=== PATIENT | male | born 1955 | race African-American/Black ===

== ENCOUNTER 2019-06-14 16:32 | Outpatient (CLI) | payer MEDICARE, SELFPAY ==
--- NOTE | ~2019-06-14 | XR_ITS ---
XR knee LT min 4V 06/14/2019 17:01 Indication: Left knee pain Procedure: 4 views left knee Comparison: No prior studies for comparison. Findings: No fracture, subluxation or dislocation. No significant joint effusion. Normal alignment. Impression: 1: No acute bone or joint abnormality. Reviewed, dictated and finalized at location A. UCTIVITY ENGINEER Impression: 1: No acute bone or joint abnormality.
--- NOTE | ~2019-06-14 | XR_ITS ---
XR hip BI wo pelvis 06/14/2019 17:01 Indication: Bilateral hip pain Procedure: 2 views of each hip Comparison: No prior studies for comparison. Findings: Mild symmetric osteoarthritis of the hips. No fracture, subluxation or dislocation. Pelvic rings are grossly intact. No focal soft tissue abnormality. No foreign bodies. Impression: 1: Mild bilateral symmetric osteoarthritis of the hips. Reviewed, dictated and finalized at location A. SCALER Impression: 1: Mild bilateral symmetric osteoarthritis of the hips.
--- NOTE | ~2019-06-14 | XR_ITS ---
XR knee RT min 4V 06/14/2019 17:01 Indication: Bilateral knee pain Procedure: 4 views right knee Comparison: No prior studies for comparison. Findings: No fracture, subluxation or dislocation. No significant joint effusion. No joint space narr owing. Anatomic alignment. Impression: 1: No significant bone or joint abnormality. Reviewed, dictated and finalized at location A. EL JOURNALIST Impression: 1: No significant bone or joint abnormality.
== END 2019-06-14 16:33 | disposition home or self-care (01) ==
PROVIDERS: Visit Provider Nurse Practitioner Adult Health
DX: M25.551 Pain in right hip (principal); M25.552 Pain in left hip; M16.0 Bilateral primary osteoarthritis of hip
CPT/HCPCS: 73521; 73564

== ENCOUNTER 2019-06-29 02:21 | Inpatient (IN) | payer MEDICARE, SELFPAY ==
[2019-06-29] VITALS (7 sets, daily range): BP systolic 105–131; BP diastolic 62–84; PULSE 62–77; RESP 16–20; TEMP 36.1–37.2; O2SAT 98–100; BMI 20.6
--- NOTE | ~2019-06-29 | MR_ITS ---
EXAMINATION: MR brain IAC wo con DATE: 06/30/2019 17:19 INDICATION: Vertigo. TECHNIQUE: Magnetic resonance imaging (MRI) of the brain, brainstem, and internal auditory canals was performed without intravenous contrast. Sequences included sagittal and axial T1-weighted FSE, axial diffusion-weighted FS EPI, axial T2*-weighted GRE, axial T2-weighted FLAIR Propeller, axial T2-weigh orly Propeller, small [id number] coronal FIESTA, small cmwse-[id number] coronal T1-weighted FSE, and s mall [id number] axial T1-weighted SPGR. Apparent diffusion coefficient (ADC) maps were created. COMPARISON: Head CT 06/27/2008 FINDINGS: There are scattered areas of nonspecific increased T2-weighted signal intensity in the cere bral white matter, which is within normal limits for the patient's age. There is no intracranial hemo rrhage, acute infarction, or abnormal intracranial mass lesion. The ventricles are normal in size. Th e paranasal sinuses are clear. The internal auditory canals and inner and middle ears are normal. The mastoid air cells are normal. The orbits are normal. IMPRESSION: 1. Normal aging brain. Reviewed, dictated and finalized at location A. IT ADVISOR IMPRESSION: 1. Normal aging brain.
--- NOTE | 2019-06-29 04:09 | ECG_ITS ---
Measurements Intervals [place] Rate: 67 P: 60 ME: 190 QRS: 6 QRSD: 105 T: 44 QT: 398 QTc: 421 Interpretive Statements SINUS RHYTHM VOLTAGE CRITERIA FOR LVH MINIMAL Q WAVES- LATERAL LEADS BORDERLINE ECG Electronically Signed On 06-29-2019 8:22:54 FARM REPORTER by Franklin Bajwa D.O.
--- NOTE | 2019-06-29 04:22 | ED.GENADULT ---
HPI - General Adult General Chief complaint: Unspecified Stated complaint: weak Time Seen by Provider: 06/29/19 04:07 Source: patient Mode of arrival: ambulatory Limitations: no limitations History of Present Illness HPI narrative: 63 yo male with h/o sickle cell anemia, DM, DVT on Eliquis, HTN who presents for evaluation of dizziness and fatigue. Patient states since last he has been having dizziness or room spinning and he has close his eyes. He denies nausea, vomiting, fever or URI symptoms. HE states he feels fatigue and he was having difficulty walking due to fatigue. He thinks he may need a transfusion . He denies blood loss. Onset (ago): day(s) Related Data Home Medications Medication Instructions Recorded Confirmed Eliquis 5 mg PO BID 06/02/19 06/29/19 Tresiba FlexTouch U-200 10 unit SUBCUT DAILY 06/02/19 06/29/19 diphenhydramine HCl [Benadryl] 25 mg PO Q4H PRN 06/02/19 06/29/19 folic acid 1 mg PO DAILY 06/02/19 06/29/19 metformin 500 mg PO BID 06/02/19 06/29/19 atenolol 25 mg PO BID 06/29/19 06/29/19 furosemide 20 mg PO DAILY 06/29/19 06/29/19 hydralazine 25 mg PO BID 06/29/19 06/29/19 hydrochlorothiazide 25 mg PO DAILY 06/29/19 06/29/19 lisinopril 10 mg PO DAILY 06/29/19 06/29/19 meloxicam 7.5 mg PO DAILY 06/29/19 06/29/19 Allergies Allergy/AdvReac Type Severity Reaction Status Date / Time iohexol Allergy Severe Unconscious Verified 06/08/19 08:49 [From CONTRAST - CT, XRAY] Contrast Media Allergy Severe PASSED Uncoded 06/08/19 08:49 OUT Review of Systems Review of Systems: All systems reviewed & are unremarkable except as noted in HPI and below Constitutional: Constitutional: Denies chills, Denies fever(s) and Reports weakness Eyes: Eyes: Denies change in vision and Denies photophobia ENT: Reports vertigo Cardiovascular: Cardiovascular: Denies chest pain and Denies radiating jaw, neck or arm pain Respiratory: Respiratory: Denies cough and Denies dyspnea Gastrointestinal: Gastrointestinal: Denies abdominal pain, Denies nausea and Denies vomiting Musculoskeletal: Musculoskeletal: Reports back pain (chronic pain) Endocrine: Endocrine: Reports fatigue Hematologic/Lymphatic: Hematologic/Lymphatic: Reports easy bleeding PMFSH Past Medical History Medical History (Updated 06/29/19 @ 08:31 by Ina Mcneli MD) Anxiety Back fracture Cataract Depression Diabetes Diabetes DVT (deep venous thrombosis) FH: cholecystectomy Gall bladder disease Hypertension Irregular heartbeat Liver disease Pancreatitis Pneumonia Port-A-Cath in place Pulmonary embolism Surgical History Surgical History (System 06/08/19 @ 08:49 by Tracee Perez) Hx of cholecystectomy Family History Family History (Updated 06/29/19 @ 08:20 by Shraddha Venegas RN) Father Acute myocardial infarction Sibling Diabetes mellitus Sibling Hypertension Other Congestive heart failure Social History Social History (System 06/08/19 @ 08:49 by Tracee Perez) Smoking status: Never smoker Second hand tobacco smoke exposure: Yes Alcohol intake: never Substance use: never Gender identity (if verbalized by the patient): Male Spiritual care concerns: No Agree to blood products: Yes Exam Narrative: Exam Narrative: GENERAL: and in no acute distress. HEAD: Normocephalic, atraumatic EYES: PERRLA and EOMI, conjunctiva clear without discharge EARS: TM's clear bilaterally without erythema or dullness NOSE: Nares clear, no rhinorrhea or epistaxis THROAT:Mucous membranes moist, Oropharynx normal without erythema, exudate, peritonsillar swelling or fluctuance NECK: Supple, without lymphadenopathy or mass RESPIRATORY: No respiratory distress, Airway patent, Respirations non-labored, Clear to auscultation without rales, rhonchi or wheeze HEART: Regular rate and rhythm. No murmur heard. Normal peripheral pulses. ABDOMEN: Soft, nontender, distended
[2019-06-29 05:35] LABS: Basophils Absolute Auto 0.1 K/mm3 (0.0-0.1); Basophils Percent Auto 0.5 % (0.2-1.2); Eosinophils Absolute Auto 0.3 K/mm3 (0-0.3); Eosinophils Percent Auto 2.4 % (0-4.4); Hematocrit 23.8 % (42.0-52.0); Hemoglobin 7.6 g/dL (14.0-18.0); Immature Granulocyte Absolute 0.03 K/mm3 (0.00-0.031); Immature Granulocyte Percent A 0.3 % (0-0.5); Immature Reticulocyte Fraction 3.7 % (3.0-15.9); Lymphocytes Absolute Auto 3.21 K/mm3 (0.9-3.2); Lymphocytes Percent Auto 27.8 % (18.3-44.2); Mean Corpuscular HGB Conc 31.9 g/dl (32-36); Mean Corpuscular Hemoglobin 29.6 pg (26-34); Mean Corpuscular Volume 92.6 fl (80-100); Mean Platelet Volume 12.9 fl (7.4-10.4); Monocytes Absolute Auto 0.8 K/mm3 (0.1-0.6); Monocytes Percent Auto 6.9 % (2.6-8.5); Neutrophils Absolute Auto 7.2 K/mm3 (1.3-6.7); Neutrophils Percent Auto 62.1 % (45.5-73.1); Platelet Count Result 183 k/mm3 (150-375); Red Blood Count 2.57 M/mm3 (4.6-6.20); Red Cell Distribution Width 17.2 % (11.5-14.5); Reticulocyte Hemoglobin Conten 32.8 pg (28.2-35.7); Reticulocytes Absolute 0.02 B/L (32.2-175.7); White Blood Count 11.5 K/mm3 (4.5-10.0)
[2019-06-29 05:38] LABS: Add Urine Microscopic? NO; Appearance Urine Clear (Clear); Bilirubin Urine Negative (Negative); Blood Urine Negative (Negative); Color Urine Yellow (Yellow); Glucose Urine UA Negative (Negative); Ketones Urine Negative (Negative); Leukocyte Esterase Ur Negative LEU/UL (Negative); Nitrate Urine Negative (Negative); Protein Urine Negative (Negative); Specific Grav Ur 1.013 (1.001-1.035); Urobilinogen Urine Negative mg/dL (<2.0)
[2019-06-29 05:56] LABS: Alanine Aminotransferase 48 U/L (4-50); Albumin Level 4.4 g/dL (3.5-5.1); Alkaline Phosphatase 132 U/L (38-126); Aspartate Amino Transferase 60 U/L (17-59); Bilirubin,Total 2.5 mg/dL (0.2-1.3); Blood Urea Nitrogen 47 mg/dL (9-20); Calcium 9.8 mg/dL (8.4-10.2); Carbon Dioxide 25 mmol/L (22-30); Chloride 102 mmol/L (98-107); Estimated CRCL calculation 29 ml/min; Estimated Glomerular Filt Rate 39; Glucose 126 mg/dL (75-110); Potassium 4.9 mmol/L (3.4-5.0); Sodium 137 mmol/L (137-145)
[2019-06-29 06:03] LABS: Large Platelets Present; Platelet Estimate Adequate (Adequate)
[2019-06-29 06:04] LABS: Hypochromasia 1+ (NORMAL); Ovalocytes 1+ (NORMAL); Target Cells 1+ (NORMAL)
--- NOTE | 2019-06-29 07:30 | PC.NURSE ---
This patient, Jaden Gonzalez, was admitted to 2 Medical Room 240-. Patient/family oriented to hospital policies and general routines including ID bracelet, bed and alarms, visiting hours, pain management, procedures, bathroom and other care routines, personal items, smoking policy, room service/diet, and visiting hours. Valuables list has been completed. Information on how to activate the Rapid Response Team has been discussed. Patient/Family are encouraged to report perceived risks to care and to ask questions if they do not understand what they are told or what they should do.
[2019-06-29] MEDS: LACTATED RINGERS 1,000 ML 75 ML IV CONT ×2 (07:51→20:15)
[2019-06-29] MEDS: PANTOPRAZOLE SODIUM IV 40 MG VIAL IV PUSH (08:35)
--- NOTE | 2019-06-29 10:59 | PM.IMHP ---
H&P: HPI History of Present Illness Chief complaint: Acute renal failure Narrative: Date of visit 06/29. Jaden Gonzalez is a 63 year old hypertensive type 2 diabetic black male with history of sickle cell disease and DVT who presented to the emergency room with complaints of weakness and dizziness. He states he feels lightheaded yet states that things seem to spin with the room moving with no particular positioning and no associated headache, nausea, or tinnitus. His does discharge from the hospital here after a a crisis on 06/09/19 at which time he received 2 units of packed cells and hemoglobin was 9.1 at discharge. Denies any fever chills cough or respiratory symptoms Review of Systems Review of Systems: Narrative: Constitutional states his weight is steady in appetite good Eye no double vision or scotoma Mouth no pharyngitis laryngitis CV no history of palpitations or chest pain ABD soft nontender Extremities without edema distal pulses are 1+ Neuro alert pleasant cooperative no seizures or syncope Integument no skin breakdown rashes Neuro psych no inappropriate affect appears well compensated for his illness PMFSH Past Medical History Medical History (Updated 06/29/19 @ 11:07 by Bj Almazan MD) Anxiety Back fracture Cataract Depression Diabetes Diabetes DVT (deep venous thrombosis) FH: cholecystectomy Gall bladder disease Hypertension Irregular heartbeat Liver disease Pancreatitis Pneumonia Port-A-Cath in place Pulmonary embolism Surgical History Surgical History (System 06/08/19 @ 08:49 by Tracee Perez) Hx of cholecystectomy Family History Family History (Updated 06/29/19 @ 08:20 by Shraddha Venegas RN) Father Acute myocardial infarction Sibling Diabetes mellitus Sibling Hypertension Other Congestive heart failure Social History Social History (System 06/08/19 @ 08:49 by Tracee Perez) Smoking status: Never smoker Second hand tobacco smoke exposure: Yes Alcohol intake: never Substance use: never Gender identity (if verbalized by the patient): Male Spiritual care concerns: No Agree to blood products: Yes Meds Home Medications and Allergies Home Medications Medication Instructions Recorded Confirmed Type Eliquis 5 mg PO BID 06/02/19 06/29/19 History Tresiba FlexTouch U-200 10 unit SUBCUT DAILY 06/02/19 06/29/19 History diphenhydramine HCl [Benadryl] 25 mg PO Q4H PRN 06/02/19 06/29/19 History folic acid 1 mg PO DAILY 06/02/19 06/29/19 History metformin 500 mg PO BID 06/02/19 06/29/19 History atenolol 25 mg PO BID 06/29/19 06/29/19 History furosemide 20 mg PO DAILY 06/29/19 06/29/19 History hydralazine 25 mg PO BID 06/29/19 06/29/19 History hydrochlorothiazide 25 mg PO DAILY 06/29/19 06/29/19 History lisinopril 10 mg PO DAILY 06/29/19 06/29/19 History meloxicam 7.5 mg PO DAILY 06/29/19 06/29/19 History Allergies Allergy/AdvReac Type Severity Reaction Status Date / Time iohexol Allergy Severe Unconscious Verified 06/08/19 08:49 [From CONTRAST - CT, XRAY] Contrast Media Allergy Severe PASSED Uncoded 06/08/19 08:49 OUT Vital Signs Vital Signs - 24 hr 06/29/19 02:30 06/29/19 07:28 06/29/19 07:58 Temperature 37.2 C 36.5 C Pulse Rate 62 72 66 Respiratory Rate 18 18 16 Blood Pressure 105/62 117/69 131/66 Pulse Oximetry 100 98 100 06/29/19 08:00 Temperature Pulse Rate 77 Respiratory Rate Blood Pressure 107/67 Pulse Oximetry Exam Narrative: Exam Narrative: Blood pressure 122/72 pulse is 72 saturating 95% on room air afebrile Pupils equal reactive light sclera anicteric Mouth normal mucosa Neck supple no adenopathy Lungs clear no wheezing consolidation CV regular rate rhythm very faint systolic murmur lower left sternal border Abdomen is soft nontender no masses Extremities without edema distal pulses are 1+ Neuro alert pleasant cooperative no focal deficits Integument no skin breakdown rashes With
[2019-06-29 11:28] LABS: Glucose Point of Care 127 (65-105)
[2019-06-29] MEDS: FOLIC ACID 1 MG TABLET PO (11:43)
[2019-06-29] MEDS: FUROSEMIDE 20 MG TABLET PO (11:43)
[2019-06-29] MEDS: lisinopriL 10 MG TABLET PO (11:43)
[2019-06-29] MEDS: HYDROMORPHONE HCL 2 MG TABLET PO (12:18)
[2019-06-29] MEDS: HYDROMORPHONE HCL 2 MG TABLET 4 MG PO ×2 (16:03→20:11)
[2019-06-29] MEDS: hydrALAZINE HCL 25 MG TABLET PO (17:33)
[2019-06-29] MEDS: APIXABAN 5 MG TABLET PO (17:33)
[2019-06-29] MEDS: atenoloL 25 MG TABLET PO (17:34)
[2019-06-29 18:01] LABS: Glucose Point of Care 155 (65-105)
[2019-06-29 18:01] LABS: Glucose Point of Care 118 (65-105)
[2019-06-30] MEDS: HYDROMORPHONE HCL 2 MG TABLET 4 MG PO ×4 (02:53→20:11)
[2019-06-30 05:37] LABS: Basophils Absolute Auto 0.1 K/mm3 (0.0-0.1); Basophils Percent Auto 0.5 % (0.2-1.2); Eosinophils Absolute Auto 0.3 K/mm3 (0-0.3); Eosinophils Percent Auto 2.6 % (0-4.4); Hematocrit 21.5 % (42.0-52.0); Immature Granulocyte Absolute 0.04 K/mm3 (0.00-0.031); Immature Granulocyte Percent A 0.4 % (0-0.5); Lymphocytes Absolute Auto 2.61 K/mm3 (0.9-3.2); Lymphocytes Percent Auto 23.9 % (18.3-44.2); Mean Corpuscular HGB Conc 32.1 g/dl (32-36); Mean Corpuscular Hemoglobin 29.5 pg (26-34); Mean Corpuscular Volume 91.9 fl (80-100); Monocytes Absolute Auto 0.8 K/mm3 (0.1-0.6); Monocytes Percent Auto 6.9 % (2.6-8.5); Neutrophils Absolute Auto 7.2 K/mm3 (1.3-6.7); Neutrophils Percent Auto 65.7 % (45.5-73.1); Platelet Count Result 160 k/mm3 (150-375); Red Blood Count 2.34 M/mm3 (4.6-6.20); Red Cell Distribution Width 16.9 % (11.5-14.5); White Blood Count 10.9 K/mm3 (4.5-10.0)
[2019-06-30 05:57] LABS: Blood Urea Nitrogen 26 mg/dL (9-20); Calcium 9.5 mg/dL (8.4-10.2); Carbon Dioxide 28 mmol/L (22-30); Chloride 99 mmol/L (98-107); Estimated CRCL calculation 42 ml/min; Estimated Glomerular Filt Rate > 60; Glucose 199 mg/dL (75-110); Lactate Dehydrogenase 634 U/L (313-618); Potassium 4.6 mmol/L (3.4-5.0); Sodium 137 mmol/L (137-145)
[2019-06-30 06:00] VITALS: BP 145/88; PULSE 70; RESP 21; TEMP 36.4; O2SAT 100
[2019-06-30 06:08] LABS: Hemoglobin 6.9 g/dL (14.0-18.0)
[2019-06-30 06:10] LABS: Hypochromasia 1+ (NORMAL); Ovalocytes 1+ (NORMAL)
[2019-06-30 06:11] LABS: Large Platelets Present; Platelet Estimate Adequate (Adequate)
[2019-06-30 08:52] VITALS: PULSE 70
[2019-06-30] MEDS: hydrALAZINE HCL 25 MG TABLET PO ×2 (08:52→17:30)
[2019-06-30] MEDS: atenoloL 25 MG TABLET PO ×2 (08:52→17:30)
[2019-06-30] MEDS: PANTOPRAZOLE SODIUM IV 40 MG VIAL IV PUSH (08:53)
[2019-06-30] MEDS: lisinopriL 10 MG TABLET PO (08:53)
[2019-06-30] MEDS: APIXABAN 5 MG TABLET PO ×2 (08:53→17:30)
[2019-06-30] MEDS: FUROSEMIDE 20 MG TABLET PO (08:53)
[2019-06-30] MEDS: FOLIC ACID 1 MG TABLET PO (08:53)
[2019-06-30] MEDS: ONDANSETRON INJ 4 MG/2 ML VIAL IV PUSH (09:41)
[2019-06-30] MEDS: LACTATED RINGERS 1,000 ML 75 ML IV CONT (09:45)
[2019-06-30 09:49] LABS: Glucose Point of Care 170 (65-105)
[2019-06-30 13:52] LABS: Glucose Point of Care 143 (65-105)
[2019-06-30 14:00] VITALS: BP 130/63; PULSE 72; RESP 18; TEMP 36.3; O2SAT 100
--- NOTE | 2019-06-30 16:03 | PM.IMPN ---
Progress Note: A&P Assessment and Plan (1) Dizzy: Code(s): R42 - Dizziness and giddiness Status: Acute Assessment and Plan: By history appears more vertiginous. He is more anemic whether that is contributing to it is possible. With persisting will proceed with MR of the brain B12 is normal as well as TSH (2) Hypertension: Code(s): I10 - Essential (primary) hypertension Status: Chronic Assessment and Plan: Pressure still could control continue the hydralazine low-dose beta-lalita and diuretic (3) Diabetes: Code(s): E11.9 - Type 2 diabetes mellitus without complications Status: Chronic Assessment and Plan: Sliding scale will hold oral metformin and FBS under 150 (4) History of DVT (deep vein thrombosis): Code(s): Z86.718 - Personal history of other venous thrombosis and embolism Status: Acute Assessment and Plan: Continue the Eliquis (5) Sickle cell anemia with coexistent alpha-thalassemia: Code(s): D57.40 - Sickle-cell thalassemia without crisis Status: Acute Assessment and Plan: follow serial hemoglobins , down to 6.9 today. B12 is normal. Iron studies before if been high saturation with his history of iron overload.. Check stool for occult blood. LDH is lower than it has been in the past suggesting no active hemolysis. If continues to fall will get opinion from Hematology also (6) Chronic pain: Code(s): G89.29 - Other chronic pain Status: Acute Assessment and Plan: Treating with hydromorphone. I did not feel he is in an acute crisis Subjective Date/time seen: 06/30/19 16:03 Interval history: Date of visit 06/30. 63-year-old hypertensive type 2 diabetic with sickle cell anemia admitted with dizziness primarily vertiginous and anemia.. Still off balance when he tries to get up and complaining of more pain. No evidence of any GI blood loss and BUN and creatinine have fallen with hydration Exam Narrative: Exam Narrative: Blood pressure 130/64 pulse is 82 saturating 95% on room air afebrile Pupils equal reactive light sclera anicteric Mouth normal mucosa Neck supple no adenopathy Lungs clear no wheezing consolidation CV regular rate rhythm very faint systolic murmur lower left sternal border Abdomen is soft nontender no masses Extremities without edema distal pulses are 1+ Neuro alert pleasant cooperative no focal deficits, [id number] is intact, no nystagmus on lateral gaze Objective Data Vital Signs Vital Signs: Vital Signs - 24 hr 06/29/19 17:34 06/29/19 22:00 06/30/19 06:00 Temperature 36.1 C L 36.4 C L Pulse Rate 66 70 70 Respiratory Rate 20 21 H Blood Pressure 130/71 145/88 H Pulse Oximetry 98 100 06/30/19 08:52 06/30/19 14:00 Temperature 36.3 C L Pulse Rate 70 72 Respiratory Rate 18 Blood Pressure 130/63 Pulse Oximetry 100 Intake/Output Intake/Output: Intake & Output 06/27/19 06/28/19 06/29/19 06/30/19 23:59 23:59 23:59 23:59 Intake Total 2570 1880 Output Total 650 1600 Balance 1920 280 Meds/Results Medications: Active Medications Generic Name Dose Route Start Last Admin Trade Name Freq PRN Reason Stop Dose Admin Apixaban 5 mg 06/29/19 17:00 06/30/19 08:53 Eliquis PO 5 mg BID JESSE Administration Atenolol 25 mg 06/29/19 17:00 06/30/19 08:52 Tenormin PO 25 mg BID JESSE Administration Dextrose 12.5 gm 06/29/19 11:21 Dextrose 50% Syringe IV PUSH PRN PRN Hypoglycemia Protocol Diphenhydramine HCl 25 mg 06/29/19 10:51 06/30/19 14:48 Benadryl Cap PO 25 mg Q4H PRN Administration Itching Folic Acid 1 mg 06/29/19 09:00 06/30/19 08:53 Folic Acid PO 1 mg DAILY JESSE Administration Furosemide 20 mg 06/29/19 09:00 06/30/19 08:53 Lasix Tablet PO 20 mg DAILY JESSE Administration Glucagon 1 mg 06/29/19 11:21 Glucagon For Inj IM PRN PRN Hypoglycemia Protocol
[2019-06-30 17:30] VITALS: PULSE 72
[2019-06-30 17:38] LABS: Glucose Point of Care 153 (65-105)
--- NOTE | 2019-06-30 20:24 | PC.NURSE ---
pt refuses accjudith and mora this evening, Sunita Mendieta is aware.
[2019-06-30 21:43] VITALS: BP 121/56; PULSE 79; RESP 20; TEMP 36.4; O2SAT 98
[2019-07-01] MEDS: HYDROMORPHONE HCL 2 MG TABLET 4 MG PO ×6 (00:33→23:12)
[2019-07-01] MEDS: LACTATED RINGERS 1,000 ML 50 ML IV CONT ×2 (03:48→21:17)
[2019-07-01 06:00] VITALS: BP 117/57; PULSE 74; RESP 18; TEMP 36.4; O2SAT 96
[2019-07-01 06:50] LABS: Hematocrit 21.5 % (42.0-52.0); Immature Reticulocyte Fraction 12.5 % (3.0-15.9); Mean Corpuscular HGB Conc 32.1 g/dl (32-36); Mean Corpuscular Hemoglobin 29.7 pg (26-34); Mean Corpuscular Volume 92.7 fl (80-100); Mean Platelet Volume 13.4 fl (7.4-10.4); Platelet Count Result 156 k/mm3 (150-375); Red Blood Count 2.32 M/mm3 (4.6-6.20); Red Cell Distribution Width 17.2 % (11.5-14.5); Reticulocyte Hemoglobin Conten 32.8 pg (28.2-35.7); Reticulocyte Percent 1.63 % (0.7-4.3); Reticulocytes Absolute 0.04 B/L (32.2-175.7); White Blood Count 13.9 K/mm3 (4.5-10.0)
[2019-07-01 06:52] LABS: Hemoglobin 6.9 g/dL (14.0-18.0)
[2019-07-01 07:02] LABS: Alanine Aminotransferase 39 U/L (4-50); Albumin Level 3.9 g/dL (3.5-5.1); Alkaline Phosphatase 109 U/L (38-126); Aspartate Amino Transferase 50 U/L (17-59); Bilirubin,Total 2.5 mg/dL (0.2-1.3); Blood Urea Nitrogen 20 mg/dL (9-20); Calcium 9.5 mg/dL (8.4-10.2); Carbon Dioxide 29 mmol/L (22-30); Chloride 99 mmol/L (98-107); Estimated CRCL calculation 46 ml/min; Estimated Glomerular Filt Rate > 60; Glucose 168 mg/dL (75-110); Lactate Dehydrogenase 652 U/L (313-618); Potassium 4.5 mmol/L (3.4-5.0); Sodium 139 mmol/L (137-145)
[2019-07-01 08:03] LABS: Glucose Point of Care 173 (65-105)
[2019-07-01 09:40] VITALS: PULSE 74
[2019-07-01] MEDS: PANTOPRAZOLE 40 MG TABLET PO (09:40)
[2019-07-01] MEDS: APIXABAN 5 MG TABLET PO ×2 (09:40→17:08)
[2019-07-01] MEDS: atenoloL 25 MG TABLET PO ×2 (09:40→17:08)
[2019-07-01] MEDS: lisinopriL 10 MG TABLET PO (09:40)
[2019-07-01] MEDS: hydrALAZINE HCL 25 MG TABLET PO ×2 (09:40→17:08)
[2019-07-01] MEDS: FOLIC ACID 1 MG TABLET PO (09:40)
[2019-07-01] MEDS: FUROSEMIDE 20 MG TABLET PO (09:40)
[2019-07-01 11:53] LABS: Glucose Point of Care 214 (65-105)
[2019-07-01 14:00] VITALS: BP 107/56; PULSE 82; RESP 19; TEMP 36.7; O2SAT 96
--- NOTE | 2019-07-01 15:32 | PM.IMPN ---
Progress Note: A&P Assessment and Plan (1) Dizzy: Code(s): R42 - Dizziness and giddiness Status: Acute Assessment and Plan: By history appears more vertiginous. He is more anemic whether that is contributing to it is possible. With persisting obtained MR of the brain which was normal . B12 is normal as well as TSH (2) Hypertension: Code(s): I10 - Essential (primary) hypertension Status: Chronic Assessment and Plan: Pressure still could control continue the hydralazine low-dose beta-lalita and diuretic (3) Diabetes: Code(s): E11.9 - Type 2 diabetes mellitus without complications Status: Chronic Assessment and Plan: Sliding scale will hold oral metformin and FBS 168 today (4) History of DVT (deep vein thrombosis): Code(s): Z86.718 - Personal history of other venous thrombosis and embolism Status: Acute Assessment and Plan: Continue the Eliquis (5) Sickle cell anemia with coexistent alpha-thalassemia: Code(s): D57.40 - Sickle-cell thalassemia without crisis Status: Acute Assessment and Plan: follow serial hemoglobins , down to 6.9 again. B12 is normal. Iron studies before if been high saturation with his history of iron overload.. Check stool for occult blood. LDH is lower than it has been in the past suggesting no active hemolysis. hold on transfusion for now (6) Chronic pain: Code(s): G89.29 - Other chronic pain Status: Acute Assessment and Plan: Treating with hydromorphone. I did not feel he is in an acute crisis Subjective Date/time seen: 07/01/19 15:32 Interval history: Date of visit 07/01. 63-year-old hypertensive type 2 diabetic with sickle cell anemia admitted with dizziness primarily vertiginous and anemia.. Still off balance when he tries to get up and complaining of more pain. No evidence of any GI blood loss and BUN and creatinine have fallen with hydration MR 2/ negative Exam Narrative: Exam Narrative: Blood pressure 108/56 pulse is 82 saturating 95% on room air afebrile Pupils equal reactive light sclera do not appear iicteric Mouth normal mucosa Neck supple no adenopathy Lungs clear no wheezing consolidation CV regular rate rhythm very faint systolic murmur lower left sternal border Abdomen is soft nontender no masses Extremities without edema distal pulses are 1+ Neuro alert pleasant cooperative no focal deficits, no nystagmus on lateral gaze Objective Data Vital Signs Vital Signs: Vital Signs - 24 hr 06/30/19 17:30 06/30/19 21:43 07/01/19 06:00 Temperature 36.4 C 36.4 C L Pulse Rate 72 79 74 Respiratory Rate 20 18 Blood Pressure 121/56 L 117/57 L Pulse Oximetry 98 96 07/01/19 09:40 07/01/19 14:00 Temperature 36.7 C Pulse Rate 74 82 Respiratory Rate 19 Blood Pressure 107/56 L Pulse Oximetry 96 Intake/Output Intake/Output: Intake & Output 06/28/19 06/29/19 06/30/19 07/01/19 23:59 23:59 23:59 23:59 Intake Total 2570 2670 2190 Output Total 650 2750 1000 Balance 1920 -80 1190 Meds/Results Medications: Active Medications Generic Name Dose Route Start Last Admin Trade Name Freq PRN Reason Stop Dose Admin Apixaban 5 mg 06/29/19 17:00 07/01/19 09:40 Eliquis PO 5 mg BID JESSE Administration Atenolol 25 mg 06/29/19 17:00 07/01/19 09:40 Tenormin PO 25 mg BID JESSE Administration Dextrose 12.5 gm 06/29/19 11:21 Dextrose 50% Syringe IV PUSH PRN PRN Hypoglycemia Protocol Diphenhydramine HCl 25 mg 06/29/19 10:51 07/01/19 14:56 Benadryl Cap PO 25 mg Q4H PRN Administration Itching Folic Acid 1 mg 06/29/19 09:00 07/01/19 09:40 Folic Acid PO 1 mg DAILY JESSE Administration Furosemide 20 mg 06/29/19 09:00 07/01/19 09:40 Lasix Tablet PO 20 mg DAILY JESSE Administration Glucagon 1 mg 06/29/19 11:21 Glucagon For Inj IM PRN PRN Hypoglycemia Protocol Gluc
[2019-07-01 17:08] VITALS: PULSE 82
[2019-07-01 18:22] LABS: Glucose Point of Care 171 (65-105)
[2019-07-01 22:00] VITALS: BP 106/51; PULSE 85; RESP 16; TEMP 36.9; O2SAT 93
--- NOTE | 2019-07-01 22:16 | PC.NURSE ---
When speaking with pt he became slightly agitated with nurse for asking about his accucheck. Stated He has been refusing accuchecks for several night and you come in here telling me you are going to take my blood sugar. I was in room prior and told pt we had to take his blood sugar. I was told no and told him ok I will let the doctor know. Spoke with Cortney Barroso and let her know pt was refusing Lantus and accuchecks. She would not discontinue them at this time.
[2019-07-02] VITALS (10 sets, daily range): BP systolic 103–154; BP diastolic 47–64; PULSE 71–91; RESP 16; TEMP 36.4–37.9; O2SAT 92–99
[2019-07-02] MEDS: HYDROMORPHONE HCL 2 MG TABLET 4 MG PO ×2 (03:05→07:09)
[2019-07-02 05:41] LABS: Basophils Absolute Auto 0.1 K/mm3 (0.0-0.1); Basophils Percent Auto 0.4 % (0.2-1.2); Eosinophils Absolute Auto 0.6 K/mm3 (0-0.3); Eosinophils Percent Auto 3.4 % (0-4.4); Immature Granulocyte Absolute 0.08 K/mm3 (0.00-0.031); Immature Granulocyte Percent A 0.5 % (0-0.5); Lymphocytes Absolute Auto 5.87 K/mm3 (0.9-3.2); Lymphocytes Percent Auto 35.3 % (18.3-44.2); Mean Corpuscular HGB Conc 32.1 g/dl (32-36); Mean Corpuscular Hemoglobin 29.4 pg (26-34); Mean Corpuscular Volume 91.7 fl (80-100); Mean Platelet Volume 12.8 fl (7.4-10.4); Monocytes Absolute Auto 1.2 K/mm3 (0.1-0.6); Monocytes Percent Auto 7.4 % (2.6-8.5); Neutrophils Absolute Auto 8.8 K/mm3 (1.3-6.7); Nucleated Red Blood Cells Absolute Auto 0.1 K/mm3 (0.0-0.012); Nucleated Red Blood Cells Perc 0.5 % (0.0-0.2); Platelet Count Result 155 k/mm3 (150-375); Red Blood Count 2.04 M/mm3 (4.6-6.20); White Blood Count 16.6 K/mm3 (4.5-10.0)
[2019-07-02 05:44] LABS: Hematocrit 18.7 % (42.0-52.0)
[2019-07-02 06:12] LABS: Blood Urea Nitrogen 21 mg/dL (9-20); Calcium 8.8 mg/dL (8.4-10.2); Carbon Dioxide 29 mmol/L (22-30); Chloride 100 mmol/L (98-107); Estimated CRCL calculation 42 ml/min; Estimated Glomerular Filt Rate > 60; Glucose 170 mg/dL (75-110); Potassium 4.5 mmol/L (3.4-5.0); Sodium 136 mmol/L (137-145)
[2019-07-02 06:39] LABS: Lactate Dehydrogenase 659 U/L (313-618)
[2019-07-02 07:21] LABS: Glucose Point of Care 163 (65-105)
[2019-07-02] MEDS: SODIUM CHLORIDE 0.9% IV 250 ML 30 ML IV CONT (08:21)
[2019-07-02] MEDS: PANTOPRAZOLE 40 MG TABLET PO (08:22)
[2019-07-02] MEDS: APIXABAN 5 MG TABLET PO ×2 (08:22→17:19)
[2019-07-02] MEDS: atenoloL 25 MG TABLET PO ×2 (08:22→17:18)
[2019-07-02] MEDS: lisinopriL 10 MG TABLET PO (08:22)
[2019-07-02] MEDS: FUROSEMIDE 20 MG TABLET PO (08:22)
[2019-07-02] MEDS: FOLIC ACID 1 MG TABLET PO (08:22)
[2019-07-02] MEDS: hydrALAZINE HCL 25 MG TABLET PO ×2 (08:23→17:19)
[2019-07-02 12:30] LABS: Glucose Point of Care 219 (65-105)
[2019-07-02] MEDS: HYDROMORPHONE HCL 2 MG TABLET PO ×3 (12:44→21:16)
--- NOTE | 2019-07-02 14:03 | PM.IMPN ---
Progress Note: A&P Assessment and Plan (1) Dizzy: Code(s): R42 - Dizziness and giddiness Status: Acute Assessment and Plan: By history appears more vertiginous. He is more anemic whether that is contributing to it is possible. With persisting obtained MR of the brain which was normal . B12 is normal as well as TSH Slightly better today receiving Benadryl frequently so not started meclezine (2) Hypertension: Code(s): I10 - Essential (primary) hypertension Status: Chronic Assessment and Plan: Pressure still good control continue the hydralazine low-dose beta-lalita and diuretic (3) Diabetes: Code(s): E11.9 - Type 2 diabetes mellitus without complications Status: Chronic Assessment and Plan: Sliding scale will hold oral metformin and FBS 179 today (4) History of DVT (deep vein thrombosis): Code(s): Z86.718 - Personal history of other venous thrombosis and embolism Status: Acute Assessment and Plan: Continue the Eliquis (5) Sickle cell anemia with coexistent alpha-thalassemia: Code(s): D57.40 - Sickle-cell thalassemia without crisis Status: Acute Assessment and Plan: follow serial hemoglobins , down to 6.0 today so 1 unit of packed cells given. B12 is normal. Iron studies before if been high saturation with his history of iron overload.. Check stool for occult blood. LDH is lower than it has been in the past suggesting no active hemolysis. (6) Chronic pain: Code(s): G89.29 - Other chronic pain Status: Acute Assessment and Plan: Treating with hydromorphone. I did not feel he is in an acute crisis And will start tapering BP medication both with dose and interval Subjective Date/time seen: 07/02/19 14:03 Interval history: Date of visit 07/02. 63-year-old hypertensive type 2 diabetic with sickle cell anemia admitted with dizziness primarily vertiginous and anemia.. Still off balance when he tries to get up and complaining of more pain. Stated dizziness might be slightly better No evidence of any GI blood loss and BUN and creatinine have fallen with hydration MR 2 negative Exam Narrative: Exam Narrative: Blood pressure 116/64 pulse is 72 saturating 95% on room air afebrile Pupils equal reactive light sclera do not appear iicteric Mouth normal mucosa Neck supple no adenopathy Lungs clear no wheezing consolidation CV regular rate rhythm very faint systolic murmur lower left sternal border Abdomen is soft nontender no masses Extremities without edema distal pulses are 1+ Neuro alert pleasant cooperative no focal deficits, no nystagmus on lateral gaze Objective Data Vital Signs Vital Signs: Vital Signs - 24 hr 07/01/19 17:08 07/01/19 22:00 07/02/19 06:00 Temperature 36.9 C 37.9 C H Pulse Rate 82 85 91 Respiratory Rate 16 16 Blood Pressure 106/51 L 111/54 L Pulse Oximetry 93 92 07/02/19 08:20 07/02/19 08:22 07/02/19 08:35 Temperature 36.9 C 37.1 C Pulse Rate 83 84 80 Respiratory Rate 16 16 Blood Pressure 103/51 L 104/59 L Pulse Oximetry 93 97 07/02/19 09:35 07/02/19 10:35 07/02/19 10:51 Temperature 36.4 C 37.1 C 36.9 C Pulse Rate 71 72 72 Respiratory Rate 16 16 16 Blood Pressure 113/64 111/58 L 115/64 Pulse Oximetry 94 99 98 Intake/Output Intake/Output: Intake & Output 06/29/19 06/30/19 07/01/19 07/02/19 23:59 23:59 23:59 23:59 Intake Total 2570 2670 4315 1033 Output Total 650 2750 1300 100 Balance 1920 -80 3015 933 Meds/Results Medications: Active Medications Generic Name Dose Route Start Last Admin Trade Name Freq PRN Reason Stop Dose Admin Apixaban 5 mg 06/29/19 17:00 07/02/19 08:22 Eliquis PO 5 mg BID JESSE Administration Atenolol 25 mg 06/29/19 17:00 07/02/19 08:22 Tenormin PO 25 mg BID JESSE Administration Dextrose 12.5 gm 06/29/19 11:21 Dextrose 50% Syringe IV PUSH PRN PRN Hypoglycemia Protocol Diphen
[2019-07-02] MEDS: INSULIN ASPART (*BKC) 100 UNITS/ML SUB-Q (17:26)
[2019-07-02 18:19] LABS: Glucose Point of Care 265 (65-105)
[2019-07-02] MEDS: LACTATED RINGERS 1,000 ML 50 ML IV CONT (22:30)
[2019-07-03] MEDS: HYDROMORPHONE HCL 2 MG TABLET PO ×5 (00:50→22:36)
[2019-07-03 05:59] VITALS: BP 149/69; PULSE 68; RESP 16; TEMP 36.3; O2SAT 98
[2019-07-03 06:05] LABS: Basophils Absolute Auto 0.1 K/mm3 (0.0-0.1); Basophils Percent Auto 0.5 % (0.2-1.2); Eosinophils Absolute Auto 0.6 K/mm3 (0-0.3); Eosinophils Percent Auto 4.8 % (0-4.4); Hematocrit 22.1 % (42.0-52.0); Hemoglobin 7.4 g/dL (14.0-18.0); Immature Granulocyte Absolute 0.09 K/mm3 (0.00-0.031); Immature Granulocyte Percent A 0.7 % (0-0.5); Lymphocytes Absolute Auto 4.32 K/mm3 (0.9-3.2); Lymphocytes Percent Auto 32.4 % (18.3-44.2); Mean Corpuscular HGB Conc 33.5 g/dl (32-36); Mean Corpuscular Hemoglobin 29.8 pg (26-34); Mean Corpuscular Volume 89.1 fl (80-100); Mean Platelet Volume 11.8 fl (7.4-10.4); Monocytes Absolute Auto 1.2 K/mm3 (0.1-0.6); Monocytes Percent Auto 8.8 % (2.6-8.5); Neutrophils Absolute Auto 7.1 K/mm3 (1.3-6.7); Neutrophils Percent Auto 52.8 % (45.5-73.1); Nucleated Red Blood Cells Absolute Auto 0.3 K/mm3 (0.0-0.012); Nucleated Red Blood Cells Perc 1.9 % (0.0-0.2); Platelet Count Result 159 k/mm3 (150-375); Red Blood Count 2.48 M/mm3 (4.6-6.20); Red Cell Distribution Width 17.2 % (11.5-14.5); White Blood Count 13.3 K/mm3 (4.5-10.0)
[2019-07-03 06:34] LABS: Blood Urea Nitrogen 13 mg/dL (9-20); Calcium 9.2 mg/dL (8.4-10.2); Carbon Dioxide 31 mmol/L (22-30); Chloride 98 mmol/L (98-107); Estimated CRCL calculation 49 ml/min; Estimated Glomerular Filt Rate > 60; Glucose 177 mg/dL (75-110); Potassium 4.1 mmol/L (3.4-5.0); Sodium 138 mmol/L (137-145)
[2019-07-03 07:45] LABS: Glucose Point of Care 183 (65-105)
[2019-07-03 08:04] LABS: Anisocytosis 1+ (NORMAL); Hypochromasia 1+ (NORMAL); Platelet Estimate Adequate (Adequate); Poikilocytosis 2+ (NORMAL); Target Cells 2+ (NORMAL)
[2019-07-03 08:05] LABS: Ovalocytes 2+ (NORMAL)
[2019-07-03 08:36] VITALS: PULSE 76
[2019-07-03] MEDS: PANTOPRAZOLE 40 MG TABLET PO (08:36)
[2019-07-03] MEDS: hydrALAZINE HCL 25 MG TABLET PO ×2 (08:36→17:31)
[2019-07-03] MEDS: APIXABAN 5 MG TABLET PO ×2 (08:36→17:31)
[2019-07-03] MEDS: FOLIC ACID 1 MG TABLET PO (08:36)
[2019-07-03] MEDS: lisinopriL 10 MG TABLET PO (08:36)
[2019-07-03] MEDS: atenoloL 25 MG TABLET PO ×2 (08:36→17:31)
[2019-07-03] MEDS: FUROSEMIDE 20 MG TABLET PO (08:36)
[2019-07-03] MEDS: INSULIN ASPART (*BKC) 100 UNITS/ML SUB-Q ×2 (12:17→17:32)
--- NOTE | 2019-07-03 12:18 | PM.IMPN ---
Progress Note: A&P Assessment and Plan (1) Dizzy: Code(s): R42 - Dizziness and giddiness Status: Acute Assessment and Plan: By history appears more vertiginous. He is more anemic whether that is contributing to it is possible. With persisting obtained MR of the brain which was normal . B12 is normal as well as TSH Slightly better today receiving Benadryl frequently so not started meclezine continue ot/PT (2) Hypertension: Code(s): I10 - Essential (primary) hypertension Status: Chronic Assessment and Plan: Pressure still good control continue the hydralazine low-dose beta-lalita and diuretic (3) Diabetes: Code(s): E11.9 - Type 2 diabetes mellitus without complications Status: Chronic Assessment and Plan: Sliding scale will hold oral metformin and FBS 177 today (4) History of DVT (deep vein thrombosis): Code(s): Z86.718 - Personal history of other venous thrombosis and embolism Status: Acute Assessment and Plan: Continue the Eliquis (5) Sickle cell anemia with coexistent alpha-thalassemia: Code(s): D57.40 - Sickle-cell thalassemia without crisis Status: Acute Assessment and Plan: follow serial hemoglobins , up to 7.4 today after 1 unit of packed cells given 07/02 . B12 is normal. Iron studies before had high saturation with his history of iron overload.. Check stool for occult blood. LDH is lower than it has been in the past suggesting no active hemolysis. never had a colonscopy will have seen by heme also (6) Chronic pain: Code(s): G89.29 - Other chronic pain Status: Acute Assessment and Plan: Treating with hydromorphone. I did not feel he is in an acute crisis And will start tapering BP medication both with dose and interval Subjective Date/time seen: 07/03/19 12:18 Interval history: Date of visit 07/03. 63-year-old hypertensive type 2 diabetic with sickle cell anemia admitted with dizziness primarily vertiginous and anemia.. Still off balance when he tries to get up and complaining of more pain. Stated dizziness might be slightly better No evidence of any GI blood loss and BUN and creatinine have fallen with hydration MR 06/30 negative. never had colonoscope exam Exam Narrative: Exam Narrative: Blood pressure 140/70 pulse is 72 saturating 95% on room air afebrile Pupils equal reactive light sclera do not appear iicteric Mouth normal mucosa Neck supple no adenopathy Lungs clear no wheezing consolidation CV regular rate rhythm very faint systolic murmur lower left sternal border Abdomen is soft nontender no masses Extremities without edema distal pulses are 1+ Neuro alert pleasant cooperative no focal deficits, no nystagmus on lateral gaze Objective Data Vital Signs Vital Signs: Vital Signs - 24 hr 07/02/19 14:00 07/02/19 17:18 07/02/19 22:00 Temperature 36.4 C 36.6 C Pulse Rate 76 74 80 Respiratory Rate 16 16 Blood Pressure 119/56 L 154/47 H Pulse Oximetry 97 92 07/03/19 05:59 07/03/19 08:36 Temperature 36.3 C L Pulse Rate 68 76 Respiratory Rate 16 Blood Pressure 149/69 H Pulse Oximetry 98 Intake/Output Intake/Output: Intake & Output 06/30/19 07/01/19 07/02/19 07/03/19 23:59 23:59 23:59 23:59 Intake Total 2670 4315 2513 906 Output Total 2750 1300 1200 1100 Balance -80 3015 1313 -194 Meds/Results Medications: Active Medications Generic Name Dose Route Start Last Admin Trade Name Freq PRN Reason Stop Dose Admin Apixaban 5 mg 06/29/19 17:00 07/03/19 08:36 Eliquis PO 5 mg BID JESSE Administration Artificial Tears 1 drop 07/02/19 18:09 07/03/19 08:39 Artificial Tears EACH EYE 1 drop QID PRN Administration Dry Eye(s) Atenolol 25 mg 06/29/19 17:00 07/03/19 08:36 Tenormin PO 25 mg BID JESSE Administration Dextrose 12.5 gm 06/29/19 11:21 Dextrose 50% Syringe IV PUSH PRN PRN Hypoglycemia Protocol Di
[2019-07-03 12:22] LABS: Glucose Point of Care 228 (65-105)
[2019-07-03 14:00] VITALS: BP 118/63; PULSE 70; RESP 16; TEMP 36.4; O2SAT 93
[2019-07-03 17:25] LABS: Glucose Point of Care 256 (65-105)
[2019-07-03 17:31] VITALS: PULSE 76
[2019-07-03 22:00] VITALS: BP 141/64; PULSE 71; RESP 18; TEMP 36.8; O2SAT 100
[2019-07-04] MEDS: HYDROMORPHONE HCL 2 MG TABLET PO ×2 (05:05→12:15)
[2019-07-04 05:37] LABS: Blood Urea Nitrogen 11 mg/dL (9-20); Calcium 9.3 mg/dL (8.4-10.2); Carbon Dioxide 33 mmol/L (22-30); Chloride 98 mmol/L (98-107); Estimated CRCL calculation 49 ml/min; Estimated Glomerular Filt Rate > 60; Glucose 196 mg/dL (75-110); Lactate Dehydrogenase 563 U/L (313-618); Potassium 4.1 mmol/L (3.4-5.0); Sodium 139 mmol/L (137-145)
[2019-07-04 05:38] LABS: Basophils Absolute Auto 0.1 K/mm3 (0.0-0.1); Basophils Percent Auto 0.5 % (0.2-1.2); Eosinophils Absolute Auto 0.5 K/mm3 (0-0.3); Eosinophils Percent Auto 4.6 % (0-4.4); Hematocrit 24.2 % (42.0-52.0); Hemoglobin 7.7 g/dL (14.0-18.0); Immature Granulocyte Absolute 0.06 K/mm3 (0.00-0.031); Immature Granulocyte Percent A 0.5 % (0-0.5); Immature Reticulocyte Fraction 43.5 % (3.0-15.9); Lymphocytes Absolute Auto 3.56 K/mm3 (0.9-3.2); Lymphocytes Percent Auto 32.6 % (18.3-44.2); Mean Corpuscular HGB Conc 31.8 g/dl (32-36); Mean Corpuscular Hemoglobin 29.5 pg (26-34); Mean Corpuscular Volume 92.7 fl (80-100); Mean Platelet Volume 12.7 fl (7.4-10.4); Monocytes Absolute Auto 0.8 K/mm3 (0.1-0.6); Monocytes Percent Auto 7.1 % (2.6-8.5); Neutrophils Percent Auto 54.7 % (45.5-73.1); Nucleated Red Blood Cells Absolute Auto 0.6 K/mm3 (0.0-0.012); Nucleated Red Blood Cells Perc 5.3 % (0.0-0.2); Platelet Count Result 169 k/mm3 (150-375); Red Blood Count 2.61 M/mm3 (4.6-6.20); Red Cell Distribution Width 17.8 % (11.5-14.5); Reticulocyte Hemoglobin Conten 34.2 pg (28.2-35.7); Reticulocytes Absolute 0.19 B/L (32.2-175.7); White Blood Count 10.9 K/mm3 (4.5-10.0)
[2019-07-04 05:48] VITALS: BP 153/69; PULSE 66; RESP 20; TEMP 36.8; O2SAT 99
[2019-07-04 07:52] LABS: Glucose Point of Care 201 (65-105)
[2019-07-04 08:20] LABS: Anisocytosis 1+ (NORMAL); Hypochromasia 1+ (NORMAL); Macrocytosis 1+ (NORMAL); Platelet Estimate Adequate (Adequate)
[2019-07-04 08:21] LABS: Sickle Cells 1+ (NORMAL)
[2019-07-04 08:22] LABS: Target Cells 2+ (NORMAL)
[2019-07-04] MEDS: APIXABAN 5 MG TABLET PO ×2 (08:37→16:37)
[2019-07-04] MEDS: lisinopriL 10 MG TABLET PO (08:37)
[2019-07-04] MEDS: FOLIC ACID 1 MG TABLET PO (08:37)
[2019-07-04] MEDS: PANTOPRAZOLE 40 MG TABLET PO (08:37)
[2019-07-04 08:38] VITALS: PULSE 71
[2019-07-04] MEDS: FUROSEMIDE 20 MG TABLET PO (08:38)
[2019-07-04] MEDS: hydrALAZINE HCL 25 MG TABLET PO ×2 (08:38→16:37)
[2019-07-04] MEDS: atenoloL 25 MG TABLET PO ×2 (08:38→16:37)
--- NOTE | 2019-07-04 11:27 | PM.IMPN ---
Progress Note: A&P Assessment and Plan (1) Dizzy: Code(s): R42 - Dizziness and giddiness Status: Acute Assessment and Plan: By history appears more vertiginous. He is more anemic whether that is contributing to it is possible. With persisting obtained MR of the brain which was normal . B12 was normal as well as TSH Quite a bit better today and feels he could probably be discharged continue ot/PT (2) Hypertension: Code(s): I10 - Essential (primary) hypertension Status: Chronic Assessment and Plan: Pressure fair control continue the hydralazine low-dose beta-lalita and diuretic (3) Diabetes: Code(s): E11.9 - Type 2 diabetes mellitus without complications Status: Chronic Assessment and Plan: Sliding scale will hold oral metformin and FBS 201 today and continues to refuse insulin from sliding scale (4) History of DVT (deep vein thrombosis): Code(s): Z86.718 - Personal history of other venous thrombosis and embolism Status: Acute Assessment and Plan: Continue the Eliquis (5) Sickle cell anemia with coexistent alpha-thalassemia: Code(s): D57.40 - Sickle-cell thalassemia without crisis Status: Acute Assessment and Plan: , up to 7.7 today after 1 unit of packed cells given 07/02 . B12 is normal. Iron studies before had high saturation with his history of iron overload.. Check stool for occult blood. LDH is lower than it has been in the past suggesting no active hemolysis. never had a colonscopy will have seen by heme also and possible discharge later today (6) Chronic pain: Code(s): G89.29 - Other chronic pain Status: Acute Assessment and Plan: Treating with hydromorphone. I did not feel he is in an acute crisis And will continue tapering medication both with dose and interval Subjective Date/time seen: 07/04/19 11:27 Interval history: Date of visit 07/04. 63-year-old hypertensive type 2 diabetic with sickle cell anemia admitted with dizziness primarily vertiginous and anemia. States dizziness is better, slept better, and pain slightly better. Ready to go home . No evidence of any GI blood loss and BUN and creatinine have fallen with hydration MR 06/30 negative. never had colonoscope exam Exam Narrative: Exam Narrative: Blood pressure 150/70 pulse is 82 saturating 95% on room air afebrile Pupils equal reactive light sclera do not appear iicteric Mouth normal mucosa Neck supple no adenopathy Lungs clear no wheezing consolidation CV regular rate rhythm very faint systolic murmur lower left sternal border Abdomen is soft nontender no masses Extremities without edema distal pulses are 1+ Neuro alert pleasant cooperative no focal deficits, no nystagmus on lateral gaze Objective Data Vital Signs Vital Signs: Vital Signs - 24 hr 07/03/19 14:00 07/03/19 17:31 07/03/19 22:00 Temperature 36.4 C L 36.8 C Pulse Rate 70 76 71 Respiratory Rate 16 18 Blood Pressure 118/63 141/64 H Pulse Oximetry 93 100 07/04/19 05:48 07/04/19 08:38 Temperature 36.8 C Pulse Rate 66 71 Respiratory Rate 20 Blood Pressure 153/69 H Pulse Oximetry 99 Intake/Output Intake/Output: Intake & Output 07/01/19 07/02/19 07/03/19 07/04/19 23:59 23:59 23:59 23:59 Intake Total 4315 2513 3260 640 Output Total 1300 1200 2675 800 Balance 3015 1313 585 -160 Meds/Results Medications: Active Medications Generic Name Dose Route Start Last Admin Trade Name Freq PRN Reason Stop Dose Admin Apixaban 5 mg 06/29/19 17:00 07/04/19 08:37 Eliquis PO 5 mg BID JESSE Administration Artificial Tears 1 drop 07/02/19 18:09 07/04/19 08:38 Artificial Tears EACH EYE 1 drop QID PRN Administration Dry Eye(s) Atenolol 25 mg 06/29/19 17:00 07/04/19 08:38 Tenormin PO 25 mg BID JESSE Administration Dextrose 12.5 gm 06/29/19 11:21 Dextrose 50% Syringe IV PUSH PRN PRN Hypoglycemia
[2019-07-04 13:03] LABS: Glucose Point of Care 223 (65-105)
[2019-07-04] MEDS: INSULIN ASPART (*BKC) 100 UNITS/ML SUB-Q (13:08)
[2019-07-04 14:00] VITALS: BP 126/52; PULSE 73; RESP 14; TEMP 36.6; O2SAT 99
[2019-07-04] MEDS: CYANOCOBALAMIN INJ 1,000 MCG/ML VIAL 1000 MCG IM (14:51)
[2019-07-04 16:17] LABS: Iron 90 ug/dL (49-181)
[2019-07-04 16:26] LABS: Percent Iron Saturation 39 % (20-50)
[2019-07-04] MEDS: HEPARIN SOD FLUSH 500 UNITS/5 ML SYRINGE IV PUSH (16:27)
--- NOTE | 2019-07-04 18:14 | PM.DS ---
DS: Diagnosis Admitting Diagnosis Admitting Diagnosis: Dizziness and giddiness Discharge Diagnosis (1) Dizzy: Code(s): R42 - Dizziness and giddiness Status: Acute Assessment and Plan: By history appeared more vertiginous. He is more anemic whether that is contributing to it is possible. With persisting obtained MR of the brain which was normal . B12 was normal as well as TSH Quite a bit better today and feels he could probably be discharged Continue antihistamine as outpatient (2) Hypertension: Code(s): I10 - Essential (primary) hypertension Status: Chronic Assessment and Plan: Pressure fair control continue the hydralazine low-dose beta-lalita and diuretic (3) Diabetes: Code(s): E11.9 - Type 2 diabetes mellitus without complications Status: Chronic Assessment and Plan: Sliding scale and held oral metformin and FBS 201 today and continues to refuse insulin from sliding scale Resume oral hypoglycemic on discharge (4) History of DVT (deep vein thrombosis): Code(s): Z86.718 - Personal history of other venous thrombosis and embolism Status: Acute Assessment and Plan: Continue the Eliquis (5) Sickle cell anemia with coexistent alpha-thalassemia: Code(s): D57.40 - Sickle-cell thalassemia without crisis Status: Acute Assessment and Plan: , up to 7.7 today after 1 unit of packed cells given 07/02 . B12 is normal. Iron studies iron of 90 and TIBC 226 with ferritin pending.. LDH is lower than it has been in the past suggesting no active hemolysis. 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 I did not feel he is in an acute crisis And will continue tapering medication both with dose and interval and # 20 of 2 mg tablets on d/c DS: Summary Hospital Course Hospital Course: 63-year-old hypertensive type 2 diabetic with sickle cell disease admitted with vertiginous episodes and increasing pain. MR was negative of the brain and dizziness finally subsided. He did receive 1 unit of packed cells while here in hemoglobin the day of discharge with 7.7 Pain with subsiding and we were tapering his narcotics. He has had trouble with recurring anemia and was seen by who he will follow-up within 1-2 weeks Creatinine 1.1 on the day of discharge also Time Spent with Patient Time attestation: Total time spent providing and/or coordinating discharge services: 35 minutes Exam Narrative: Exam Narrative: Condition on discharge Blood pressure 150/70 pulse is 76 and regular Lungs clear CV systolic murmur as before Abdomen benign Extremities without edema distal pulses 2+ Neuro alert pleasant cooperative no focal deficits Up and about with less dizziness and taking diet well with much less pain DS: Data Data Completed and Pending Labs on day of discharge: Labs from last 24 hours 07/04/19 07/04/19 07/04/19 14:48 14:48 13:01 WBC RBC Hgb Hct MCV MCH MCHC RDW Plt Count MPV Immature Gran % (Auto) Neut % (Auto) Lymph % (Auto) Caroline % (Auto) Eos % (Auto) Baso % (Auto) Lymph # (Auto) Caroline # (Auto) Eos # (Auto) Baso # (Auto) Abs Immat Gran (auto) Absolute Neuts (auto) Absolute Nucleated RBC Nucleated RBC % Platelet Estimate Hypochromasia Anisocytosis Macrocytosis Sickle Cells Target Cells Absolute Retic Percent Retic Immature Retic Fraction Retic Hgb Content Sodium Potassium Chloride Carbon Dioxide BUN Creatinine Estim Creat Clear Calc Estimated GFR Glucose POC Capillary Glucose 223 H Calcium Iron 90 TIBC 229 L % Saturation Pendi
[2019-07-04 21:49] LABS: Ferritin > 2000.00 ng/mL (11.1-264)
--- NOTE | 2019-07-05 01:38 | CONS_ITS ---
DATE OF CONSULTATION: 07/04/2019 REASON FOR CONSULTATION: Anemia. HISTORY OF PRESENTING ILLNESS: This is a 63-year-old male with history of sickle cell disease and history of type 2 diabetes. He came into the hospital with generalized weakness and dizziness. The patient was last admitted to the hospital on June 09, 2019, at which time the patient's hemoglobin was 9.1 and also received blood transfusion. His labs on admission showed a hemoglobin of 7.4. He did complain of generalized musculoskeletal pain. He was seen by Dr. Nguyen until 2 months ago and was given pain medication. He was previously followed up by the oncologist at [facility] for sickle cell anemia. He denies any bleeding and bruising. He denies any weight loss. He denies any fevers and chills. REVIEW OF SYSTEMS: 12-point review of system was reviewed and as per HPI, otherwise negative. PAST MEDICAL HISTORY: Anxiety, cataract, sickle cell anemia, DVT, hypertension, type 2 diabetes, pulmonary embolism, history of pancreatitis, history of pneumonia. PAST SURGICAL HISTORY: Cholecystectomy. FAMILY HISTORY: Father has sickle cell anemia. Two siblings of sickle cell anemia complication. SOCIAL HISTORY: The patient denies any history of smoking and drinking. HOME MEDICATIONS: Reviewed. ALLERGIES: REVIEWED. PHYSICAL EXAMINATION: GENERAL: This patient is a well-developed, well-nourished male, in no apparent distress, oriented x3. VITAL SIGNS: Per nursing note. HEENT: Normocephalic, atraumatic. Clear oropharynx. LUNGS: Clear to auscultation bilaterally. CARDIOVASCULAR: Regular rate and rhythm. No murmurs. ABDOMEN: Soft, nontender, nondistended. Bowel sounds are positive in all 4 quadrants. No hepatosplenomegaly. EXTREMITIES: No edema. NEURO: Grossly intact. LABORATORY DATA: WBC 10.9, hemoglobin 7.7, MCV 92.7, platelet 169,000, neutrophils 54%, lymphocytes 32%, 1+ sickle cells. Reticulocyte count 7.2, creatinine 1.1, iron 90, LDH 563. ASSESSMENT AND PLAN: 1. Anemia with previous history of sickle cell anemia and flare-up. The patient was admitted with sickle cell anemia flare-up. Labs noted. LDH came back normal. Other labs ordered that including iron studies, methylmalonic acid level, and soluble transferrin receptor, which is pending at the time of the discharge. I have communicated with Dr. Almazan and informed him that the patient will be followed up with my office in 1-2 weeks to discuss pending lab results and further management. We may have to order hemoglobin electrophoresis. The patient had bone marrow biopsy done 1 year ago and that came back unremarkable according to the patient's description. He could have anemia with sickle cell disease as well as worsening of anemia due to anemia of chronic disease with underlying diabetes. He denies any bleeding. The patient is also scheduled for a colonoscopy in July of 2019 with gutter installer in [place]. 2. Sickle cell crisis pain. According to the patient, he was taking Dilaudid at home and that was prescribed by his previous oncologist. The patient is going to be discharged home with Dilaudid 20 tablets. I will reassess him in the office for further management. MEGHAN GREY M.D. LOCK CORNER MACHINE OPERATOR LOCK CORNER MACHINE OPERATOR D Jose F MT: Nancy
[2019-07-07 09:07] LABS: Methylmalonic Acid 213 nmol/L (87-318)
[2019-07-07 16:09] LABS: Soluble Transferrin Receptor 1.86 mg/L (0.76-1.76)
== END 2019-07-04 16:53 | disposition home or self-care (01) | DRG 684 ==
LOC: ANHED 04:07 → ANH2MED 07:36
PROVIDERS: Internal Medicine Hematology & Oncology; Admitting Provider Family Medicine; Emergency Provider General Practice; Visit Provider Internal Medicine
DX: N17.9 Acute kidney failure, unspecified (principal); D57.1 Sickle-cell disease without crisis; Z86.718 Personal history of other venous thrombosis and embolism; G89.29 Other chronic pain; F41.9 Anxiety disorder, unspecified; Z86.711 Personal history of pulmonary embolism
CPT/HCPCS: 36415; 36430; 70551; 80048; 80053; 80076; 81003; 82607; 82728; 83540; 83550; 83615; 83921; 84238; 84443; 85025; 85027; 85046; 86850; 86900; 86901; 86923; 93005; 96361; 96374; 96375; 96376; 97161; 97165; 99285; A9270; C9113; G0378; J1642; J1815; J2405; J3420; J7050; J7120; P9016

== ENCOUNTER 2019-07-11 23:09 | Emergency (ER) | payer MEDICARE, SELFPAY ==
--- NOTE | ~2019-07-11 | CT_ITS ---
EXAMINATION: CT lumbar spine wo con DATE: 07/12/2019 02:09 INDICATION: Low back pain after fall, sickle cell disease TECHNIQUE: Computed tomography (CT) of the lumbar spine was performed without intravenous contrast. T he dose-length product (DLP) was 622.64 mGy-cm. Iterative reconstruction was used. COMPARISON: 06/01/2019 FINDINGS: No acute fracture is identified. There is unchanged osteonecrosis involving multiple lumbar vertebral bodies, consistent with history of sickle cell disease. There is no dislocation or subluxa tion. 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 IMPRESSION: 1. Sequela of sickle cell disease without acute abnormality of the lumbar spine. Reviewed, dictated and finalized at location A. AL DRILL OPERATOR IMPRESSION: 1. Sequela of sickle cell disease without acute abnormality of the lumbar spine .
--- NOTE | ~2019-07-11 | XR_ITS ---
EXAMINATION: XR hip BI 2V w AP pelvis DATE: 07/12/2019 02:19 INDICATION: Bilateral hip pain. TECHNIQUE: An anteroposterior view of the pelvis and 2 views of each hip were obtained. COMPARISON: None. FINDINGS: Bone alignment is normal. No fracture. There is mild osteoarthritis of the hips. There is m ild lumbar spondylosis. IMPRESSION: 1. Mild osteoarthritis of the hips. Reviewed, dictated and finalized at location A. E BUILDER
--- NOTE | ~2019-07-11 | XR_ITS ---
EXAMINATION: XR chest 2V DATE: 07/12/2019 02:18 INDICATION: Sickle cell crisis. TECHNIQUE: Frontal and lateral views of the chest were obtained. COMPARISON: Chest 2 views 06/06/2019 FINDINGS: There are chronic reticular opacities in right midlung zone and left lower lung zone. No pl eural effusion or pneumothorax. The heart size is normal. There is a left internal jugular port with tip at superior cavoatrial junction. Surgical clips in the right upper quadrant are likely from reyes cystectomy. IMPRESSION: 1. Chronic reticular opacities in right midlung zone and left lower lung zone, consistent with sickle cell chronic lung disease. Reviewed, dictated and finalized at location A. RMATIVE ACTION OFFICER
--- NOTE | ~2019-07-11 | CT_ITS ---
EXAMINATION: CT brain wo con DATE: 07/12/2019 02:09 INDICATION: Headache. Dizziness. TECHNIQUE: Computed tomography (CT) of the head was performed without intravenous contrast. The mA wa s adjusted according to patient size. Iterative reconstruction technique was employed. The dose-lengt h product was 605.33 mGy-cm. COMPARISON: Head CT 06/27/2008 FINDINGS: There is no intracranial hemorrhage, acute infarction, or abnormal intracranial mass lesion . The ventricles are normal in size. The paranasal sinuses are clear. The orbits are normal. The mast oid air cells are normal. There are chronic lytic lesions of the skull, likely benign. IMPRESSION: 1. Normal brain. Reviewed, dictated and finalized at location A. GATHERER IMPRESSION: 1. Normal brain.
[2019-07-11 23:18] VITALS: BP 134/79; PULSE 84; RESP 17; TEMP 36.8; O2SAT 98
[2019-07-12] VITALS (7 sets, daily range): BP systolic 145–162; BP diastolic 79–100; PULSE 72–78; RESP 12–16; O2SAT 97–99
--- NOTE | 2019-07-12 01:41 | ED.GENADULT ---
HPI - General Adult General Chief complaint: Extremity Problem,Nontraumatic Stated complaint: lightheaded,fell,leg pain Time Seen by Provider: 07/12/19 01:25 Source: patient and RN notes reviewed Mode of arrival: ambulatory Limitations: no limitations History of Present Illness HPI narrative: Pt is a 63 y/o male with a Hx of sickle cell disease, who presents to the ED with c/o bilateral leg pain and low back pain starting 1-2 weeks ago. He notes that he was evaluated in the [place] ED roughly 2 weeks ago for similar symptoms. Pt also reports dizziness and troubled gait, but denies any other symptoms. He states that he has been eating and drinking normally, and notes that he is currently taking his normal medications. Patient has been ambulatory. He reports dizziness that comes and goes. He denies any nausea or vomiting. MD complaint: Leg Pain and Back Pain Onset (ago): week(s) (1-2) Location: back (low back) and lower extremity (bilateral legs) Associated symptoms: other (dizziness; troubled gait) Related Data Home Medications Medication Instructions Recorded Confirmed Eliquis 5 mg PO BID 06/02/19 06/29/19 Tresiba FlexTouch U-200 10 unit SUBCUT DAILY 06/02/19 06/29/19 diphenhydramine HCl [Benadryl] 25 mg PO Q4H PRN 06/02/19 06/29/19 folic acid 1 mg PO DAILY 06/02/19 06/29/19 metformin 500 mg PO BID 06/02/19 06/29/19 atenolol 25 mg PO BID 06/29/19 06/29/19 furosemide 20 mg PO DAILY 06/29/19 06/29/19 hydralazine 25 mg PO BID 06/29/19 06/29/19 lisinopril 10 mg PO DAILY 06/29/19 06/29/19 meloxicam 7.5 mg PO DAILY 06/29/19 06/29/19 Allergies Allergy/AdvReac Type Severity Reaction Status Date / Time iohexol Allergy Severe Unconscious Verified 07/11/19 23:18 [From CONTRAST - CT, XRAY] Contrast Media Allergy Severe PASSED Uncoded 07/11/19 23:18 OUT Review of Systems Review of Systems: Narrative: CONSTITUTIONAL: Denies fever, chills, or sweats. Denies decreased intake. MUSCULOSKELETAL: Reports low back pain and bilateral leg pain. NEUROLOGIC: Denies headache, numbness, or weakness. Reports dizziness and troubled gait. Abdomen: Denies abdominal pain or vomiting Extremities: Denies injury or fall All systems reviewed & are unremarkable except as noted in HPI and below PMFSH Past Medical History Medical History Anxiety Back fracture Cataract Depression Diabetes DVT (deep venous thrombosis) FH: cholecystectomy Gall bladder disease Hypertension Irregular heartbeat Liver disease Pancreatitis Pneumonia Port-A-Cath in place Pulmonary embolism Sickle cell anemia with coexistent alpha-thalassemia Surgical History Surgical History Hx of cholecystectomy Family History Family History (Updated 06/29/19 @ 08:20 by Shraddha Venegas RN) Father Acute myocardial infarction Sibling Diabetes mellitus Sibling Hypertension Other Congestive heart failure Social History Social History Smoking status: Never smoker Second hand tobacco smoke exposure: Yes Alcohol intake: never Substance use: never Gender identity (if verbalized by the patient): Male Spiritual care concerns: No Agree to blood products: Yes Exam Narrative: Exam Narrative: GENERAL: Well-appearing, well-nourished, and in no acute distress. HEAD: Normocephalic, atraumatic. EYES: PERRLA and EOMI. no nystagmus. ENT: Nares clear, no rhinorrhea or epistaxis. Mucous membranes moist. NECK: Supple. CHEST: Clear to auscultation. No respiratory distress. HEART: Regular rate and rhythm. No murmur heard. Normal peripheral pulses. ABDOMEN: Soft, nontender, nondistended, normal active bowel sounds. EXTREMITIES: Normal range of motion. No edema. Bilateral thigh tenderness. SKIN: Warm, dry, no rash. NEURO: No focal deficits. Alert and oriented. Finger to nose intact bilaterally. EOMs intact without n
--- NOTE | 2019-07-12 01:49 | ECG_ITS ---
Measurements Intervals [place] Rate: 72 P: 62 NM: 185 QRS: 16 QRSD: 95 T: 72 QT: 325 QTc: 357 Interpretive Statements SINUS RHYTHM POSSIBLE LEFT ATRIAL ENLARGEMENT INCOMPLETE RIGHT BUNDLE BRANCH BLOCK VOLTAGE CRITERIA FOR LVH MINIMAL Q WAVES- LATERAL LEADS BORDERLINE ECG Electronically Signed On 07-12-2019 7:12:45 AQUATIC SCIENTIST by Franklin Bajwa D.O.
[2019-07-12] MEDS: HYDROMORPHONE HCL 1 MG/ML INJ 0.5 MG IV PUSH (03:10)
[2019-07-12] MEDS: SODIUM CHLORIDE 0.9% IV 1,000 ML 999 ML IV CONT (03:10)
[2019-07-12 03:19] LABS: Basophils Percent Auto 0.3 % (0.2-1.2); Eosinophils Absolute Auto 0.3 K/mm3 (0-0.3); Eosinophils Percent Auto 2.3 % (0-4.4); Hematocrit 25.3 % (42.0-52.0); Hemoglobin 8.2 g/dL (14.0-18.0); Immature Granulocyte Absolute 0.04 K/mm3 (0.00-0.031); Immature Granulocyte Percent A 0.3 % (0-0.5); Immature Reticulocyte Fraction 14.1 % (3.0-15.9); Lymphocytes Percent Auto 25.9 % (18.3-44.2); Mean Corpuscular HGB Conc 32.4 g/dl (32-36); Mean Corpuscular Hemoglobin 29.6 pg (26-34); Mean Corpuscular Volume 91.3 fl (80-100); Mean Platelet Volume 12.8 fl (7.4-10.4); Monocytes Absolute Auto 0.8 K/mm3 (0.1-0.6); Monocytes Percent Auto 5.7 % (2.6-8.5); Neutrophils Absolute Auto 8.6 K/mm3 (1.3-6.7); Neutrophils Percent Auto 65.5 % (45.5-73.1); Nucleated Red Blood Cells Perc 0.2 % (0.0-0.2); Platelet Count Result 141 k/mm3 (150-375); Red Blood Count 2.77 M/mm3 (4.6-6.20); Red Cell Distribution Width 17.2 % (11.5-14.5); Reticulocyte Hemoglobin Conten 34.4 pg (28.2-35.7); Reticulocyte Percent 2.69 % (0.7-4.3); Reticulocytes Absolute 0.07 B/L (32.2-175.7); White Blood Count 13.1 K/mm3 (4.5-10.0)
[2019-07-12 03:26] LABS: INR 1.1
[2019-07-12 03:27] LABS: Alanine Aminotransferase 35 U/L (4-50); Albumin Level 4.4 g/dL (3.5-5.1); Alkaline Phosphatase 131 U/L (38-126); Aspartate Amino Transferase 62 U/L (17-59); Bilirubin,Total 3.4 mg/dL (0.2-1.3); Blood Urea Nitrogen 22 mg/dL (9-20); Calcium 9.6 mg/dL (8.4-10.2); Carbon Dioxide 28 mmol/L (22-30); Chloride 98 mmol/L (98-107); Estimated CRCL calculation 43 ml/min; Estimated Glomerular Filt Rate > 60; Glucose 150 mg/dL (75-110); Lactate Dehydrogenase 958 U/L (313-618); Potassium 4.2 mmol/L (3.4-5.0); Sodium 137 mmol/L (137-145)
[2019-07-12 03:28] LABS: Partial Thromboplastin Time 38.6 SECONDS (22.3-36.8)
[2019-07-12 03:28] LABS: Glucose Point of Care 140 (65-105)
[2019-07-12 03:39] LABS: Large Platelets Present; Macrocytosis 1+ (NORMAL); Platelet Estimate Adequate (Adequate)
[2019-07-12 03:40] LABS: Hypochromasia 1+ (NORMAL); Ovalocytes 1+ (NORMAL); Target Cells 1+ (NORMAL)
[2019-07-12 03:43] LABS: Troponin I 0.017 ng/mL (0.000-0.034)
[2019-07-12 04:48] LABS: Add Urine Microscopic? YES; Appearance Urine Clear (Clear); Bilirubin Urine Negative (Negative); Blood Urine Negative (Negative); Color Urine Yellow (Yellow); Glucose Urine UA Negative (Negative); Ketones Urine Negative (Negative); Leukocyte Esterase Ur Negative LEU/UL (Negative); Mucus Urine Rare /lpf; Nitrate Urine Negative (Negative); Protein Urine 1+ mg/dL (Negative); RBC Urine 0-2 /hpf (0-2); Specific Grav Ur 1.018 (1.001-1.035); Squamous Epithelial Cell Urine Rare /hpf (Few); Urobilinogen Urine Negative mg/dL (<2.0); WBC Urine 0-3 /hpf
== END 2019-07-12 05:50 | disposition home or self-care (01) ==
PROVIDERS: Emergency Provider Emergency Medicine
DX: M79.605 Pain in left leg (principal); M79.604 Pain in right leg; E11.9 Type 2 diabetes mellitus without complications; Z86.718 Personal history of other venous thrombosis and embolism; I10 Essential (primary) hypertension; K76.9 Liver disease, unspecified; Z86.711 Personal history of pulmonary embolism; D57.40 Sickle-cell thalassemia without crisis; Z79.84 Long term (current) use of oral hypoglycemic drugs; Z79.01 Long term (current) use of anticoagulants; I45.10 Unspecified right bundle-branch block; R94.31 Abnormal electrocardiogram [ECG] [EKG]
CPT/HCPCS: 36415; 70450; 71046; 72131; 73521; 80053; 81001; 82948; 83615; 84484; 85025; 85046; 85610; 85730; 93005; 96361; 96374; 99284; J1170; J7030

== ENCOUNTER 2019-07-14 04:24 | Emergency (ER) | payer MEDICARE, SELFPAY ==
[2019-07-14 04:29] VITALS: BP 127/77; PULSE 80; RESP 15; TEMP 36.6; O2SAT 99
--- NOTE | 2019-07-14 04:31 | ED.GENADULT ---
HPI - General Adult General Chief complaint: Unspecified Stated complaint: sickle cell Time Seen by Provider: 07/14/19 04:30 Source: patient Mode of arrival: ambulatory Limitations: no limitations History of Present Illness HPI narrative: Patient is a 63 yo male who presents for evaluation of all over body aches and pain. Patient states that he continues to have pain from his sickle cell disease. He reports continued pain in his shoulders, lower back, bilateral thighs. He denies fever, chest pain or shortness of breath. No cough. No redness. No recent falls or injuries. Patient states that he was seen at [facility] earlier this evening and was discharged home with a muscle relaxer which does not help his pain. He has scheduled follow-up with Dr. Reeves for next week, and is establishing a pain management program as well per the patient. Patient denies any dizziness or lightheadedness. No nausea or vomiting. Related Data Home Medications Medication Instructions Recorded Confirmed Eliquis 5 mg PO BID 06/02/19 06/29/19 Tresiba FlexTouch U-200 10 unit SUBCUT DAILY 06/02/19 06/29/19 diphenhydramine HCl [Benadryl] 25 mg PO Q4H PRN 06/02/19 06/29/19 folic acid 1 mg PO DAILY 06/02/19 06/29/19 metformin 500 mg PO BID 06/02/19 06/29/19 atenolol 25 mg PO BID 06/29/19 06/29/19 furosemide 20 mg PO DAILY 06/29/19 06/29/19 hydralazine 25 mg PO BID 06/29/19 06/29/19 lisinopril 10 mg PO DAILY 06/29/19 06/29/19 meloxicam 7.5 mg PO DAILY 06/29/19 06/29/19 Allergies Allergy/AdvReac Type Severity Reaction Status Date / Time iohexol Allergy Severe Unconscious Verified 07/14/19 05:53 [From CONTRAST - CT, XRAY] Contrast Media Allergy Severe PASSED Uncoded 07/14/19 05:53 OUT Review of Systems Review of Systems: Narrative: CONSTITUTIONAL: Denies fever, chills, or sweats. CARDIOVASCULAR: Denies chest pain, palpitations, or edema. RESPIRATORY: Denies cough or dyspnea. GASTROINTESTINAL: Denies abdominal pain, nausea, vomiting, or diarrhea. GENITOURINARY: Denies dysuria or hematuria. SKIN: Denies rash or itching. MUSCULOSKELETAL: Reports lower back pain, reports overall joint pain, reports myalgias NEUROLOGIC: Denies headache, numbness, or weakness. [facility] Past Medical History Medical History Anxiety Back fracture Cataract Depression Diabetes DVT (deep venous thrombosis) FH: cholecystectomy Gall bladder disease Hypertension Irregular heartbeat Liver disease Pancreatitis Pneumonia Port-A-Cath in place Pulmonary embolism Sickle cell anemia with coexistent alpha-thalassemia Surgical History Surgical History Hx of cholecystectomy Family History Family History Father Acute myocardial infarction Sibling Diabetes mellitus Sibling Hypertension Other Congestive heart failure Social History Social History Smoking status: Never smoker Second hand tobacco smoke exposure: Yes Alcohol intake: never Substance use: never Gender identity (if verbalized by the patient): Male Spiritual care concerns: No Agree to blood products: Yes Exam Narrative: Exam Narrative: GENERAL: Thin, conversant well-appearing, well-nourished, and in no acute distress. HEAD: Normocephalic, atraumatic. EYES: PERRLA and EOMI. ENT: Nares clear, no rhinorrhea or epistaxis. Mucous membranes moist. NECK: Supple. CHEST: Clear to auscultation. No respiratory distress. Port over the left chest wall. HEART: Regular rate and rhythm. No murmur heard. Normal peripheral pulses. ABDOMEN: Soft, nontender, nondistended, normal active bowel sounds. EXTREMITIES: Normal range of motion. No edema. Tender to palpation to the bilateral shoulder joints, bilateral hip joints, lumbar spine, bilateral knees, bilateral ankles. No estrada
[2019-07-14] MEDS: HYDROMORPHONE HCL 1 MG/ML INJ 0.5 MG IV PUSH (04:54)
[2019-07-14] MEDS: ONDANSETRON INJ 4 MG/2 ML VIAL IV PUSH (04:55)
[2019-07-14] MEDS: SODIUM CHLORIDE 0.9% IV 1,000 ML 999 ML IV CONT (04:58)
[2019-07-14 05:02] LABS: Basophils Absolute Auto 0.1 K/mm3 (0.0-0.1); Basophils Percent Auto 0.5 % (0.2-1.2); Eosinophils Absolute Auto 0.4 K/mm3 (0-0.3); Eosinophils Percent Auto 3.9 % (0-4.4); Hematocrit 22.1 % (42.0-52.0); Hemoglobin 7.2 g/dL (14.0-18.0); Immature Granulocyte Absolute 0.03 K/mm3 (0.00-0.031); Immature Granulocyte Percent A 0.3 % (0-0.5); Immature Reticulocyte Fraction 11.7 % (3.0-15.9); Lymphocytes Absolute Auto 2.58 K/mm3 (0.9-3.2); Lymphocytes Percent Auto 25.9 % (18.3-44.2); Mean Corpuscular HGB Conc 32.6 g/dl (32-36); Mean Corpuscular Hemoglobin 29.6 pg (26-34); Mean Corpuscular Volume 90.9 fl (80-100); Mean Platelet Volume 12.2 fl (7.4-10.4); Monocytes Absolute Auto 0.6 K/mm3 (0.1-0.6); Monocytes Percent Auto 5.8 % (2.6-8.5); Neutrophils Absolute Auto 6.4 K/mm3 (1.3-6.7); Neutrophils Percent Auto 63.6 % (45.5-73.1); Platelet Count Result 166 k/mm3 (150-375); Red Blood Count 2.43 M/mm3 (4.6-6.20); Reticulocyte Hemoglobin Conten 33.6 pg (28.2-35.7); Reticulocyte Percent 2.23 % (0.7-4.3); Reticulocytes Absolute 0.05 B/L (32.2-175.7)
[2019-07-14 05:14] LABS: Blood Urea Nitrogen 24 mg/dL (9-20); Calcium 9.4 mg/dL (8.4-10.2); Carbon Dioxide 24 mmol/L (22-30); Chloride 98 mmol/L (98-107); Estimated Glomerular Filt Rate > 60; Glucose 237 mg/dL (75-110); Lactate Dehydrogenase 808 U/L (313-618); Potassium 3.9 mmol/L (3.4-5.0); Sodium 137 mmol/L (137-145)
[2019-07-14] MEDS: HYDROMORPHONE HCL 1 MG/ML INJ IV PUSH (05:42)
[2019-07-14] MEDS: KETOROLAC (*BKC) 60 MG/2 ML VIAL 30 MG IM (05:47)
[2019-07-14 05:52] VITALS: BP 137/77; PULSE 88; RESP 12; O2SAT 94
[2019-07-14] MEDS: HEPARIN SOD FLUSH 500 UNITS/5 ML SYRINGE (06:22)
[2019-07-14 06:23] VITALS: BP 130/77; PULSE 87; RESP 12; O2SAT 92
== END 2019-07-14 06:15 | disposition home or self-care (01) ==
PROVIDERS: Emergency Provider Emergency Medicine
DX: D57.00 Hb-SS disease with crisis, unspecified (principal); E11.9 Type 2 diabetes mellitus without complications; I10 Essential (primary) hypertension; Z86.718 Personal history of other venous thrombosis and embolism
CPT/HCPCS: 36415; 80048; 83615; 85025; 85046; 96361; 96372; 96374; 96375; 96376; 99284; A9270; J1170; J1885; J2405; J7030

== ENCOUNTER 2019-07-15 21:14 | Emergency (ER) | payer MEDICARE, SELFPAY ==
[2019-07-15 21:15] VITALS: BP 138/76; PULSE 83; RESP 16; TEMP 36.9; O2SAT 100
--- NOTE | 2019-07-15 21:35 | ED.LOWEXIN ---
HPI - Extremity Injury (Lower) General Chief Complaint: Extremity Problem,Nontraumatic Stated Complaint: back/leg pain Time Seen by Provider: 07/15/19 21:23 Source: patient Mode of arrival: ambulatory Limitations: no limitations History of Present Illness HPI Narrative: A 63 y/o male presents to the ED with c/o bilateral leg pain and lower back pain rated an 8/10 in severity. Pt states that he has a PMHx of sickle cell and has had similar episodes before. He notes that the bilateral leg pain and lower back pain started 1 week ago and has been constant since. Pt adds that the bilateral leg pain and lower back pain does not normally last this long, and is described as pins and needles. He denies any aggravating factors for the leg and back pain. Pt has been seen 5 times at [place] for these symptoms and states that he was admitted for the leg and back pain previously. Pt is prescribed a muscle relaxer, but adds that it does not help. He was given Dilaudid at his last ED visit and notes that it helped the pain. Pt denies fever, chills, N/V, and any urinary symptoms. MD complaint: other (Bilateral leg pain and lower back pain) Onset (ago): week(s) (1) Severity: similar to previous episodes Severity scale (1-10): 8 Relieving factors: other (Dilaudid) Exacerbating factors: nothing Other symptoms: none Treatments prior to arrival: other (Muscle relaxer) Related Data Home Medications Medication Instructions Recorded Confirmed Eliquis 5 mg PO BID 06/02/19 06/29/19 Tresiba FlexTouch U-200 10 unit SUBCUT DAILY 06/02/19 06/29/19 diphenhydramine HCl [Benadryl] 25 mg PO Q4H PRN 06/02/19 06/29/19 folic acid 1 mg PO DAILY 06/02/19 06/29/19 metformin 500 mg PO BID 06/02/19 06/29/19 atenolol 25 mg PO BID 06/29/19 06/29/19 furosemide 20 mg PO DAILY 06/29/19 06/29/19 hydralazine 25 mg PO BID 06/29/19 06/29/19 lisinopril 10 mg PO DAILY 06/29/19 06/29/19 meloxicam 7.5 mg PO DAILY 06/29/19 06/29/19 Allergies Allergy/AdvReac Type Severity Reaction Status Date / Time iohexol Allergy Severe Unconscious Verified 07/14/19 05:53 [From CONTRAST - CT, XRAY] ketorolac AdvReac Loss of Verified 07/15/19 22:22 Consciousness Contrast Media Allergy Severe PASSED Uncoded 07/14/19 05:53 OUT Review of Systems Review of Systems: All systems reviewed & are unremarkable except as noted in HPI and below Constitutional: Constitutional: Denies chills and Denies fever(s) Gastrointestinal: Gastrointestinal: Denies nausea and Denies vomiting Genitourinary: Genitourinary: Denies hematuria, Denies dysuria, Denies nocturia, Denies urinary frequency, Denies urinary hesitancy, Denies urinary incontinence and Denies urinary urgency Musculoskeletal: Musculoskeletal: Reports back pain (Lower) and Reports other (Bilateral leg pain) [facility] Past Medical History Medical History Anxiety Back fracture Cataract Depression Diabetes DVT (deep venous thrombosis) FH: cholecystectomy Gall bladder disease Hypertension Irregular heartbeat Liver disease Pancreatitis Pneumonia Port-A-Cath in place Pulmonary embolism Sickle cell anemia with coexistent alpha-thalassemia Surgical History Surgical History Hx of cholecystectomy Family History Family History Father Acute myocardial infarction Sibling Diabetes mellitus Sibling Hypertension Other Congestive heart failure Social History Social History Smoking status: Never smoker Second hand tobacco smoke exposure: Yes Alcohol intake: never Substance use: never Gender identity (if verbalized by the patient): Male Spiritual care concerns: No Agree to blood products: Yes Exam Const: General: no acute distress and well developed Orientation/consciousness: oriented to person, oriented to place, orien
[2019-07-15 22:20] LABS: Basophils Absolute Auto 0.1 K/mm3 (0.0-0.1); Basophils Percent Auto 0.6 % (0.2-1.2); Eosinophils Absolute Auto 0.4 K/mm3 (0-0.3); Eosinophils Percent Auto 3.2 % (0-4.4); Hematocrit 23.1 % (42.0-52.0); Hemoglobin 7.6 g/dL (14.0-18.0); Immature Granulocyte Absolute 0.06 K/mm3 (0.00-0.031); Immature Granulocyte Percent A 0.4 % (0-0.5); Lymphocytes Absolute Auto 4.97 K/mm3 (0.9-3.2); Lymphocytes Percent Auto 36.4 % (18.3-44.2); Mean Corpuscular HGB Conc 32.9 g/dl (32-36); Mean Corpuscular Hemoglobin 29.5 pg (26-34); Mean Corpuscular Volume 89.5 fl (80-100); Mean Platelet Volume 12.2 fl (7.4-10.4); Monocytes Absolute Auto 0.9 K/mm3 (0.1-0.6); Monocytes Percent Auto 6.5 % (2.6-8.5); Neutrophils Absolute Auto 7.2 K/mm3 (1.3-6.7); Neutrophils Percent Auto 52.9 % (45.5-73.1); Nucleated Red Blood Cells Perc 0.1 % (0.0-0.2); Platelet Count Result 214 k/mm3 (150-375); Red Blood Count 2.58 M/mm3 (4.6-6.20); Red Cell Distribution Width 17.3 % (11.5-14.5); Reticulocyte Percent 2.93 % (0.7-4.3); Reticulocytes Absolute 0.08 B/L (32.2-175.7); White Blood Count 13.6 K/mm3 (4.5-10.0)
[2019-07-15] MEDS: SODIUM CHLORIDE 0.9% IV 1,000 ML 999 ML IV CONT (22:20)
[2019-07-15 22:31] LABS: Blood Urea Nitrogen 16 mg/dL (9-20); Calcium 9.7 mg/dL (8.4-10.2); Carbon Dioxide 27 mmol/L (22-30); Chloride 99 mmol/L (98-107); Estimated CRCL calculation 50 ml/min; Estimated Glomerular Filt Rate > 60; Glucose 132 mg/dL (75-110); Platelet Estimate Adequate (Adequate); Potassium 3.8 mmol/L (3.4-5.0); Sodium 137 mmol/L (137-145)
[2019-07-15 22:35] LABS: Hypochromasia 1+ (NORMAL)
[2019-07-15 22:36] LABS: Sickle Cells 1+ (NORMAL)
[2019-07-15 22:37] LABS: Anisocytosis 3+ (NORMAL); Target Cells 1+ (NORMAL)
[2019-07-15 23:27] LABS: Add Urine Microscopic? YES; Appearance Urine Cloudy (Clear); Bilirubin Urine Negative (Negative); Blood Urine 1+ (Negative); Color Urine Amber (Yellow); Glucose Urine UA 1+ mg/dL (Negative); Ketones Urine Negative (Negative); Leukocyte Esterase Ur Negative LEU/UL (Negative); Mucus Urine Few /lpf; Nitrate Urine Negative (Negative); Protein Urine 1+ mg/dL (Negative); RBC Urine 0-2 /hpf (0-2); Specific Grav Ur 1.016 (1.001-1.035); Squamous Epithelial Cell Urine Rare /hpf (Few); WBC Urine 0-3 /hpf
[2019-07-15 23:45] VITALS: BP 138/80; PULSE 75; RESP 18; O2SAT 97
== END 2019-07-15 23:48 | disposition home or self-care (01) ==
PROVIDERS: Emergency Provider Emergency Medicine
DX: D57.00 Hb-SS disease with crisis, unspecified (principal); M54.42 Lumbago with sciatica, left side; E11.9 Type 2 diabetes mellitus without complications; Z79.84 Long term (current) use of oral hypoglycemic drugs; I10 Essential (primary) hypertension; K76.9 Liver disease, unspecified; Z86.711 Personal history of pulmonary embolism; Z86.718 Personal history of other venous thrombosis and embolism; H26.9 Unspecified cataract; D56.0 Alpha thalassemia
CPT/HCPCS: 36415; 80048; 81001; 85025; 85046; 96361; 96374; 99284; J3010; J7030

== ENCOUNTER 2019-07-21 12:28 | Outpatient (CLI) | payer MEDICARE, SELFPAY ==
[2019-07-21 13:09] LABS: Basophils Absolute Auto 0.1 K/mm3 (0.0-0.1); Basophils Percent Auto 0.5 % (0.2-1.2); Eosinophils Absolute Auto 0.4 K/mm3 (0-0.3); Eosinophils Percent Auto 3.3 % (0-4.4); Hematocrit 23.2 % (42.0-52.0); Hemoglobin 7.5 g/dL (14.0-18.0); Immature Granulocyte Absolute 0.09 K/mm3 (0.00-0.031); Immature Granulocyte Percent A 0.7 % (0-0.5); Lymphocytes Absolute Auto 3.57 K/mm3 (0.9-3.2); Mean Corpuscular HGB Conc 32.3 g/dl (32-36); Mean Corpuscular Hemoglobin 29.9 pg (26-34); Mean Corpuscular Volume 92.4 fl (80-100); Mean Platelet Volume 11.5 fl (7.4-10.4); Monocytes Absolute Auto 0.9 K/mm3 (0.1-0.6); Monocytes Percent Auto 7.2 % (2.6-8.5); Neutrophils Absolute Auto 7.7 K/mm3 (1.3-6.7); Neutrophils Percent Auto 60.3 % (45.5-73.1); Nucleated Red Blood Cells Absolute Auto 0.4 K/mm3 (0.0-0.012); Nucleated Red Blood Cells Perc 3.1 % (0.0-0.2); Platelet Count Result 296 k/mm3 (150-375); Red Blood Count 2.51 M/mm3 (4.6-6.20); Red Cell Distribution Width 18.8 % (11.5-14.5); White Blood Count 12.7 K/mm3 (4.5-10.0)
[2019-07-21 13:11] LABS: Immature Reticulocyte Fraction 42.2 % (3.0-15.9); Reticulocyte Hemoglobin Conten 36.8 pg (28.2-35.7); Reticulocyte Percent 10.16 % (0.7-4.3); Reticulocytes Absolute 0.25 B/L (32.2-175.7)
[2019-07-21 13:17] LABS: Platelet Estimate Adequate (Adequate)
[2019-07-21 13:18] LABS: Ovalocytes 1+ (NORMAL); Poikilocytosis 1+ (NORMAL)
[2019-07-21 17:12] LABS: Iron 221 ug/dL (49-181)
[2019-07-21 17:14] LABS: Alanine Aminotransferase 26 U/L (4-50); Albumin Level 4.4 g/dL (3.5-5.1); Alkaline Phosphatase 123 U/L (38-126); Aspartate Amino Transferase 44 U/L (17-59); Bilirubin,Total 3.3 mg/dL (0.2-1.3); Blood Urea Nitrogen 15 mg/dL (9-20); Calcium 10.2 mg/dL (8.4-10.2); Carbon Dioxide 27 mmol/L (22-30); Chloride 103 mmol/L (98-107); Estimated Glomerular Filt Rate > 60; Glucose 112 mg/dL (75-110); Lactate Dehydrogenase 736 U/L (313-618); Potassium 3.9 mmol/L (3.4-5.0); Sodium 140 mmol/L (137-145)
[2019-07-21 17:49] LABS: Percent Iron Saturation 94 % (20-50)
[2019-07-21 17:52] LABS: Prostate Specific Antigen 0.5 ng/mL (< OR = 4.0)
[2019-07-21 18:35] LABS: Ferritin > 2000.00 ng/mL (11.1-264)
== END 2019-07-21 12:29 | disposition home or self-care (01) ==
PROVIDERS: PCP Emergency Medicine; Referring Provider Emergency Medicine; Visit Provider Internal Medicine Hematology & Oncology
DX: D64.9 Anemia, unspecified (principal); Z12.5 Encounter for screening for malignant neoplasm of prostate; E11.65 Type 2 diabetes mellitus with hyperglycemia
CPT/HCPCS: 36415; 80053; 82607; 82728; 83540; 83550; 83615; 84153; 84238; 85025; 85046; G0103

== ENCOUNTER 2019-07-29 14:11 | Outpatient (CLI) | payer MEDICARE, SELFPAY | END 2019-07-29 14:12 | disposition home or self-care (01) | PROVIDERS: PCP Emergency Medicine; Visit Provider Emergency Medicine | DX: Z51.89 Encounter for other specified aftercare (principal); I10 Essential (primary) hypertension | CPT/HCPCS: 36415; 86850; 86900; 86901; 86922 ==

== ENCOUNTER 2019-08-02 01:24 | Inpatient (IN) | payer MEDICARE, SELFPAY ==
[2019-08-02] VITALS (18 sets, daily range): BP systolic 131–170; BP diastolic 74–91; PULSE 18–103; RESP 14–95; TEMP 36.3–37.4; O2SAT 90–98; BMI 21.8
--- NOTE | ~2019-08-02 | CT_ITS ---
EXAMINATION: CT chest abdomen pelvis wo con EXAM DATE: 08/04/2019 12:09 INDICATION: Fever. Sickle cell crisis. Anemia. Right lower quadrant pain. TECHNIQUE: Spiral CT of the chest, abdomen and pelvis was performed without contrast. Axial, rueda l and sagittal images were reviewed. Coronal maximum intensity pixel images of chest reviewed. The dose-length product (DLP) for this examination was 437.93 mGy-cm. The exposure was tailored accordin g to patient size (auto mA exposure control), and iterative reconstruction (ASIR) was used as additio nal dose reduction technique. There is no prior study for comparison. FINDINGS: CHEST: There is interval development of basilar intralobular septal thickening, some groundglass opa cities, regions of atelectasis and probably mild pulmonary edema. Pneumonia not excluded but there is no confluent consolidation. There is a left-sided portacatheter which has been accessed. Interval de velopment of trace pleural effusions. The interventricular septum is perceptible, suggesting patient is anemic. Tracheobronchial tree is patent. There is no mediastinal, hilar or axillary lymphadeno doug. There is no pneumothorax. Heart normal in size. No evidence of coronary arterial calcifi cation. ABDOMEN PELVIS: Development of mild body wall edema. Liver is hyperdense, could be hemochromatosis, hemosiderosis, transfusional overload, amiodarone treatment. Portions of the liver also have nodular contour. The liver, spleen, adrenal glands and pancreas are otherwise unremarkable. There are cholec ystectomy clips. Development of bilateral perinephric fat stranding, nonspecific. There is punctate right inferior calyceal stone. No ureteral stones or hydronephrosis. Small left inguinal fat-containi ng hernia. There is mild prostatomegaly. The bladder is unremarkable. There are portacaval lymph no holly which are mildly hyperdense probably prior granulomatous process. No pathologically enlarged lymp h nodes. There is mild scattered arteriosclerotic disease. The appendix is normal. The stomach and small bowel are unremarkable. There is expected amount of c olonic stool. No free intraperitoneal gas. Vertebral body shape characteristic of sickle cell dis ease. There are no osteoblastic or osteolytic lesions identified. IMPRESSION: 1. Interval change in fluid status with mild body wall edema, trace pleural effusions and perihepati c ascites. Development of mild nonspecific bilateral perinephric fat stranding. 2. Development of basilar intralobular septal thickening ground glass opacities most consistent with pulmonary edema and progression of basilar atelectasis. Pneumonia not excludable. 3. Hyperdense liver with nodularity, suspicious for cirrhosis. 4. Punctate right nephrolithiasis. 5. Mild prostatomegaly. 6. Small left inguinal hernia. Reviewed, dictated and finalized at location A. IMPRESSION: 1. Interval change in fluid status with mild body wall edema, trace pleural ef fusions and perihepatic ascites. Development of mild nonspecific bilateral zaid nephric fat stranding. 2. Development of basilar intralobular septal thickening ground glass opacitie s most consistent with pulmonary edema and progression of basilar atelectasis. Pneumonia not excludable. 3. Hyperdense liver with nodularity, suspicious for cirrhosis. 4. Punctate right nephrolithiasis. 5. Mild prostatomegaly. 6. Small left inguinal hernia.
--- NOTE | ~2019-08-02 | XR_ITS ---
EXAMINATION: XR chest 2V EXAM DATE: 08/02/2019 10:11 INDICATION: Chest pain. Sickle cell disease. TECHNIQUE: Frontal and lateral projections of the chest obtained and reviewed. Comparison is made to prior examination from 07/12/2019. FINDINGS: Left-sided portacatheter line intact. Scattered right perihilar and left lower lobe linear opacities unchanged, chronic lung disease. There is no evidence of superimposed acute consolidation, pneumothorax or pleural effusion. Cardiomediastinal silhouette is normal. There is aortic arterial s clerosis. There are cholecystectomy clips. There is no significant interval change. IMPRESSION: 1. No acute cardiopulmonary findings. Reviewed, dictated and finalized at location A.
--- NOTE | ~2019-08-02 | US_ITS ---
EXAMINATION: US venous doppler LE EXAM DATE: 08/02/2019 10:29 INDICATION: Bilateral calf pain. History of immobilization. TECHNIQUE: Multiple grayscale, color flow and Doppler images of the lower extremity deep venous syste ms bilaterally were obtained and reviewed. Comparison is made to prior examination from 03/15/2019. FINDINGS: Right side: The right common femoral, femoral and profunda veins demonstrate normal color flow, respi ratory variation, augmentation and compressibility. Compressibility, color flow confirmed within the right popliteal, posterior tibial, peroneal, and greater saphenous veins. Left side: The left common femoral, femoral and profunda veins demonstrate normal color flow, respira tory variation, augmentation and compressibility. Compressibility, color flow confirmed within the l eft popliteal, posterior tibial, peroneal, and greater saphenous veins. IMPRESSION: 1. No lower extremity deep venous thrombosis bilaterally. Reviewed, dictated and finalized at location A.
--- NOTE | ~2019-08-02 | CT_ITS ---
EXAMINATION: CT abdomen pelvis wo con EXAM DATE: 08/02/2019 02:21 INDICATION: Right lower quadrant pain, nausea, contrast media allergy. Sickle cell. TECHNIQUE: Spiral CT of the abdomen and pelvis was performed without contrast. Axial, coronal and s agittal images were reviewed. The dose-length product (DLP) for this examination was 316.80 mGy-cm. The exposure was tailored according to patient size (auto mA exposure control), and iterative recons truction (ASIR) was used as additional dose reduction technique. 06/01/2019 FINDINGS: Liver is hyperdense, could be hemochromatosis, hemosiderosis, transfusional overload, amiod arone treatment. Portions of the liver also have nodular contour. The liver, spleen, adrenal glands a nd pancreas are otherwise unremarkable. Gallbladder is unremarkable. No biliary obstruction. There is punctate right inferior calyceal stone. No ureteral stones or hydronephrosis. Small left inguinal fat-containing hernia. There is mild prostatomegaly. The bladder is unremarkable. Beginning there are portacaval lymph nodes which are mildly hyperdense probably prior granulomatous process. No patho logically enlarged lymph nodes. There is mild scattered arteriosclerotic disease. The appendix is normal. The stomach and small bowel are unremarkable. There is expected amount of c olonic stool. No free intraperitoneal gas. The heart is normal in size. There are no pericardial or pleural effusions. There are bibasilar linear opacities, subsegmental atelectasis. The intervent ricular septum is perceptible, suggesting patient is anemic. Vertebral body shape characteristic o f sickle cell disease. There are no osteoblastic or osteolytic lesions identified. IMPRESSION: 1. No acute intra-abdominal findings. 2. Hyperdense liver with nodularity, suspicious for cirrhosis. 3. Punctate right nephrolithiasis. 4. Mild prostatomegaly. 5. Small left inguinal hernia. Reviewed, dictated and finalized at location A.
--- NOTE | ~2019-08-02 | CT_ITS ---
EXAMINATION: CT brain wo con INDICATION: Altered mental status COMPARISON: 07/12/2019 TECHNIQUE: Standard unenhanced head CT. The dose-length product (DLP) was 605.33 mGy-cm. The mA was a djusted according to patient size. Iterative reconstruction technique was employed. FINDINGS: There is no intracranial hemorrhage, acute infarction, or abnormal mass lesion. The ventric les are normal. There is no abnormal mass effect or midline shift. The gomez-white matter differentiat ion is normal. The basal cisterns are patent. Intracranial calcified cerebral atherosclerosis is note d. The orbits are normal. 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 The paranasal sinuses, mastoids and calvarium are normal. IMPRESSION: 1. No acute intracranial abnormality. Reviewed, dictated and finalized at location A.
--- NOTE | 2019-08-02 01:45 | ED.EXTPRO ---
HPI - Extremity Problem General Chief complaint: Extremity Problem,Nontraumatic Stated complaint: sickle cell Time Seen by Provider: 08/02/19 01:28 Source: patient Mode of arrival: ambulatory Limitations: no limitations History of Present Illness HPI Narrative: Pt is a 63 y/o male with a H/o sickle cell anemia, who presents to the ED with c/o myalgia for 2 weeks. He reports associated RLQ ABD pain, lightheadedness, dizziness, and nausea. He states that his ABD pain started a month ago. Pt denies diarrhea, vomiting, fever, chills, or sweats. He has been taking Tramadol with no relief. His mechanical assembly technician is Dr. Reeves and his PCP is Dr. Boudreaux. MD Complaint: joint paint Onset (ago): week(s) (2) Pain Consistency: constant Relieving factors: nothing Associated symptoms: other (RLQ ABD pain, lightheadedness, dizziness, and nausea) Context: other (sickle cell anemia) Related Data Home Medications Medication Instructions Recorded Confirmed Eliquis 5 mg PO BID 06/02/19 06/29/19 Tresiba FlexTouch U-200 10 unit SUBCUT DAILY 06/02/19 06/29/19 diphenhydramine HCl [Benadryl] 25 mg PO Q4H PRN 06/02/19 06/29/19 folic acid 1 mg PO DAILY 06/02/19 06/29/19 metformin 500 mg PO BID 06/02/19 06/29/19 atenolol 25 mg PO BID 06/29/19 06/29/19 furosemide 20 mg PO DAILY 06/29/19 06/29/19 hydralazine 25 mg PO BID 06/29/19 06/29/19 lisinopril 10 mg PO DAILY 06/29/19 06/29/19 meloxicam 7.5 mg PO DAILY 06/29/19 06/29/19 chlorzoxazone 500 mg tablet 500 mg PO TID PRN 07/18/19 diclofenac sodium 75 mg 75 mg PO BID 07/18/19 tablet,delayed release ibuprofen 600 mg tablet 600 mg PO DAILY tablet 07/18/19 mometasone-formoterol HFA 100 2 puff INHALATION Q12H 07/18/19 mcg-5 mcg/actuation aerosol inhaler nicotine 21 mg/24 hr daily 1 patch TRANSDERM DAILY 07/18/19 transdermal patch trazodone 100 mg tablet 100 mg PO DAILY tablet 07/18/19 Allergies Allergy/AdvReac Type Severity Reaction Status Date / Time iohexol Allergy Severe Unconscious Verified 07/14/19 05:53 [From CONTRAST - CT, XRAY] ketorolac AdvReac Loss of Verified 07/15/19 22:22 Consciousness Contrast Media Allergy Severe PASSED Uncoded 07/14/19 05:53 OUT Review of Systems Review of Systems: All systems reviewed & are unremarkable except as noted in HPI and below Constitutional: Constitutional: Reports body ache(s), Denies chills, Denies fever(s) and Denies other (sweats) Gastrointestinal: Gastrointestinal: Reports abdominal pain (RLQ), Denies diarrhea, Reports nausea and Denies vomiting Neurologic: Reports dizziness and Reports other (lightheadedness) PMF[facility] Past Medical History Medical History Anxiety Back fracture Cataract Depression Diabetes DVT (deep venous thrombosis) FH: cholecystectomy Gall bladder disease Hypertension Irregular heartbeat Liver disease Pancreatitis Pneumonia Port-A-Cath in place Pulmonary embolism Sickle cell anemia with coexistent alpha-thalassemia Surgical History Surgical History Hx of cholecystectomy Social History Social History Smoking status: Never smoker Second hand tobacco smoke exposure: Yes Alcohol intake: never Substance use: never Gender identity (if verbalized by the patient): Male Spiritual care concerns: No Agree to blood products: Yes Exam Narrative: Exam Narrative: GENERAL: Well-appearing, well-nourished, and in no acute distress. HEAD: Normocephalic, atraumatic. ENT: Mucous membranes moist. CHEST: Clear to auscultation. No respiratory distress. HEART: Regular rate and rhythm. Normal peripheral pulses. ABDOMEN: Soft, Mild RLQ tenderness, nondistended. EXTREMITIES: Normal range of motion. No edema. SKIN: Warm, dry, no rash. NEURO: No focal deficits. Alert and oriented x3. PSYCH: Normal mood and affect. Course Course Emergency Course: In
[2019-08-02 02:43] LABS: Basophils Absolute Auto 0.1 K/mm3 (0.0-0.1); Basophils Percent Auto 0.5 % (0.2-1.2); Eosinophils Absolute Auto 0.3 K/mm3 (0-0.3); Eosinophils Percent Auto 2.6 % (0-4.4); Immature Granulocyte Absolute 0.05 K/mm3 (0.00-0.031); Immature Granulocyte Percent A 0.5 % (0-0.5); Immature Reticulocyte Fraction 32.2 % (3.0-15.9); Lymphocytes Absolute Auto 3.38 K/mm3 (0.9-3.2); Lymphocytes Percent Auto 32.5 % (18.3-44.2); Mean Corpuscular HGB Conc 33.7 g/dl (32-36); Mean Corpuscular Hemoglobin 30.7 pg (26-34); Mean Corpuscular Volume 91.2 fl (80-100); Mean Platelet Volume 12.3 fl (7.4-10.4); Monocytes Percent Auto 9.3 % (2.6-8.5); Neutrophils Absolute Auto 5.7 K/mm3 (1.3-6.7); Neutrophils Percent Auto 54.6 % (45.5-73.1); Nucleated Red Blood Cells Absolute Auto 0.2 K/mm3 (0.0-0.012); Platelet Count Result 150 k/mm3 (150-375); Red Blood Count 2.15 M/mm3 (4.6-6.20); Red Cell Distribution Width 21.3 % (11.5-14.5); Reticulocyte Hemoglobin Conten 35.9 pg (28.2-35.7); Reticulocyte Percent 12.99 % (0.7-4.3); Reticulocytes Absolute 0.28 B/L (32.2-175.7); White Blood Count 10.4 K/mm3 (4.5-10.0)
[2019-08-02] MEDS: HYDROMORPHONE HCL 1 MG/ML INJ IV PUSH ×5 (02:43→21:21)
[2019-08-02] MEDS: SODIUM CHLORIDE 0.9% IV 1,000 ML 999 ML IV CONT (02:43)
[2019-08-02 02:54] LABS: Blood Urea Nitrogen 21 mg/dL (9-20); Calcium 9.3 mg/dL (8.4-10.2); Carbon Dioxide 31 mmol/L (22-30); Chloride 102 mmol/L (98-107); Estimated CRCL calculation 40 ml/min; Estimated Glomerular Filt Rate 57; Glucose 170 mg/dL (75-110); Lactate Dehydrogenase 933 U/L (313-618); Potassium 3.8 mmol/L (3.4-5.0); Sodium 139 mmol/L (137-145)
[2019-08-02 03:04] LABS: Hematocrit 19.6 % (42.0-52.0); Hemoglobin 6.6 g/dL (14.0-18.0); Platelet Estimate Adequate (Adequate)
[2019-08-02 03:05] LABS: Hypochromasia 1+ (NORMAL); Macrocytosis 1+ (NORMAL); Ovalocytes 1+ (NORMAL); Target Cells 1+ (NORMAL)
[2019-08-02 03:07] LABS: Large Platelets Present; Sickle Cells 1+ (NORMAL)
--- NOTE | 2019-08-02 05:12 | PC.NURSE ---
Pt states he does not have nor know his list of medications at this time.
--- NOTE | 2019-08-02 05:21 | ADMGEN ---
This patient, Jaden Gonzalez, was admitted to 3 [facility] Surg Room 301-01. Patient/family oriented to hospital policies and general routines including ID bracelet, bed and alarms, visiting hours, pain management, procedures, bathroom and other care routines, personal items, smoking policy, room service/diet, and visiting hours. Valuables list has been completed. Information on how to activate the Rapid Response Team has been discussed. Patient/Family are encouraged to report perceived risks to care and to ask questions if they do not understand what they are told or what they should do.
[2019-08-02] MEDS: SODIUM CHLORIDE 0.9% IV 1,000 ML 125 ML IV CONT (06:14)
[2019-08-02] MEDS: SODIUM CHLORIDE 0.9% IV 250 ML 30 ML IV CONT (06:15)
--- NOTE | 2019-08-02 09:39 | ECG_ITS ---
Measurements Intervals [place] Rate: 87 P: 56 [place]: 187 QRS: 1 QRSD: 109 T: 43 QT: 390 QTc: 470 Interpretive Statements SINUS RHYTHM VOLTAGE CRITERIA FOR LVH MINIMAL Q WAVES- LATERAL LEADS BASELINE ARTIFACT- I, II, AVR, AVL, AVF, V1 BORDERLINE ECG Electronically Signed On 08-02-2019 10:38:57 CDT by Franklin Bajwa D.O.
--- NOTE | 2019-08-02 09:58 | PM.IMHP ---
H&P: HPI History of Present Illness Chief complaint: sickle cell crisis,anemia <Michell Brower PA-C - Last Filed: 08/02/19 13:57> Narrative: Date of service: 08/02/2019 at 0900 Jaden Gonzalez is a 63 year old male with a PMH of known sickle cell disease, insulin dependent DM, HTN, and history of DVT and PE approximately 2 years ago. He has a long time port in place because he reports he is unable to get blood or medications through peripheral IVs. He reported to the emergency department on 08/02/2019 via private vehicle with complaints of myalgia for approximately 1.5-2 weeks. He had previously been seen in the ED at an outside facility approximately 1 week ago with c/o myalgia for which he was given chlorzoxazone with no relief. His pain persisted which prompted him to seek emergency care. He reports diffusely aching joints which he rates as 8/10. His pain is the worst in his lower extremities. He also complains of low back pain, bilateral shoulder pain, and chest pain which he describes as pressure sitting on his chest. He denies jaw pain. He denies pain in his hands or fingers. Reports pain was significant that he was unable to walk and could only manage short trips to the bathroom. He also reports he believed his blood was low as he was feeling weak and lightheaded. He denied dizziness. He did report one episode of epistaxis approximately 1 week ago. He reports he requires blood transfusions every 1-2 months, and was recently hospitalized from 06/29-07/04/19 during which he underwent transfusion. From prior hospitalization, care was established with Dr. Reeves. Patient reports he also recently saw a pain management provider, but no changes have been made to his pain management regimen at this time. The patient also reports a non-productive cough with SOB which has been ongoing for 3 days. He required 2 L of oxygen at home for approximately 3 days. He uses home oxygen only intermittently when he becomes SOB. Today he is 94% on room air. He denies fever or chills. He denies recent travel history. He reports urinary hesitancy and frequency, but denies dysuria or hematuria. His last bowel movement was 3 days ago and he endorses some abdominal pain which he relates to constipation. His appetite has been good. He has been sleeping well. The patient was admitted under observation to the hospitalist service on 08/02/2019 for blood transfusion and pain management. Supervising physician is Dr. Lr. <Michell Brower PA-C - Last Filed: 08/02/19 13:57> Review of Systems Review of Systems: Narrative: A 12 point review of systems was reviewed and unremarkable except as noted in HPI and below Constitutional: weakness, no fatigue, no fevers, no dizziness, lightheadedness EENT: history of cataracts and has decreased visual acuity, no difficulty hearing, no rhinorrhea, no dysphagia CV: chest pain, SOB Respiratory: cough, no congestion GI: RLQ abdominal pain, no nausea or vomiting, constipation : no dysuria, no urgency or frequency, no hematuria Skin: no rashes or lesions MSK: myalgia and arthralgia as per HPI Neuro: no headaches, no memory loss, no confusion Psych: no anxiety or depression Heme: epistaxis, no bruising Endocrine: no weight change <Michell Brower PA-C - Last Filed: 08/02/19 13:57> [facility] Past Medical History Medical History: Medical History (Updated 08/02/19 @ 13:12 by Michell Brower PA-C) Anxiety Back fracture Cataract Depression Diabetes DVT (deep venous thrombosis) FH: cholecystectomy Cholecystectomy in approximately 1999 Gall bladder disease Hypertension Irregular heartbeat Liver disease Pancreatitis Port-A-Cath in place Pulmonary embolism Sickle cell anemia with coexistent alpha-thalassemia <Michell Brower PA-C - Last Filed: 08/02/19 13:57> Surgical History Surgical History: Surgical History Hx of cholecystectomy <Mal
[2019-08-02 11:06] LABS: Glucose Point of Care 200 (65-105)
[2019-08-02] MEDS: atenoloL 25 MG TABLET PO ×2 (11:48→21:23)
[2019-08-02] MEDS: FOLIC ACID 1 MG TABLET PO (11:48)
[2019-08-02] MEDS: FUROSEMIDE 20 MG TABLET PO (11:49)
[2019-08-02] MEDS: lisinopriL 10 MG TABLET PO (11:49)
[2019-08-02] MEDS: polyethylene glycoL 3350 17 GM POWD.PACK PO (11:49)
[2019-08-02] MEDS: hydrALAZINE HCL 25 MG TABLET PO ×2 (11:49→17:40)
[2019-08-02] MEDS: CENTRAL LINE FLUSH 10 ML IV PUSH ×2 (14:07→21:22)
[2019-08-02 15:46] LABS: Basophils Percent Auto 0.4 % (0.2-1.2); Eosinophils Absolute Auto 0.2 K/mm3 (0-0.3); Eosinophils Percent Auto 2.6 % (0-4.4); Hematocrit 25.7 % (42.0-52.0); Hemoglobin 8.6 g/dL (14.0-18.0); Immature Granulocyte Absolute 0.04 K/mm3 (0.00-0.031); Immature Granulocyte Percent A 0.4 % (0-0.5); Immature Platelet Fraction Pct 8.7 % (0.9-11.2); Lymphocytes Absolute Auto 3.29 K/mm3 (0.9-3.2); Lymphocytes Percent Auto 36.3 % (18.3-44.2); Mean Corpuscular HGB Conc 33.5 g/dl (32-36); Mean Corpuscular Hemoglobin 29.7 pg (26-34); Mean Corpuscular Volume 88.6 fl (80-100); Mean Platelet Volume 12.3 fl (7.4-10.4); Monocytes Percent Auto 10.7 % (2.6-8.5); Neutrophils Absolute Auto 4.5 K/mm3 (1.3-6.7); Neutrophils Percent Auto 49.6 % (45.5-73.1); Nucleated Red Blood Cells Absolute Auto 0.2 K/mm3 (0.0-0.012); Nucleated Red Blood Cells Perc 2.2 % (0.0-0.2); Platelet Count Result 117 k/mm3 (150-375); Red Cell Distribution Width 19.5 % (11.5-14.5); White Blood Count 9.1 K/mm3 (4.5-10.0)
[2019-08-02 15:57] LABS: Alanine Aminotransferase 29 U/L (4-50); Albumin Level 3.7 g/dL (3.5-5.1); Alkaline Phosphatase 100 U/L (38-126); Aspartate Amino Transferase 59 U/L (17-59); Bilirubin,Total 4.4 mg/dL (0.2-1.3); Blood Urea Nitrogen 16 mg/dL (9-20); Calcium 9.2 mg/dL (8.4-10.2); Carbon Dioxide 33 mmol/L (22-30); Chloride 105 mmol/L (98-107); Estimated CRCL calculation 52 ml/min; Estimated Glomerular Filt Rate > 60; Glucose 192 mg/dL (75-110); Potassium 4.4 mmol/L (3.4-5.0); Sodium 138 mmol/L (137-145)
[2019-08-02 16:06] LABS: Hypochromasia 1+ (NORMAL); Sickle Cells 1+ (NORMAL)
[2019-08-02 16:07] LABS: Helmet Cells 1+ (NORMAL); Ovalocytes 1+ (NORMAL); Target Cells 1+ (NORMAL)
[2019-08-02 16:08] LABS: Troponin I 0.015 ng/mL (0.000-0.034)
[2019-08-02 16:20] LABS: Glucose Point of Care 175 (65-105)
[2019-08-02 17:29] LABS: Hemoglobin A1C 6.4 % (<5.7)
[2019-08-02] MEDS: SENNA/DOCUSATE SODIUM TABLET 1 TAB PO (21:23)
[2019-08-02 21:25] LABS: Hematocrit 26.1 % (42.0-52.0); Hemoglobin 8.9 g/dL (14.0-18.0)
[2019-08-02 21:54] LABS: Glucose Point of Care 192 (65-105)
[2019-08-03] VITALS (8 sets, daily range): BP systolic 110–145; BP diastolic 60–68; PULSE 75–104; RESP 18–20; TEMP 36.3–38.2; O2SAT 86–94
[2019-08-03] MEDS: HYDROMORPHONE HCL 1 MG/ML INJ IV PUSH ×6 (01:33→22:43)
[2019-08-03] MEDS: SODIUM CHLORIDE 0.9% IV 1,000 ML 75 ML IV CONT (03:17)
[2019-08-03 04:20] LABS: Basophils Absolute Auto 0.1 K/mm3 (0.0-0.1); Basophils Percent Auto 0.5 % (0.2-1.2); Eosinophils Absolute Auto 0.3 K/mm3 (0-0.3); Eosinophils Percent Auto 2.7 % (0-4.4); Hematocrit 25.2 % (42.0-52.0); Hemoglobin 8.5 g/dL (14.0-18.0); Immature Granulocyte Absolute 0.06 K/mm3 (0.00-0.031); Immature Granulocyte Percent A 0.6 % (0-0.5); Lymphocytes Absolute Auto 2.94 K/mm3 (0.9-3.2); Lymphocytes Percent Auto 27.9 % (18.3-44.2); Mean Corpuscular HGB Conc 33.7 g/dl (32-36); Mean Corpuscular Hemoglobin 29.8 pg (26-34); Mean Corpuscular Volume 88.4 fl (80-100); Mean Platelet Volume 11.7 fl (7.4-10.4); Monocytes Absolute Auto 1.1 K/mm3 (0.1-0.6); Neutrophils Absolute Auto 6.2 K/mm3 (1.3-6.7); Neutrophils Percent Auto 58.3 % (45.5-73.1); Nucleated Red Blood Cells Absolute Auto 0.2 K/mm3 (0.0-0.012); Nucleated Red Blood Cells Perc 1.8 % (0.0-0.2); Platelet Count Result 117 k/mm3 (150-375); Red Blood Count 2.85 M/mm3 (4.6-6.20); Red Cell Distribution Width 19.2 % (11.5-14.5); White Blood Count 10.6 K/mm3 (4.5-10.0)
[2019-08-03 04:33] LABS: Alanine Aminotransferase 32 U/L (4-50); Albumin Level 3.7 g/dL (3.5-5.1); Alkaline Phosphatase 110 U/L (38-126); Aspartate Amino Transferase 66 U/L (17-59); Bilirubin,Total 5.1 mg/dL (0.2-1.3); Blood Urea Nitrogen 17 mg/dL (9-20); Calcium 9.1 mg/dL (8.4-10.2); Carbon Dioxide 32 mmol/L (22-30); Chloride 106 mmol/L (98-107); Estimated CRCL calculation 57 ml/min; Estimated Glomerular Filt Rate > 60; Glucose 206 mg/dL (75-110); Potassium 4.7 mmol/L (3.4-5.0); Sodium 138 mmol/L (137-145)
[2019-08-03] MEDS: CENTRAL LINE FLUSH 10 ML IV PUSH ×3 (05:58→22:46)
[2019-08-03 07:16] LABS: Glucose Point of Care 151 (65-105)
[2019-08-03] MEDS: atenoloL 25 MG TABLET PO ×2 (08:33→20:38)
[2019-08-03] MEDS: hydrALAZINE HCL 25 MG TABLET PO ×2 (08:33→17:18)
[2019-08-03] MEDS: FOLIC ACID 1 MG TABLET PO (08:33)
[2019-08-03] MEDS: polyethylene glycoL 3350 17 GM POWD.PACK PO (08:35)
[2019-08-03 12:31] LABS: Glucose Point of Care 216 (65-105)
[2019-08-03] MEDS: INSULIN ASPART (*BKC) 100 UNITS/ML SUB-Q ×2 (12:33→22:32)
--- NOTE | 2019-08-03 13:28 | PM.IMPN ---
Progress Note: A&P Assessment and Plan (1) Sickle cell pain crisis: Code(s): D57.00 - Hb-SS disease with crisis, unspecified <Michell Brower PA-C - Last Filed: 08/03/19 14:37> Status: Acute <Michell Brower PA-C - Last Filed: 08/03/19 14:37> Assessment and Plan: Patient reports arthralgia and myalgia in back, chest, arms. and legs, consistent with prior episodes of sickle cell pain. He has had two prior hospitalizations in 2019 for sickle cell pain. There is currently no evidence of acute chest syndrome with CXR showing no areas of consolidation, patient is afebrile, and vitals stable. Hgb 6.6 prior to transfusion and now low but stable at 8.5. Workup on 08/01 due to chest pain revealed no ST changes on EKG, no acute cardiopulmonary abnormality on CXR, and troponin 0.015. Pt reports chest pain is consistent with prior sickle cell pain episodes. - Continue IV normal saline at 125 ml/hr, watching closely for signs of fluid overload. Patient has no history of CHF but is on lasix at home - will watch for SOB or edema. - Continue acetaminophen for mild pain, hydrocodone for moderate pain, and hydromorphone for severe pain - Continue to monitor pain level and vital signs - Dr. 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 Reeves. Previously hospitalized 06/29-07/04/2019 when he received 1 unit pRBC. Prior to that, was hospitalized in May 2019 and received 2 units pRBC. At admission, Hgb 6.6 and Hct 19.6, s/p transfusion 2 units leukocyte reduced RBC via port. Hgb remaining steady at 8.5-8.9 following transfusion. - Continue to monitor H&H and transfuse prn with threshold Hgb of 7.0. - Stool occult blood ordered, awaiting stool specimen - Continue home dose of folic acid - Dr. Reeves is following and recommendations are greatly appreciated <Michell Brower PA-C - Last Filed: 08/03/19 14:37> (3) Hypertension: Qualifiers: Hypertension type: essential hypertension Qualified Code(s): I10 - Essential (primary) hypertension <SWATI HillC - Last Filed: 08/03/19 14:37> Code(s): I10 - Essential (primary) hypertension <SWATI HillC - Last Filed: 08/03/19 14:37> Status: Chronic <SWATI HillC - Last Filed: 08/03/19 14:37> Assessment and Plan: Blood pressure evaluated today and stable at 120/60. - Continue home dose hydralazine and atenolol with parameters - Continue to hold home dose lisinopril. Creatinine improved to 1.0 today, but will continue to monitor and resume when clinically appropriate. 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 Hgb A1c 6.4 on 08/02/19. Prior documented A1c 8.1 on 12/11/18. - Continue moderate dose SSI, accuchecks, and hypoglycemic protocol. - Hold metformin and continue to monitor kidney function. - Resume home Tresiba and continue to monitor blood sugar control. <SWATI HillC - Last Filed: 08/03/19 14:37> (5) History of DVT (deep vein thrombo
[2019-08-03 14:44] LABS: Troponin I 0.015 ng/mL (0.000-0.034)
[2019-08-03] MEDS: SODIUM CHLORIDE 0.9% IV 1,000 ML 125 ML IV CONT (16:49)
[2019-08-03 16:54] LABS: Glucose Point of Care 168 (65-105)
[2019-08-03 16:59] LABS: IFOB Positive Control Positive; Immunochemical Fecal Occult Bl Negative (N)
--- NOTE | 2019-08-03 18:37 | CONS_ITS ---
DATE OF CONSULTATION: 08/03/2019 REASON FOR CONSULTATION: Sickle cell crisis. HISTORY OF PRESENTING ILLNESS: This is a 63-year-old male with sickle cell anemia initially seen by Dr. Polk at [facility]. Hemoglobin electrophoresis done previously showed sickle cell trait with possible thalassemia component. 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 The patient never had EGD and colonoscopy done. He had been admitted to the hospital many times with multiple episodes of sickle cell crisis, which is unusual as he has sickle cell trait only. Now he came into the hospital with worsening pain in the lower extremities. He also has lower back pain and bilateral shoulder pain. He has been feeling quite weak and tired. He has been having lightheadedness and dizziness. He denies any fevers and chills. Labs showed hemoglobin of 6.6 on admission and received 2 units of packed red blood cells. His reticulocyte count was elevated at 12.9. REVIEW OF SYSTEMS: 12-point review of systems reviewed and as per HPI, otherwise negative. PAST MEDICAL HISTORY: Sickle cell trait/thalassemia, iron overload, multiple admission for sickle cell crisis, cataract, depression, diabetes, DVT. PAST SURGICAL HISTORY: Cholecystectomy, Port-A-Cath placement. 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 Denies any history of drinking and smoking. FAMILY HISTORY: Noncontributory. HOME MEDICATIONS: Reviewed. ALLERGIES: REVIEWED. PHYSICAL EXAMINATION: GENERAL: This patient is a well-developed, well-nourished, male, alert and oriented. VITAL SIGNS: Per nursing note. HEENT: Normocephalic, atraumatic. Clear oropharynx. LUNGS: Clear to auscultation bilaterally. CARDIOVASCULAR: Regular rate and rhythm. No murmurs. ABDOMEN: Soft, nontender, nondistended. Bowel sounds are positive in all 4 quadrants. No hepatosplenomegaly. EXTREMITIES: No edema. NEURO: Grossly intact. LABORATORY DATA: WBC 9.1, hemoglobin 8.6, MCV 88.6, platelet 117,000, neutrophils 49%, lymphocytes 36%. On admission, hemoglobin was 6.6. Reticulocyte count was 12.9, creatinine 1.1. Hemoglobin A1c 6.4, total bilirubin 4.4, ALT is 933. Doppler study showed no evidence of DVT bilaterally. Chest x-ray showed no acute cardiopulmonary findings. CT abdomen showed hyperdense liver with nodularity suspicious for liver cirrhosis with mild prostatomegaly. ASSESSMENT AND PLAN: History of sickle cell trait/thalassemia with multiple admission for sickle cell crisis. The patient had extensive workup done initially by Dr. Polk, then Dr. Auguste, and Dr. Ragland, which all suggested sickle cell trait, not anemia. Last hemoglobin electrophoresis was performed in January 2019 that showed hemoglobin S level of 36.5, which is in the range for sickle cell trait. Unfortunately, the patient had many admissions for sickle cell crisis and unfortunately, he has been behaving like sickle cell crisis with his frequent anemias rising LDH and elevated reticulocyte count. 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 I have suggested him to have EGD and colonoscopy done as he never had those testing done for anemia. In the meantime, I will continue to treat him as sickle cell crisis with IV hydration and the current pain medications. He will continue folic acid. He will follow up with me as an outpatient and as well with Dr. Raphael for colonoscopy. I have answered all the questions to the patient's satisfaction. MEGHAN GREY M.D.
[2019-08-03 22:31] LABS: Lactic Acid 0.9 mmol/L (0.7-2.1)
[2019-08-03] MEDS: SENNA/DOCUSATE SODIUM TABLET 1 TAB PO (22:50)
[2019-08-03 23:42] LABS: Glucose Point of Care 219 (65-105)
[2019-08-03 23:45] LABS: Add Urine Microscopic? YES; Appearance Urine Clear (Clear); Bacteria Urine Trace /hpf; Bilirubin Urine Negative (Negative); Blood Urine 1+ (Negative); Color Urine Yellow (Yellow); Glucose Urine UA Negative (Negative); Ketones Urine Negative (Negative); Leukocyte Esterase Ur Negative LEU/UL (Negative); Mucus Urine Rare /lpf; Nitrate Urine Negative (Negative); Protein Urine 1+ mg/dL (Negative); RBC Urine 0-2 /hpf (0-2); Specific Grav Ur 1.012 (1.001-1.035); WBC Urine 0-3 /hpf
[2019-08-04] MEDS: SODIUM CHLORIDE 0.9% IV 1,000 ML 125 ML IV CONT ×2 (02:13→10:31)
[2019-08-04] MEDS: MELATONIN 5 MG TABLET PO ×2 (02:14→21:04)
[2019-08-04] MEDS: HYDROMORPHONE HCL 1 MG/ML INJ IV PUSH ×4 (02:52→16:43)
[2019-08-04 05:25] LABS: Basophils Absolute Auto 0.1 K/mm3 (0.0-0.1); Basophils Percent Auto 0.6 % (0.2-1.2); Eosinophils Absolute Auto 0.3 K/mm3 (0-0.3); Eosinophils Percent Auto 2.6 % (0-4.4); Hematocrit 22.6 % (42.0-52.0); Hemoglobin 7.7 g/dL (14.0-18.0); Immature Granulocyte Absolute 0.12 K/mm3 (0.00-0.031); Lymphocytes Absolute Auto 3.83 K/mm3 (0.9-3.2); Lymphocytes Percent Auto 31.8 % (18.3-44.2); Mean Corpuscular HGB Conc 34.1 g/dl (32-36); Mean Corpuscular Hemoglobin 29.7 pg (26-34); Mean Corpuscular Volume 87.3 fl (80-100); Mean Platelet Volume 12.6 fl (7.4-10.4); Monocytes Absolute Auto 1.1 K/mm3 (0.1-0.6); Monocytes Percent Auto 8.9 % (2.6-8.5); Neutrophils Absolute Auto 6.7 K/mm3 (1.3-6.7); Neutrophils Percent Auto 55.1 % (45.5-73.1); Nucleated Red Blood Cells Absolute Auto 0.2 K/mm3 (0.0-0.012); Nucleated Red Blood Cells Perc 1.7 % (0.0-0.2); Platelet Count Result 115 k/mm3 (150-375); Red Blood Count 2.59 M/mm3 (4.6-6.20); Red Cell Distribution Width 19.4 % (11.5-14.5); White Blood Count 12.1 K/mm3 (4.5-10.0)
[2019-08-04 05:34] LABS: Alanine Aminotransferase 33 U/L (4-50); Albumin Level 3.4 g/dL (3.5-5.1); Alkaline Phosphatase 131 U/L (38-126); Aspartate Amino Transferase 76 U/L (17-59); Bilirubin Indirect 4.1 mg/dL (0-1.1); Bilirubin,Total 5.7 mg/dL (0.2-1.3); Blood Urea Nitrogen 20 mg/dL (9-20); Calcium 8.6 mg/dL (8.4-10.2); Carbon Dioxide 28 mmol/L (22-30); Chloride 106 mmol/L (98-107); Estimated CRCL calculation 57 ml/min; Estimated Glomerular Filt Rate > 60; Glucose 141 mg/dL (75-110); Potassium 4.7 mmol/L (3.4-5.0); Sodium 136 mmol/L (137-145)
[2019-08-04] MEDS: CENTRAL LINE FLUSH 10 ML IV PUSH ×3 (05:41→21:39)
[2019-08-04 06:00] VITALS: BP 121/71; PULSE 79; RESP 20; TEMP 36.9; O2SAT 97
[2019-08-04 06:43] LABS: Anisocytosis 2+ (NORMAL); Platelet Estimate Decreased (Adequate)
[2019-08-04 06:44] LABS: Sickle Cells 2+ (NORMAL); Target Cells 1+ (NORMAL)
[2019-08-04 08:18] VITALS: PULSE 79
[2019-08-04] MEDS: FOLIC ACID 1 MG TABLET PO (08:18)
[2019-08-04] MEDS: atenoloL 25 MG TABLET PO ×2 (08:18→21:04)
[2019-08-04] MEDS: hydrALAZINE HCL 25 MG TABLET PO ×2 (08:18→16:45)
[2019-08-04] MEDS: polyethylene glycoL 3350 17 GM POWD.PACK PO (08:20)
[2019-08-04 09:48] LABS: Glucose Point of Care 161 (65-105)
--- NOTE | 2019-08-04 10:24 | PM.IMPN ---
Progress Note: A&P Assessment and Plan (1) Sickle cell pain crisis: Code(s): D57.00 - Hb-SS disease with crisis, unspecified <Michell Brower PA-C - Last Filed: 08/04/19 19:06> Status: Acute <Michell Brower PA-C - Last Filed: 08/04/19 19:06> Assessment and Plan: Patient reports arthralgia and myalgia in back, chest, arms. and legs, consistent with prior episodes of sickle cell pain. He has had two prior hospitalizations in 2019 for sickle cell pain. There is currently no evidence of acute chest syndrome with CXR showing no areas of consolidation, patient is afebrile, and vitals stable. Hgb 6.6 prior to transfusion and now low but stable at 8.5. Workup on 08/01 due to chest pain revealed no ST changes on EKG, no acute cardiopulmonary abnormality on CXR, and troponin negative. Pt reports chest pain is consistent with prior sickle cell pain episodes. - Stop IV fluids. Patient tolerating oral intake and mild edema - Continue acetaminophen for mild pain, hydrocodone for moderate pain, and hydromorphone for severe pain - Continue to monitor pain level and vital signs - Dr. 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 Reeves. Several prior transfusions. At admission, Hgb 6.6 and Hct 19.6, s/p transfusion 2 units leukocyte reduced RBC via port. Hgb remaining steady at 8.5-8.9 following transfusion. Stool occult blood negative. - Continue to monitor H&H and transfuse prn with threshold Hgb of 7.0. - Continue home dose of folic acid - Dr. Reeves is following and recommendations are greatly appreciated. Will need outpatient EGD and colonoscopy. <Michell MoiseHilario Brower PA-C - Last Filed: 08/04/19 19:06> (3) Community acquired bacterial pneumonia: Code(s): J15.9 - Unspecified bacterial pneumonia <Michell WhiteSWATI zhangC - Last Filed: 08/04/19 19:06> Status: Acute <Michell WhiteGYPSY zhang-C - Last Filed: 08/04/19 19:06> Assessment and Plan: Patient developed fever overnight at 100.8 which resolved with IV tylenol. Due to his immuncompromised status and asplenia, blood cultures performed. Chest CT revealed bibasilar ground glass opacities which likely became apparent with rehydration as they were not previously seen on CXR from 08/01. WBC elevated at 12.1 - Begin IV Rocephin - Begin oral Azithromycin for 5 days. - Await blood cultures. - Order lactic - Continue tylenol prn fever <Michell MoiseSWATI BoucherC - Last Filed: 08/04/19 19:06> (4) Abdominal pain: Qualifiers: Abdominal location: generalized Qualified Code(s): R10.84 - Generalized abdominal pain <Michell MoiseGYPSY Boucher-C - Last Filed: 08/04/19 19:06> Code(s): R10.9 - Unspecified abdominal pain <Michell MoiseHilario CindyGYPSY zhang-C - Last Filed: 08/04/19 19:06> Status: Acute <Michell MoiseHilario CindySWATI zhangC - Last Filed: 08/04/19 19:06> Assessment and Plan: Patient endorsing RLQ pain as well as epigastric pain. Initial CT a/p on 08/01 revealed punctate right inferior calyceal nephrolithiasis. UA revealed 1+ blood. RLQ pain became more severe today. Repeat CT c/a/p revealed no changes of nephrolithiasis, no appendicitis, no acute abdominal findings. - Continue to monitor abdominal pain - Continue pain management regimen <Michell JSWATI BoucherC - Last Filed: 08/04/19 19:06> (5) Cirrhosis: Qualifiers: Ascites presence: without ascites Hepatic cirrhosis type: unspecified hepatic cirrhosis Qualified Code(s):
[2019-08-04 14:00] VITALS: BP 119/81; PULSE 88; RESP 16; TEMP 37.5; O2SAT 92
[2019-08-04 14:23] LABS: Hematocrit 23.1 % (42.0-52.0); Hemoglobin 7.8 g/dL (14.0-18.0)
[2019-08-04] MEDS: AZITHROMYCIN 250 MG TABLET 500 MG PO (17:23)
[2019-08-04 21:04] VITALS: PULSE 80
[2019-08-04] MEDS: SENNA/DOCUSATE SODIUM TABLET 1 TAB PO (21:04)
[2019-08-04] MEDS: ACETAMINOPHEN 325 MG TABLET 650 MG PO (21:05)
[2019-08-04] MEDS: INSULIN GLARGINE (*BKC) 100 UNITS/ML 10 UNITS SUB-Q (21:08)
[2019-08-04 21:10] LABS: Ammonia 12 umol/L (9-30)
[2019-08-04 21:58] LABS: Glucose Point of Care 177 (65-105)
[2019-08-04 22:00] VITALS: BP 132/67; PULSE 100; RESP 18; TEMP 38.3; O2SAT 92
[2019-08-05 05:13] LABS: Basophils Absolute Auto 0.1 K/mm3 (0.0-0.1); Basophils Percent Auto 0.4 % (0.2-1.2); Eosinophils Absolute Auto 0.3 K/mm3 (0-0.3); Eosinophils Percent Auto 2.5 % (0-4.4); Hematocrit 23.7 % (42.0-52.0); Hemoglobin 8.1 g/dL (14.0-18.0); Immature Granulocyte Absolute 0.08 K/mm3 (0.00-0.031); Immature Granulocyte Percent A 0.7 % (0-0.5); Lymphocytes Absolute Auto 2.36 K/mm3 (0.9-3.2); Lymphocytes Percent Auto 19.8 % (18.3-44.2); Mean Corpuscular HGB Conc 34.2 g/dl (32-36); Mean Corpuscular Hemoglobin 29.6 pg (26-34); Mean Corpuscular Volume 86.5 fl (80-100); Mean Platelet Volume 11.9 fl (7.4-10.4); Monocytes Absolute Auto 1.3 K/mm3 (0.1-0.6); Monocytes Percent Auto 10.6 % (2.6-8.5); Neutrophils Absolute Auto 7.9 K/mm3 (1.3-6.7); Nucleated Red Blood Cells Absolute Auto 0.3 K/mm3 (0.0-0.012); Nucleated Red Blood Cells Perc 2.8 % (0.0-0.2); Platelet Count Result 121 k/mm3 (150-375); Red Blood Count 2.74 M/mm3 (4.6-6.20); Red Cell Distribution Width 20.5 % (11.5-14.5); White Blood Count 11.9 K/mm3 (4.5-10.0)
[2019-08-05 05:26] LABS: Alanine Aminotransferase 39 U/L (4-50); Albumin Level 3.6 g/dL (3.5-5.1); Alkaline Phosphatase 147 U/L (38-126); Aspartate Amino Transferase 101 U/L (17-59); Bilirubin,Total 6.4 mg/dL (0.2-1.3); Blood Urea Nitrogen 18 mg/dL (9-20); Calcium 9.5 mg/dL (8.4-10.2); Carbon Dioxide 26 mmol/L (22-30); Chloride 106 mmol/L (98-107); Estimated CRCL calculation 63 ml/min; Estimated Glomerular Filt Rate > 60; Glucose 187 mg/dL (75-110); Potassium 4.3 mmol/L (3.4-5.0); Sodium 138 mmol/L (137-145)
[2019-08-05 05:27] LABS: Lactic Acid 0.8 mmol/L (0.7-2.1)
[2019-08-05] MEDS: CENTRAL LINE FLUSH 10 ML IV PUSH ×3 (05:33→21:32)
[2019-08-05 05:36] LABS: Sickle Cells 2+ (NORMAL)
[2019-08-05 05:37] LABS: Macrocytosis 1+ (NORMAL)
[2019-08-05 05:38] LABS: Target Cells 1+ (NORMAL)
[2019-08-05 06:00] VITALS: BP 154/76; PULSE 91; RESP 18; TEMP 36.8; O2SAT 97
[2019-08-05 08:52] VITALS: PULSE 80
[2019-08-05] MEDS: AZITHROMYCIN 250 MG TABLET PO (08:52)
[2019-08-05] MEDS: hydrALAZINE HCL 25 MG TABLET PO ×2 (08:52→18:20)
[2019-08-05] MEDS: atenoloL 25 MG TABLET PO ×2 (08:52→21:31)
[2019-08-05] MEDS: FOLIC ACID 1 MG TABLET PO (08:54)
--- NOTE | 2019-08-05 11:30 | PCNFU ---
Nutrition Follow-Up Complete: Inadequate oral intake R/T reduced appetite as evidence by 87% of UBW PO intake of 75% or greater of meals and supplements to halt further wt loss Goal: met goal. Pt current nutrition is Heart Healthy. Nutrition recommendation: Regular diet Last recorded weight is 61.4 kg down from 61.9 kg on admit. Bowel Motility: +BM 08/04 Labs Reviewed:Glu 187,Hct 23.7,Hgb 8.1 Meds Noted: Folic Acid, Lasix, Lantus Additional Notes: Patient currently on heart healthy diet, intakes have been 50-100% of meals. I spoke with MD today regarding diet order, new orders for Regular diet with Ensure compact. Reported weight loss and temporal wasting documented. Monitoring; PO intake, wt, labs every five days
--- NOTE | 2019-08-05 12:52 | PM.IMPN ---
Progress Note: A&P Assessment and Plan (1) Sickle cell pain crisis: Code(s): D57.00 - Hb-SS disease with crisis, unspecified <Michell Brower PA-C - Last Filed: 08/05/19 19:07> Status: Acute <Michell Brower PA-C - Last Filed: 08/05/19 19:07> Assessment and Plan: Patient reports arthralgia and myalgia in back, chest, arms, and legs, consistent with prior episodes of sickle cell pain. He has had two prior hospitalizations in 2019 for sickle cell pain. Workup on 08/01 due to chest pain revealed no ST changes on EKG, no acute cardiopulmonary abnormality on CXR, and troponin negative. Pt reports chest pain is consistent with prior sickle cell pain episodes. - Continue acetaminophen for mild pain, oxycodone for pain 4-8, and hydromorphone for pain 9-10. - Continue to monitor pain level and vital signs - Dr. 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 Reeves. Several prior transfusions. At admission, Hgb 6.6 and Hct 19.6, s/p transfusion 2 units leukocyte reduced RBC via port. Hgb remaining steady at 8.1 today. Stool occult blood negative. - Continue to monitor H&H and transfuse prn with threshold Hgb of 7.0. - Continue home dose of folic acid - Dr. Reeves is following and recommendations are greatly appreciated. Will need outpatient EGD and colonoscopy. <Michell Brower PA-C - Last Filed: 08/05/19 19:07> (3) Community acquired bacterial pneumonia: Code(s): J15.9 - Unspecified bacterial pneumonia <Michell Brower PA-C - Last Filed: 08/05/19 19:07> Status: Acute <SWATI HillC - Last Filed: 08/05/19 19:07> Assessment and Plan: Patient developed fever on 08/02 at 100.8 which resolved with IV tylenol. Due to his immuncompromised status and asplenia, blood cultures performed. Chest CT revealed bibasilar ground glass opacities which likely became apparent with rehydration as they were not previously seen on CXR from 08/01. WBC elevated at 11.9. Developed fever 100.9 overnight but afebrile today. Blood cultures reveal NGTD. - Continue IV Rocephin - Continue oral Azithromycin - Continue IV Vancomycin - Continue tylenol prn fever <Michell Brower PA-C - Last Filed: 08/05/19 19:07> (4) Altered mental status: Code(s): R41.82 - Altered mental status, unspecified <Michell Brower PA-C - Last Filed: 08/05/19 19:07> Status: Acute <SWATI HillC - Last Filed: 08/05/19 19:07> Assessment and Plan: Patient noted to have AMS with perseveration last night on exam by Dr. Lr, thought to be due to opioid medication. This morning alert and oriented x3. Head CT performed with no acute findings. Ammonia level normal at 12. Opioids initially held, however patient continues to experience pain which he rates as 10/10 on my exam. - Decrease hydromorphone to 0.5 Q4H for pain 9-10 - Continue to monitor mental status. <Michell Brower PA-C - Last Filed: 08/05/19 19:07> (5) Abdominal pain: Qualifiers: Abdominal location: generalized Qualified Code(s): R10.84 - Generalized abdominal pain <Michell Brower PA-C - Last Filed: 08/05/19 19:07> Code(s): R10.9 - Unspecified abdominal pain <SWATI HillC - Last Filed: 08/05/19 19:07> Status: Acute <Michell Brower PA-C - Last Filed: 08/05/19 19:07> Assessment and Plan: Patient endorsing RLQ pain as well as epigastric pain. Initial CT a/p on 08/01 revealed pun
[2019-08-05 14:00] VITALS: BP 143/73; PULSE 87; RESP 18; TEMP 37.4; O2SAT 92
--- NOTE | 2019-08-05 15:54 | WPDONCPN ---
Progress Note: A/P - Additional Plan Multifactorial anemia with history of sickle cell trait/thalassemia. He had bone marrow biopsy done previously came back unremarkable. LDH and retic count elevated consistent with sickle cell crisis which is unusual for sickle cell trait. Continue treating him as sickle cell crisis with IV hydration and pain medication. I suggested GI evaluation as outpatient. Liver cirrhosis. Could be secondary to iron overload with multiple previous blood transfusion. He denies any history of drinking. - Time Spent With Patient Total time spent is greater than 50% in coordination of care (as documented) at patient's floor/unit and/or counseling patient: 15 - 25 minutes Subjective Interval history: Multifactorial anemia with sickle cell trait/thalassemia Transfusional iron overload with liver cirrhosis Review of Systems - Review of Systems Patient complain of abdominal pain and generalized lower extremity pain. He also complain of abdominal swelling. Denies any fevers and chills. He otherwise looks comfortable. - Neurologic Reports other (lightheadedness) Exam Vital signs: Temp Pulse Resp BP Pulse Ox 37.4 C 87 18 143/73 H 92 08/05/19 14:00 08/05/19 14:00 08/05/19 14:00 08/05/19 14:00 08/05/19 14:00 Narrative: Lungs are clear to auscultation bilaterally Cardiovascular regular rate rhythm no murmurs Abdomen is distended bowel sounds are positive Extremities no edema PN: Objective Data - Labs CBC & Chem 7: 08/05/19 05:06 08/05/19 05:07 Labs: Laboratory Results - last 24 hr 08/04/19 08/04/19 08/05/19 20:53 21:03 05:06 WBC 11.9 H RBC 2.74 L Hgb 8.1 L Hct 23.7 L MCV 86.5 MCH 29.6 MCHC 34.2 RDW 20.5 H Plt Count 121 L MPV 11.9 H Immature Gran % (Auto) 0.7 H Neut % (Auto) 66.0 Lymph % (Auto) 19.8 Burke % (Auto) 10.6 H Eos % (Auto) 2.5 Baso % (Auto) 0.4 Lymph # (Auto) 2.36 Burke # (Auto) 1.3 H Eos # (Auto) 0.3 Baso # (Auto) 0.1 Abs Immat Gran (auto) 0.08 H Absolute Neuts (auto) 7.9 H Absolute Nucleated RBC 0.3 H Nucleated RBC % 2.8 H Platelet Estimate Slightly decreased Macrocytosis 1+ Sickle Cells 2+ Target Cells 1+ Sodium Potassium Chloride Carbon Dioxide BUN Creatinine Estim Creat Clear Calc Estimated GFR Glucose POC Capillary Glucose 177 H Lactic Acid Calcium Total Bilirubin AST ALT Alkaline Phosphatase Ammonia 12 Total Protein Albumin 08/05/19 08/05/19 05:06 05:07 WBC RBC Hgb Hct MCV MCH MCHC RDW Plt Count MPV Immature Gran % (Auto) Neut % (Auto) Lymph % (Auto) Burke % (Auto) Eos % (Auto) Baso % (Auto) Lymph # (Auto) Burke # (Auto) Eos # (Auto) Baso # (Auto) Abs Immat Gran (auto) Absolute Neuts (auto) Absolute Nucleated RBC Nucleated RBC % Platelet Estimate Macrocytosis Sickle Cells Target Cells Sodium 138 Potassium 4.3 Chloride 106 Carbon Dioxide 26 BUN 18 Creatinine 0.90 Estim Creat Clear Calc 63 Estimated GFR > 60 Glucose 187 H POC Capillary Glucose Lactic Acid 0.8 Calcium 9.5 Total Bilirubin 6.4 H AST 101 H ALT 39 Alkaline Phosphatase 147 H Ammonia Total Protein 7.0 Albumin 3.6
[2019-08-05 18:06] LABS: Iron 179 ug/dL (49-181)
[2019-08-05] MEDS: HYDROMORPHONE HCL 1 MG/ML INJ 0.5 MG IV PUSH (18:15)
[2019-08-05 18:16] LABS: Percent Iron Saturation 84 % (20-50)
[2019-08-05 18:22] LABS: Glucose Point of Care 230 (65-105)
[2019-08-05 20:07] LABS: Ferritin > 2000.00 ng/mL (11.1-264)
[2019-08-05 21:00] VITALS: O2SAT 90
[2019-08-05 21:31] VITALS: PULSE 96
[2019-08-05] MEDS: MELATONIN 5 MG TABLET PO (21:34)
[2019-08-05 22:00] VITALS: BP 144/72; PULSE 91; RESP 18; TEMP 36.9; O2SAT 90
[2019-08-06] MEDS: HYDROMORPHONE HCL 1 MG/ML INJ 0.5 MG IV PUSH ×2 (00:11→06:13)
[2019-08-06 06:00] VITALS: BP 159/78; PULSE 82; RESP 18; TEMP 36.9; O2SAT 98
[2019-08-06] MEDS: CENTRAL LINE FLUSH 20 ML IV PUSH (06:14)
[2019-08-06] MEDS: CENTRAL LINE FLUSH 10 ML IV PUSH ×3 (06:14→21:19)
[2019-08-06 06:50] LABS: Basophils Percent Auto 0.4 % (0.2-1.2); Eosinophils Absolute Auto 0.3 K/mm3 (0-0.3); Hemoglobin 7.7 g/dL (14.0-18.0); Immature Granulocyte Absolute 0.07 K/mm3 (0.00-0.031); Immature Granulocyte Percent A 0.7 % (0-0.5); Lymphocytes Absolute Auto 2.17 K/mm3 (0.9-3.2); Lymphocytes Percent Auto 21.6 % (18.3-44.2); Mean Corpuscular HGB Conc 33.5 g/dl (32-36); Mean Corpuscular Hemoglobin 29.7 pg (26-34); Mean Corpuscular Volume 88.8 fl (80-100); Mean Platelet Volume 12.4 fl (7.4-10.4); Monocytes Absolute Auto 1.1 K/mm3 (0.1-0.6); Monocytes Percent Auto 11.2 % (2.6-8.5); Neutrophils Absolute Auto 6.3 K/mm3 (1.3-6.7); Neutrophils Percent Auto 63.1 % (45.5-73.1); Nucleated Red Blood Cells Absolute Auto 0.4 K/mm3 (0.0-0.012); Nucleated Red Blood Cells Perc 4.4 % (0.0-0.2); Platelet Count Result 93 k/mm3 (150-375); Red Blood Count 2.59 M/mm3 (4.6-6.20); Red Cell Distribution Width 21.2 % (11.5-14.5); White Blood Count 10.1 K/mm3 (4.5-10.0)
[2019-08-06 06:56] LABS: Alanine Aminotransferase 41 U/L (4-50); Albumin Level 3.5 g/dL (3.5-5.1); Alkaline Phosphatase 139 U/L (38-126); Aspartate Amino Transferase 91 U/L (17-59); Bilirubin,Total 4.3 mg/dL (0.2-1.3); Blood Urea Nitrogen 16 mg/dL (9-20); Calcium 9.5 mg/dL (8.4-10.2); Carbon Dioxide 29 mmol/L (22-30); Chloride 104 mmol/L (98-107); Estimated CRCL calculation 63 ml/min; Estimated Glomerular Filt Rate > 60; Glucose 156 mg/dL (75-110); Potassium 4.1 mmol/L (3.4-5.0); Sodium 138 mmol/L (137-145)
[2019-08-06 08:00] VITALS: PULSE 82; RESP 18; O2SAT 98
[2019-08-06] MEDS: atenoloL 25 MG TABLET PO ×2 (08:26→21:10)
[2019-08-06] MEDS: FOLIC ACID 1 MG TABLET PO (08:26)
[2019-08-06] MEDS: AZITHROMYCIN 250 MG TABLET PO (08:26)
[2019-08-06] MEDS: polyethylene glycoL 3350 17 GM POWD.PACK PO (08:28)
[2019-08-06] MEDS: hydrALAZINE HCL 25 MG TABLET PO ×2 (08:28→16:12)
--- NOTE | 2019-08-06 11:11 | PM.IMPN ---
Progress Note: A&P Assessment and Plan (1) Sickle cell pain crisis: Code(s): D57.00 - Hb-SS disease with crisis, unspecified Status: Acute Assessment and Plan: Patient reports arthralgia and myalgia in back, chest, arms, and legs, consistent with prior episodes of sickle cell pain. He has had two prior hospitalizations in 2019 for sickle cell pain. Workup on 08/01 due to chest pain revealed no ST changes on EKG, no acute cardiopulmonary abnormality on CXR, and troponin negative. No sign of acute chest syndrome. Pt reports chest pain is consistent with prior sickle cell pain episodes. - Continue acetaminophen for mild pain, oxycodone for pain 4-8, and hydromorphone for pain 9-10. - Continue to monitor pain level and vital signs - Dr. 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 Reeves. Several prior transfusions. At admission, Hgb 6.6 and Hct 19.6, s/p transfusion 2 units leukocyte reduced RBC via port. Hgb remaining steady at 7.7 today. Stool occult blood negative. - Continue to monitor H&H and transfuse prn with threshold Hgb of 7.0. - Continue home dose of folic acid - Dr. Reeves is following and recommendations are greatly appreciated. Will need outpatient EGD and colonoscopy. (3) Community acquired bacterial pneumonia: Code(s): J15.9 - Unspecified bacterial pneumonia Status: Acute Assessment and Plan: Patient developed fever on 08/02 at 100.8 which resolved with IV tylenol. Due to his immuncompromised status and asplenia, blood cultures performed with NGTD. Chest CT revealed bibasilar ground glass opacities which likely became apparent with rehydration as they were not previously seen on CXR from 08/01. WBC improved to 10.1 today. VSS. Afebrile. - Continue IV Ceftriaxone and Vancomycin - Continue oral Azithromycin - Continue tylenol prn fever (4) Altered mental status: Code(s): R41.82 - Altered mental status, unspecified Status: Acute Assessment and Plan: Patient noted to have AMS with perseveration 08/[address] Lr, thought to be due to opioid medication. Today is alert and oriented x3. Head CT performed with no acute findings. Ammonia level normal at 12. Opioids initially held and resumed at lower dose once AMS improved. - Decrease hydromorphone to 0.5 Q4H for pain 9-10 - Continue to monitor mental status. (5) Abdominal pain: Qualifiers: Abdominal location: generalized Qualified Code(s): R10.84 - Generalized abdominal pain Code(s): R10.9 - Unspecified abdominal pain Status: Acute Assessment and Plan: Patient endorsed RLQ pain as well as epigastric pain. Initial CT a/p on 08/01 revealed punctate right inferior calyceal nephrolithiasis. UA revealed 1+ blood. RLQ pain became more severe today. Repeat CT c/a/p revealed no changes of nephrolithiasis, no appendicitis, no acute abdominal findings. Today reports abdominal pain is improving. - Continue to monitor abdominal pain - Continue pain management regimen (6) Cirrhosis: Qualifiers: Ascites presence: without ascites Hepatic cirrhosis type: unspecified hepatic cirrhosis Qualified Code(s): K74.60 - Unspecified cirrhosis of liver Code(s): K74.60 - Unspecified cirrhosis of liver Status: Suspected Assessment and Plan: At prior hospitalization, noted to have elevated liver enzymes. CT abd/pelvis performed on 08/01 revealed hyperdense liver with nodularity, suspicious for cirrhosis, could be hemochromatosis, hemosiderosis, transfusion overload. Iron panel today revealed iron wnl, low TIBC, and high % iron saturation, which could indicate iron overload from frequent transfusions. Tot
[2019-08-06 12:20] LABS: Glucose Point of Care 238 (65-105)
[2019-08-06] MEDS: INSULIN ASPART (*BKC) 100 UNITS/ML SUB-Q ×3 (12:25→18:25)
[2019-08-06 14:00] VITALS: BP 131/70; PULSE 78; RESP 20; TEMP 36.7; O2SAT 93
[2019-08-06 18:09] LABS: Glucose Point of Care 206 (65-105)
[2019-08-06 21:10] VITALS: PULSE 74
[2019-08-06] MEDS: INSULIN GLARGINE (*BKC) 100 UNITS/ML 10 UNITS SUB-Q (21:13)
[2019-08-06 21:53] VITALS: BP 142/73; PULSE 82; RESP 18; TEMP 36.6; O2SAT 91
[2019-08-06 22:10] LABS: Glucose Point of Care 164 (65-105)
[2019-08-07] MEDS: HYDROMORPHONE HCL 1 MG/ML INJ 0.5 MG IV PUSH ×3 (00:02→09:46)
[2019-08-07] MEDS: CENTRAL LINE FLUSH 20 ML IV PUSH (05:49)
[2019-08-07] MEDS: CENTRAL LINE FLUSH 10 ML IV PUSH ×2 (05:50→12:21)
[2019-08-07 06:00] VITALS: BP 167/82; PULSE 82; RESP 18; TEMP 36.8; O2SAT 94
[2019-08-07 06:40] LABS: Hematocrit 22.8 % (42.0-52.0); Hemoglobin 7.5 g/dL (14.0-18.0); Immature Platelet Fraction Pct 12.1 % (0.9-11.2); Mean Corpuscular HGB Conc 32.9 g/dl (32-36); Mean Corpuscular Hemoglobin 29.4 pg (26-34); Mean Corpuscular Volume 89.4 fl (80-100); Mean Platelet Volume 12.4 fl (7.4-10.4); Platelet Count Result 89 k/mm3 (150-375); Red Blood Count 2.55 M/mm3 (4.6-6.20); Red Cell Distribution Width 21.6 % (11.5-14.5); White Blood Count 9.5 K/mm3 (4.5-10.0)
[2019-08-07 07:36] LABS: Alanine Aminotransferase 41 U/L (4-50); Albumin Level 3.5 g/dL (3.5-5.1); Alkaline Phosphatase 146 U/L (38-126); Aspartate Amino Transferase 88 U/L (17-59); Blood Urea Nitrogen 14 mg/dL (9-20); Calcium 9.4 mg/dL (8.4-10.2); Carbon Dioxide 30 mmol/L (22-30); Chloride 104 mmol/L (98-107); Estimated CRCL calculation 63 ml/min; Estimated Glomerular Filt Rate > 60; Glucose 139 mg/dL (75-110); Sodium 137 mmol/L (137-145)
[2019-08-07] MEDS: atenoloL 25 MG TABLET PO (07:50)
[2019-08-07] MEDS: FOLIC ACID 1 MG TABLET PO (07:51)
[2019-08-07] MEDS: AZITHROMYCIN 250 MG TABLET PO (07:51)
[2019-08-07] MEDS: hydrALAZINE HCL 25 MG TABLET PO ×2 (07:52→16:33)
[2019-08-07] MEDS: polyethylene glycoL 3350 17 GM POWD.PACK PO (07:53)
[2019-08-07 08:00] VITALS: PULSE 82; RESP 18; O2SAT 94
[2019-08-07] MEDS: INSULIN ASPART (*BKC) 100 UNITS/ML SUB-Q ×3 (08:14→16:40)
[2019-08-07 08:15] LABS: Hemoglobin A1C 6.3 % (<5.7)
[2019-08-07 12:20] LABS: Glucose Point of Care 174 (65-105)
--- NOTE | 2019-08-07 13:42 | PM.IMPN ---
Progress Note: A&P Assessment and Plan (1) Sickle cell pain crisis: Code(s): D57.00 - Hb-SS disease with crisis, unspecified <Michell Brower PA-C - Last Filed: 08/07/19 15:35> Status: Acute <Michell Brower PA-C - Last Filed: 08/07/19 15:35> Assessment and Plan: Patient reports arthralgia and myalgia in back, chest, arms, and legs, consistent with prior episodes of sickle cell pain. He has had two prior hospitalizations in 2019 for sickle cell pain. Workup on 08/01 due to chest pain revealed no ST changes on EKG, no acute cardiopulmonary abnormality on CXR, and troponin negative. No sign of acute chest syndrome. Pt reports chest pain is consistent with prior sickle cell pain episodes. Diffuse body pain is resolving. - Continue acetaminophen for mild pain, oxycodone for moderate to severe pain. Will discontinue hydromorphone. Plan for discharge tomorrow as pain is improving. - Continue to monitor pain level and vital signs - Dr. 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 Reeves. Several prior transfusions. At admission, Hgb 6.6 and Hct 19.6, s/p transfusion 2 units leukocyte reduced RBC via port. Hgb remaining steady at 7.5 today. Stool occult blood negative. - Continue to monitor H&H and transfuse prn with threshold Hgb of 7.0. - Continue home dose of folic acid - Dr. Reeves is following and recommendations are greatly appreciated. Will need outpatient EGD and colonoscopy. <Michell Brower PA-C - Last Filed: 08/07/19 15:35> (3) Community acquired bacterial pneumonia: Code(s): J15.9 - Unspecified bacterial pneumonia <Michell Brower, PA-C - Last Filed: 08/07/19 15:35> Status: Acute <Michell Brower, PA-C - Last Filed: 08/07/19 15:35> Assessment and Plan: Patient developed fever on 08/02 at 100.8 which resolved with IV tylenol. Due to his immuncompromised status and asplenia, blood cultures performed with NGTD. Chest CT revealed bibasilar ground glass opacities which likely became apparent with rehydration as they were not previously seen on CXR from 08/01. WBC improved to 9.5 today. VSS. Has remained afebrile for >48 hours. - Continue IV Ceftriaxone and Vancomycin. Will transition to oral antibiotic therapy at discharge to complete total 7 days treatment. - Continue oral Azithromycin - Continue tylenol prn fever <Michell Brower, PA-C - Last Filed: 08/07/19 15:35> (4) Altered mental status: Code(s): R41.82 - Altered mental status, unspecified <Michell Brower, PA-C - Last Filed: 08/07/19 15:35> Status: Acute <Michell Brower, PA-C - Last Filed: 08/07/19 15:35> Assessment and Plan: Patient noted to have AMS with perseveration 08/[address] Lr, thought to be due to opioid medication. Today is alert and oriented x3. Head CT performed with no acute findings. Ammonia level normal at 12. Opioids initially held and resumed at lower dose once AMS improved. Alert and oriented x4 today. - Continue to monitor mental status. <Michell Whiteleatha, PA-C - Last Filed: 08/07/19 15:35> (5) Abdominal pain: Qualifiers: Abdominal location: generalized Qualified Code(s): R10.84 - Generalized abdominal pain <Michell MoiseHilario Brower, PA-C - Last Filed: 08/07/19 15:35> Code(s): R10.9 - Unspecified abdominal pain <Michell Jose MariaHilario Brower, PA-C - Last Filed: 08/07/19 15:35> Status: Acute <Imchell Tiffanie Whiteac, PA-C - Last Filed: 08/07/19 15:35>
[2019-08-07 14:00] VITALS: BP 148/84; PULSE 74; RESP 18; TEMP 36.7; O2SAT 93
[2019-08-07 16:34] LABS: Glucose Point of Care 133 (65-105)
[2019-08-07 20:46] LABS: Vancomycin Trough 11.3 ug/mL (10.0-20.0)
[2019-08-07 21:43] VITALS: BP 148/70; PULSE 74; RESP 16; TEMP 36.6; O2SAT 92
[2019-08-08 06:00] VITALS: BP 168/76; PULSE 78; RESP 18; TEMP 37.1; O2SAT 94
[2019-08-08] MEDS: CENTRAL LINE FLUSH 10 ML IV PUSH (06:07)
[2019-08-08] MEDS: CENTRAL LINE FLUSH 20 ML IV PUSH (06:07)
[2019-08-08 06:21] LABS: Basophils Percent Auto 0.4 % (0.2-1.2); Eosinophils Absolute Auto 0.4 K/mm3 (0-0.3); Eosinophils Percent Auto 4.3 % (0-4.4); Hematocrit 21.8 % (42.0-52.0); Hemoglobin 7.4 g/dL (14.0-18.0); Immature Granulocyte Absolute 0.06 K/mm3 (0.00-0.031); Immature Granulocyte Percent A 0.7 % (0-0.5); Immature Platelet Fraction Pct 12.5 % (0.9-11.2); Lymphocytes Absolute Auto 2.25 K/mm3 (0.9-3.2); Lymphocytes Percent Auto 24.7 % (18.3-44.2); Mean Corpuscular HGB Conc 33.9 g/dl (32-36); Mean Corpuscular Hemoglobin 30.3 pg (26-34); Mean Corpuscular Volume 89.3 fl (80-100); Mean Platelet Volume 11.1 fl (7.4-10.4); Monocytes Absolute Auto 1.1 K/mm3 (0.1-0.6); Monocytes Percent Auto 11.5 % (2.6-8.5); Neutrophils Absolute Auto 5.3 K/mm3 (1.3-6.7); Neutrophils Percent Auto 58.4 % (45.5-73.1); Nucleated Red Blood Cells Absolute Auto 0.6 K/mm3 (0.0-0.012); Nucleated Red Blood Cells Perc 6.4 % (0.0-0.2); Platelet Count Result 91 k/mm3 (150-375); Red Blood Count 2.44 M/mm3 (4.6-6.20); White Blood Count 9.1 K/mm3 (4.5-10.0)
[2019-08-08 06:43] LABS: Alanine Aminotransferase 19 U/L (4-50); Albumin Level 3.5 g/dL (3.5-5.1); Alkaline Phosphatase 154 U/L (38-126); Aspartate Amino Transferase 76 U/L (17-59); Bilirubin,Total 3.9 mg/dL (0.2-1.3); Blood Urea Nitrogen 11 mg/dL (9-20); Calcium 9.6 mg/dL (8.4-10.2); Carbon Dioxide 30 mmol/L (22-30); Chloride 105 mmol/L (98-107); Estimated CRCL calculation 63 ml/min; Estimated Glomerular Filt Rate > 60; Glucose 146 mg/dL (75-110); Potassium 3.9 mmol/L (3.4-5.0); Sodium 136 mmol/L (137-145)
[2019-08-08 07:02] LABS: Platelet Estimate Decreased (Adequate)
[2019-08-08 07:03] LABS: Macrocytosis 1+ (NORMAL); Sickle Cells 1+ (NORMAL)
--- NOTE | 2019-08-08 15:45 | PC.NURSE ---
At approximately 1230 I entered patient's room and patient and patient's belongings were gone. Charge nurse, optical instruments supervisor, and security notified. Called patient's cell phone with no answer. Called daughter and notified that we were unable to get ahold of patient, daughter returned call and states, I spoke with my dad and he will be back to de access port. Pt returned at 1400, port de accessed and patient left AMA.
--- NOTE | 2019-08-08 20:51 | PM.DS ---
DS: Diagnosis Admitting Diagnosis Admitting Diagnosis: Hb-SS disease with crisis, unspecified Discharge Diagnosis (1) Sickle cell pain crisis: Code(s): D57.00 - Hb-SS disease with crisis, unspecified Status: Acute Assessment and Plan: Patient reported arthralgia and myalgia in back, chest, arms, and legs, consistent with prior episodes of sickle cell pain. He has had two prior hospitalizations in 2019 for sickle cell pain. Workup on 08/01 due to chest pain revealed no ST changes on EKG, no acute cardiopulmonary abnormality on CXR, and troponin negative. No sign of acute chest syndrome. Pt reports chest pain is consistent with prior sickle cell pain episodes. He was treated with acetaminophen, percocet, and dilaudid for varying degrees of pain. He reported resolution of chest and arm pain. He continued to experience back and leg pain, but reported it was improved from presentation. 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 Reeves. He has had several prior transfusions and was transfused 2 units of pRBC on 08/01. Stool occult blood was negative. Hgb and hematocrit remained stable. Dr. Reeves was consulted and recommended he undergo outpatient EGD and colonoscopy. He should follow up with Dr. Reeves as an outpatient. (3) Community acquired bacterial pneumonia: Code(s): J15.9 - Unspecified bacterial pneumonia Status: Acute Assessment and Plan: He developed fever on 08/02 at 100.8F which resolved with IV tylenol. Due to his immuncompromised status and asplenia, blood cultures performed with NGTD. Chest CT revealed bibasilar ground glass opacities which likely became apparent with rehydration as they were not previously seen on CXR from 08/01. He was treated with 4 days of Ceftriaxone and Azithromycin as well as 3 days IV Vancomycin. He should have continued a short course of oral antibiotics as an outpatient to complete a 7 day course but left prior to receiving discharge orders. His white count improved and he remained afebrile. His cough improved and he was not producing sputum. (4) Altered mental status: Code(s): R41.82 - Altered mental status, unspecified Status: Acute Assessment and Plan: He was noted to have AMS with perseveration on exam on 08/03, thought to be due to opioid medication. His head CT showed no acute findings. His narcotics were briefly held and resumed when his mental status normalized. He remained alert and oriented following that episode. His ammonia level remained within normal limits. (5) Abdominal pain: Qualifiers: Abdominal location: generalized Qualified Code(s): R10.84 - Generalized abdominal pain Code(s): R10.9 - Unspecified abdominal pain Status: Acute Assessment and Plan: Patient endorsed RLQ pain as well as epigastric pain. Initial CT a/p on 08/01 revealed punctate right inferior calyceal nephrolithiasis. UA revealed 1+ blood. RLQ pain became more severe on 08/03. Repeat CT c/a/p revealed no changes of nephrolithiasis, no appendicitis, and no acute abdominal findings. He endorsed improvement of his pain but complained of bloating and had decreased appetite, thought to be related to narcotic causing decreased GI motility. His bowel movements remained regular. (6) Cirrhosis: Qualifiers: Hepatic cirrhosis type: unspecified hepatic cirrhosis Ascites presence: without ascites Qualified Code(s): K74.60 - Unspecified cirrhosis of liver Code(s): K74.60 - Unspecified cirrhosis of liver Status: Acute Assessment and Plan: At prior hospitalization in June 2018, he was noted to have elevated liver enzymes. CT abd/pelvis performed on 08/01 revealed hyperdense liver with nodularity, suspic
== END 2019-08-08 12:30 | disposition left against medical advice (07) | DRG 811 ==
LOC: ANHED 02:37 → ANH3MEDSUR 04:54
PROVIDERS: Nurse Practitioner; Physician Assistant; Admitting Provider Family Medicine; Emergency Provider Emergency Medicine; PCP Emergency Medicine; Visit Provider Internal Medicine
DX: D57.00 Hb-SS disease with crisis, unspecified (principal); J15.9 Unspecified bacterial pneumonia; D57.4 Sickle-cell thalassemia; R41.82 Altered mental status, unspecified; T40.2X5A Adverse effect of other opioids, initial encounter; R10.9 Unspecified abdominal pain; N20.0 Calculus of kidney; K74.60 Unspecified cirrhosis of liver; D69.59 Other secondary thrombocytopenia; M54.5 Low back pain; I10 Essential (primary) hypertension; E11.9 Type 2 diabetes mellitus without complications; F41.8 Other specified anxiety disorders; K59.00 Constipation, unspecified; Z86.718 Personal history of other venous thrombosis and embolism; Z86.711 Personal history of pulmonary embolism; Z90.49 Acquired absence of other specified parts of digestive tract; Z79.01 Long term (current) use of anticoagulants
CPT/HCPCS: 36415; 36430; 70450; 71046; 71250; 74176; 80048; 80053; 80202; 81001; 82140; 82274; 82728; 83036; 83540; 83550; 83605; 83615; 84484; 85014; 85018; 85025; 85027; 85046; 85055; 86850; 86900; 86901; 86922; 87040; 93005; 93970; 96361; 96374; 96375; 96376; 97161; 99285; A9270; G0378; J0131; J0696; J1170; J1642; J1815; J3370; J7030; J7050; P9016

== ENCOUNTER 2019-08-31 00:27 | Inpatient (IN) | payer MEDICARE, SELFPAY ==
[2019-08-31] VITALS (23 sets, daily range): BP systolic 130–190; BP diastolic 69–97; PULSE 79–111; RESP 14–20; TEMP 36.2–37; O2SAT 95–99; BMI 22.5
--- NOTE | ~2019-08-31 | XR_ITS ---
EXAMINATION: XR abdomen obstructive series DATE: 09/02/2019 10:33 INDICATION: Bloating. TECHNIQUE: Upright and supine views of the abdomen were obtained. COMPARISON: CT abdomen and pelvis 08/04/2019 FINDINGS: There are no dilated loops of bowel. There is a moderate volume of stool in the colon. No f ree intraperitoneal gas. There are phleboliths in the pelvis. IMPRESSION: 1. Normal bowel gas pattern. Reviewed, dictated and finalized at location A.
--- NOTE | ~2019-08-31 | XR_ITS ---
EXAMINATION: XR chest 1V portable DATE: 09/02/2019 10:30 INDICATION: Shortness of breath. TECHNIQUE: A single frontal view of the chest was obtained. COMPARISON: Chest single view 08/31/2019, chest CT 08/04/2019 FINDINGS: Again seen are mild interstitial airspace opacities in the mid and lower lung zones with ar chitectural distortion in right midlung zone. No pleural effusion or pneumothorax. Cardiomegaly is no orly. There is a left internal jugular port with tip in proximal right atrium. IMPRESSION: 1. Unchanged mild interstitial and airspace opacities in the mid and lower lung zones, consistent wit h acute on chronic sickle cell lung disease. 2. Cardiomegaly. Reviewed, dictated and finalized at location A. IMPRESSION: 1. Unchanged mild interstitial and airspace opacities in the mid and lower lung zones, consistent with acute on chronic sickle cell lung disease. 2. Cardiomegaly.
--- NOTE | ~2019-08-31 | CT_ITS ---
EXAMINATION: CT abdomen pelvis wo con EXAM DATE: 09/03/2019 09:22 INDICATION: Abdominal bloating, leukocytosis, elevated bilirubin. TECHNIQUE: Spiral CT of the abdomen and pelvis was performed without contrast. Axial, coronal and sag ittal images were reviewed. The dose-length product (DLP) for this examination was 353.34 mGy-cm. T he exposure was tailored according to patient size (auto mA exposure control), and iterative reconstr uction (ASIR) was used as additional dose reduction technique. There is no prior study for compariso n. FINDINGS: There is no nephrolithiasis or hydronephrosis. The prostate is unremarkable. The bladder is unremarkable. Nodular liver contour suspicious for cirrhosis. Liver also is mildly dense, could be hemosiderosis, transfusional overload. Adrenal glands, pancreas are unremarkable. The spleen is n ot identified. There are cholecystectomy clips. Lymph nodes also mildly hyperdense but within [place] l size limits. The appendix is not positively visualized. There is no pericecal inflammatory change to suggest appe ndicitis. The stomach and small bowel are unremarkable. There is expected amount of colonic stool. No free intraperitoneal gas. The interventricular septum is perceptible, suggesting patient is a nemic. Linear bibasilar atelectasis. There are no osteoblastic or osteolytic lesions identified. S haped vertebral body suggesting endplate infarctions, consistent with sickle cell disease. IMPRESSION: 1. No acute intra-abdominal findings. 2. Cirrhosis. 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 Reviewed, dictated and finalized at location A.
--- NOTE | ~2019-08-31 | US_ITS ---
EXAMINATION: US renal BI DATE: 09/03/2019 14:26 INDICATION: Persistent acute renal insufficiency TECHNIQUE: Multiple ultrasound grayscale images of the kidneys were obtained. COMPARISON: CT dated 09/03/2019 FINDINGS: The right kidney measures 9.7 x 5.3 x 6.4 cm. The left kidney measures 10.3 x 6.2 x 4.5 cm. The kidne ys demonstrate normal echogenicity. Bilateral anechoic renal cysts measuring up to 1.4 cm and the lef t kidney and 8 mm in the right kidney. There is no hydronephrosis in either kidney. No stones identi fied. The bladder is partially decompressed but otherwise unremarkable. IMPRESSION: 1. Multiple bilateral renal cysts. Otherwise normal kidneys without hydronephrosis. Reviewed, dictated and finalized at location A. IMPRESSION: 1. Multiple bilateral renal cysts. Otherwise normal kidneys without hydronephr osis.
--- NOTE | ~2019-08-31 | XR_ITS ---
EXAMINATION: XR chest 1V portable DATE: 08/31/2019 02:01 INDICATION: Sickle cell chest pain. TECHNIQUE: A single frontal view of the chest was obtained. COMPARISON: Chest 2 views 08/02/2019, 07/12/2019 FINDINGS: There are mild interstitial airspace opacities in the mid and lower lung zones. No pleural effusion or pneumothorax. Cardiomegaly is noted. There is a left internal jugular port with tip in pr oximal right atrium. Surgical clips in the right upper quadrant are likely from cholecystectomy. IMPRESSION: 1. Mild interstitial and airspace opacities in the mid and lower lung zones with slight worsening, co nsistent with acute on chronic sickle cell lung disease. 2. Cardiomegaly. Reviewed, dictated and finalized at location A. IMPRESSION: 1. Mild interstitial and airspace opacities in the mid and lower lung zones wit h slight worsening, consistent with acute on chronic sickle cell lung disease. 2. Cardiomegaly.
--- NOTE | 2019-08-31 00:49 | ECG_ITS ---
Measurements Intervals [place] Rate: 98 P: 64 FL: 163 QRS: 20 QRSD: 91 T: 72 QT: 351 QTc: 448 Interpretive Statements SINUS RHYTHM VOLTAGE CRITERIA FOR LVH BORDERLINE ECG Electronically Signed On 08-31-2019 7:22:40 CDT by Franklin Bajwa D.O.
[2019-08-31] MEDS: HYDROMORPHONE HCL 1 MG/ML INJ IV PUSH ×7 (01:03→22:23)
[2019-08-31] MEDS: ONDANSETRON INJ 4 MG/2 ML VIAL IV PUSH (01:04)
--- NOTE | 2019-08-31 01:06 | ED.GENADULT ---
HPI - General Adult General Chief complaint: Unspecified Stated complaint: sickle cell Time Seen by Provider: 08/31/19 00:30 Source: patient Mode of arrival: ambulatory Limitations: no limitations History of Present Illness HPI narrative: 63 yo male with h/o chronic pain, Sickle cell trait with thalassemia , anemia who presents with c/o sickle cell pain. Patient reports he suffers chronic pain due to sickle cell but he has been dealing with worsening pain since yesterday. He has not been taking any medication for his pain. He has history of opioid dependence so he is not prescribed chronic narcotics. Patient thinks he may be having pain due to needing a blood transfusion. Patient denies nausea, vomiting, fever, cough, diarrhea or cold symptoms. he denies any blood loss such as bloody stools or melena. His only complaint is pain all over his pain. He has pain to low back, arms, legs and chest pain. He states his pain in his chest is his chronic pain. Related Data Home Medications Medication Instructions Recorded Confirmed diphenhydramine HCl [Benadryl] 25 mg PO Q4H PRN 06/02/19 08/31/19 diclofenac sodium 75 mg PO BID 08/31/19 08/31/19 gabapentin 300 mg PO BID 08/31/19 08/31/19 insulin degludec [Tresiba See Rx Instructions .ROUTE .COMPLEX 08/31/19 08/31/19 FlexTouch U-200] metformin 500 mg PO BID 08/31/19 08/31/19 Allergies Allergy/AdvReac Type Severity Reaction Status Date / Time iohexol Allergy Severe Unconscious Verified 07/14/19 05:53 [From CONTRAST - CT, XRAY] ketorolac AdvReac Loss of Verified 07/15/19 22:22 Consciousness Contrast Media Allergy Severe PASSED Uncoded 07/14/19 05:53 OUT Review of Systems Review of Systems: All systems reviewed & are unremarkable except as noted in HPI and below Constitutional: Constitutional: Denies chills, Denies fever(s) and Denies weakness ENT: Denies dizziness, Denies nasal congestion and Denies sore throat Cardiovascular: Cardiovascular: Denies radiating jaw, neck or arm pain and Denies slow heart rate Respiratory: Respiratory: Denies chest congestion, Denies cough and Denies wheezing Gastrointestinal: Gastrointestinal: Denies abdominal pain, Denies melena, Denies hematochezia, Denies coffee ground emesis, Denies diarrhea, Denies nausea and Denies vomiting Neurologic: Denies dizziness, Denies focal weakness and Denies numbness PMFSH Past Medical History Medical History Anxiety Back fracture Cataract Depression Diabetes DVT (deep venous thrombosis) FH: cholecystectomy Cholecystectomy in approximately 1999 Gall bladder disease Hypertension Irregular heartbeat Liver disease Pancreatitis Port-A-Cath in place Pulmonary embolism Sickle cell anemia with coexistent alpha-thalassemia Surgical History Surgical History Hx of cholecystectomy Family History Family History Father Acute myocardial infarction Sibling Diabetes mellitus Sibling Hypertension Social History Social History Social History: Mr. Gonzalez lives at home alone, with his pet dog. He is independent in his daily activities. 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 He designates his daughter Jonelle ([phone]) as his surrogate decision maker. He would like to be a full code. Smoking status: Never smoker Second hand tobacco smoke exposure: Yes Alcohol intake: never Substance use: never Gender identity (if verbalized by the patient): Male Spiritual care concerns: No Agree to blood products: Yes Exam Const: General: no acute distress and alert Orientation/consciousness: patient oriented x3 Eyes: Sclera: scleral abnormality bilateral (icteric) EOM: EOMs intact bilaterally Chest: Chest palpation & inspection: normal inspection of the chest
[2019-08-31 01:31] LABS: Basophils Percent Auto 0.4 % (0.2-1.2); Eosinophils Absolute Auto 0.3 K/mm3 (0-0.3); Eosinophils Percent Auto 2.9 % (0-4.4); Immature Granulocyte Percent A 0.9 % (0-0.5); Immature Platelet Fraction Pct 15.8 % (0.9-11.2); Lymphocytes Absolute Auto 3.11 K/mm3 (0.9-3.2); Lymphocytes Percent Auto 27.8 % (18.3-44.2); Mean Corpuscular Hemoglobin 31.8 pg (26-34); Mean Corpuscular Volume 88.2 fl (80-100); Monocytes Absolute Auto 1.4 K/mm3 (0.1-0.6); Monocytes Percent Auto 12.9 % (2.6-8.5); Neutrophils Absolute Auto 6.2 K/mm3 (1.3-6.7); Neutrophils Percent Auto 55.1 % (45.5-73.1); Nucleated Red Blood Cells Absolute Auto 0.5 K/mm3 (0.0-0.012); Nucleated Red Blood Cells Perc 4.8 % (0.0-0.2); Platelet Count Result 117 k/mm3 (150-375); Red Blood Count 1.95 M/mm3 (4.6-6.20); Red Cell Distribution Width 24.4 % (11.5-14.5); White Blood Count 11.2 K/mm3 (4.5-10.0)
[2019-08-31 01:41] LABS: Alanine Aminotransferase 36 U/L (4-50); Albumin Level 4.2 g/dL (3.5-5.1); Alkaline Phosphatase 229 U/L (38-126); Aspartate Amino Transferase 96 U/L (17-59); Bilirubin,Total 7.9 mg/dL (0.2-1.3); Blood Urea Nitrogen 16 mg/dL (9-20); Calcium 9.2 mg/dL (8.4-10.2); Carbon Dioxide 26 mmol/L (22-30); Chloride 106 mmol/L (98-107); Estimated CRCL calculation 50 ml/min; Estimated Glomerular Filt Rate > 60; Glucose 177 mg/dL (75-110); Potassium 4.2 mmol/L (3.4-5.0); Sodium 137 mmol/L (137-145)
[2019-08-31 01:42] LABS: INR 1.2; Prothrombin Time 14.9 Seconds (11.1-14.7)
[2019-08-31 01:55] LABS: Hematocrit 17.2 % (42.0-52.0); Hemoglobin 6.2 g/dL (14.0-18.0)
[2019-08-31 01:57] LABS: Hypochromasia 2+ (NORMAL); Sickle Cells 2+ (NORMAL)
[2019-08-31 02:05] LABS: Partial Thromboplastin Time > 200.0 SECONDS (22.3-36.8)
[2019-08-31] MEDS: SODIUM CHLORIDE 0.9% IV 250 ML 30 ML IV CONT ×2 (02:21→15:26)
--- NOTE | 2019-08-31 03:09 | PC.NURSE ---
Patient report faxed to [facility]
[2019-08-31 03:26] LABS: Immature Reticulocyte Fraction 29.5 % (3.0-15.9); Reticulocyte Hemoglobin Conten 35.1 pg (28.2-35.7); Reticulocyte Percent 17.72 % (0.7-4.3); Reticulocytes Absolute 0.36 B/L (32.2-175.7)
[2019-08-31 03:33] LABS: Partial Thromboplastin Time 29.7 SECONDS (22.3-36.8)
[2019-08-31] MEDS: LACTATED RINGERS 1,000 ML 125 ML IV CONT ×2 (03:55→14:23)
[2019-08-31 03:58] LABS: Lactate Dehydrogenase 2135 U/L (313-618)
--- NOTE | 2019-08-31 04:11 | PM.IMHP ---
H&P: HPI History of Present Illness Chief complaint: symptomatic anemia, sickle cell pain crisis Narrative: This is a 63 year old male well known to our Hospitalist service with known sickle cell trait with thalasemia, insulin dependent DM, HTN, previous DVT and PE chronically anticoagulated on Eliquis presented to the hospital again with diffuse pain since yesterday. He also states that he has been feeling lightheaded and dizzy today. He denies any black stools or rectal bleeding. He has been taking his Eliquis as prescribed. He states that he has not been taking any medication for his diffuse pain. He explains that he often runs out of his pain medication because he doesn' take them as prescribed. Tonight he has had mild shortness of breath but denies any cough, sore throat, fever, chills, congestion, vomiting, or wheezing. He has chronic chest pain which he states tonight hasn't changed. The patient has seen various Hematologists and normally sees Dr. Reeves when he gets admitted to our hospital. [facility] found to have a H/H of 6.2/17.2. His Hgb is normally around 7.5. The patient denies any other complaints at this time. He has been admitted to the hospital for a blood transfusion and pain control. No other complaints at this time. . Review of Systems Review of Systems: All systems reviewed & are unremarkable except as noted in HPI and below PMFSH Past Medical History Medical History Anxiety Back fracture Cataract Depression Diabetes DVT (deep venous thrombosis) FH: cholecystectomy Cholecystectomy in approximately 1999 Gall bladder disease Hypertension Irregular heartbeat Liver disease Pancreatitis Port-A-Cath in place Pulmonary embolism Sickle cell anemia with coexistent alpha-thalassemia Surgical History Surgical History Hx of cholecystectomy Family History Family History Father Acute myocardial infarction Sibling Diabetes mellitus Sibling Hypertension Social History Social History Social History: Mr. Gonzalez lives at home alone, with his pet dog. He is independent in his daily activities. 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 He designates his daughter Jonelle ([phone]) as his surrogate decision maker. He would like to be a full code. Smoking status: Never smoker Second hand tobacco smoke exposure: Yes Alcohol intake: never Substance use: never Gender identity (if verbalized by the patient): Male Spiritual care concerns: No Agree to blood products: Yes Meds Home Medications and Allergies Home Medications Medication Instructions Recorded Confirmed Type diphenhydramine HCl [Benadryl] 25 mg PO Q4H PRN 06/02/19 08/31/19 History apixaban 5 mg tablet 5 mg PO BID #180 tablet 08/08/19 08/31/19 Rx atenolol 25 mg tablet 25 mg PO BID #180 tablet 08/08/19 08/31/19 Rx folic acid 1 mg tablet 1 mg PO DAILY #90 tablet 08/08/19 08/31/19 Rx furosemide 20 mg tablet 20 mg PO DAILY #90 tablet 08/08/19 08/31/19 Rx hydralazine 25 mg tablet 25 mg PO BID #180 tablet 08/08/19 08/31/19 Rx lisinopril 10 mg tablet 10 mg PO DAILY #90 tablet 08/08/19 08/31/19 Rx meloxicam 7.5 mg tablet 7.5 mg PO DAILY #90 tablet 08/08/19 08/31/19 Rx diclofenac sodium 75 mg PO BID 08/31/19 08/31/19 History gabapentin 300 mg PO BID 08/31/19 08/31/19 History insulin degludec [Tresiba See Rx Instructions .ROUTE .COMPLEX 08/31/19 08/31/19 History FlexTouch U-200] metformin 500 mg PO BID 08/31/19 08/31/19 History Allergies Allergy/AdvReac Type Severity Reaction Status Date / Time iohexol Allergy Severe Unconscious Verified 07/14/19 05:53 [From CONTRAST - CT, XRAY] ketorolac AdvReac Loss of Verified 07/15/19 22:22 Consciousness Contrast Media Allergy Severe PASSED Unc
--- NOTE | 2019-08-31 04:16 | ADMGEN ---
This patient, Jaden Gonzalez, was admitted to Medical Room 348-01. Patient/family oriented to hospital policies and general routines including ID bracelet, bed and alarms, visiting hours, pain management, procedures, bathroom and other care routines, personal items, smoking policy, room service/diet, and visiting hours. Valuables list has been completed. Information on how to activate the Rapid Response Team has been discussed. Patient/Family are encouraged to report perceived risks to care and to ask questions if they do not understand what they are told or what they should do.
[2019-08-31 05:12] LABS: Glucose Point of Care 176 (65-105)
[2019-08-31 07:54] LABS: Glucose Point of Care 199 (65-105)
[2019-08-31] MEDS: lisinopriL 10 MG TABLET PO (08:58)
[2019-08-31] MEDS: FOLIC ACID 1 MG TABLET PO (08:58)
[2019-08-31] MEDS: FUROSEMIDE 20 MG TABLET PO (08:58)
[2019-08-31] MEDS: atenoloL 25 MG TABLET PO ×2 (08:58→21:20)
[2019-08-31] MEDS: hydrALAZINE HCL 25 MG TABLET PO ×2 (08:58→16:58)
[2019-08-31] MEDS: metFORMIN HCL 500 MG TABLET PO ×2 (08:58→16:59)
[2019-08-31] MEDS: GABAPENTIN 300 MG CAPSULE PO ×2 (08:58→16:58)
[2019-08-31] MEDS: CENTRAL LINE FLUSH 10 ML IV PUSH ×4 (09:25→21:21)
[2019-08-31 11:40] LABS: Glucose Point of Care 244 (65-105)
[2019-08-31] MEDS: hydrALAZINE HCL 20 MG/ML VIAL 10 MG IV PUSH (12:07)
--- NOTE | 2019-08-31 13:35 | PM.IMPN ---
Progress Note: A&P Assessment and Plan (1) Symptomatic anemia: Code(s): D64.9 - Anemia, unspecified Status: Acute Assessment and Plan: ------patient's blood had to be special ordered and he received his 1st unit this morning. His hemoglobin was 6.2 and he is usually in the low sevens. He was symptomatic prior to admission. LDH and bilirubin is up which favors hemolytic anemia/sickle cell crisis. No evidence of bleeding. Replete H&H around two. No evidence of infection on exam or by history on what is causing his sickle cell crisis at this time. (2) Sickle cell pain crisis: Code(s): D57.00 - Hb-SS disease with crisis, unspecified Status: Acute Assessment and Plan: ----- Continue IV narcotic pain medication for now and transition back to oral home meds when more controlled. 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 Monitor platelets. Transfuse prn. (4) Chronic anticoagulation: Code(s): Z79.01 - salvage determiner (current) use of anticoagulants Status: Chronic Assessment and Plan: -----The patient is chronically anticoagulated on Eliquis secondary to previous DVT, PE. Eliquis has been held. I have asked Dr. Reeves's recommendations on when to restart the Eliquis. Last month his Ifob was negative. (5) Diabetes: Qualifiers: Diabetes mellitus type: type 2 Diabetes mellitus half-way insulin use: with half-way use Diabetes mellitus complication status: without complication Qualified Code(s): E11.9 - Type 2 diabetes mellitus without complications; Z79.4 - salvage determiner (current) use of insulin Code(s): E11.9 - Type 2 diabetes mellitus without complications Status: Chronic Assessment and Plan: -----last blood glucose 244. Continue accuchecks, SSI Coverage, Hypoglycemic protocol. Continue home long acting insulin therapy. (6) Hypertension: Qualifiers: Hypertension type: essential hypertension Qualified Code(s): I10 - Essential (primary) hypertension Code(s): I10 - Essential (primary) hypertension Status: Chronic Assessment and Plan: -----blood pressure has been high at 190/92. Hydralazine was given and I have an order to retest his blood pressure around 2:00 p.m.. Will monitor his trends and adjust medications as needed. Atenolol, furosemide, lisinopril and hydralazine. (7) Cirrhosis: Qualifiers: Hepatic cirrhosis type: unspecified hepatic cirrhosis Ascites presence: without ascites Qualified Code(s): K74.60 - Unspecified cirrhosis of liver Code(s): K74.60 - Unspecified cirrhosis of liver Status: Chronic Assessment and Plan: -----chronic. Secondary to iron infusions. Additional Plan Date of service was 08/31/2019 at 05:00 hrs. Time Spent With Patient Time with patient: 25 - 35 minutes Subjective Date/time seen: 08/31/19 13:35 Interval history: Pt is a 63-year-old male here for sickle cell anemia. Patient was seen today while receiving his 1st unit of blood. He has not had any change in his symptoms and still feels worn out and tired. He has not had any chest pain, lightheadedness or dizziness at this time. He just has overall weakness. He is eating and drinking okay. He has diffuse pain from his head to his toes and says this is consistent with sickle cell disease. Review of Systems Review of Systems: All systems reviewed & are unremarkable except as noted in HPI and below Exam Narrative: Exam Narrative: General: Well developed well nourished patient resting in bed coloring in no acute distress HEENT: normocephalic, sclera icteric Neck: supple Neuro: Alert and oriented x4 CV:RRR Resp:CTA Abd: Soft, non distended. No pain to palpation. Positive bowel sounds
[2019-08-31 14:17] LABS: Hematocrit 12.4 % (42.0-52.0)
[2019-08-31 15:18] LABS: Transferrin 191 mg/dL (206-381)
[2019-08-31 15:21] LABS: Iron 253 ug/dL (49-181)
[2019-08-31] MEDS: methylPREDNISolone SOD SUCC 125 MG VIAL IV PUSH (15:27)
[2019-08-31 15:31] LABS: Percent Iron Saturation 97 % (20-50)
[2019-08-31 15:54] LABS: Hematocrit 20.9 % (42.0-52.0)
[2019-08-31 16:18] LABS: Folic Acid 13.9 ng/mL (2.76->20)
[2019-08-31 16:21] LABS: Glucose Point of Care 178 (65-105)
[2019-08-31] MEDS: DICLOFENAC SOD 75 MG TABLET.EC PO (16:59)
[2019-08-31 20:17] LABS: Hematocrit 24.8 % (42.0-52.0); Hemoglobin 8.3 g/dL (14.0-18.0)
--- NOTE | 2019-08-31 20:52 | CONS_ITS ---
DATE OF CONSULTATION: 08/31/2019 REASON FOR CONSULTATION: Sickle cell crisis. HISTORY OF PRESENT ILLNESS: This is a 63-year-old male who was diagnosed to have sickle cell anemia previously and has been managed by different oncologist. The patient has been coming to the hospital quite frequently for sickle cell crisis episodes. Previous workup only showed sickle cell anemia with hemoglobin S level of 36.5 with possibility of thalassemia trait. He now came into the hospital with generalized musculoskeletal pain. He denies any fevers and chills. He denies any bleeding and bruising. Labs showed hemoglobin of 6.2. He is not taking any outpatient narcotics and only taking [id number] pain medication for his pain management. He was supposed to be taking hydroxyurea, but discontinued about 3 months ago. The patient is also on Eliquis, likely for history of pulmonary embolism. REVIEW OF SYSTEMS: 12-point review of system was reviewed and as per HPI, otherwise negative. PAST MEDICAL HISTORY: History of sickle cell trait with beta thalassemia, anxiety, cataract, depression, diabetes, history of DVT and pulmonary embolism. PAST SURGICAL HISTORY: Cholecystectomy. FAMILY HISTORY: Sickle cell anemia in sister and brother. SOCIAL HISTORY: The patient lives independently. 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 Denies any history of smoking. HOME MEDICATIONS: Reviewed. ALLERGIES: REVIEWED. PHYSICAL EXAMINATION: GENERAL: This patient is a well-developed, well-nourished, male, no apparent distress. Alert and oriented. VITAL SIGNS: Per nursing note. HEENT: Normocephalic, atraumatic. Clear oropharynx. LUNGS: Clear to auscultation bilaterally. CARDIOVASCULAR: Regular rate and rhythm. No murmurs. ABDOMEN: Soft, nontender, nondistended. Bowel sounds are positive in all 4 quadrants. No hepatosplenomegaly. EXTREMITIES: No edema. NEUROLOGIC: Grossly intact. LABORATORY DATA: WBC 11.2, hemoglobin 6.2, MCV 88.2, platelet 117,000, neutrophils 55%, reticulocyte count percent 17.7, haptoglobin pending. Creatinine 1.2. Total bilirubin is 7.9. LDH was 2135. ASSESSMENT AND PLAN: Sickle cell crisis. The patient is a 63-year-old male who has diagnosis of sickle cell trait with beta thalassemia, but unfortunately has been presenting clinically. Like sickle cell disease, the patient with frequent episodes of sickle cell crisis. His labs are also consistent with sickle cell crisis. I will continue with IV hydration as well as folic acid 1 mg daily. I will also continue with current pain treatment with [place]. I will restart hydroxyurea at the dose of 500 mg once a day. I have answered all the questions to the patient's satisfaction. MEGHAN Tha GREY M.D. BEAMER HAND BEAMER HAND D Jose F MT: Nancy
[2019-08-31] MEDS: PANTOPRAZOLE SODIUM IV 40 MG VIAL IV PUSH (21:20)
[2019-08-31] MEDS: SENNOSIDES 8.6 MG TABLET PO (21:20)
[2019-08-31 21:28] LABS: Glucose Point of Care 307 (65-105)
[2019-08-31] MEDS: INSULIN GLARGINE (*BKC) 100 UNITS/ML 10 UNITS SUB-Q (22:27)
[2019-09-01] VITALS (10 sets, daily range): BP systolic 121–171; BP diastolic 68–89; PULSE 73–90; RESP 12–20; TEMP 36.7; O2SAT 90–100
[2019-09-01] MEDS: HYDROMORPHONE HCL 1 MG/ML INJ IV PUSH ×5 (02:32→22:11)
[2019-09-01] MEDS: LACTATED RINGERS 1,000 ML 125 ML IV CONT (02:33)
[2019-09-01 05:59] LABS: Hematocrit 24.9 % (42.0-52.0); Hemoglobin 8.2 g/dL (14.0-18.0); Immature Platelet Fraction Pct 14.5 % (0.9-11.2); Mean Corpuscular HGB Conc 32.9 g/dl (32-36); Mean Corpuscular Hemoglobin 30.7 pg (26-34); Mean Corpuscular Volume 93.3 fl (80-100); Platelet Count Result 116 k/mm3 (150-375); Red Blood Count 2.67 M/mm3 (4.6-6.20); Red Cell Distribution Width 21.2 % (11.5-14.5); White Blood Count 9.5 K/mm3 (4.5-10.0)
[2019-09-01 06:23] LABS: Alanine Aminotransferase 33 U/L (4-50); Albumin Level 4.2 g/dL (3.5-5.1); Alkaline Phosphatase 188 U/L (38-126); Aspartate Amino Transferase 83 U/L (17-59); Bilirubin,Total 6.8 mg/dL (0.2-1.3); Blood Urea Nitrogen 19 mg/dL (9-20); Calcium 9.2 mg/dL (8.4-10.2); Carbon Dioxide 26 mmol/L (22-30); Chloride 105 mmol/L (98-107); Estimated CRCL calculation 50 ml/min; Estimated Glomerular Filt Rate > 60; Glucose 231 mg/dL (75-110); Sodium 138 mmol/L (137-145)
[2019-09-01 06:25] LABS: Lactate Dehydrogenase 2145 U/L (313-618)
[2019-09-01 06:34] LABS: Large Platelets Present; Lymphocytes Absolute Manual 2.75 K/mm3 (1.1-4.5); Monocytes Absolute Manual 0.28 K/mm3 (0.1-0.90); Monocytes Percent Manual 3 % (3-9); Neutrophils Percent Manual 68 % (46-73); Nucleated Red Blood Cells 17 %; Polychromasia 2+ (NORMAL); Sickle Cells 2+ (NORMAL); Total Cells Counted 100
[2019-09-01 06:35] LABS: Target Cells 2+ (NORMAL)
[2019-09-01] MEDS: CENTRAL LINE FLUSH 10 ML IV PUSH ×3 (06:48→22:14)
[2019-09-01 07:48] LABS: Glucose Point of Care 167 (65-105)
[2019-09-01] MEDS: hydrALAZINE HCL 25 MG TABLET PO ×2 (08:38→16:46)
[2019-09-01] MEDS: DICLOFENAC SOD 75 MG TABLET.EC PO ×2 (08:38→16:46)
[2019-09-01] MEDS: polyethylene glycoL 3350 17 GM POWD.PACK PO (08:39)
[2019-09-01] MEDS: lisinopriL 10 MG TABLET PO (08:39)
[2019-09-01] MEDS: metFORMIN HCL 500 MG TABLET PO ×2 (08:39→16:46)
[2019-09-01] MEDS: PANTOPRAZOLE SODIUM IV 40 MG VIAL IV PUSH ×2 (08:39→22:12)
[2019-09-01] MEDS: GABAPENTIN 300 MG CAPSULE PO ×2 (08:39→16:46)
[2019-09-01] MEDS: FOLIC ACID 1 MG TABLET PO (08:39)
[2019-09-01] MEDS: FUROSEMIDE 20 MG TABLET PO (08:39)
[2019-09-01] MEDS: atenoloL 25 MG TABLET PO (08:49)
--- NOTE | 2019-09-01 12:32 | PM.IMPN ---
Progress Note: A&P Assessment and Plan (1) Symptomatic anemia: Code(s): D64.9 - Anemia, unspecified Status: Acute Assessment and Plan: ------hemoglobin now stable. He yesterday he had a repeat hemoglobin after his 1st unit of blood which was falsely low due to the draw out of the PICC. He received 1 additional unit and his hemoglobin has been stable. His bilirubin is still high but has improved at 6.8. LDH still significantly high. Since his hemoglobin has been stable, the steroids and telemetry will be discontinued. His direct June test is negative. No evidence of bleeding. No evidence of infection on exam or by history on what is causing his sickle cell crisis at this time. He did develop a slight cough but chest x-ray on admission was normal and he has not had any additional symptoms. Will observe this closely. (2) Sickle cell pain crisis: Code(s): D57.00 - Hb-SS disease with crisis, unspecified Status: Acute Assessment and Plan: ----- Continue IV narcotic pain medication for now and transition back to oral home meds when more controlled. 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 Monitor platelets. Transfuse prn. (4) Chronic anticoagulation: Code(s): Z79.01 - custodial (current) use of anticoagulants Status: Chronic Assessment and Plan: -----The patient is chronically anticoagulated on Eliquis secondary to previous DVT, PE that was 10 years ago. Eliquis has been held. I have asked Dr. Reeves's recommendations on when to restart the Eliquis. Last month his Ifob was negative. (5) Diabetes: Qualifiers: Diabetes mellitus type: type 2 Diabetes mellitus intermission coordinator insulin use: with intermission coordinator use Diabetes mellitus complication status: without complication Qualified Code(s): E11.9 - Type 2 diabetes mellitus without complications; Z79.4 - custodial (current) use of insulin Code(s): E11.9 - Type 2 diabetes mellitus without complications Status: Chronic Assessment and Plan: -----last blood glucose 167. Continue accuchecks, SSI Coverage, Hypoglycemic protocol. Continue home long acting insulin therapy. (6) Hypertension: Qualifiers: Hypertension type: essential hypertension Qualified Code(s): I10 - Essential (primary) hypertension Code(s): I10 - Essential (primary) hypertension Status: Chronic Assessment and Plan: -----blood pressure has been high at 164/89 and he has been running high. Could be due to pain. At this time I am going to increase his atenolol from 25 mg daily to 50 mg daily. Continue with furosemide, lisinopril and hydralazine as well. (7) Cirrhosis: Qualifiers: Hepatic cirrhosis type: unspecified hepatic cirrhosis Ascites presence: without ascites Qualified Code(s): K74.60 - Unspecified cirrhosis of liver Code(s): K74.60 - Unspecified cirrhosis of liver Status: Chronic Assessment and Plan: -----chronic. Secondary to iron infusions. Additional Plan Subjective Date/time seen: 09/01/19 12:32 Interval history: Pt is a 63-year-old male here for sickle cell anemia. Patient was seen today and states his pain is getting less but he is still dependent on the pain medications. He has not had any lightheadedness, dizziness or chest pain. He says that his blood clot was about 10 years ago but he had 2 different blood clots 2 different times and has been told he will need anticoagulation long-term. He said he developed a cough last night but does not feel short of breath or have any fevers or chills. He is still constipated but thinks he will have a bowel movement today. Exam Narrative: Exam Narrative: General: Well developed well nourished patie
--- NOTE | 2019-09-01 17:41 | WPDONCPN ---
Progress Note: A/P - Additional Plan Sickle cell anemia with sickle cell crisis. Repeat labs showed stable hemoglobin. June test came back negative. Iron studies are consistent with transfusional iron overload. Clinically he is feeling better. Continue IV hydration with current pain treatment. Continue folic acid. Patient will start hydroxyurea after the discharge as an outpatient and will follow with me 4 weeks after the discharge. - Time Spent With Patient Total time spent is greater than 50% in coordination of care (as documented) at patient's floor/unit and/or counseling patient: 15 - 25 minutes Subjective Interval history: Sickle cell anemia with sickle cell crisis Review of Systems - Review of Systems Complain of left lower extremity pain. Otherwise he looks comfortable. Denies any bleeding and bruising. Denies any fevers and chills. Has occasional cough. - Neurologic Denies focal weakness, Denies numbness, Denies weakness Exam Vital signs: Temp Pulse Resp BP Pulse Ox 36.7 C 85 12 147/76 H 98 09/01/19 14:00 09/01/19 14:00 09/01/19 14:00 09/01/19 14:00 09/01/19 14:00 Narrative: Lungs are clear to auscultation bilaterally Cardiovascular regular rate rhythm no murmurs Abdomen soft nontender nondistended bowel sounds are positive Extremities no edema PN: Objective Data - Labs CBC & Chem 7: 09/01/19 05:14 09/01/19 05:14 Labs: Laboratory Results - last 24 hr 08/31/19 08/31/19 08/31/19 03:17 20:02 21:17 WBC RBC Hgb 8.3 L Hct 24.8 L MCV MCH MCHC RDW Plt Count MPV Immature Gran % (Auto) Neut % (Auto) Lymph % (Auto) [place] % (Auto) Eos % (Auto) Baso % (Auto) Lymph # (Auto) [place] # (Auto) Eos # (Auto) Baso # (Auto) Abs Immat Gran (auto) Absolute Neuts (auto) Absolute Nucleated RBC Total Counted Neutrophils % (Manual) Lymphocytes % (Manual) Monocytes % (Manual) Nucleated RBC % Abs Lymphs (Manual) Abs Monocytes (Manual) Nucleated RBCs Platelet Estimate Large Platelets % Immature Plt Fraction Polychromasia Sickle Cells Target Cells Sodium Potassium Chloride Carbon Dioxide BUN Creatinine Estim Creat Clear Calc Estimated GFR Glucose POC Capillary Glucose 307 H Calcium Total Bilirubin AST ALT Alkaline Phosphatase Lactate Dehydrogenase Total Protein Albumin Enhanced Crossmatch See Detail 09/01/19 09/01/19 09/01/19 05:14 05:14 07:42 WBC 9.5 RBC 2.67 L Hgb 8.2 L Hct 24.9 L MCV 93.3 D MCH 30.7 MCHC 32.9 RDW 21.2 H Plt Count 116 L MPV TNP Immature Gran % (Auto) Not Reportable Neut % (Auto) Not Reportable Lymph % (Auto) Not Reportable [place] % (Auto) Not Reportable Eos % (Auto) Not Reportable Baso % (Auto) Not Reportable Lymph # (Auto) Not Reportable [place] # (Auto) Not Reportable Eos # (Auto) Not Reportable Baso # (Auto) Not Reportable Abs Immat Gran (auto) Not Reportable Absolute Neuts (auto) Not Reportable Absolute Nucleated RBC Not Reportable Total Counted 100 Neutrophils % (Manual) 68 Lymphocytes % (Manual) 29.0 Monocytes % (Manual) 3 Nucleated RBC % Not Reportable Abs Lymphs (Manual) 2.75 Abs Monocytes (Manual) 0.28 Nucleated RBCs 17 Platelet Estimate Slightly decreased Large Platelets Present % Immature Plt Fraction 14.5 H Polychromasia 2+ Sickle Cells 2+ Target Cells 2+ Sodium 138 Potassium 5.0 Chloride 105 Carbon Dioxide 26 BUN 19 Creatinine 1.20 Estim Creat Clear Calc 50 Estimated GFR > 60 Glucose 231 H POC Capillary Glucose 167 H Calcium 9.2 Total Bilirubin 6.8 H AST 83 H ALT 33 Alkaline Phosphatase 188 H Lactate Dehydrogenase 2145 H Total Protein 8.0 Albumin 4.2 Enhanced Crossmatch
[2019-09-01 19:43] LABS: Immature Reticulocyte Fraction 24.4 % (3.0-15.9); Reticulocyte Hemoglobin Conten 31.4 pg (28.2-35.7); Reticulocyte Percent 14.37 % (0.7-4.3); Reticulocytes Absolute 0.34 B/L (32.2-175.7)
[2019-09-01] MEDS: SENNOSIDES 8.6 MG TABLET PO (22:13)
[2019-09-01] MEDS: atenoloL 50 MG TABLET PO (22:13)
[2019-09-01] MEDS: INSULIN GLARGINE (*BKC) 100 UNITS/ML 10 UNITS SUB-Q (22:18)
[2019-09-01 23:04] LABS: Glucose Point of Care 178 (65-105)
[2019-09-02] MEDS: HYDROMORPHONE HCL 1 MG/ML INJ IV PUSH ×5 (03:26→20:21)
[2019-09-02 05:32] LABS: Hemoglobin 7.5 g/dL (14.0-18.0); Immature Platelet Fraction Pct 14.2 % (0.9-11.2); Mean Corpuscular HGB Conc 34.1 g/dl (32-36); Mean Corpuscular Volume 90.9 fl (80-100); Platelet Count Result 93 k/mm3 (150-375); Red Blood Count 2.42 M/mm3 (4.6-6.20); Red Cell Distribution Width 21.3 % (11.5-14.5); White Blood Count 10.9 K/mm3 (4.5-10.0)
[2019-09-02 05:56] LABS: Alanine Aminotransferase 37 U/L (4-50); Alkaline Phosphatase 177 U/L (38-126); Aspartate Amino Transferase 94 U/L (17-59); Bilirubin Direct 1.1 mg/dL (0-0.3); Bilirubin,Total 7.9 mg/dL (0.2-1.3); Blood Urea Nitrogen 36 mg/dL (9-20); Calcium 9.3 mg/dL (8.4-10.2); Carbon Dioxide 26 mmol/L (22-30); Chloride 107 mmol/L (98-107); Estimated CRCL calculation 36 ml/min; Estimated Glomerular Filt Rate 49; Glucose 107 mg/dL (75-110); Sodium 139 mmol/L (137-145)
[2019-09-02 06:00] VITALS: BP 146/83; PULSE 80; RESP 18; TEMP 37.2; O2SAT 98
[2019-09-02] MEDS: CENTRAL LINE FLUSH 10 ML IV PUSH ×3 (06:08→20:35)
[2019-09-02 06:26] LABS: Lactate Dehydrogenase 2120 U/L (313-618)
[2019-09-02] MEDS: hydrALAZINE HCL 25 MG TABLET PO ×2 (07:37→16:48)
[2019-09-02] MEDS: DICLOFENAC SOD 75 MG TABLET.EC PO ×2 (07:37→16:48)
[2019-09-02] MEDS: metFORMIN HCL 500 MG TABLET PO ×2 (07:37→16:47)
[2019-09-02 07:44] LABS: Glucose Point of Care 113 (65-105)
[2019-09-02 08:16] VITALS: PULSE 84; RESP 18; O2SAT 98
[2019-09-02] MEDS: polyethylene glycoL 3350 17 GM POWD.PACK PO (08:16)
[2019-09-02] MEDS: PANTOPRAZOLE SODIUM IV 40 MG VIAL IV PUSH ×2 (08:16→20:27)
[2019-09-02] MEDS: FUROSEMIDE 20 MG TABLET PO (08:16)
[2019-09-02] MEDS: GABAPENTIN 300 MG CAPSULE PO ×2 (08:16→16:47)
[2019-09-02] MEDS: lisinopriL 10 MG TABLET PO (08:16)
[2019-09-02] MEDS: atenoloL 50 MG TABLET PO ×2 (08:16→20:26)
[2019-09-02] MEDS: FOLIC ACID 1 MG TABLET PO (08:17)
[2019-09-02 09:07] LABS: IFOB Positive Control Positive; Immunochemical Fecal Occult Bl Negative (N)
[2019-09-02] MEDS: FUROSEMIDE INJ 40 MG/4 ML VIAL 20 MG IV PUSH (12:10)
--- NOTE | 2019-09-02 14:37 | WPDONCPN ---
Progress Note: A/P - Additional Plan Sickle cell trait with better thalassemia. Patient has been did with sickle cell crisis episode. Reticulocyte count and LDH is slowly improving. Continue IV hydration as well as folic acid. Continue current pain medication. Hemoglobin is stable. Patient should be able to go home in next 24 hours. He will follow with me as an outpatient for blood check and to start hydroxyurea therapy. - Time Spent With Patient Total time spent is greater than 50% in coordination of care (as documented) at patient's floor/unit and/or counseling patient: 15 - 25 minutes Subjective Interval history: Sickle cell anemia with sickle cell crisis Review of Systems - Review of Systems Patient is resting comfortably. Denies any complaints. No fevers and chills. - Neurologic Denies focal weakness, Denies numbness, Denies weakness Exam Vital signs: Lowell Kirk. Assessment of coma and impaired consciousness. A practical scale. Lancet 1974; 2:81-4. Narrative: Lungs are clear to auscultation bilaterally Cardiovascular regular rate rhythm no murmurs Abdomen soft nontender nondistended Extremities no edema PN: Objective Data - Labs CBC & Chem 7: 09/02/19 04:51 09/02/19 04:50 Labs: Laboratory Results - last 24 hr 09/01/19 09/01/19 09/02/19 17:50 22:16 04:50 WBC RBC Hgb Hct MCV MCH MCHC RDW Plt Count MPV % Immature Plt Fraction Absolute Retic 0.34 L Percent Retic 14.37 H Immature Retic Fraction 24.4 H Retic Hgb Content 31.4 Sodium 139 Potassium 5.0 Chloride 107 Carbon Dioxide 26 BUN 36 H D Creatinine 1.70 H Estim Creat Clear Calc 36 Estimated GFR 49 L Glucose 107 POC Capillary Glucose 178 H Calcium 9.3 Total Bilirubin 7.9 H Direct Bilirubin 1.1 H AST 94 H ALT 37 Alkaline Phosphatase 177 H Lactate Dehydrogenase 2120 H Total Protein 8.0 Albumin 4.0 Stl Occult Blood (IFOB) 09/02/19 09/02/19 09/02/19 04:51 07:34 08:49 WBC 10.9 H RBC 2.42 L Hgb 7.5 L Hct 22.0 L MCV 90.9 MCH 31.0 MCHC 34.1 RDW 21.3 H Plt Count 93 L MPV TNP % Immature Plt Fraction 14.2 H Absolute Retic Percent Retic Immature Retic Fraction Retic Hgb Content Sodium Potassium Chloride Carbon Dioxide BUN Creatinine Estim Creat Clear Calc Estimated GFR Glucose POC Capillary Glucose 113 H Calcium Total Bilirubin Direct Bilirubin AST ALT Alkaline Phosphatase Lactate Dehydrogenase Total Protein Albumin Stl Occult Blood (IFOB) Negative
--- NOTE | 2019-09-02 14:43 | PM.IMPN ---
Progress Note: A&P Assessment and Plan (1) Symptomatic anemia: Code(s): D64.9 - Anemia, unspecified Status: Acute Assessment and Plan: ------hemoglobin now stable but did trend down today. He has had 2 units of blood so far this stay. His bilirubin is still high. LDH still significantly high. His direct June test is negative. No evidence of bleeding. CXR does not show PNA and I think the cough is likely d/t fluid because of his abdominal distention and his LE swelling. Will observe this closely. (2) Sickle cell pain crisis: Code(s): D57.00 - Hb-SS disease with crisis, unspecified Status: Acute Assessment and Plan: ----- Continue IV narcotic pain medication for now and transition back to oral home meds when more controlled. 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 Monitor platelets. Transfuse prn. 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 Eliquis has been held. I have asked Dr. Reeves's recommendations on when to restart the Eliquis. Last month his Ifob was negative. 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 Continue accuchecks, SSI Coverage, Hypoglycemic protocol. Continue home long acting insulin therapy. (6) Hypertension: Qualifiers: Hypertension type: essential hypertension Qualified Code(s): I10 - Essential (primary) hypertension Code(s): I10 - Essential (primary) hypertension Status: Chronic Assessment and Plan: -----blood pressure has been high but better at 146/83. His atenolol was increased from 25 mg daily to 50 mg 08/31. Continue with furosemide, lisinopril and hydralazine as well. (7) Cirrhosis: Qualifiers: Hepatic cirrhosis type: unspecified hepatic cirrhosis Ascites presence: without ascites Qualified Code(s): K74.60 - Unspecified cirrhosis of liver Code(s): K74.60 - Unspecified cirrhosis of liver Status: Chronic Assessment and Plan: -----chronic. Secondary to iron infusions. (8) KASIA (acute kidney injury): Code(s): N17.9 - Acute kidney failure, unspecified Status: Acute Assessment and Plan: -----New today but pt appears fluid overloaded. Will do one small dose of lasix IV and will monitor tomorrow. if it continues to climb, may need nephrology consult or an ultrasound. Additional Plan Subjective Date/time seen: 09/02/19 14:43 Interval history: Pt is a 63-year-old male here for sickle cell anemia. Patient was seen today and states he is not feeling very well. He still has a cough and he feels bloated. He also has some swelling in his lower extremities. He says this happens sometimes when he is in the hospital and is due to fluid. He denies fevers, chills, abdominal pain, diarrhea, nausea or vomiting. He has had a small bowel movement and has been passing gas. Exam Narrative: Exam Narrative: General: Well developed well nourished patient resting in bed in no acute distress HEENT: normocephalic, sclera icteric Neck: supple Neuro: Alert and oriented x4 CV:RRR. Resp: Mildly decreased breath sounds at the bases Abd: Soft, partially d
[2019-09-02 15:32] VITALS: BP 150/84; PULSE 88; RESP 18; TEMP 36.2; O2SAT 93
[2019-09-02 16:45] LABS: Glucose Point of Care 108 (65-105)
[2019-09-02 18:43] LABS: Immature Reticulocyte Fraction 19.6 % (3.0-15.9); Reticulocyte Hemoglobin Conten 32.4 pg (28.2-35.7); Reticulocyte Percent 14.02 % (0.7-4.3); Reticulocytes Absolute 0.29 B/L (32.2-175.7)
[2019-09-02 20:23] VITALS: BP 144/74; PULSE 89; RESP 16; TEMP 36.6; O2SAT 94
[2019-09-02 20:26] VITALS: PULSE 89
[2019-09-02] MEDS: SENNOSIDES 8.6 MG TABLET PO (20:26)
[2019-09-02 21:12] LABS: Glucose Point of Care 113 (65-105)
[2019-09-03] VITALS (12 sets, daily range): BP systolic 112–141; BP diastolic 61–87; PULSE 79–88; RESP 12–18; TEMP 36.3–37.2; O2SAT 90–98
[2019-09-03] MEDS: HYDROMORPHONE HCL 1 MG/ML INJ IV PUSH ×5 (00:52→20:13)
[2019-09-03 03:19] LABS: Haptoglobin <8 mg/dL (43-212)
[2019-09-03] MEDS: CENTRAL LINE FLUSH 10 ML IV PUSH ×3 (05:20→20:14)
[2019-09-03 05:44] LABS: Mean Corpuscular HGB Conc 33.8 g/dl (32-36); Mean Corpuscular Hemoglobin 30.5 pg (26-34); Mean Platelet Volume 12.9 fl (7.4-10.4); Platelet Count Result 90 k/mm3 (150-375); Red Cell Distribution Width 21.2 % (11.5-14.5); White Blood Count 10.4 K/mm3 (4.5-10.0)
[2019-09-03 06:19] LABS: Alanine Aminotransferase 37 U/L (4-50); Albumin Level 3.6 g/dL (3.5-5.1); Alkaline Phosphatase 196 U/L (38-126); Aspartate Amino Transferase 103 U/L (17-59); Bilirubin Direct 1.7 mg/dL (0-0.3); Bilirubin,Total 8.6 mg/dL (0.2-1.3); Blood Urea Nitrogen 51 mg/dL (9-20); Calcium 9.1 mg/dL (8.4-10.2); Carbon Dioxide 29 mmol/L (22-30); Chloride 105 mmol/L (98-107); Estimated CRCL calculation 36 ml/min; Estimated Glomerular Filt Rate 49; Glucose 139 mg/dL (75-110); Potassium 5.1 mmol/L (3.4-5.0); Sodium 138 mmol/L (137-145)
[2019-09-03 06:25] LABS: Hematocrit 19.8 % (42.0-52.0); Hemoglobin 6.7 g/dL (14.0-18.0)
[2019-09-03] MEDS: metFORMIN HCL 500 MG TABLET PO (08:22)
[2019-09-03] MEDS: hydrALAZINE HCL 25 MG TABLET PO ×2 (08:22→16:33)
[2019-09-03] MEDS: DICLOFENAC SOD 75 MG TABLET.EC PO ×2 (08:22→16:33)
[2019-09-03] MEDS: polyethylene glycoL 3350 17 GM POWD.PACK PO (08:23)
[2019-09-03] MEDS: lisinopriL 10 MG TABLET PO (08:23)
[2019-09-03] MEDS: PANTOPRAZOLE SODIUM IV 40 MG VIAL IV PUSH ×2 (08:23→20:13)
[2019-09-03] MEDS: FOLIC ACID 1 MG TABLET PO (08:23)
[2019-09-03] MEDS: GABAPENTIN 300 MG CAPSULE PO ×2 (08:23→16:33)
[2019-09-03] MEDS: atenoloL 50 MG TABLET PO ×2 (08:26→20:11)
--- NOTE | 2019-09-03 12:48 | PM.IMPN ---
Progress Note: A&P Assessment and Plan (1) Symptomatic anemia: Code(s): D64.9 - Anemia, unspecified Status: Acute Assessment and Plan: ------hgb low today again. Initially pt was refusing blood but agreed to it this afternoon. He has had 2 units of blood so far this stay. His bilirubin is still high. LDH still significantly high asw well. Direct June test is negative. No evidence of bleeding. CXR does not show PNA and I think the cough is likely d/t fluid because of his abdominal distention and his LE swelling. Have to be careful with lasix since he also has KASIA. Will order an echo and BNP. Observe closely. No infection suspected at this time. (2) Sickle cell pain crisis: Code(s): D57.00 - Hb-SS disease with crisis, unspecified Status: Acute Assessment and Plan: ----- Continue IV narcotic pain medication for now and transition back to oral home meds when more controlled. 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 Monitor platelets. Transfuse prn. 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 Eliquis has been held. I have asked Dr. Reeves's recommendations on when to restart the Eliquis. Ifob was negative. 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 Continue accuchecks, SSI Coverage, Hypoglycemic protocol. I have held his insulin d/t his KASIA and will adjust according to his trends. (6) Hypertension: Qualifiers: Hypertension type: essential hypertension Qualified Code(s): I10 - Essential (primary) hypertension Code(s): I10 - Essential (primary) hypertension Status: Chronic Assessment and Plan: -----blood pressure has been high but better at 129/73. His atenolol was increased from 25 mg daily to 50 mg 08/31. will hold lasix and lisinopril d/t KASIA as well. (7) Cirrhosis: Qualifiers: Hepatic cirrhosis type: unspecified hepatic cirrhosis Ascites presence: without ascites Qualified Code(s): K74.60 - Unspecified cirrhosis of liver Code(s): K74.60 - Unspecified cirrhosis of liver Status: Chronic Assessment and Plan: -----chronic. Secondary to iron infusions. (8) KASIA (acute kidney injury): Code(s): N17.9 - Acute kidney failure, unspecified Status: Acute Assessment and Plan: -----Noted yesterday and today. No abnormalities on CT. Will order renal u/s. If still elevated tomorrow, will consult nephrology. Additional Plan Subjective Date/time seen: 09/03/19 12:48 Interval history: Pt is a 63-year-old male here for sickle cell anemia. Patient was seen today and states he has pain all over still. This is mostly in his legs and arms. He also says his abdomen is still swollen and he feels short of breath and the o2 does not seem to be helping. He is passing gas and had a BM today. he is eating and drinking well without any nausea or vomiting. He has no hx of heart failure that he knows of. Exam Narrative: Exam Narrative: General: Well developed well nourished patient resting in bed in no acute distress HEENT: normocephalic, sclera icteric Neck: supple Neuro: Alert and oriented
[2019-09-03 12:59] LABS: NT Pro B Type Natriuretic Pept 5840 PG/ML (5-100)
[2019-09-03] MEDS: FUROSEMIDE INJ 40 MG/4 ML VIAL 20 MG IV PUSH (13:54)
[2019-09-03] MEDS: SODIUM CHLORIDE 0.9% IV 250 ML 30 ML IV CONT (14:52)
[2019-09-03 17:59] LABS: Reticulocyte Hemoglobin Conten 35.8 pg (28.2-35.7); Reticulocyte Percent 10.35 % (0.7-4.3); Reticulocytes Absolute 0.23 B/L (32.2-175.7)
[2019-09-03] MEDS: SENNOSIDES 8.6 MG TABLET PO (20:13)
[2019-09-03 22:25] LABS: Glucose Point of Care 151 (65-105)
[2019-09-04] MEDS: HYDROMORPHONE HCL 1 MG/ML INJ IV PUSH ×6 (00:13→21:06)
[2019-09-04] MEDS: CENTRAL LINE FLUSH 20 ML IV PUSH (05:01)
[2019-09-04] MEDS: CENTRAL LINE FLUSH 10 ML IV PUSH ×3 (05:02→21:07)
[2019-09-04 05:11] VITALS: BP 136/66; PULSE 83; RESP 14; TEMP 36.6; O2SAT 98
[2019-09-04 05:22] LABS: Hematocrit 22.3 % (42.0-52.0); Immature Platelet Fraction Pct 13.9 % (0.9-11.2); Mean Corpuscular HGB Conc 35.9 g/dl (32-36); Mean Corpuscular Hemoglobin 30.9 pg (26-34); Mean Corpuscular Volume 86.1 fl (80-100); Mean Platelet Volume 13.2 fl (7.4-10.4); Platelet Count Result 105 k/mm3 (150-375); Red Blood Count 2.59 M/mm3 (4.6-6.20); Red Cell Distribution Width 20.2 % (11.5-14.5); White Blood Count 9.9 K/mm3 (4.5-10.0)
[2019-09-04 06:04] LABS: Alanine Aminotransferase 42 U/L (4-50); Albumin Level 3.7 g/dL (3.5-5.1); Alkaline Phosphatase 228 U/L (38-126); Aspartate Amino Transferase 129 U/L (17-59); Bilirubin Direct 3.3 mg/dL (0-0.3); Bilirubin,Total 10.4 mg/dL (0.2-1.3); Blood Urea Nitrogen 66 mg/dL (9-20); Calcium 8.6 mg/dL (8.4-10.2); Carbon Dioxide 26 mmol/L (22-30); Chloride 105 mmol/L (98-107); Estimated CRCL calculation 34 ml/min; Estimated Glomerular Filt Rate 46; Glucose 192 mg/dL (75-110); Potassium 4.9 mmol/L (3.4-5.0); Sodium 137 mmol/L (137-145)
[2019-09-04 08:35] VITALS: BP 135/73; PULSE 78; RESP 18; O2SAT 92
[2019-09-04] MEDS: hydrALAZINE HCL 25 MG TABLET PO ×2 (08:37→17:06)
[2019-09-04] MEDS: DICLOFENAC SOD 75 MG TABLET.EC PO ×2 (08:37→17:06)
[2019-09-04] MEDS: polyethylene glycoL 3350 17 GM POWD.PACK PO (08:38)
[2019-09-04] MEDS: GABAPENTIN 300 MG CAPSULE PO ×2 (08:38→17:06)
[2019-09-04] MEDS: FOLIC ACID 1 MG TABLET PO (08:38)
[2019-09-04] MEDS: PANTOPRAZOLE SODIUM IV 40 MG VIAL IV PUSH ×2 (08:38→21:05)
[2019-09-04 08:40] VITALS: PULSE 78
[2019-09-04] MEDS: atenoloL 50 MG TABLET PO ×2 (08:40→21:05)
[2019-09-04 11:42] LABS: Add Urine Microscopic? YES; Appearance Urine Clear (Clear); Bacteria Urine Trace /hpf; Bilirubin Urine 1+ (Negative); Blood Urine 1+ (Negative); Color Urine Amber (Yellow); Glucose Urine UA Negative (Negative); Ketones Urine Negative (Negative); Leukocyte Esterase Ur Negative LEU/UL (Negative); Mucus Urine Rare /lpf; Nitrate Urine Negative (Negative); Protein Urine 1+ mg/dL (Negative); RBC Urine 0-2 /hpf (0-2); Specific Grav Ur 1.015 (1.001-1.035); Squamous Epithelial Cell Urine Rare /hpf (Few); WBC Urine 0-3 /hpf
[2019-09-04 11:43] LABS: Total Protein Urine Random 43 mg/dL
--- NOTE | 2019-09-04 13:30 | PM.IMPN ---
Progress Note: A&P Assessment and Plan (1) Symptomatic anemia: Code(s): D64.9 - Anemia, unspecified Status: Acute Assessment and Plan: -----Pt still sickling as his reticular count is up as is his bilirubin and LDH. Direct June test is negative. No evidence of bleeding. CXR does not show PNA and I think the cough is likely d/t fluid because of his abdominal distention and his LE swelling. No infection noted on chest x-ray or UA. He was given Lasix daily until today as his kidney function is still elevated for unclear reasons. Ultrasound relatively normal. I am going to ask Nephrology to see the patient. Echo ordered (2) Sickle cell pain crisis: Code(s): D57.00 - Hb-SS disease with crisis, unspecified Status: Acute Assessment and Plan: ----- Continue IV narcotic pain medication for now and transition back to oral home meds when more controlled. 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 Monitor platelets. Transfuse prn. (4) Chronic anticoagulation: Code(s): Z79.01 - [facility] (current) use of anticoagulants Status: Chronic Assessment and Plan: -----The patient is chronically anticoagulated on Eliquis secondary to previous DVT, PE that was 10 years ago. Eliquis has been held. I have asked Dr. Reeves's recommendations on when to restart the Eliquis. Ifob was negative. 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 Continue accuchecks, SSI Coverage, Hypoglycemic protocol. I have held his insulin d/t his KASIA and will adjust according to his trends. (6) Hypertension: Qualifiers: Hypertension type: essential hypertension Qualified Code(s): I10 - Essential (primary) hypertension Code(s): I10 - Essential (primary) hypertension Status: Chronic Assessment and Plan: -----blood pressure has been high but better at 136/66. His atenolol was increased from 25 mg daily to 50 mg 08/31. will hold lasix and lisinopril d/t KASIA as well. (7) Cirrhosis: Qualifiers: Hepatic cirrhosis type: unspecified hepatic cirrhosis Ascites presence: without ascites Qualified Code(s): K74.60 - Unspecified cirrhosis of liver Code(s): K74.60 - Unspecified cirrhosis of liver Status: Chronic Assessment and Plan: -----chronic. Secondary to iron infusions. (8) KASIA (acute kidney injury): Code(s): N17.9 - Acute kidney failure, unspecified Status: Acute Assessment and Plan: -----Noted for the last 3 days. No abnormalities on CT or ultrasound. Nephrology consulted Additional Plan Subjective Date/time seen: 09/04/19 13:30 Interval history: Pt is a 63-year-old male here for sickle cell anemia. Patient was seen today and states he has pain all over still. This is mostly in his legs, back, and arms. He also says his abdomen is still swollen and he feels short of breath and the o2 does not seem to be helping. He is passing gas and had a BM.. he is eating and drinking well without any nausea or vomiting. He has no hx of heart failure that he knows of. Exam Narrative: Exam Narrative: General: Well developed well nourished patient resting in bed in no acute distress HEENT: normocephalic, sclera icteric Neck: supple Neuro: Alert and oriented x4 CV:RRR. Resp: Mildly decreased breath sounds at the bases
[2019-09-04 14:00] VITALS: BP 133/73; PULSE 70; RESP 16; TEMP 36.2; O2SAT 96
--- NOTE | 2019-09-04 15:49 | PM.CNNEP ---
Assessment and Plan Assessment and plan (1) KASIA (acute kidney injury): Code(s): N17.9 - Acute kidney failure, unspecified Status: Acute (2) Sickle cell pain crisis: Code(s): D57.00 - Hb-SS disease with crisis, unspecified Status: Acute (3) Edema: Qualifiers: Edema type: unspecified Qualified Code(s): R60.9 - Edema, unspecified Code(s): R60.9 - Edema, unspecified Status: Acute (4) Hypertension: Qualifiers: Hypertension type: essential hypertension Qualified Code(s): I10 - Essential (primary) hypertension Code(s): I10 - Essential (primary) hypertension Status: Chronic (5) Diabetes: Qualifiers: Diabetes mellitus complication status: without complication 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 Additional Plan Jaden has acute kidney injury/acute renal failure as evidenced by his labs in the last 48-72 hours. It would seem that the acute insult occurred on 09/02/2019 and is yet to improve but has remained relatively stable. Sickle cell disease, in general, has a variety of renal complications including renal papillary necrosis, tubular interstitial disease, and glomerulonephropathies (FSGS, membranoproliferative GN...etc.), as well as a whole host of alterations in renal hemodynamics. However, it is difficult to say if any of these conditions are playing a role at this time. Other factors that may have played a role in his rising creatinine include the fact he was on WILLAM-inhibitor coupled with diuretic therapy and remains on NSAIDs (voltaren - was taking as an outpatient as well) for treatment of his pain. From review of his records, I do not see any significant drops in his blood pressure or any other potential nephrotoxic agents other than what I mentioned above. Furthermore, I am unclear if this swelling and edema in association with his abdominal distention is related to his kidney dysfunction or some other disease process (i.e.. CHF, known history of liver cirrhosis,...etc) His evaluation today demonstrates a renal ultrasound with bilateral renal cysts but no other significant anatomical abnormalities and, minimal proteinuria. I suppose if his kidney function continues to deteriorate we could proceed with a extensive serological evaluation and I am curious to see if his kidney function improves with holding his diuretics which could indicate a prerenal component to his rising creatinine. Since he has been off diuretics for a day or 2, I will recheck urine electrolytes. For completeness sake, I will also check urine eosinophils since the possibility of acute versus chronic interstitial nephritis exists given his chronic NSAID use. I will continue to follow patient with you while he remains hospitalized and make further recommendations during his hospital course. Thank you for allowing me to participate in the care of this patient. History of Present Illness Reason for Consult Consult date: 09/04/19 Reason for consult: acute renal failure Chief Complaint Chief complaint: symptomatic anemia, sickle cell pain crisis History of Present Illness Narrative: The patient is a 63 year old male with a past medical history as outlined below who presented to the [facility] with diffuse pain for 24 hours prior to admission. Other associated symptoms include feeling lightheaded
[2019-09-04 20:10] VITALS: BP 122/57; PULSE 70; RESP 16; TEMP 36.3; O2SAT 97
[2019-09-04 21:05] VITALS: PULSE 70
[2019-09-04] MEDS: SENNOSIDES 8.6 MG TABLET PO (21:05)
--- NOTE | 2019-09-05 | ECHO_ITS ---
Patient Info Name: Jaden Gonzalez Age: 63 years : 1955 Gender: Male Ht: 66 in Wt: 139 lbs BSA: 1.72 m2 HR: 68 bpm BP: 123 / 77 mmHg Technical Quality: Good Exam Date: 09/05/2019 9:48 AM Exam Location: [facility] Patient Status: Inpatient Admit Date: 08/31/2019 Staff Ordering Physician: Lisa Sylvester PA-C Wellness Trainer: Leana Potter RDCS Attending Provider: Lisa Sylvester PA-C Referring Physician: Higinio SMALL; Exam Type: CA echo doppler color flow Study Info Indications - abdominal swelling R60.0 - Localized edema Complete two-dimensional, color flow and Doppler transthoracic echocardiogram is performed. Summary 1. Left ventricular chamber dimension is normal. 2. Left ventricular systolic function is normal, estimated at 65-70%. 3. There is moderately increased left ventricular wall thickness. 4. The left ventricular diastolic function is grade I diastolic dysfunction. 5. E/e' 9 is minimally elevated. 6. Left atrial chamber dimension is severely enlarged. 7. Right atrial chamber dimension is moderately enlarged. 8. There is moderate aortic valve sclerosis. 9. There is mild aortic valve regurgitation. 10. The mitral valve has mildly calcified annulus. 11. There is trace mitral valve regurgitation. 12. There is moderate tricuspid valve regurgitation. 13. Severe pulmonary hypertension, estimated pulmonary arterial systolic pressure is 66 mmHg. 14. There is mild pulmonic regurgitation. 15. Dilated inferior vena cava with >50% collapse upon inspiration consistent with elevated right atrial pressure, 10 mmHg. 16. There is trivial circumferential pericardial effusion. Left Ventricle E/e' 9 is minimally elevated. Left ventricular chamber dimension is normal. Left ventricular systolic function is normal, estimated at 65-70%. There is moderately increased left ventricular wall thickness. The left ventricular diastolic function is grade I diastolic dysfunction. Right Ventricle Right ventricular chamber dimension is normal. Right ventricular systolic function is normal. Left Atria Left atrial chamber dimension is severely enlarged. Right Atria Right atrial chamber dimension is moderately enlarged. Aortic Valve The aortic valve is trileaflet. There is moderate aortic valve sclerosis. There is no aortic valve stenosis. There is mild aortic valve regurgitation. Pulmonic Valve There is mild pulmonic regurgitation. Mitral Valve The mitral valve has mildly calcified annulus. There is no mitral valve stenosis. There is trace mitral valve regurgitation. Tricuspid Valve There is moderate tricuspid valve regurgitation. Severe pulmonary hypertension, estimated pulmonary arterial systolic pressure is 66 mmHg. Pericardium/Pleural There is trivial circumferential pericardial effusion. Inferior Vena Cava Dilated inferior vena cava with >50% collapse upon inspiration consistent with elevated right atrial pressure, 10 mmHg. Aorta The aortic root size at the sinus of Valsalva is normal. Left Ventricular Outflow Tract Name Value Normal LVOT 2D LVOT Diameter 2.0 cm LVOT Doppler
[2019-09-05] MEDS: HYDROMORPHONE HCL 1 MG/ML INJ IV PUSH ×5 (03:52→20:47)
[2019-09-05 04:11] VITALS: BP 123/77; PULSE 68; RESP 17; TEMP 36.2; O2SAT 94
[2019-09-05] MEDS: CENTRAL LINE FLUSH 20 ML IV PUSH (06:27)
[2019-09-05] MEDS: CENTRAL LINE FLUSH 10 ML IV PUSH ×2 (06:27→20:47)
[2019-09-05 06:38] LABS: Basophils Percent Auto 0.3 % (0.2-1.2); Eosinophils Absolute Auto 0.6 K/mm3 (0-0.3); Eosinophils Percent Auto 5.4 % (0-4.4); Hematocrit 21.1 % (42.0-52.0); Hemoglobin 7.5 g/dL (14.0-18.0); Immature Granulocyte Absolute 0.14 K/mm3 (0.00-0.031); Immature Granulocyte Percent A 1.4 % (0-0.5); Immature Platelet Fraction Pct 13.7 % (0.9-11.2); Immature Reticulocyte Fraction 25.1 % (3.0-15.9); Lymphocytes Absolute Auto 1.59 K/mm3 (0.9-3.2); Lymphocytes Percent Auto 15.6 % (18.3-44.2); Mean Corpuscular HGB Conc 35.5 g/dl (32-36); Mean Corpuscular Volume 84.4 fl (80-100); Mean Platelet Volume 12.2 fl (7.4-10.4); Monocytes Absolute Auto 1.4 K/mm3 (0.1-0.6); Monocytes Percent Auto 14.1 % (2.6-8.5); Neutrophils Absolute Auto 6.5 K/mm3 (1.3-6.7); Neutrophils Percent Auto 63.2 % (45.5-73.1); Nucleated Red Blood Cells Absolute Auto 0.3 K/mm3 (0.0-0.012); Nucleated Red Blood Cells Perc 2.8 % (0.0-0.2); Platelet Count Result 115 k/mm3 (150-375); Red Cell Distribution Width 20.4 % (11.5-14.5); Reticulocyte Percent 8.92 % (0.7-4.3); Reticulocytes Absolute 0.22 B/L (32.2-175.7); White Blood Count 10.2 K/mm3 (4.5-10.0)
[2019-09-05 06:48] LABS: Blood Urea Nitrogen 73 mg/dL (9-20); Calcium 8.8 mg/dL (8.4-10.2); Carbon Dioxide 27 mmol/L (22-30); Chloride 105 mmol/L (98-107); Estimated CRCL calculation 32 ml/min; Estimated Glomerular Filt Rate 43; Glucose 225 mg/dL (75-110); Potassium 4.8 mmol/L (3.4-5.0); Sodium 135 mmol/L (137-145)
[2019-09-05 07:10] LABS: Polychromasia 1+ (NORMAL); Sickle Cells 2+ (NORMAL); Target Cells 1+ (NORMAL)
[2019-09-05] MEDS: hydrALAZINE HCL 25 MG TABLET PO ×2 (07:48→16:46)
[2019-09-05] MEDS: DICLOFENAC SOD 75 MG TABLET.EC PO ×2 (07:48→16:46)
[2019-09-05 09:18] VITALS: PULSE 64
[2019-09-05] MEDS: atenoloL 50 MG TABLET PO ×2 (09:18→20:46)
[2019-09-05] MEDS: PANTOPRAZOLE SODIUM IV 40 MG VIAL IV PUSH ×2 (09:18→20:47)
[2019-09-05] MEDS: GABAPENTIN 300 MG CAPSULE PO ×2 (09:18→16:46)
[2019-09-05] MEDS: FOLIC ACID 1 MG TABLET PO (09:18)
[2019-09-05] MEDS: polyethylene glycoL 3350 17 GM POWD.PACK PO (09:19)
[2019-09-05 12:46] LABS: Creatinine Urine 103.1 mg/dL; Total Protein Urine Random 39 mg/dL
[2019-09-05 12:48] LABS: Sodium Urine Random 22 meq/L
--- NOTE | 2019-09-05 14:23 | PM.IMPN ---
Progress Note: A&P Assessment and Plan (1) Hypervolemia: Code(s): E87.70 - Fluid overload, unspecified Status: Acute Assessment and Plan: -----Echo reviewed which showed diastolic dysfunction and severe pulmonary HTN. Pulm htn be d/t SCD and hx of PE/clotting. He would also benefit from an outpatient sleep study if he has not had a recent one. Edema may be d/t right sided heart failure vs kidney disease. Nephrology is working up his kidneys as SCD can affect the kidneys as well. Urine electrolytes, eosinophils, and cr and protein has been ordered. Spoke with nephrology, no lasix today until these values are obtained. (2) Symptomatic anemia: Code(s): D64.9 - Anemia, unspecified Status: Acute Assessment and Plan: -----Pt still sickling as his reticular count is up as is his bilirubin and LDH. Direct June test is negative. No evidence of bleeding. CXR does not show PNA and I think the cough is likely d/t fluid because of his abdominal distention and his LE swelling. No infection noted on chest x-ray or UA. kidney function is still elevated for unclear reasons. Ultrasound relatively normal. Spoke to nephrology who recommended obtaining urine electrolytes at this time and maybe starting lasix after this. (3) Sickle cell pain crisis: Code(s): D57.00 - Hb-SS disease with crisis, unspecified Status: Acute Assessment and Plan: ----- Continue IV narcotic pain medication for now and transition back to oral home meds when more controlled. 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 Monitor platelets. Transfuse prn. 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 Eliquis has been held. I have asked Dr. Reeves's recommendations on when to restart the Eliquis. Ifob was negative. (6) Diabetes: Qualifiers: Diabetes mellitus type: type 2 Diabetes mellitus [facility] insulin use: with [facility] use Diabetes mellitus complication status: without complication Qualified Code(s): E11.9 - Type 2 diabetes mellitus without complications; Z79.4 - [facility] (current) use of insulin Code(s): E11.9 - Type 2 diabetes mellitus without complications Status: Chronic Assessment and Plan: -----last blood glucose 225. Continue accuchecks, SSI Coverage, Hypoglycemic protocol. I have held his insulin d/t his KASIA and will adjust according to his trends. (7) Hypertension: Qualifiers: Hypertension type: essential hypertension Qualified Code(s): I10 - Essential (primary) hypertension Code(s): I10 - Essential (primary) hypertension Status: Chronic Assessment and Plan: -----blood pressure has been high but better at 123/77. His atenolol was increased from 25 mg daily to 50 mg 08/31. will hold lasix and lisinopril d/t KASIA as well. (8) Cirrhosis: Qualifiers: Hepatic cirrhosis type: unspecified hepatic cirrhosis Ascites presence: without ascites Qualified Code(s): K74.60 - Unspecified cirrhosis of liver Code(s): K74.60 - Unspecified cirrhosis of liver Status: Chronic Assessment and Plan: -----chronic. Secondary to iron infusions. (9) KASIA (acute kidney injury): Code(s): N17.9 - Acute kidney failure, unspecified Status: Acute Assessment and Plan: -----Noted for the last 3 days. No abnormalities on CT or ultrasound. Nephrology consulted and urine studies are pending. Additional Plan Subjective Date/time seen: 09/05/19 14:23 Interval history: Pt is a 63-year-old male
[2019-09-05 14:35] VITALS: BP 139/68; PULSE 63; RESP 16; TEMP 36.6; O2SAT 97
--- NOTE | 2019-09-05 16:40 | PM.PNNEP ---
Progress Note: A&P Assessment and Plan (1) KASIA (acute kidney injury): Code(s): N17.9 - Acute kidney failure, unspecified Status: Acute Assessment and Plan: His baseline creatinine is 0.9-1.2. Now it is 1.9. Etiology for rise is unclear. He could be related to sickle cell. This could lead to papillary necrosis. Ultrasound does not show any hydronephrosis. Focal segmental sclerosis can occur with sickle cell but usually this is not an acute picture but rather one of slowly rising creatinine with proteinuria. He does not have much proteinuria and so I doubt if this is focal sclerosis. Another possibly will be pre renal azotemia. He was on diuretics when he came into the hospital. On the and . He has not received any since. He had urine electrolytes done today and these look pre renal. I suspect that his pulmonary hypertension is leading to right-sided heart failure, need for diuretics, and consequent pre renal azotemia. (2) Sickle cell pain crisis: Code(s): D57.00 - Hb-SS disease with crisis, unspecified Status: Acute Assessment and Plan: He still has some pain (3) Edema: Qualifiers: Edema type: unspecified Qualified Code(s): R60.9 - Edema, unspecified Code(s): R60.9 - Edema, unspecified Status: Acute Assessment and Plan: Considering above I think we should resume diuretics. 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 Could this be due to his iron overload and possibly contributed to by pulmonary hypertension? Subjective Date/time seen: 09/05/19 16:40 Interval history: Patient is alert. He is getting an echocardiogram. No chest pain or shortness of breath. He does have some distention of his belly he says. Review of Systems Cardiovascular: Cardiovascular: Reports no additional cardiovascular complaints Respiratory: Respiratory: Reports no additional respiratory complaints Gastrointestinal: Gastrointestinal: Reports no additional gastrointestinal complaints Genitourinary: Genitourinary: Reports no additional male genitourinary complaints Exam Narrative: Exam Narrative: Well developed well-nourished in no acute distress Lungs clear Heart regular without rub Abdomen bowel sounds positive soft nontender but a bit distended Extremities 1 to2+ edema Skin no rash Objective Data Vital Signs Vital Signs: Vital Signs - 24 hr 09/04/19 20:10 09/04/19 21:05 09/05/19 04:11 Temperature 36.3 C L 36.2 C L Pulse Rate 70 70 68 Respiratory Rate 16 17 Blood Pressure 122/57 L 123/77 Pulse Oximetry 97 94 09/05/19 09:18 09/05/19 14:35 Temperature 36.6 C Pulse Rate 64 63 Respiratory Rate 16 Blood Pressure 139/68 Pulse Oximetry 97 Intake/Output Intake/Output: Intake & Output 09/02/19 09/03/19 09/04/19 09/05/19 23:59 23:59 23:59 23:59 Intake Total 1700 2190 1140 1080 Output Total 950 5537 966 2830 Balance 750 987 645 -428 Meds/Results Medications
[2019-09-05] MEDS: FUROSEMIDE INJ 40 MG/4 ML VIAL IV PUSH (17:32)
--- NOTE | 2019-09-05 17:43 | P.PNONC_ITS ---
Progress Note: A/P - Additional Plan Sickle cell trait with beta thalassemia. Patient came into the hospital with sickle cell crisis episode. Hemoglobin is stable. Patient is still complain of generalized pain. Continue IV hydration along with folic acid. Pancytopenia. Secondary to liver cirrhosis. Acute renal insufficiency. Nephrology input noted. Bilateral lower extremity edema and abdominal swelling. Echocardiogram showed normal ejection fraction. BNP elevated. History of hypercoagulable state with history of DVT and PE. There is no evidence of bleeding. Platelet count low but remains stable. Patient can resu me Eliquis if okay with nephrology service. - Time Spent With Patient Total time spent is greater than 50% in coordination of care (as documented) at patient's floor/unit and/or counseling patient: 15 - 25 minutes Subjective Interval history: Sickle cell anemia with sickle cell crisis Acute renal insufficiency Liver cirrhosis Review of Systems - Review of Systems Patient denies any fevers and chills but complain of generalized pain. Also complain of abdominal distention and lower extremity edema. Denies any bleeding. - Neurologic Denies focal weakness, Denies numbness, Denies weakness Exam Narrative: Lungs are clear to auscultation bilaterally Cardiovascular regular rate rhythm no murmurs Abdomen slightly distended bowel sounds are positive Extremities bilateral lower extremity edema PN: Objective Data - Labs CBC & Chem 7: 09/05/19 06:26 09/05/19 06:26 Labs: Laboratory Results - last 24 hr 09/05/19 09/05/19 09/05/19 06:26 06:26 12:21 WBC 10.2 H RBC 2.50 L Hgb 7.5 L Hct 21.1 L MCV 84.4 MCH 30.0 MCHC 35.5 RDW 20.4 H Plt Count 115 L MPV 12.2 H Immature Gran % (Auto) 1.4 H Neut % (Auto) 63.2 Lymph % (Auto) 15.6 L [place] % (Auto) 14.1 H Eos % (Auto) 5.4 H Baso % (Auto) 0.3 Lymph # (Auto) 1.59 [place] # (Auto) 1.4 H Eos # (Auto) 0.6 H Baso # (Auto) 0.0 Abs Immat Gran (auto) 0.14 H Absolute Neuts (auto) 6.5 Absolute Nucleated RBC 0.3 H Nucleated RBC % 2.8 H Platelet Estimate Slightly decreased % Immature Plt Fraction 13.7 H Polychromasia 1+ Sickle Cells 2+ Target Cells 1+ Absolute Retic 0.22 L Percent Retic 8.92 H Immature Retic Fraction 25.1 H Retic Hgb Content 31.0 Sodium 135 L Potassium 4.8 Chloride 105 Carbon Dioxide 27 BUN 73 H Creatinine 1.90 H Estim Creat Clear Calc 32 Estimated GFR 43 L Glucose 225 H Calcium 8.8 U Random Total Protein 39 Ur Random Sodium 22 Urine Creatinine 103.1
[2019-09-05] MEDS: APIXABAN 5 MG TABLET PO (17:59)
[2019-09-05 20:46] VITALS: PULSE 80
[2019-09-05] MEDS: SENNOSIDES 8.6 MG TABLET PO (20:46)
[2019-09-05 21:11] VITALS: BP 116/59; PULSE 88; RESP 16; TEMP 36.3; O2SAT 94
[2019-09-06] VITALS (10 sets, daily range): BP systolic 120–159; BP diastolic 55–86; PULSE 68–88; RESP 16–19; TEMP 36.1–37.2; O2SAT 94–99
[2019-09-06] MEDS: HYDROMORPHONE HCL 1 MG/ML INJ IV PUSH ×5 (02:32→20:50)
[2019-09-06] MEDS: CENTRAL LINE FLUSH 10 ML IV PUSH ×3 (05:31→20:50)
[2019-09-06] MEDS: CENTRAL LINE FLUSH 20 ML IV PUSH (05:32)
[2019-09-06 05:37] LABS: Basophils Percent Auto 0.3 % (0.2-1.2); Eosinophils Absolute Auto 0.5 K/mm3 (0-0.3); Eosinophils Percent Auto 5.5 % (0-4.4); Immature Granulocyte Absolute 0.17 K/mm3 (0.00-0.031); Immature Granulocyte Percent A 1.8 % (0-0.5); Immature Platelet Fraction Pct 13.2 % (0.9-11.2); Immature Reticulocyte Fraction 43.4 % (3.0-15.9); Lymphocytes Absolute Auto 1.67 K/mm3 (0.9-3.2); Lymphocytes Percent Auto 17.5 % (18.3-44.2); Mean Corpuscular HGB Conc 33.7 g/dl (32-36); Mean Corpuscular Hemoglobin 29.4 pg (26-34); Mean Corpuscular Volume 87.4 fl (80-100); Monocytes Absolute Auto 1.6 K/mm3 (0.1-0.6); Monocytes Percent Auto 16.2 % (2.6-8.5); Neutrophils Absolute Auto 5.6 K/mm3 (1.3-6.7); Neutrophils Percent Auto 58.7 % (45.5-73.1); Nucleated Red Blood Cells Absolute Auto 0.4 K/mm3 (0.0-0.012); Nucleated Red Blood Cells Perc 4.2 % (0.0-0.2); Platelet Count Result 106 k/mm3 (150-375); Red Blood Count 2.38 M/mm3 (4.6-6.20); Red Cell Distribution Width 21.2 % (11.5-14.5); Reticulocyte Hemoglobin Conten 31.7 pg (28.2-35.7); Reticulocyte Percent 8.49 % (0.7-4.3); White Blood Count 9.6 K/mm3 (4.5-10.0)
[2019-09-06 05:48] LABS: Alanine Aminotransferase 57 U/L (4-50); Albumin Level 3.3 g/dL (3.5-5.1); Alkaline Phosphatase 255 U/L (38-126); Aspartate Amino Transferase 141 U/L (17-59); Bilirubin Direct 7.4 mg/dL (0-0.3); Bilirubin,Total 12.1 mg/dL (0.2-1.3); Blood Urea Nitrogen 67 mg/dL (9-20); Calcium 8.4 mg/dL (8.4-10.2); Carbon Dioxide 28 mmol/L (22-30); Chloride 106 mmol/L (98-107); Estimated CRCL calculation 36 ml/min; Estimated Glomerular Filt Rate 49; Glucose 303 mg/dL (75-110); Phosphorus 3.6 mg/dL (2.5-4.5); Potassium 4.8 mmol/L (3.4-5.0); Sodium 138 mmol/L (137-145)
[2019-09-06 06:45] LABS: Hematocrit 20.8 % (42.0-52.0)
[2019-09-06 06:47] LABS: Anisocytosis 1+ (NORMAL); Platelet Estimate Decreased (Adequate)
[2019-09-06 06:48] LABS: Sickle Cells 2+ (NORMAL); Target Cells 1+ (NORMAL)
--- NOTE | 2019-09-06 08:10 | PM.PNNEP ---
Progress Note: A&P Assessment and Plan (1) KSAIA (acute kidney injury): Code(s): N17.9 - Acute kidney failure, unspecified Status: Acute Assessment and Plan: His baseline creatinine is 0.9-1.2. Now it is 1.7 Slowly better with IV fluids. (2) Sickle cell pain crisis: Code(s): D57.00 - Hb-SS disease with crisis, unspecified Status: Acute Assessment and Plan: He still has some pain (3) Edema: Qualifiers: Edema type: unspecified Qualified Code(s): R60.9 - Edema, unspecified Code(s): R60.9 - Edema, unspecified Status: Acute Assessment and Plan: He is getting diuretics. (4) Hypertension: Qualifiers: Hypertension type: essential hypertension Qualified Code(s): I10 - Essential (primary) hypertension Code(s): I10 - Essential (primary) hypertension Status: Chronic Assessment and Plan: Blood pressure running 120-150. 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: with intermodal owner operator truck driver use Diabetes mellitus complication status: without complication Qualified Code(s): E11.9 - Type 2 diabetes mellitus without complications; Z79.4 - [facility] (current) use of insulin Code(s): E11.9 - Type 2 diabetes mellitus without complications Status: Chronic Assessment and Plan: On medications for this (6) Cirrhosis: Qualifiers: Hepatic cirrhosis type: unspecified hepatic cirrhosis Ascites presence: without ascites Qualified Code(s): K74.60 - Unspecified cirrhosis of liver Code(s): K74.60 - Unspecified cirrhosis of liver Status: Chronic Assessment and Plan: . Could this be due to his iron overload and possibly contributed to by pulmonary hypertension? Additional Plan Jaden has acute kidney injury/acute renal failure as evidenced by his labs in the last 48-72 hours. It would seem that the acute insult occurred on 09/02/2019 and is yet to improve but has remained relatively stable. Sickle cell disease, in general, has a variety of renal complications including renal papillary necrosis, tubular interstitial disease, and glomerulonephropathies (FSGS, membranoproliferative GN...etc.), as well as a whole host of alterations in renal hemodynamics. However, it is difficult to say if any of these conditions are playing a role at this time. Other factors that may have played a role in his rising creatinine include the fact he was on WILLAM-inhibitor coupled with diuretic therapy and remains on NSAIDs (voltaren - was taking as an outpatient as well) for treatment of his pain. From review of his records, I do not see any significant drops in his blood pressure or any other potential nephrotoxic agents other than what I mentioned above. Furthermore, I am unclear if this swelling and edema in association with his abdominal distention is related to his kidney dysfunction or some other disease process (i.e.. CHF, known history of liver cirrhosis,...etc) His evaluation today demonstrates a renal ultrasound with bilateral renal cysts but no other significant anatomical abnormalities and, minimal proteinuria. I suppose if his kidney function continues to deteriorate we could proceed with a extensive serological evaluation and I am curious to see if his kidney function improves with holding his diuretics which could indicate a prerenal component to his rising creatinine. Since he has been off diuretics for a day or 2, I will recheck urine electrolytes. For completeness sake, I will also check urine eosinophils since the possibility of acute versus chronic interstitial nephritis exists given his chronic NSAID use. I will continue to follow patient with you while he remains hospitalized and make further recommendations during his hospital course. Thank you for allowing me to participate in the care of this patient. Subjective Date/time seen: 09/07/19 14:
[2019-09-06] MEDS: PANTOPRAZOLE SODIUM IV 40 MG VIAL IV PUSH ×2 (09:42→20:49)
[2019-09-06] MEDS: DICLOFENAC SOD 75 MG TABLET.EC PO ×2 (09:42→16:30)
[2019-09-06] MEDS: hydrALAZINE HCL 25 MG TABLET PO ×2 (09:42→16:30)
[2019-09-06] MEDS: GABAPENTIN 300 MG CAPSULE PO ×2 (09:42→16:30)
[2019-09-06] MEDS: FOLIC ACID 1 MG TABLET PO (09:42)
[2019-09-06] MEDS: polyethylene glycoL 3350 17 GM POWD.PACK PO (09:43)
[2019-09-06] MEDS: atenoloL 50 MG TABLET PO ×2 (09:43→20:49)
[2019-09-06] MEDS: APIXABAN 5 MG TABLET PO ×2 (11:09→16:29)
--- NOTE | 2019-09-06 15:05 | P.PNIM_ITS ---
Progress Note: A&P Assessment and Plan (1) Hypervolemia: Qualifiers: Hypervolemia type: unspecified Qualified Code(s): E87.70 - Fluid ov erload, unspecified Code(s): E87.70 - Fluid overload, unspecified Status: Acute Assessment and Plan: * Echo reviewed which showed diastolic dysfunction and severe pulmonary HTN. Pulm HTN be related to sickle cell and hx of PE/clotting. * He would also benefit from an outpatient sleep study if he has not had a recent one. * Edema may be d/t right sided heart failure vs kidney disease. Appreciate nephrology recommendations. * Nephrology is working up his kidneys as SCD can affect the kidneys as well. Urine electrolytes, eosinophils, and cr and protein has been ordered. * He received lasix days prior, Cr rising up over the days. (2) KASIA (acute kidney injury): Code(s): N17.9 - Acute kidney failure, unspecified Status: Acute Assessment and Plan: * Noted for the last 3 days. No abnormalities on CT or ultrasound. Nephrology consulted and urine studies are pending. (3) Sickle cell pain crisis: Code(s): D57.00 - Hb-SS disease with crisis, unspecified Status: Acute Assessment and Plan: * See above. Appreciate Dr Reeves's recommendations. Continue IV narcotic pain medication for now and transition back to oral home meds when more controlled. (4) Symptomatic anemia: Code(s): D64.9 - Anemia, unspecified Status: Acute Assessment and Plan: * Retic count, bili and LDH elevated. Direct June test is negative. No evidence of bleeding. * Dr Reeves following - appreciate recommendations. Has received multiple transfusions here, getting another 1 unit today. (5) Thrombocytopenia: Code(s): D69.6 - Thrombocytopenia, unspecified Status: Chronic Assessment and Plan: * Chronic thrombocytopenia may be secondary to ongoing hemolysis. Monitor platelets. (6) Chronic anticoagulation: Code(s): Z79.01 - terminal clerk (current) use of anticoagulants Status: Chronic Assessment and Plan: * The patient is chronically anticoagulated on Eliquis secondary to previous DVT, PE that was 10 years ago. Eliquis has been held - resume when okay with Dr Reeves. Stool occult blood was negative. (7) Diabetes: Qualifiers: Diabetes mellitus complication status: without complication Diabetes mellitus penitentiary insulin use: with intermission coordinator use Diabetes mellitus type: type 2 Qualified Code(s): E11.9 - Type 2 diabetes mellitus without complications; Z79.4 - shelter (current) use of insulin Code(s): E11.9 - Type 2 diabetes mellitus without complications Status: Chronic Assessment and Plan: * Add accucheks, continue insulin qhs and add SSI. Monitor blood sugars and a djust as needed. (8) Hypertension: Qualifiers: Hypertension type: essential hypertension Qualified Code(s): I10 - Essential (primary) hypertension Code(s): I10 - Essential (primary) hypertension Status: Chronic Assessment and Plan: * Blood pressures a bit on the high side. His atenolol was increased from 25 mg daily to 50 mg 08/31. Lasix and lisinopril held secondary to KASIA as well. (9) Cirrhosis: Qualifiers: Ascites presence: without ascites Hepatic cirrhosis type: unspecified hepatic cirrhosis Qu
--- NOTE | 2019-09-06 15:05 | PM.IMPN ---
Progress Note: A&P Assessment and Plan (1) Hypervolemia: Qualifiers: Hypervolemia type: unspecified Qualified Code(s): E87.70 - Fluid overload, unspecified Code(s): E87.70 - Fluid overload, unspecified Status: Acute Assessment and Plan: Echo reviewed which showed diastolic dysfunction and severe pulmonary HTN. Pulm HTN be related to sickle cell and hx of PE/clotting. He would also benefit from an outpatient sleep study if he has not had a recent one. Edema may be d/t right sided heart failure vs kidney disease. Appreciate nephrology recommendations. Nephrology is working up his kidneys as SCD can affect the kidneys as well. Urine electrolytes, eosinophils, and cr and protein has been ordered. He received lasix days prior, Cr rising up over the days. (2) KASIA (acute kidney injury): Code(s): N17.9 - Acute kidney failure, unspecified Status: Acute Assessment and Plan: Noted for the last 3 days. No abnormalities on CT or ultrasound. Nephrology consulted and urine studies are pending. (3) Sickle cell pain crisis: Code(s): D57.00 - Hb-SS disease with crisis, unspecified Status: Acute Assessment and Plan: See above. Appreciate Dr Reeves's recommendations. Continue IV narcotic pain medication for now and transition back to oral home meds when more controlled. (4) Symptomatic anemia: Code(s): D64.9 - Anemia, unspecified Status: Acute Assessment and Plan: Retic count, bili and LDH elevated. Direct June test is negative. No evidence of bleeding. Dr Reeves following - appreciate recommendations. Has received multiple transfusions here, getting another 1 unit today. (5) Thrombocytopenia: Code(s): D69.6 - Thrombocytopenia, unspecified Status: Chronic Assessment and Plan: Chronic thrombocytopenia may be secondary to ongoing hemolysis. Monitor platelets. (6) Chronic anticoagulation: Code(s): Z79.01 - intermediate accountant (current) use of anticoagulants Status: Chronic Assessment and Plan: The patient is chronically anticoagulated on Eliquis secondary to previous DVT, PE that was 10 years ago. Eliquis has been held - resume when okay with Dr Reeves. Stool occult blood was negative. (7) Diabetes: Qualifiers: Diabetes mellitus complication status: without complication Diabetes mellitus usp insulin use: with intermediate accountant use Diabetes mellitus type: type 2 Qualified Code(s): E11.9 - Type 2 diabetes mellitus without complications; Z79.4 - intermediate accountant (current) use of insulin Code(s): E11.9 - Type 2 diabetes mellitus without complications Status: Chronic Assessment and Plan: Add accucheks, continue insulin qhs and add SSI. Monitor blood sugars and adjust as needed. (8) Hypertension: Qualifiers: Hypertension type: essential hypertension Qualified Code(s): I10 - Essential (primary) hypertension Code(s): I10 - Essential (primary) hypertension Status: Chronic Assessment and Plan: Blood pressures a bit on the high side. His atenolol was increased from 25 mg daily to 50 mg 08/31. Lasix and lisinopril held secondary to KASIA as well. (9) Cirrhosis: Qualifiers: Ascites presence: without ascites Hepatic cirrhosis type: unspecified hepatic cirrhosis Qualified Code(s): K74.60 - Unspecified cirrhosis of liver Code(s): K74.60 - Unspecified cirrhosis of liver Status: Chronic Assessment and Plan: Chronic. [place] to be secondary to iron infusions. Subjective Date/time seen: 09/06/19 1230 Interval history: Mr. Gonzalez is a 63yo M admitted with sickle cell anemia and edema. He notes that his sylvester
[2019-09-06] MEDS: SODIUM CHLORIDE 0.9% IV 250 ML 30 ML IV CONT (15:38)
--- NOTE | 2019-09-06 15:58 | PC.NURSE ---
Pt started experiencing itching in the first 15 minutes of transfusion. A call to Dr. Reeves and hospitalist was done. Benadryl given with instructions to keep the transfusion going slow.
--- NOTE | 2019-09-06 16:44 | PC.NURSE ---
Patient tolerating transfusion well. Decreased itching noted and patient sitting at edge of bed on the phone.
--- NOTE | 2019-09-06 18:10 | PCCCNOTE ---
Faxed Hospitalist progress note from 09/04 d/t the note not completed for 09/05. Also faxed nephrology note and oncology note for 09/04. Faxed to [facility]
[2019-09-06] MEDS: SENNOSIDES 8.6 MG TABLET PO (20:49)
[2019-09-06 21:13] LABS: Glucose Point of Care 232 (65-105)
--- NOTE | 2019-09-06 23:50 | PC.NURSE ---
Pts legs beginning to become edematous and pt itching. Administered benadryl and will monitor pt closely. MDs had suggested pts problems earlier in the day were due to hemolysis and to continue to monitor him closely. So far, no issues related to his airway or changes in his vital signs.
[2019-09-07] VITALS (8 sets, daily range): BP systolic 140–161; BP diastolic 72–76; PULSE 64–70; RESP 15–20; TEMP 36.5–36.7; O2SAT 93–98
[2019-09-07] MEDS: HYDROMORPHONE HCL 1 MG/ML INJ IV PUSH ×5 (00:48→20:38)
--- NOTE | 2019-09-07 03:10 | PC.NURSE ---
Addendum entered by Azeb Padilla RN 09/07/19 03:15: This was also prior to administration of heparin for the procedure to prevent clotting. Explained to pt importance of allowing the nurse to do the procedure to make sure port continues to work properly. Original Note: Was preparing sterile field for pts port-a-cath change and pt pulled out port needle. Pt trying to expedite process, but taught about infection risk that could pose.
[2019-09-07] MEDS: CENTRAL LINE FLUSH 20 ML IV PUSH (05:28)
[2019-09-07] MEDS: CENTRAL LINE FLUSH 10 ML IV PUSH ×3 (05:29→21:15)
[2019-09-07 05:44] LABS: Basophils Absolute Auto 0.1 K/mm3 (0.0-0.1); Basophils Percent Auto 0.5 % (0.2-1.2); Eosinophils Absolute Auto 0.5 K/mm3 (0-0.3); Eosinophils Percent Auto 4.2 % (0-4.4); Hematocrit 21.4 % (42.0-52.0); Immature Granulocyte Absolute 0.18 K/mm3 (0.00-0.031); Immature Granulocyte Percent A 1.7 % (0-0.5); Immature Platelet Fraction Pct 14.9 % (0.9-11.2); Immature Reticulocyte Fraction 43.2 % (3.0-15.9); Lymphocytes Absolute Auto 2.77 K/mm3 (0.9-3.2); Lymphocytes Percent Auto 25.8 % (18.3-44.2); Mean Corpuscular HGB Conc 32.7 g/dl (32-36); Mean Corpuscular Hemoglobin 28.9 pg (26-34); Mean Corpuscular Volume 88.4 fl (80-100); Mean Platelet Volume 11.9 fl (7.4-10.4); Monocytes Absolute Auto 1.8 K/mm3 (0.1-0.6); Monocytes Percent Auto 16.7 % (2.6-8.5); Neutrophils Absolute Auto 5.5 K/mm3 (1.3-6.7); Neutrophils Percent Auto 51.1 % (45.5-73.1); Nucleated Red Blood Cells Absolute Auto 0.4 K/mm3 (0.0-0.012); Nucleated Red Blood Cells Perc 3.6 % (0.0-0.2); Platelet Count Result 109 k/mm3 (150-375); Red Blood Count 2.42 M/mm3 (4.6-6.20); Red Cell Distribution Width 21.4 % (11.5-14.5); Reticulocyte Hemoglobin Conten 34.3 pg (28.2-35.7); Reticulocyte Percent 10.97 % (0.7-4.3); Reticulocytes Absolute 0.27 B/L (32.2-175.7); White Blood Count 10.7 K/mm3 (4.5-10.0)
[2019-09-07 05:53] LABS: Alanine Aminotransferase 54 U/L (4-50); Albumin Level 3.2 g/dL (3.5-5.1); Alkaline Phosphatase 264 U/L (38-126); Aspartate Amino Transferase 127 U/L (17-59); Bilirubin,Total 11.4 mg/dL (0.2-1.3); Blood Urea Nitrogen 66 mg/dL (9-20); Calcium 8.4 mg/dL (8.4-10.2); Carbon Dioxide 28 mmol/L (22-30); Chloride 107 mmol/L (98-107); Estimated CRCL calculation 40 ml/min; Estimated Glomerular Filt Rate 57; Glucose 199 mg/dL (75-110); Lactate Dehydrogenase 1844 U/L (313-618); Potassium 4.7 mmol/L (3.4-5.0); Sodium 138 mmol/L (137-145)
[2019-09-07 06:38] LABS: Hypochromasia 1+ (NORMAL); Platelet Estimate Decreased (Adequate); Poikilocytosis 2+ (NORMAL)
[2019-09-07 06:39] LABS: Anisocytosis 1+ (NORMAL); Sickle Cells 1+ (NORMAL)
[2019-09-07 06:40] LABS: Ovalocytes 1+ (NORMAL); Target Cells 1+ (NORMAL)
[2019-09-07] MEDS: APIXABAN 5 MG TABLET PO ×2 (08:02→16:35)
[2019-09-07] MEDS: hydrALAZINE HCL 25 MG TABLET PO ×2 (08:02→16:36)
[2019-09-07] MEDS: DICLOFENAC SOD 75 MG TABLET.EC PO ×2 (08:02→16:35)
[2019-09-07] MEDS: FOLIC ACID 1 MG TABLET PO (08:03)
[2019-09-07] MEDS: PANTOPRAZOLE SODIUM IV 40 MG VIAL IV PUSH ×2 (08:03→20:39)
[2019-09-07] MEDS: polyethylene glycoL 3350 17 GM POWD.PACK PO (08:03)
[2019-09-07] MEDS: GABAPENTIN 300 MG CAPSULE PO ×2 (08:03→16:35)
[2019-09-07] MEDS: atenoloL 50 MG TABLET PO ×2 (08:06→20:38)
--- NOTE | 2019-09-07 10:03 | PCNWS ---
Weekly nutritional screen. Patient is tolerating current diet with adequate intake. No weight loss reported. No nutritional needs at this time.
--- NOTE | 2019-09-07 13:04 | PC.NURSE ---
Pt refusing blood sugar checks. Does not like to be stuck.
--- NOTE | 2019-09-07 13:51 | P.PNIM_ITS ---
Progress Note: A&P Assessment and Plan (1) Hypervolemia: Qualifiers: Hypervolemia type: unspecified Qualified Code(s): E87.70 - Fluid ov erload, unspecified Code(s): E87.70 - Fluid overload, unspecified Status: Acute Assessment and Plan: * Echo reviewed which showed diastolic dysfunction and severe pulmonary HTN. Pulm HTN be related to sickle cell and hx of PE/clotting. * He would also benefit from an outpatient sleep study if he has not had a recent one. * Edema may be d/t right sided heart failure vs kidney disease. Appreciate nephrology recommendations. * He received lasix days prior, Cr slowly improving. (2) KASIA (acute kidney injury): Code(s): N17.9 - Acute kidney failure, unspecified Status: Acute Assessment and Plan: * Noted since 09/01 but Cr slowly improving. No abnormalities on CT or ultra sound. Nephrology consulted and urine studies are pending. (3) Sickle cell pain crisis: Code(s): D57.00 - Hb-SS disease with crisis, unspecified Status: Acute Assessment and Plan: * Patient with sickle cell trait and beta thalessemia. Appreciate Dr Reeves's recommendations. (4) Symptomatic anemia: Code(s): D64.9 - Anemia, unspecified Status: Acute Assessment and Plan: * Retic count, bili and LDH elevated. Direct June test is negative. No evidence of bleeding. * Dr Reeves following - appreciate recommendations. Has received multiple transfusions here, received another 1 unit yesterday. (5) Thrombocytopenia: Code(s): D69.6 - Thrombocytopenia, unspecified Status: Chronic Assessment and Plan: * Chronic thrombocytopenia may be secondary to chronic cirrhosis/ongoing hemolysis. Monitor platelets. (6) Chronic anticoagulation: Code(s): Z79.01 - half-way (current) use of anticoagulants Status: Chronic Assessment and Plan: * The patient is chronically anticoagulated on Eliquis secondary to previous DVT, PE / hypercoagulable state. * Eliquis resumed. Stool occult blood was negative. (7) Diabetes: Qualifiers: Diabetes mellitus complication status: without complication Diabetes mellitus [facility] insulin use: with [facility] use Diabetes mellitus type: type 2 Qualified Code(s): E11.9 - Type 2 diabetes mellitus without complications; Z79.4 - half-way (current) use of insulin Code(s): E11.9 - Type 2 diabetes mellitus without complications Status: Chronic Assessment and Plan: * Add accucheks, continue insulin qhs and add SSI. Monitor blood sugars and adjust as needed. Edit: Patient refuses accucheks and insulin. (8) Hypertension: Qualifiers: Hypertension type: essential hypertension Qualified Code(s): I10 - Essential (primary) hypertension Code(s): I10 - Essential (primary) hypertension Status: Chronic Assessment and Plan: * Blood pressures variable. His atenolol was increased from 25 mg daily to 50 mg 08/31. Lasix and lisinopril held secondary to KASIA as well. (9) Cirrhosis: Qualifiers: Ascites presence: without ascites Hepatic cirrhosis type: unspecified hepatic cirrhosis Qualified Code(s): K74.60 - Unspecified cirrhosis of liver Code(s): K74.60 - Unspecified cirrhosis of liver Status: Chronic Assessment and Simon
--- NOTE | 2019-09-07 13:51 | PM.IMPN ---
Progress Note: A&P Assessment and Plan (1) Hypervolemia: Qualifiers: Hypervolemia type: unspecified Qualified Code(s): E87.70 - Fluid overload, unspecified Code(s): E87.70 - Fluid overload, unspecified Status: Acute Assessment and Plan: Echo reviewed which showed diastolic dysfunction and severe pulmonary HTN. Pulm HTN be related to sickle cell and hx of PE/clotting. He would also benefit from an outpatient sleep study if he has not had a recent one. Edema may be d/t right sided heart failure vs kidney disease. Appreciate nephrology recommendations. He received lasix days prior, Cr slowly improving. (2) KASIA (acute kidney injury): Code(s): N17.9 - Acute kidney failure, unspecified Status: Acute Assessment and Plan: Noted since 09/01 but Cr slowly improving. No abnormalities on CT or ultrasound. Nephrology consulted and urine studies are pending. (3) Sickle cell pain crisis: Code(s): D57.00 - Hb-SS disease with crisis, unspecified Status: Acute Assessment and Plan: Patient with sickle cell trait and beta thalessemia. Appreciate Dr Reeves's recommendations. (4) Symptomatic anemia: Code(s): D64.9 - Anemia, unspecified Status: Acute Assessment and Plan: Retic count, bili and LDH elevated. Direct June test is negative. No evidence of bleeding. Dr Reeves following - appreciate recommendations. Has received multiple transfusions here, received another 1 unit yesterday. (5) Thrombocytopenia: Code(s): D69.6 - Thrombocytopenia, unspecified Status: Chronic Assessment and Plan: Chronic thrombocytopenia may be secondary to chronic cirrhosis/ongoing hemolysis. Monitor platelets. (6) Chronic anticoagulation: Code(s): Z79.01 - continuous churn buttermaker (current) use of anticoagulants Status: Chronic Assessment and Plan: The patient is chronically anticoagulated on Eliquis secondary to previous DVT, PE / hypercoagulable state. Eliquis resumed. Stool occult blood was negative. 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 Monitor blood sugars and adjust as needed. Edit: Patient refuses accucheks and insulin. (8) Hypertension: Qualifiers: Hypertension type: essential hypertension Qualified Code(s): I10 - Essential (primary) hypertension Code(s): I10 - Essential (primary) hypertension Status: Chronic Assessment and Plan: Blood pressures variable. His atenolol was increased from 25 mg daily to 50 mg 08/31. Lasix and lisinopril held secondary to KASIA as well. (9) Cirrhosis: Qualifiers: Ascites presence: without ascites Hepatic cirrhosis type: unspecified hepatic cirrhosis Qualified Code(s): K74.60 - Unspecified cirrhosis of liver Code(s): K74.60 - Unspecified cirrhosis of liver Status: Chronic Assessment and Plan: Chronic. [place] to be secondary to iron infusions. Subjective Date/time seen: 09/07/19 1315 Interval history: Mr. Gonzalez is a 63yo M admitted with sickle cell anemia and edema. He tells me he feels weak today. RN notes however he has been doing well walking in the halls. He is resting though during my encounter and feels tired. He reports pain mostly in h
--- NOTE | 2019-09-07 14:51 | PM.PNNEP ---
Progress Note: A&P Assessment and Plan (1) KASIA (acute kidney injury): Code(s): N17.9 - Acute kidney failure, unspecified Status: Acute Assessment and Plan: His baseline creatinine is 0.9-1.2. Now it is 1.5 Slowly better with IV fluids. He is getting close to his baseline. I told him that his his creatinine does not get all the way back to where it was before that he could see Dr. Hurtado as an outpatient. (2) Sickle cell pain crisis: Code(s): D57.00 - Hb-SS disease with crisis, unspecified Status: Acute Assessment and Plan: Getting supportive care. (3) Edema: Qualifiers: Edema type: unspecified Qualified Code(s): R60.9 - Edema, unspecified Code(s): R60.9 - Edema, unspecified Status: Acute Assessment and Plan: Improved with diuretics. (4) Hypertension: Qualifiers: Hypertension type: essential hypertension Qualified Code(s): I10 - Essential (primary) hypertension Code(s): I10 - Essential (primary) hypertension Status: Chronic Assessment and Plan: Blood pressure is well controlled. (5) Diabetes: Qualifiers: Diabetes mellitus type: type 2 Diabetes mellitus [facility] insulin use: with [facility] use Diabetes mellitus complication status: without complication Qualified Code(s): E11.9 - Type 2 diabetes mellitus without complications; Z79.4 - [facility] (current) use of insulin Code(s): E11.9 - Type 2 diabetes mellitus without complications Status: Chronic Assessment and Plan: On medications for this (6) Cirrhosis: Qualifiers: Hepatic cirrhosis type: unspecified hepatic cirrhosis Ascites presence: without ascites Qualified Code(s): K74.60 - Unspecified cirrhosis of liver Code(s): K74.60 - Unspecified cirrhosis of liver Status: Chronic Assessment and Plan: . Could this be due to his iron overload and possibly contributed to by pulmonary hypertension? Subjective Date/time seen: 09/07/19 14:51 Interval history: Sitting up at the side of the bed. He is eating pretty well.. Review of Systems Cardiovascular: Cardiovascular: Reports no additional cardiovascular complaints Respiratory: Respiratory: Reports no additional respiratory complaints Gastrointestinal: Gastrointestinal: Reports no additional gastrointestinal complaints Genitourinary: Genitourinary: Reports no additional male genitourinary complaints Exam Narrative: Exam Narrative: Well developed well-nourished in no acute distress Lungs clear to auscultation Heart regular without rub Abdomen bowel sounds positive soft nontender but a bit distended Extremities 1 to2+ edema Skin no rash Objective Data Vital Signs Vital Signs: Vital Signs - 24 hr 09/06/19 15:25 09/06/19 15:45 09/06/19 16:00 Temperature 36.6 C 36.6 C 36.4 C L Pulse Rate 69 69 69 Respiratory Rate 16 18 18 Blood Pressure 120/62 151/71 H 159/75 H Pulse Oximetry 94 94 94 09/06/19 16:45 09/06/19 20:44 09/06/19 20:49 Temperature 36.4 C 37.2 C Pulse Rate 68 71 88 Respiratory Rate 18 16 Blood Pressure 151/86 H 145/62 H Pulse Oximetry 96 95 09/07/19 00:22 09/07/19 00:55 09/07/19 05:23 Temperature 36.6 C 36.5 C Pulse Rate 67 67 64 Respiratory Rate 15 16 Blood Pressure 151/74 H 151/74 H 161/74 H Pulse Oximetry 97 98 09/07/19 08:06 09/07/19 14:00 Temperature 36.7 C Pulse Rate 67 68 Respiratory Rate 16 Blood Pressure 140/72 Pulse Oximetry 97 Intake/Output Intake/Output: Intake & Output 09/04/19 09/05/19 09/06/19 09/07/19 23:59 23:59 23:59 23:59 Intake Total 1140 1080 2090 1780 Output Total 495 1800 1950 300 Balance 645 -867 212 2073 Meds/Results Medications: Active Medications Generic Name Dose Route Start Last Admin Trade Name Freq PRN Reason Stop Dose Admin Hydrocodone Bitart/Acetaminophen 1 tab 08/31/19 02:29 09/07/19 02:32 [place] 5-325 Mg PO 1 tab Q4H
--- NOTE | 2019-09-07 17:26 | WPDONCPN ---
Progress Note: A/P - Additional Plan Sickle cell trait with beta thalassemia. Patient was admitted with sickle cell crisis episode. He is clinically improving. Hemoglobin is stable. Further blood transfusion was held due to incompatible blood with risk of transfusion reaction. I will start him on Epogen due to anemia of chronic renal failure. Continue folic acid along with current pain medication. Pancytopenia secondary to liver cirrhosis. Labs stable Acute renal failure. Kidney function remains unchanged. We will start Epogen History of hypercoagulable state with DVT and PE. Patient is on Eliquis. He denies any bleeding. Given his underlying condition he is at high risk for blood clots I will continue Eliquis. - Time Spent With Patient Total time spent is greater than 50% in coordination of care (as documented) at patient's floor/unit and/or counseling patient: 15 - 25 minutes Subjective Interval history: Sickle cell anemia with sickle cell crisis Acute renal insufficiency Liver cirrhosis Review of Systems - Review of Systems Patient is resting comfortably. He denies any fevers and chills. Denies any bleeding and bruising. Still complain of abdominal distention and tiredness and fatigue. Pain is under good control. - Neurologic Denies focal weakness, Denies numbness, Denies weakness Exam Vital signs: Lowell Kirk. Assessment of coma and impaired consciousness. A practical scale. Lancet 1974; 2:81-4. Narrative: Lungs clear to auscultation bilaterally Cardiovascular regular rate rhythm no murmurs Abdomen soft nontender mildly distended Extremities no edema PN: Objective Data - Labs CBC & Chem 7: 09/07/19 05:28 09/07/19 05:28 Labs: Laboratory Results - last 24 hr 09/05/19 09/06/19 09/06/19 18:02 13:24 20:59 WBC RBC Hgb Hct MCV MCH MCHC RDW Plt Count MPV Immature Gran % (Auto) Neut % (Auto) Lymph % (Auto) [place] % (Auto) Eos % (Auto) Baso % (Auto) Lymph # (Auto) [place] # (Auto) Eos # (Auto) Baso # (Auto) Abs Immat Gran (auto) Absolute Neuts (auto) Absolute Nucleated RBC Nucleated RBC % Platelet Estimate % Immature Plt Fraction Hypochromasia Poikilocytosis Anisocytosis Sickle Cells Target Cells Ovalocytes Absolute Retic Percent Retic Immature Retic Fraction Retic Hgb Content Sodium Potassium Chloride Carbon Dioxide BUN Creatinine Estim Creat Clear Calc Estimated GFR Glucose POC Capillary Glucose 232 H Calcium Total Bilirubin AST ALT Alkaline Phosphatase Lactate Dehydrogenase Total Protein Albumin Urine Eosinophils see below Blood Type O Positive Antibody Screen Negative MAG, IgG Interpret 1+ MAG, Poly Interpret Positive MAG, Complement Interp Not Performed Enhanced Crossmatch See Detail 09/07/19 09/07/19 05:28 05:28 WBC 10.7 H RBC 2.42 L Hgb 7.0 L Hct 21.4 L MCV 88.4 MCH 28.9 MCHC 32.7 RDW 21.4 H Plt Count 109 L MPV 11.9 H Immature Gran % (Auto) 1.7 H Neut % (Auto) 51.1 Lymph % (Auto) 25.8 [place] % (Auto) 16.7 H Eos % (Auto) 4.2 Baso % (Auto) 0.5 Lymph # (Auto) 2.77 [place] # (Auto) 1.8 H Eos # (Auto) 0.5 H Baso # (Auto) 0.1 Abs Immat Gran (auto) 0.18 H Absolute Neuts (auto) 5.5 Absolute Nucleated RBC 0.4 H Nucleated RBC % 3.6 H Platelet Estimate Decreased % Immature Plt Fraction 14.9 H Hypochromasia 1+ Poikilocytosis 2+ Anisocytosis 1+ Sickle Cells 1+ Target Cells 1+ Ovalocytes 1+ Absolute Retic 0.27 L Percent Retic 10.97 H Immature Retic Fraction 43.2 H Retic Hgb Content 34.3 Sodium 138 Potassium 4.7 Chloride 107 Carbon Dioxide 28 BUN 66 H Creatinine 1.50 H Estim Creat Clear Calc 40 Estimated GFR 57 L Glucose 199 H POC Capillary Gluco
--- NOTE | 2019-09-07 19:01 | PC.NURSE ---
Pt has epogen ordered for 1800. Informational packet given. Patient does not like to be stuck with needles. Says he will think about letting us give him the medication. Verbalized understanding for the need of the medication, since he can not receive transfusions at this time.
[2019-09-07] MEDS: SENNOSIDES 8.6 MG TABLET PO (20:39)
[2019-09-08] MEDS: HYDROMORPHONE HCL 1 MG/ML INJ IV PUSH ×3 (02:42→10:40)
[2019-09-08 04:00] VITALS: BP 154/80; PULSE 67; RESP 20; TEMP 36.8; O2SAT 98
[2019-09-08] MEDS: CENTRAL LINE FLUSH 10 ML IV PUSH ×2 (06:43→14:18)
[2019-09-08] MEDS: HEPARIN SOD FLUSH 500 UNITS/5 ML SYRINGE IV PUSH (08:15)
[2019-09-08 08:19] LABS: Glucose Point of Care 222 (65-105)
[2019-09-08] MEDS: DICLOFENAC SOD 75 MG TABLET.EC PO ×2 (08:20→16:45)
[2019-09-08] MEDS: hydrALAZINE HCL 25 MG TABLET PO ×2 (08:20→16:45)
[2019-09-08] MEDS: APIXABAN 5 MG TABLET PO ×2 (08:20→16:45)
[2019-09-08 08:21] VITALS: PULSE 68
[2019-09-08] MEDS: atenoloL 50 MG TABLET PO (08:21)
[2019-09-08] MEDS: FOLIC ACID 1 MG TABLET PO (08:21)
[2019-09-08] MEDS: PANTOPRAZOLE SODIUM IV 40 MG VIAL IV PUSH (08:22)
[2019-09-08] MEDS: GABAPENTIN 300 MG CAPSULE PO ×2 (08:22→16:45)
[2019-09-08] MEDS: INSULIN ASPART (*BKC) 100 UNITS/ML SUB-Q (08:23)
--- NOTE | 2019-09-08 11:37 | PC.NURSE ---
maintenance technician 3rd shift RN unable to obtain labwork from port-a-cath this morning. I attempted several times after flushing port with saline and heparin. Unable to obtain blood. Per patient, he has had his port for a long time and has never had a problem with them drawing blood from it. He states the needle was changed yesterday. Patient in agreement with me reaccessing port in an attempt to obtain blood. Reaccessed port - still unable to obtain blood from port. Will discuss further with Vanesa Springer, venous access clinician.
--- NOTE | 2019-09-08 11:41 | PC.NURSE ---
Patient refused to have his blood glucose checked before lunch. Will notify
--- NOTE | 2019-09-08 12:09 | PM.PNNEP ---
Progress Note: A&P Assessment and Plan (1) KASIA (acute kidney injury): Code(s): N17.9 - Acute kidney failure, unspecified Status: Acute Assessment and Plan: His baseline creatinine is 0.9-1.2. Yesterday it was 1.5 Slowly better with IV fluids. Today's has not been drawn yet. Will check another level tomorrow. (2) Sickle cell pain crisis: Code(s): D57.00 - Hb-SS disease with crisis, unspecified Status: Acute Assessment and Plan: Getting supportive care. (3) Edema: Qualifiers: Edema type: unspecified Qualified Code(s): R60.9 - Edema, unspecified Code(s): R60.9 - Edema, unspecified Status: Acute Assessment and Plan: Improved with diuretics. (4) Hypertension: Qualifiers: Hypertension type: essential hypertension Qualified Code(s): I10 - Essential (primary) hypertension Code(s): I10 - Essential (primary) hypertension Status: Chronic Assessment and Plan: Blood pressure is well controlled. 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 insulin use: with halfway use Diabetes mellitus complication status: without complication Qualified Code(s): E11.9 - Type 2 diabetes mellitus without complications; Z79.4 - intermediate manager (current) use of insulin Code(s): E11.9 - Type 2 diabetes mellitus without complications Status: Chronic Assessment and Plan: On medications for this (6) Cirrhosis: Qualifiers: Hepatic cirrhosis type: unspecified hepatic cirrhosis Ascites presence: without ascites Qualified Code(s): K74.60 - Unspecified cirrhosis of liver Code(s): K74.60 - Unspecified cirrhosis of liver Status: Chronic Assessment and Plan: . Could this be due to his iron overload and possibly contributed to by pulmonary hypertension? Additional Plan Subjective Date/time seen: 09/08/19 12:09 Interval history: Walking in the halls. Still has some pain. He is eating pretty well.. Review of Systems Cardiovascular: Cardiovascular: Reports no additional cardiovascular complaints Respiratory: Respiratory: Reports no additional respiratory complaints Gastrointestinal: Gastrointestinal: Reports no additional gastrointestinal complaints Genitourinary: Genitourinary: Reports no additional male genitourinary complaints Exam Narrative: Exam Narrative: Well developed well-nourished in no acute distress Lungs clear Heart regular without rub Abdomen bowel sounds positive soft nontender but a bit distended Extremities 1 to2+ edema Skin no rash or subcu nodules Objective Data Vital Signs Vital Signs: Vital Signs - 24 hr 09/07/19 14:00 09/07/19 20:00 09/07/19 20:38 Temperature 36.7 C 36.7 C Pulse Rate 68 70 68 Respiratory Rate 16 20 Blood Pressure 140/72 146/76 H Pulse Oximetry 97 93 09/07/19 20:50 09/08/19 04:00 09/08/19 08:21 Temperature 36.8 C Pulse Rate 68 67 68 Respiratory Rate 20 20 Blood Pressure 154/80 H Pulse Oximetry 93 98 Intake/Output Intake/Output: Intake & Output 09/05/19 09/06/19 09/07/19 09/08/19 23:59 23:59 23:59 23:59 Intake Total 1080 2090 2570 1740 Output Total 1800 1950 1400 1155 Balance -724 215 5649 585 Meds/Results Medications: Active Medications Generic Name Dose Route Start Last Admin Trade Name Freq PRN Reason Stop Dose Admin Hydrocodone Bitart/Acetaminophen 1 tab 08/31/19 02:29 09/07/19 02:32 Lyndon 5-325 Mg PO 1 tab Q4H PRN Administration Pain Rated 4-6 Apixaban 5 mg 09/05/19 17:00 09/08/19 08:20 Eliquis PO 5 mg BID JESSE Administration Artificial Tears 1 drop 08/31/19 13:29 09/01/19 08:40 Artificial Tears EACH EYE 1 drop QID PRN Administration Dry Eye(s) Atenolol 50 mg 09/01/19 12:30 09/08/19 08:21 Tenormin PO 50 mg Q12HR JESSE Administration Dextrose 12.5 gm 09/06/19 18:37 Dextr
[2019-09-08 12:45] LABS: Hematocrit 23.9 % (42.0-52.0); Hemoglobin 7.9 g/dL (14.0-18.0); Immature Platelet Fraction Pct 13.5 % (0.9-11.2); Immature Reticulocyte Fraction 27.1 % (3.0-15.9); Mean Corpuscular HGB Conc 33.1 g/dl (32-36); Mean Corpuscular Hemoglobin 29.9 pg (26-34); Mean Corpuscular Volume 90.5 fl (80-100); Mean Platelet Volume 13.6 fl (7.4-10.4); Platelet Count Result 135 k/mm3 (150-375); Red Blood Count 2.64 M/mm3 (4.6-6.20); Red Cell Distribution Width 22.1 % (11.5-14.5); Reticulocyte Hemoglobin Conten 32.4 pg (28.2-35.7); Reticulocyte Percent 11.86 % (0.7-4.3); Reticulocytes Absolute 0.31 B/L (32.2-175.7); White Blood Count 11.1 K/mm3 (4.5-10.0)
[2019-09-08 12:53] LABS: Band Neutrophils Percent 1 % (0-6); Eosinophils Absolute Manual 0.66 K/mm3 (0.02-0.5); Eosinophils Percent Manual 6 % (0-4); Lymphocytes Absolute Manual 4.21 K/mm3 (1.1-4.5); Metamyelocytes Percent 1 %; Monocytes Absolute Manual 0.88 K/mm3 (0.1-0.90); Monocytes Percent Manual 8 % (3-9); Neutrophils Absolute Manual 5.21 K/mm3 (1.3-6.7); Neutrophils Percent Manual 46 % (46-73); Nucleated Red Blood Cells 10 %; Sickle Cells 2+ (NORMAL); Total Cells Counted 100
[2019-09-08 12:54] LABS: Crenated RBC 1+ (NORMAL); Target Cells 2+ (NORMAL)
[2019-09-08 13:23] LABS: Alanine Aminotransferase 54 U/L (4-50); Albumin Level 3.4 g/dL (3.5-5.1); Alkaline Phosphatase 296 U/L (38-126); Aspartate Amino Transferase 123 U/L (17-59); Bilirubin,Total 6.8 mg/dL (0.2-1.3); Blood Urea Nitrogen 55 mg/dL (9-20); Calcium 8.8 mg/dL (8.4-10.2); Carbon Dioxide 25 mmol/L (22-30); Chloride 107 mmol/L (98-107); Estimated CRCL calculation 34 ml/min; Estimated Glomerular Filt Rate 46; Glucose 214 mg/dL (75-110); Lactate Dehydrogenase 1913 U/L (313-618); Potassium 4.7 mmol/L (3.4-5.0); Sodium 136 mmol/L (137-145)
[2019-09-08] MEDS: HYDROMORPHONE HCL 1 MG/ML INJ 0.5 MG IV PUSH (14:08)
[2019-09-08] MEDS: ALTEPLASE 2 MG VIAL (CATHFLO) IV PUSH (14:15)
--- NOTE | 2019-09-08 14:35 | PM.DS ---
DS: Diagnosis Admitting Diagnosis Admitting Diagnosis: Anemia, unspecified Discharge Diagnosis (1) Hypervolemia: Qualifiers: Hypervolemia type: unspecified Qualified Code(s): E87.70 - Fluid overload, unspecified Code(s): E87.70 - Fluid overload, unspecified Status: Acute Assessment and Plan: Date of Service 09/08/19 Mr. Gonzalez is a 63yo M with sickle cell trait and thalassemia, type 2 diabetes mellitus, and cirrhosis who presented to the ED for evaluation of worsening pain all over. He received multiple blood transfusions this admissions and Hgb was as low as 4.0 on 08/30 (baseline around 7.5). He had no evidence of acute bleeding. His return to service inspector, Dr Reeves, was consulted. He is chronically anticoagulated with Eliquis due to his hypercoagulable state and history of PE/DVT. Eliquis was briefly held during the stay but resumed by Dr Reeves's recommendation. His Cr went to 1.7 09/01 from 1.2 the day prior and nephrology was consulted, improved a bit with IV fluids but then became a bit overloaded. Patient does have a history of cirrhosis and his abdomen was a bit bloated during this stay with some lower extremity edema, which responded well to a few doses of Lasix. He does have type 2 diabetes but adamantly refused glucose monitoring with accu-cheks and any insulin injections. Day of discharge, his Hgb was 7.9 and patient was eager for discharge. He will follow up with Dr Reeves in [address] Reeves who notes he will obtain bloodwork at patient's visit. If patient's Cr does not normalize in the future he can follow up with Dr Hurtado. Consultations: - Hematology - Dr Reeves - Nephrolog - Dr Hurtado. Echo reviewed which showed diastolic dysfunction and severe pulmonary HTN. Pulm HTN be related to sickle cell and hx of PE/clotting. He would also benefit from an outpatient sleep study if he has not had a recent one. Edema may be d/t right sided heart failure vs kidney disease. Evaluated by nephrology. (2) KASIA (acute kidney injury): Code(s): N17.9 - Acute kidney failure, unspecified Status: Acute Assessment and Plan: No abnormalities on CT or ultrasound. Evaluated by nephrology. Can follow up with nephrology in the future if Cr does not normalize. (3) Sickle cell pain crisis: Code(s): D57.00 - Hb-SS disease with crisis, unspecified Status: Acute Assessment and Plan: Patient with sickle cell trait and beta thalessemia. Appreciate Dr Reeves's recommendations. Pain improved prior to discharge. (4) Symptomatic anemia: Code(s): D64.9 - Anemia, unspecified Status: Acute Assessment and Plan: Retic count, bili and LDH elevated. Direct June test is negative. No evidence of bleeding. Has received multiple transfusions here. Hgb stable at 7.9 day of discharge. Follow up with Dr Reeves in 2 weeks. (5) Thrombocytopenia: Code(s): D69.6 - Thrombocytopenia, unspecified Status: Chronic Assessment and Plan: Chronic thrombocytopenia may be secondary to chronic cirrhosis/ongoing hemolysis. Monitor platelets. (6) Chronic anticoagulation: Code(s): Z79.01 - termite control technician (current) use of anticoagulants Status: Chronic Assessment and Plan: The patient is chronically anticoagulated on Eliquis secondary to previous DVT, PE / hypercoagulable state. Eliquis resumed. Stool occult blood was negative. (7) Diabetes: Qualifiers: Diabetes mellitus type: type 2 Diabetes mellitus buttermaker helper insulin use: with assisted use Diabetes mellitus complication status: without complication Qualified Code(s): E11.9 - Type 2 diabetes mellitus without complications; Z79.4 - [facility] (current) use of insulin
== END 2019-09-08 17:15 | disposition home or self-care (01) | DRG 812 ==
LOC: ANHED 02:28 → ANH3MED 02:40
PROVIDERS: Internal Medicine Hematology & Oncology; Internal Medicine Nephrology; Physician Assistant; Admitting Provider Family Medicine; Emergency Provider General Practice; PCP Emergency Medicine; Visit Provider Family Medicine
DX: D57.419 Sickle-cell thalassemia, unspecified, with crisis (principal); N17.9 Acute kidney failure, unspecified; D61.818 Other pancytopenia; Z79.4 Long term (current) use of insulin; I10 Essential (primary) hypertension; Z86.711 Personal history of pulmonary embolism; Z86.718 Personal history of other venous thrombosis and embolism; Z79.01 Long term (current) use of anticoagulants; Z91.14 Patient's other noncompliance with medication regimen; F41.8 Other specified anxiety disorders; Z90.49 Acquired absence of other specified parts of digestive tract; E11.36 Type 2 diabetes mellitus with diabetic cataract; D69.59 Other secondary thrombocytopenia; K74.60 Unspecified cirrhosis of liver; E87.70 Fluid overload, unspecified; I27.20 Pulmonary hypertension, unspecified; D63.1 Anemia in chronic kidney disease; N18.9 Chronic kidney disease, unspecified; E11.22 Type 2 diabetes mellitus with diabetic chronic kidney disease; I12.9 Hypertensive chronic kidney disease with stage 1 through stage 4 chronic kidney disease, or unspecified chronic kidney disease
CPT/HCPCS: 36415; 36430; 71045; 74019; 74176; 76775; 80048; 80053; 80069; 80076; 81001; 81479; 82274; 82570; 82607; 82746; 83010; 83540; 83550; 83615; 83880; 84156; 84300; 84466; 85014; 85018; 85025; 85027; 85046; 85055; 85610; 85730; 85999; 86850; 86860; 86870; 86880; 86900; 86901; 86905; 86906; 86922; 86971; 86972; 93005; 93306; 96361; 96365; 96375; 96376; 99285; A9270; C9113; G0378; J0131; J0360; J1170; J1815; J1940; J2405; J2930; J2997; J7050; J7120; P9016

== ENCOUNTER 2019-09-16 10:26 | Outpatient (CLI) | payer MEDICARE, SELFPAY ==
[2019-09-16 10:48] LABS: Basophils Absolute Auto 0.1 K/mm3 (0.0-0.1); Basophils Percent Auto 0.7 % (0.2-1.2); Eosinophils Absolute Auto 0.4 K/mm3 (0-0.3); Eosinophils Percent Auto 4.5 % (0-4.4); Hematocrit 21.9 % (42.0-52.0); Hemoglobin 7.2 g/dL (14.0-18.0); Immature Granulocyte Absolute 0.03 K/mm3 (0.00-0.031); Immature Granulocyte Percent A 0.4 % (0-0.5); Lymphocytes Absolute Auto 2.63 K/mm3 (0.9-3.2); Mean Corpuscular HGB Conc 32.9 g/dl (32-36); Mean Corpuscular Hemoglobin 29.6 pg (26-34); Mean Corpuscular Volume 90.1 fl (80-100); Mean Platelet Volume 12.7 fl (7.4-10.4); Monocytes Absolute Auto 0.7 K/mm3 (0.1-0.6); Monocytes Percent Auto 8.4 % (2.6-8.5); Neutrophils Absolute Auto 4.5 K/mm3 (1.3-6.7); Nucleated Red Blood Cells Perc 0.2 % (0.0-0.2); Platelet Count Result 194 k/mm3 (150-375); Red Blood Count 2.43 M/mm3 (4.6-6.20); Red Cell Distribution Width 20.2 % (11.5-14.5); White Blood Count 8.2 K/mm3 (4.5-10.0)
[2019-09-16 12:43] LABS: Blood Urea Nitrogen 19 mg/dL (9-20); Calcium 9.1 mg/dL (8.4-10.2); Carbon Dioxide 29 mmol/L (22-30); Chloride 102 mmol/L (98-107); Estimated Glomerular Filt Rate > 60; Glucose 116 mg/dL (75-110); Potassium 4.3 mmol/L (3.4-5.0); Sodium 135 mmol/L (137-145)
== END 2019-09-16 10:27 | disposition home or self-care (01) ==
LOC: ANHLAB 10:28
PROVIDERS: PCP Emergency Medicine; Visit Provider Internal Medicine Hematology & Oncology
DX: D64.9 Anemia, unspecified (principal)
CPT/HCPCS: 36415; 80048; 85025

== ENCOUNTER 2019-09-30 11:53 | Inpatient (IN) | payer MEDICARE, SELFPAY ==
--- NOTE | ~2019-09-30 | US_ITS ---
EXAMINATION: US renal BI DATE: 10/02/2019 11:31 INDICATION: Acute renal insufficiency TECHNIQUE: Multiple ultrasound grayscale images of the kidneys were obtained. COMPARISON: 09/03/2019 FINDINGS: The right kidney measures 10.6 x 5.7 x 5.2 cm. The left kidney measures 10.4 x 6.7 x 6.2 cm. The kidn eys demonstrate normal echogenicity. There is no hydronephrosis in either kidney. No stones identifi ed. Sanches catheter in the bladder. There is diffuse bladder wall thickening which could be related to chronic outlet obstruction from the mildly enlarged prostate which measures 4.4 x 2.6 x 4.7 cm. IMPRESSION: 1. Normal kidneys without hydronephrosis. 2. Diffuse bladder wall thickening which could be related to chronic outlet obstruction from the mild ly enlarged prostate or cystitis. Correlate with urinalysis. Reviewed, dictated and finalized at location A. IMPRESSION: 1. Normal kidneys without hydronephrosis. 2. Diffuse bladder wall thickening which could be related to chronic outlet obs truction from the mildly enlarged prostate or cystitis. Correlate with urinalys is.
[2019-09-30 12:02] VITALS: BP 162/81; PULSE 82; RESP 18; TEMP 36.7; O2SAT 99
--- NOTE | 2019-09-30 12:03 | ECG_ITS ---
Measurements Intervals Fletcher Rate: 76 P: 58 IL: 183 QRS: 17 QRSD: 90 T: 71 QT: 426 QTc: 481 Interpretive Statements SINUS RHYTHM VOLTAGE CRITERIA FOR LVH ST ELEVATION IN ANTERIOR LEADS- PROBABLY EARLY REPOLARIZATION BORDERLINE ECG Electronically Signed On 09-30-2019 12:57:42 CDT by Franklin Bajwa D.O.
[2019-09-30] MEDS: SODIUM CHLORIDE 0.9% IV 1,000 ML 999 ML IV CONT ×2 (12:23→14:01)
--- NOTE | 2019-09-30 12:23 | ED.GENADULT ---
HPI - General Adult General Chief complaint: Unspecified <KOSTA Hutton Last Filed: 09/30/19 13:44> Stated complaint: sickle cell crisis <KOSTA Hutton Last Filed: 09/30/19 13:44> Time Seen by Provider: 09/30/19 11:56 <KOSTA Hutton Last Filed: 09/30/19 13:44> Source: patient <KOSTA Hutton Last Filed: 09/30/19 13:44> Mode of arrival: ambulatory <KOSTA Hutton Last Filed: 09/30/19 13:44> Limitations: no limitations <KOSTA Hutton Filed: 09/30/19 13:44> History of Present Illness HPI narrative: Patient is a 63-year-old male who presents to emergency department for evaluation sickle cell pain crisis with history of similar occurrences noting generalized pain to the torso left upper abdomen stating that this is a typical presentation for him patient is [facility] Dr Reeves. Patient has been taking his medications as instructed to include his Eliquis. Patient on arrival in the room in no distress denies any recent illness sick contacts or other complaints <KOSTA Hutton Last Filed: 09/30/19 13:44> Related Data Home medications: Home Medications Medication Instructions Recorded Confirmed metformin 500 mg PO BID 08/31/19 08/31/19 cyclobenzap-irritant cntr irr2 10 mg MISCELLANEOUS BID PRN 09/30/19 oxycodone 5 mg PO Q4H PRN 09/30/19 <KOSTA Hutton Last Filed: 09/30/19 13:44> Allergies/adverse reactions: Allergies Allergy/AdvReac Type Severity Reaction Status Date / Time iohexol Allergy Severe Unconscious Verified 09/30/19 12:02 [From CONTRAST - CT, XRAY] ketorolac AdvReac Loss of Verified 09/30/19 12:02 Consciousness Contrast Media Allergy Severe PASSED Uncoded 09/30/19 12:02 OUT <KOSTA Hutton Last Filed: 09/30/19 13:44> Review of Systems Review of Systems: All systems reviewed & are unremarkable except as noted in HPI and below <KOSTA Hutton Filed: 09/30/19 13:44> [facility] Past Medical History Medical History: Medical History Anxiety Back fracture Cataract Depression Diabetes DVT (deep venous thrombosis) FH: cholecystectomy Cholecystectomy in approximately 1999 Gall bladder disease Hypertension Irregular heartbeat Liver disease Pancreatitis Port-A-Cath in place Pulmonary embolism Sickle cell anemia with coexistent alpha-thalassemia <Bao Bautista PA-C - Last Filed: 09/30/19 13:44> Surgical History Surgical History: Surgical History Hx of cholecystectomy <Bao Bautista PA-C - Last Filed: 09/30/19 13:44> Social History Social History: Social History Social History: Mr. Gonzalez lives at home alone, with his pet dog. He is independent in his daily activities. 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 He designates his daughter Jonelle ([phone]) as his surrogate decision maker. He would like to be a full code. Smoking status: Never smoker Second hand tobacco smoke exposure: Yes Alcohol intake: never Substance use: never Gender identity (if verbalized by the patient): Male Spiritual care concerns: No Agree to blood products: Yes <Bao Bautista PA-C - Last Filed: 09/30/19 13:44> Exam Narrative: Exam Narrative: GENERAL: Well-appearing, well-nourished, and in no acute distress. HEAD: Normocephalic, atraumatic. EYES: PERRLA and EOMI. ENT: Nares clear, no rhinorrhea or epistaxis. Mucous membranes moist. CHEST: Clear to auscultation. No respiratory distress. No wheezes rales or rhonchi HEART: Regular rate and rhythm. No murmur heard. Normal peripheral pulses. ABDOMEN: Soft, left-sided abdominal tenderness to palpation, nondistended EXTREMITIES: Normal range of motion. No edema. SKI
[2019-09-30] MEDS: ONDANSETRON INJ 4 MG/2 ML VIAL IV PUSH (12:24)
[2019-09-30] MEDS: FAMOTIDINE 20 MG/2 ML VIAL IV PUSH ×2 (12:25→19:57)
[2019-09-30] MEDS: HYDROMORPHONE HCL 1 MG/ML INJ 2 MG IV PUSH ×3 (12:26→19:57)
[2019-09-30 12:28] VITALS: PULSE 80
[2019-09-30 12:33] LABS: Basophils Absolute Auto 0.1 K/mm3 (0.0-0.1); Basophils Percent Auto 0.6 % (0.2-1.2); Eosinophils Absolute Auto 0.3 K/mm3 (0-0.3); Eosinophils Percent Auto 3.2 % (0-4.4); Immature Granulocyte Absolute 0.06 K/mm3 (0.00-0.031); Immature Granulocyte Percent A 0.6 % (0-0.5); Immature Platelet Fraction Pct 11.6 % (0.9-11.2); Immature Reticulocyte Fraction 33.5 % (3.0-15.9); Lymphocytes Percent Auto 30.3 % (18.3-44.2); Mean Corpuscular HGB Conc 33.3 g/dl (32-36); Mean Corpuscular Hemoglobin 29.8 pg (26-34); Mean Corpuscular Volume 89.3 fl (80-100); Mean Platelet Volume 11.6 fl (7.4-10.4); Monocytes Percent Auto 10.7 % (2.6-8.5); Neutrophils Percent Auto 54.6 % (45.5-73.1); Nucleated Red Blood Cells Absolute Auto 0.3 K/mm3 (0.0-0.012); Nucleated Red Blood Cells Perc 2.9 % (0.0-0.2); Platelet Count Result 149 k/mm3 (150-375); Red Blood Count 2.25 M/mm3 (4.6-6.20); Red Cell Distribution Width 21.8 % (11.5-14.5); Reticulocyte Hemoglobin Conten 34.2 pg (28.2-35.7); Reticulocyte Percent 14.13 % (0.7-4.3); Reticulocytes Absolute 0.32 B/L (32.2-175.7); White Blood Count 9.2 K/mm3 (4.5-10.0)
[2019-09-30 12:42] LABS: Alanine Aminotransferase 49 U/L (4-50); Albumin Level 4.2 g/dL (3.5-5.1); Alkaline Phosphatase 260 U/L (38-126); Aspartate Amino Transferase 126 U/L (17-59); Blood Urea Nitrogen 10 mg/dL (9-20); Calcium 9.3 mg/dL (8.4-10.2); Carbon Dioxide 26 mmol/L (22-30); Chloride 104 mmol/L (98-107); Estimated CRCL calculation 66 ml/min; Estimated Glomerular Filt Rate > 60; Glucose 182 mg/dL (75-110); Lactate Dehydrogenase 1851 U/L (313-618); Lipase 354 U/L (23-300); Potassium 4.5 mmol/L (3.4-5.0); Sodium 135 mmol/L (137-145)
[2019-09-30 12:54] LABS: Hematocrit 20.1 % (42.0-52.0); Hemoglobin 6.7 g/dL (14.0-18.0)
[2019-09-30 12:55] LABS: Sickle Cells 2+ (NORMAL)
--- NOTE | 2019-09-30 13:22 | PC.NURSE ---
In room to draw type and screen, patient complains of itching throughout his body. Denies shortness of breath. There are no hives or rash noted. KANA PA notified and orders obtained
[2019-09-30 13:58] VITALS: BP 153/79; PULSE 84; RESP 16; O2SAT 95
[2019-09-30 14:28] VITALS: BP 161/85; PULSE 86; RESP 14; O2SAT 95
--- NOTE | 2019-09-30 14:50 | ADMGEN ---
This patient, Jaden Gonzalez, was admitted to Medical Room 243-01. Patient/family oriented to hospital policies and general routines including ID bracelet, bed and alarms, visiting hours, pain management, procedures, bathroom and other care routines, personal items, smoking policy, room service/diet, and visiting hours. Valuables list has been completed. Information on how to activate the Rapid Response Team has been discussed. Patient/Family are encouraged to report perceived risks to care and to ask questions if they do not understand what they are told or what they should do.
[2019-09-30 15:49] VITALS: BP 175/83; PULSE 86; RESP 18; TEMP 36.8; O2SAT 99; BMI 18.8
--- NOTE | 2019-09-30 16:39 | PM.IMHP ---
H&P: HPI History of Present Illness Chief complaint: Anemia/sickle cell pain crisis Narrative: Jaden Gonzalez is a 63 year old male REPLACED BY [facility] Past Medical History Medical History Anxiety Back fracture Cataract Depression Diabetes DVT (deep venous thrombosis) FH: cholecystectomy Cholecystectomy in approximately 1999 Gall bladder disease Hypertension Irregular heartbeat Liver disease Pancreatitis Port-A-Cath in place Pulmonary embolism Sickle cell anemia with coexistent alpha-thalassemia Surgical History Surgical History Hx of cholecystectomy Family History Family History (Updated 09/30/19 @ 17:47 by Serg Clark MD) Father Acute myocardial infarction Sibling Diabetes mellitus Sibling Hypertension Sickle cell anemia Social History Social History (Updated 09/30/19 @ 17:48 by Serg Clark MD) Social History: Mr. Gonzalez lives at home alone, with his pet dog. He is independent in his daily activities. 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 His daughter, Jonelle ([phone]), is his surrogate decision maker. 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 Gender identity (if verbalized by the patient): Male Spiritual care concerns: No Agree to blood products: Yes Meds Home Medications and Allergies Home Medications Medication Instructions Recorded Confirmed Type apixaban 5 mg tablet 5 mg PO BID #180 tablet 08/08/19 09/30/19 Rx lisinopril 10 mg tablet 10 mg PO DAILY #90 tablet 08/08/19 09/30/19 Rx metformin 500 mg PO BID 08/31/19 09/30/19 History insulin degludec [Tresiba 10 unit SUBCUT BID 09/30/19 09/30/19 History FlexTouch U-200] oxycodone 5 mg PO Q4H PRN 09/30/19 09/30/19 History Allergies Allergy/AdvReac Type Severity Reaction Status Date / Time iohexol Allergy Severe Unconscious Verified 09/30/19 12:02 [From CONTRAST - CT, XRAY] ketorolac AdvReac Loss of Verified 09/30/19 12:02 Consciousness Contrast Media Allergy Severe PASSED Uncoded 09/30/19 12:02 OUT Vital Signs Vital Signs - 24 hr 09/30/19 12:02 09/30/19 12:28 09/30/19 13:58 Temperature 98.1 F Pulse Rate 82 80 84 Respiratory Rate 18 16 Blood Pressure 162/81 H 153/79 H Pulse Oximetry 99 95 09/30/19 14:28 09/30/19 15:49 Temperature 98.2 F Pulse Rate 86 86 Respiratory Rate 14 18 Blood Pressure 161/85 H 175/83 H Pulse Oximetry 95 99 Exam Narrative: Exam Narrative: HEENT: EOMI, PERRL, sclerae nonicteric, pharyngeal mucosa pink and intact NECK: No JVD, adenopathy, or thyromegaly CHEST: Clear to auscultation. Normal effort. HEART: NL S1/S2, regular, 3/6 apical systolic murmur ABDOMEN: BS+, soft, nontender, no mass, no bruits EXTREMITIES: No cyanosis, edema, or clubbing NEUROLOGIC: CN intact and symmetric to inspection. MUSCULOSKELETAL: Tone and strength symmetric. PSYCH: Alert. Oriented to person, place, and time. H&P: Results Labs Labs: Short CBC 09/30/19 Range/Units 12:19 WBC 9.2 (4.5-10.0) K/mm3 Hgb 6.7 L* (14.0-18.0) g/dL Hct 20.1 L* (42.0-52.0) % Plt Count 149 L (150-375) k/mm3 BMP 09/30/19 12:19 Sodium 135 L Potassium 4.5 Chloride 104 Carbon Dioxide 26 BUN 10 D Creatinine 0.90 Glucose 182 H Calcium 9.3 Liver Function 09/30/19 Range/Units 12:19 Total Bilirubin 7.0 H (0.2-1.3) mg/dL AST 126 H (17-59) U/L ALT 49 (4-50) U/L Alkaline Phosphatase 260 H (38-126) U/L Albumin 4.2 (3.5-5.1) g/dL Assessment and Plan Assessment and plan (1) Sickle cell pain crisis: Code(s): D57.00 - Hb-SS disease with crisis, unspecified Status: Acute Assessment and Simon
[2019-09-30] MEDS: LACTATED RINGERS 1,000 ML 125 ML IV CONT (16:41)
[2019-09-30] MEDS: metFORMIN HCL 500 MG TABLET PO (17:16)
[2019-09-30] MEDS: APIXABAN 5 MG TABLET PO (17:17)
[2019-09-30 17:59] LABS: Glucose Point of Care 154 (65-105)
--- NOTE | 2019-09-30 18:41 | CONS_ITS ---
DATE OF CONSULTATION: 09/30/2019 REASON FOR CONSULTATION: Sickle cell crisis. HISTORY OF PRESENTING ILLNESS: This is a 63-year-old male with history of sickle cell anemia with multiple episodes of sickle cell crisis admission along with history of liver cirrhosis. The patient was last seen in the office 2 weeks ago. He was taking oxycodone for his pain control 4 times a day, but recently the pain got out of control with the home pain medication and came into the ER with generalized musculoskeletal pain. He denies any fever, chills, and night sweats. He denies any diarrhea and sore throat. He denies any other signs of infection. The patient also has a history of recurrent pulmonary embolism and has been taking Eliquis. He denies any melena or hematochezia. His hemoglobin was found to be 6.7. Last time, he was admitted to the hospital almost a month ago and received blood transfusion. REVIEW OF SYSTEMS: 12-point review of system was reviewed and as per HPI, otherwise negative. PAST MEDICAL HISTORY: Sickle cell trait with beta thalassemia, anxiety, cataract, depression, diabetes, history of DVT and pulmonary embolism, history of liver cirrhosis, history of renal insufficiency. PAST SURGICAL HISTORY: Cholecystectomy. FAMILY HISTORY: Sickle cell anemia in sister and brother. SOCIAL HISTORY: The patient lives independently. 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 Denies any history of use of smoking. HOME MEDICATIONS: Reviewed. ALLERGIES: REVIEWED. PHYSICAL EXAMINATION: GENERAL: This patient is a well-developed, well-nourished, male, no apparent distress, alert and oriented. VITAL SIGNS: Per nursing note. HEENT: Normocephalic, atraumatic. Clear oropharynx. LUNGS: Clear to auscultation bilaterally. CARDIOVASCULAR: Regular rate and rhythm. No murmurs. ABDOMEN: Soft, slightly distended. Bowel sounds are positive. No hepatosplenomegaly. EXTREMITIES: No edema. NEUROLOGIC: Exam is grossly intact. LABORATORY DATA: WBC 9.2, hemoglobin 6.7, MCV 89.3, platelet 149,000, neutrophils 54%. Percentage retic 14.1, creatinine 0.9, total bilirubin 7.0, AST 126, LDH 1851. ASSESSMENT AND PLAN: 1. Sickle cell anemia with frequent sickle cell crisis episode. Labs noted. The patient also has baseline anemia due to liver cirrhosis. He was admitted to the hospital almost a month ago and received blood transfusion. Given his significant musculoskeletal discomfort, I will proceed with transfusing at least 1 unit of packed red blood cells today. I will also check June test to rule out any evidence of autoimmune hemolytic anemia. Iron studies were checked previously and they were elevated due to frequent blood transfusion. He denies any bleeding and bruising. Vitamin B12 level was slightly low previously. I will start him on vitamin B12 injections as well. 2. Thrombocytopenia secondary to liver cirrhosis. Liver enzymes remains elevated. 3. Recurrent pulmonary embolism. The patient is on Eliquis. He denies any bleeding and bruising. 4. Acute renal failure. The patient's kidney function seems to be normal now. He did receive Epogen during last hospital stay due to anemia of chronic renal failure. Now, creatinine is normal. 5. The patient will continue IV hydration with Dilaudid 2 mg IV every 4 hours for his pain control. No need for antibiotic treatment as the patient is asymptomatic with any signs of infection. MEGHAN GREY M.D. MORTGAGE ASSISTANT MORTGAGE ASSISTANT D I MT: Nancy
[2019-09-30] MEDS: CENTRAL LINE FLUSH 10 ML IV PUSH (19:57)
[2019-09-30 21:16] LABS: Glucose Point of Care 209 (65-105)
[2019-09-30 22:00] VITALS: BP 137/64; PULSE 86; RESP 16; TEMP 36; O2SAT 95
[2019-10-01] VITALS (14 sets, daily range): BP systolic 111–133; BP diastolic 49–96; PULSE 16–100; RESP 16–94; TEMP 36–37; O2SAT 93–98
[2019-10-01] MEDS: LACTATED RINGERS 1,000 ML 125 ML IV CONT ×4 (00:02→21:27)
[2019-10-01] MEDS: SODIUM CHLORIDE 0.9% IV 250 ML 30 ML IV CONT (01:55)
[2019-10-01] MEDS: HYDROMORPHONE HCL 1 MG/ML INJ 2 MG IV PUSH ×6 (04:02→21:29)
[2019-10-01] MEDS: CENTRAL LINE FLUSH 10 ML IV PUSH ×2 (05:46→21:32)
[2019-10-01 07:34] LABS: Hematocrit 21.9 % (42.0-52.0); Hemoglobin 7.4 g/dL (14.0-18.0); Immature Platelet Fraction Pct 9.9 % (0.9-11.2); Mean Corpuscular HGB Conc 33.8 g/dl (32-36); Mean Corpuscular Volume 85.9 fl (80-100); Mean Platelet Volume 11.7 fl (7.4-10.4); Platelet Count Result 113 k/mm3 (150-375); Red Blood Count 2.55 M/mm3 (4.6-6.20); Red Cell Distribution Width 18.6 % (11.5-14.5); White Blood Count 10.4 K/mm3 (4.5-10.0)
[2019-10-01 07:45] LABS: Alanine Aminotransferase 46 U/L (4-50); Albumin Level 3.8 g/dL (3.5-5.1); Alkaline Phosphatase 210 U/L (38-126); Aspartate Amino Transferase 114 U/L (17-59); Bilirubin,Total 7.3 mg/dL (0.2-1.3); Blood Urea Nitrogen 16 mg/dL (9-20); Calcium 8.5 mg/dL (8.4-10.2); Carbon Dioxide 24 mmol/L (22-30); Chloride 108 mmol/L (98-107); Estimated CRCL calculation 35 ml/min; Estimated Glomerular Filt Rate 49; Glucose 180 mg/dL (75-110); Lactate Dehydrogenase 1864 U/L (313-618); Potassium 5.6 mmol/L (3.4-5.0); Sodium 137 mmol/L (137-145)
[2019-10-01 08:03] LABS: Glucose Point of Care 175 (65-105)
[2019-10-01] MEDS: FAMOTIDINE 20 MG/2 ML VIAL IV PUSH ×2 (08:04→21:27)
[2019-10-01] MEDS: APIXABAN 5 MG TABLET PO ×2 (08:04→17:33)
[2019-10-01] MEDS: lisinopriL 10 MG TABLET PO (08:04)
[2019-10-01] MEDS: metFORMIN HCL 500 MG TABLET PO (08:04)
[2019-10-01 11:46] LABS: Glucose Point of Care 179 (65-105)
[2019-10-01] MEDS: ONDANSETRON INJ 4 MG/2 ML VIAL IV PUSH (12:29)
--- NOTE | 2019-10-01 12:35 | P.PNIM_ITS ---
Progress Note: A&P Assessment and Plan (1) Sickle cell pain crisis: Code(s): D57.00 - Hb-SS disease with crisis, unspecified Status: Acute Assessment and Plan: * 09/29 Hemoglobin 6.7 with platelets [id number] AST 126 bilirubin 7 reticulocyte % 14.13 * 09/29 Transfused 2 units packed red cells * IV lactated Ringer's * Hydromorphone 2 mg IV q.4 hours p.r.n. 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: Code(s): D57.412 - Sickle-cell thalassemia with splenic sequestration Status: Acute Assessment and Plan: * See above (3) Chronic pain: Qualifiers: Chronic pain type: other chronic pain Qualified Code(s): G89.29 - Other chronic pain Code(s): G89.29 - Other chronic pain Status: Chronic Assessment and Plan: * Current home oxycodone use is 5 mg every 4 hours or 30 mg per day * Consider trial of medical cannabis as adjuvant analgesic (patient is receptive) (4) Symptomatic anemia: Code(s): D64.9 - Anemia, unspecified Status: Acute Assessment and Plan: * Transfusion as above (5) Thrombocytopenia: Code(s): D69.6 - Thrombocytopenia, unspecified Status: Chronic Assessment and Plan: * Likely due to combination of consumption and splenic sequestration (6) Hypertension: Qualifiers: Hypertension type: essential hypertension Qualified Code(s): I10 - Essential (primary) hypertension Code(s): I10 - Essential (primary) hypertension Status: Chronic Assessment and Plan: * Continue home regimen and monitor (7) Diabetes: Qualifiers: Diabetes mellitus complication status: without complication Diabetes mellitus 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 terminal and 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 insulin use: with 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 Diabetes mellitus type: type 2 Qualified Code(s): E11.9 - Type 2 diabetes mellitus without complications; Z79.4 - buttermaker continuous churn (current) use of insulin Code(s): E11.9 - Type 2 diabetes mellitus without complications Status: Chronic Assessment and Plan: * Continue metformin * Sliding scale NovoLog (8) History of DVT (deep vein thrombosis): Code(s): Z86.718 - Personal history of other venous thrombosis and embolism Status: Chronic Assessment and Plan: * Continue apixaban Subjective Date/time seen: 10/01/19 12:35 Interval history: Admitted 09/29 with worsened anemia hyperbilirubinemia and sickle cell crisis 09/30. Still with significant pain. Requiring regular hydromorphone. Chest pelvis back and thighs. Tolerating diet. No bleeding. No GI or complaints. Review of Systems Review of Systems: All systems reviewed & are unremarkable except as noted in HPI and below Exam Narrative: Exam Narrative: HEENT: EOMI, PERRL, sclerae icteric, pharyngeal mucosa pink and intact NECK: No JVD, adenopathy, or thyromegaly CHEST: Clear to auscultation. Normal effort. HEART: NL S1/S2, regular, 3/6 apical systolic murmur ABDOMEN: BS+, soft, nontender, no mass, no bruits EXTREMITIES: No cyanosis, edema, or clubbing NEUROLOGIC: CN intact and symmetric to inspection. MUSCULOSKELETAL: Tone and strength symmetric. PSYCH: Alert. Oriented to person, place, and time. Objective Data Vital Signs Vital Signs: Vital Signs - 24 hr 09/30/19 13:58 09/30/19 14:28 09/30/19 15:49 Temperature 98.2 F Pulse Rate 84 86 86 Respiratory Rate 16 14 18
--- NOTE | 2019-10-01 12:35 | PM.IMPN ---
Progress Note: A&P Assessment and Plan (1) Sickle cell pain crisis: Code(s): D57.00 - Hb-SS disease with crisis, unspecified Status: Acute Assessment and Plan: 09/29 Hemoglobin 6.7 with platelets [id number] AST 126 bilirubin 7 reticulocyte % 14.13 09/29 Transfused 2 units packed red cells IV lactated Ringer's Hydromorphone 2 mg IV q.4 hours p.r.n. 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: Code(s): D57.412 - Sickle-cell thalassemia with splenic sequestration Status: Acute Assessment and Plan: See above (3) Chronic pain: Qualifiers: Chronic pain type: other chronic pain Qualified Code(s): G89.29 - Other chronic pain Code(s): G89.29 - Other chronic pain Status: Chronic Assessment and Plan: Current home oxycodone use is 5 mg every 4 hours or 30 mg per day Consider trial of medical cannabis as adjuvant analgesic (patient is receptive) (4) Symptomatic anemia: Code(s): D64.9 - Anemia, unspecified Status: Acute Assessment and Plan: Transfusion as above (5) Thrombocytopenia: Code(s): D69.6 - Thrombocytopenia, unspecified Status: Chronic Assessment and Plan: Likely due to combination of consumption and splenic sequestration (6) Hypertension: Qualifiers: Hypertension type: essential hypertension Qualified Code(s): I10 - Essential (primary) hypertension Code(s): I10 - Essential (primary) hypertension Status: Chronic Assessment and Plan: Continue home regimen and monitor (7) Diabetes: Qualifiers: Diabetes mellitus complication status: without complication Diabetes mellitus care home insulin use: with vermin exterminator use Diabetes mellitus type: type 2 Qualified Code(s): E11.9 - Type 2 diabetes mellitus without complications; Z79.4 - [facility] (current) use of insulin Code(s): E11.9 - Type 2 diabetes mellitus without complications Status: Chronic Assessment and Plan: Continue metformin Sliding scale NovoLog (8) History of DVT (deep vein thrombosis): Code(s): Z86.718 - Personal history of other venous thrombosis and embolism Status: Chronic Assessment and Plan: Continue apixaban Subjective Date/time seen: 10/01/19 12:35 Interval history: Admitted 09/29 with worsened anemia hyperbilirubinemia and sickle cell crisis 09/30. Still with significant pain. Requiring regular hydromorphone. Chest pelvis back and thighs. Tolerating diet. No bleeding. No GI or complaints. Review of Systems Review of Systems: All systems reviewed & are unremarkable except as noted in HPI and below Exam Narrative: Exam Narrative: HEENT: EOMI, PERRL, sclerae icteric, pharyngeal mucosa pink and intact NECK: No JVD, adenopathy, or thyromegaly CHEST: Clear to auscultation. Normal effort. HEART: NL S1/S2, regular, 3/6 apical systolic murmur ABDOMEN: BS+, soft, nontender, no mass, no bruits EXTREMITIES: No cyanosis, edema, or clubbing NEUROLOGIC: CN intact and symmetric to inspection. MUSCULOSKELETAL: Tone and strength symmetric. PSYCH: Alert. Oriented to person, place, and time. Objective Data Vital Signs Vital Signs: Vital Signs - 24 hr 09/30/19 13:58 09/30/19 14:28 09/30/19 15:49 Temperature 98.2 F Pulse Rate 84 86 86 Respiratory Rate 16 14 18 Blood Pressure 153/79 H 161/85 H 175/83 H Pulse Oximetry 95 95 99 09/30/19 22:00 10/01/19 00:40 10/01/19 00:55 Temperature 96.8 F L 96.8 F L 96.9 F L Pulse Rate 86 92 93 Respiratory Rate 16 18 18 Blood Pressure 137/64 117/62 126/59 L Pulse Oximetry 95 95 93 10/01/19 01:55 10/01/19 02:55 10/01/19 03:10 Temperature 97.0 F L 97.1 F L 97.3 F L Pulse Rate 91 89 94 Respiratory Rate 18 16 18 Blood Pressure 128/65 125/58 L 133/67 Pulse Oximetry 94 93 95 10/01/19 03:21 10/01/19 03:36 10/01/19 04:36 Temperature 97.1
[2019-10-01] MEDS: predniSONE 20 MG TABLET 60 MG PO (14:47)
[2019-10-01] MEDS: HYDROMORPHONE HCL 1 MG/ML INJ IV PUSH (15:15)
[2019-10-01] MEDS: INSULIN ASPART (*BKC) 100 UNITS/ML SUB-Q (17:37)
[2019-10-01 17:39] LABS: Glucose Point of Care 212 (65-105)
[2019-10-01] MEDS: INSULIN GLARGINE (*BKC) 100 UNITS/ML 15 UNITS SUB-Q (21:32)
[2019-10-01 21:36] LABS: Glucose Point of Care 178 (65-105)
[2019-10-02] VITALS (20 sets, daily range): BP systolic 125–156; BP diastolic 46–71; PULSE 44–91; RESP 8–20; TEMP 35.8–37.3; O2SAT 92–99
[2019-10-02 04:11] LABS: Glucose Point of Care 219 (65-105)
[2019-10-02] MEDS: LACTATED RINGERS 1,000 ML 125 ML IV CONT ×3 (04:16→20:24)
--- NOTE | 2019-10-02 05:15 | PC.NURSE ---
10/02/2019 0400 PT capnography alarming. Upon entering the room pt was asleep and HR was in the upper 30's with O2 sats in the lower 90's. I awoke the patient who then stated he needed to use the urinal. The HR then went into the lower 40's. I stood the patient up at the side of the bed for him to use the urinal. The HR then went into the upper 30's again and O2 sats dropped into the 80's and was sustaining. I laid the patient back down in the bed and a rapid response was called
[2019-10-02] MEDS: CENTRAL LINE FLUSH 10 ML IV PUSH ×2 (05:36→15:44)
[2019-10-02 06:36] LABS: Hemoglobin 7.1 g/dL (14.0-18.0); Mean Corpuscular HGB Conc 34.8 g/dl (32-36); Mean Corpuscular Volume 83.3 fl (80-100); Platelet Count Result 137 k/mm3 (150-375); Red Blood Count 2.45 M/mm3 (4.6-6.20); Red Cell Distribution Width 19.4 % (11.5-14.5); White Blood Count 13.6 K/mm3 (4.5-10.0)
[2019-10-02 06:37] LABS: Immature Reticulocyte Fraction 16.7 % (3.0-15.9); Reticulocyte Hemoglobin Conten 30.6 pg (28.2-35.7); Reticulocyte Percent 8.88 % (0.7-4.3); Reticulocytes Absolute 0.22 B/L (32.2-175.7)
[2019-10-02 06:38] LABS: Hematocrit 20.4 % (42.0-52.0)
[2019-10-02 07:15] LABS: Sodium 135 mmol/L (137-145)
[2019-10-02 07:17] LABS: Carbon Dioxide 18 mmol/L (22-30); Chloride 107 mmol/L (98-107); Potassium 7.2 mmol/L (3.4-5.0)
[2019-10-02 07:18] LABS: Alanine Aminotransferase 51 U/L (4-50); Albumin Level 3.8 g/dL (3.5-5.1); Alkaline Phosphatase 190 U/L (38-126); Aspartate Amino Transferase 151 U/L (17-59); Bilirubin,Total 12.4 mg/dL (0.2-1.3); Blood Urea Nitrogen 36 mg/dL (9-20); Calcium 8.7 mg/dL (8.4-10.2); Estimated CRCL calculation 16 ml/min; Estimated Glomerular Filt Rate 20; Glucose 237 mg/dL (75-110); Lactate Dehydrogenase 2146 U/L (313-618)
--- NOTE | 2019-10-02 07:37 | P.PNIM_ITS ---
Progress Note: A&P Assessment and Plan (1) Hyperkalemia: Code(s): E87.5 - Hyperkalemia Status: Acute Assessment and Plan: * This appears to be due to acute kidney failure with associated metabolic acidosis, WILLAM-inhibitor use, and hemolysis * Calcium gluconate, sodium bicarbonate, 50% dextrose, aspartate insulin 5 units, fursosemide ordered IV * EKG * Telemetry on IMU * F/u lab (2) KASIA (acute kidney injury): Code(s): N17.9 - Acute kidney failure, unspecified Status: Acute Assessment and Plan: * With decreased urine output and lower abdominal fullness on exam he likely has obstructive uropathy * Sanches catheter * Renal ultrasound * Nephrology evaluation (3) Sickle cell pain crisis: Code(s): D57.00 - Hb-SS disease with crisis, unspecified Status: Acute Assessment and Plan: * 09/29 Hemoglobin 6.7 with platelets [id number] AST 126 bilirubin 7 reticulocyte % 14.13 * 09/29 Transfused 2 units packed red cells * IV lactated Ringer's * Hydromorphone 2 mg IV q.4 hours p.r.n. 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: Code(s): D57.412 - Sickle-cell thalassemia with splenic sequestration Status: Acute Assessment and Plan: * See above (5) Chronic pain: Qualifiers: Chronic pain type: other chronic pain Qualified Code(s): G89.29 - Other chronic pain Code(s): G89.29 - Other chronic pain Status: Chronic Assessment and Plan: * Current home oxycodone use is 5 mg every 4 hours or 30 mg per day * Consider trial of medical cannabis as adjuvant analgesic (patient is receptive) * 10/01 Narcotic reduction to home dose (6) Symptomatic anemia: Code(s): D64.9 - Anemia, unspecified Status: Acute Assessment and Plan: * Transfuse to maintain hemoglobin above 7 (7) Thrombocytopenia: Code(s): D69.6 - Thrombocytopenia, unspecified Status: Chronic Assessment and Plan: * Likely due to combination of consumption and splenic sequestration (8) Hypertension: Qualifiers: Hypertension type: essential hypertension Qualified Code(s): I10 - Essential (primary) hypertension Code(s): I10 - Essential (primary) hypertension Status: Chronic Assessment and Plan: * Continue home regimen and monitor (9) Diabetes: Qualifiers: Diabetes mellitus type: type 2 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: with fci use Diabetes mellitus complication status: without complication Qualified Code(s): E11.9 - Type 2 diabetes mellitus without complications; Z79.4 - custodial (current) use of insulin Code(s): E11.9 - Type 2 diabetes mellitus without complications Status: Chronic Assessment and Plan: * Holding metformin due to acute renal failure * Sliding scale NovoLog (10) History of DVT (deep vein thrombosis): Code(s): Z86.718 - Personal history of other venous thrombosis and embolism Status: Chronic Assessment and Plan: * Holding apixaban due to acute renal failure * Prophylactic heparin subcutaneously Subjective Date/time seen: 10/02/19 07:37 Interval history: Admitted 09/29 with worsened anemia hyperbilirubinemia and sickle cell crisis 10/01. Feeling more comfortable. During the night he was less responsive. Narcotics cut back. But pain improving. Tolerating diet. No shortness of
--- NOTE | 2019-10-02 07:37 | PM.IMPN ---
Progress Note: A&P Assessment and Plan (1) Hyperkalemia: Code(s): E87.5 - Hyperkalemia Status: Acute Assessment and Plan: This appears to be due to acute kidney failure with associated metabolic acidosis, WILLAM-inhibitor use, and hemolysis Calcium gluconate, sodium bicarbonate, 50% dextrose, aspartate insulin 5 units, fursosemide ordered IV EKG Telemetry on IMU F/u lab (2) KASIA (acute kidney injury): Code(s): N17.9 - Acute kidney failure, unspecified Status: Acute Assessment and Plan: With decreased urine output and lower abdominal fullness on exam he likely has obstructive uropathy Sanches catheter Renal ultrasound Nephrology evaluation (3) Sickle cell pain crisis: Code(s): D57.00 - Hb-SS disease with crisis, unspecified Status: Acute Assessment and Plan: 09/29 Hemoglobin 6.7 with platelets [id number] AST 126 bilirubin 7 reticulocyte % 14.13 09/29 Transfused 2 units packed red cells IV lactated Ringer's Hydromorphone 2 mg IV q.4 hours p.r.n. 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: Code(s): D57.412 - Sickle-cell thalassemia with splenic sequestration Status: Acute Assessment and Plan: See above (5) Chronic pain: Qualifiers: Chronic pain type: other chronic pain Qualified Code(s): G89.29 - Other chronic pain Code(s): G89.29 - Other chronic pain Status: Chronic Assessment and Plan: Current home oxycodone use is 5 mg every 4 hours or 30 mg per day Consider trial of medical cannabis as adjuvant analgesic (patient is receptive) 10/01 Narcotic reduction to home dose (6) Symptomatic anemia: Code(s): D64.9 - Anemia, unspecified Status: Acute Assessment and Plan: Transfuse to maintain hemoglobin above 7 (7) Thrombocytopenia: Code(s): D69.6 - Thrombocytopenia, unspecified Status: Chronic Assessment and Plan: Likely due to combination of consumption and splenic sequestration (8) Hypertension: Qualifiers: Hypertension type: essential hypertension Qualified Code(s): I10 - Essential (primary) hypertension Code(s): I10 - Essential (primary) hypertension Status: Chronic Assessment and Plan: Continue home regimen and monitor (9) Diabetes: Qualifiers: Diabetes mellitus type: type 2 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: with 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 Diabetes mellitus complication status: without complication Qualified Code(s): E11.9 - Type 2 diabetes mellitus without complications; Z79.4 - nursing home (current) use of insulin Code(s): E11.9 - Type 2 diabetes mellitus without complications Status: Chronic Assessment and Plan: Holding metformin due to acute renal failure Sliding scale NovoLog (10) History of DVT (deep vein thrombosis): Code(s): Z86.718 - Personal history of other venous thrombosis and embolism Status: Chronic Assessment and Plan: Holding apixaban due to acute renal failure Prophylactic heparin subcutaneously Subjective Date/time seen: 10/02/19 07:37 Interval history: Admitted 09/29 with worsened anemia hyperbilirubinemia and sickle cell crisis 10/01. Feeling more comfortable. During the night he was less responsive. Narcotics cut back. But pain improving. Tolerating diet. No shortness of breath. No bleeding. No GI or complaints. Review of Systems Review of Systems: All systems reviewed & are unremarkable except as noted in HPI and below Exam Narrative: Exam Narrative: HEENT: EOMI, PERRL, sclerae icteric, pharyngeal mucosa pink and intact NECK: No JVD, adenopathy, or thyromegaly CHEST: Clear to auscultation. Normal effort. HEART: NL S1/S2, regular, 3/6 apical systolic murmur ABDOMEN: BS+, soft, liver margin palpa
[2019-10-02] MEDS: SODIUM BICARBONATE 8.4% 50 MEQ/50 ML VIAL IV PUSH (07:56)
[2019-10-02] MEDS: CALCIUM GLUCONATE 1,000 MG/10 ML VIAL 1000 MG IV PUSH (07:56)
--- NOTE | 2019-10-02 07:59 | PCRCNOTE ---
Pt refused ABG at this time. and RN notified of refusal
[2019-10-02] MEDS: DEXTROSE 50% 25 GM/50 ML SYRINGE IV PUSH (08:13)
--- NOTE | 2019-10-02 08:13 | ECG_ITS ---
Measurements Intervals Gore Rate: 45 P: 67 ND: 161 QRS: 14 QRSD: 91 T: 58 QT: 551 QTc: 479 Interpretive Statements SINUS BRADYCARDIA VOLTAGE CRITERIA FOR LVH MINIMAL Q WAVES- HIGH LATERAL LEADS NONSPECIFIC T-WAVE ABNORMALITY- ANTERIOR LEADS PROLONGED QT INTERVAL ABNORMAL ECG Electronically Signed On 10-04-2019 13:18:57 CDT by Franklin Bajwa D.O.
[2019-10-02] MEDS: predniSONE 20 MG TABLET 60 MG PO (08:16)
[2019-10-02] MEDS: INSULIN ASPART (*BKC) 100 UNITS/ML SUB-Q ×3 (08:16→17:11)
[2019-10-02] MEDS: APIXABAN 5 MG TABLET PO ×2 (08:16→17:10)
[2019-10-02] MEDS: lisinopriL 10 MG TABLET PO (08:16)
[2019-10-02] MEDS: FAMOTIDINE 20 MG/2 ML VIAL IV PUSH ×2 (08:20→20:24)
[2019-10-02] MEDS: FUROSEMIDE INJ 40 MG/4 ML VIAL IV PUSH (08:24)
--- NOTE | 2019-10-02 08:41 | PC.NURSE ---
This patient, Jaden Gonzalez, was received from Room 243 on [facility] on 10/02/19 at 0841. Report received from Darlyn RN. Personal belongings list checked and signed. Patient/family oriented to unit policies and routines
[2019-10-02 08:43] LABS: Ammonia 16 umol/L (9-30)
[2019-10-02 08:48] LABS: INR 1.7; Prothrombin Time 19.1 Seconds (11.1-14.7)
[2019-10-02] MEDS: INSULIN HUMAN REGULAR (*BKC) 100 UNITS/ML IV PUSH (08:48)
--- NOTE | 2019-10-02 08:52 | PC.NURSE ---
Stat orders and AM meds done then transfer to room 204 in IMU., Report given to Deborah GHOSH.,
[2019-10-02 09:00] LABS: Blood Urea Nitrogen 32 mg/dL (9-20); Calcium 9.4 mg/dL (8.4-10.2); Carbon Dioxide 21 mmol/L (22-30); Chloride 105 mmol/L (98-107); Estimated CRCL calculation 19 ml/min; Estimated Glomerular Filt Rate 25; Glucose 206 mg/dL (75-110); Potassium 6.2 mmol/L (3.4-5.0); Sodium 135 mmol/L (137-145)
[2019-10-02] MEDS: HYDROMORPHONE HCL 1 MG/ML INJ IV PUSH ×3 (09:46→17:13)
[2019-10-02] MEDS: HEPARIN SODIUM 5,000 UNITS/ML VIAL 5000 UNITS SUB-Q ×2 (09:46→20:24)
[2019-10-02 11:17] LABS: Alanine Aminotransferase 43 U/L (4-50); Albumin Level 3.1 g/dL (3.5-5.1); Alkaline Phosphatase 147 U/L (38-126); Aspartate Amino Transferase 121 U/L (17-59); Bilirubin Direct 3.1 mg/dL (0-0.3); Bilirubin,Total 9.8 mg/dL (0.2-1.3); Blood Urea Nitrogen 33 mg/dL (9-20); Calcium 9.2 mg/dL (8.4-10.2); Carbon Dioxide 18 mmol/L (22-30); Chloride 106 mmol/L (98-107); Estimated CRCL calculation 19 ml/min; Estimated Glomerular Filt Rate 25; Glucose 203 mg/dL (75-110); Phosphorus 4.8 mg/dL (2.5-4.5); Potassium 6.3 mmol/L (3.4-5.0); Sodium 136 mmol/L (137-145)
--- NOTE | 2019-10-02 11:17 | PC.NURSE ---
Notified by Joy from Lab at 1117 of a critical Potassium drawn at 0803 this morning. She called twice to ensure that I knew it was a critical level from 0803 and not at the time of her call.
--- NOTE | 2019-10-02 12:14 | PM.CNNEP ---
Assessment and Plan Assessment and plan (1) KASIA (acute kidney injury): Code(s): N17.9 - Acute kidney failure, unspecified Status: Acute (2) Hyperkalemia: Code(s): E87.5 - Hyperkalemia Status: Acute (3) Sickle cell pain crisis: Code(s): D57.00 - Hb-SS disease with crisis, unspecified Status: Acute (4) Anemia: Code(s): D64.9 - Anemia, unspecified Status: Acute (5) Hypertension: Qualifiers: Hypertension type: essential hypertension Qualified Code(s): I10 - Essential (primary) hypertension Code(s): I10 - Essential (primary) hypertension Status: Chronic (6) Diabetes: Qualifiers: Diabetes mellitus type: type 2 Diabetes mellitus terminal press operator insulin use: with intermediate use Diabetes mellitus complication status: without complication Qualified Code(s): E11.9 - Type 2 diabetes mellitus without complications; Z79.4 - shelter (current) use of insulin Code(s): E11.9 - Type 2 diabetes mellitus without complications Status: Chronic Assessment and Plan: . Additional Plan Jaden has suffered an acute insult to his kidneys in association with severe hyperkalemia. Given all information today eight, I suspect that both his acute insult to his kidneys as well as the aforementioned hyperkalemia are result of a combination of anemia and likely associated hemolysis, continued WILLAM-inhibitor use, and probably some degree of prerenal factors/volume depletion. As I mentioned previously, he did have a bout of acute kidney injury on his last hospitalization a month ago that was solely related to volume depletion arguing that he is somewhat susceptible to this issue in general. He already received aggressive medical management for his potassium level but his repeat potassium level is still somewhat elevated. I would suggest continued medical management for his elevated potassium level, discontinuation of his WILLAM-inhibitor, and continue with IV fluid resuscitation. For further evaluation of his acute kidney injury, I would check another renal ultrasound to ensure there is no anatomical issues playing a role with regard to possible obstruction, check urine electrolytes to get a better assessment of his volume status, and follow the trend of his repeat labs and urine output with ongoing IV fluids. As he does have sickle cell I still do worry about the possibility of papillary necrosis which is sometimes common in patients with sickle cell crisis but hopefully this is not the case. I will continue follow the patient with you while he remains hospitalized and make further recommendations based on his hospital course. Thank you for allowing me to participate in the care this patient. History of Present Illness Reason for Consult Consult date: 10/02/19 Reason for consult: acute renal failure and hyperkalemia Chief Complaint Chief complaint: Anemia/sickle cell pain crisis History of Present Illness Narrative: The patient is a 63 year old male with a past medical history as outlined below who presented to the [facility] with diffuse pain x 1 week. He started having pain in the lower back along iwth both his eyes as well as in his chest. The chest pain was more of a deep aching and unrelated to exertion but did seem worse with movement. Unfortunately, his pain symptoms continue to worsen despite use of narcotic medications that he had been using and he started to note shortness of breath with exertion as well. He denies any cough, sore throat, fever, chills, congestion, vomiting, or wheezing. Due to the progressive worsening of his symptoms, he presented to the ER for further evaluation. Workup and evaluation in the emergency room demonstrated the patient to be hemodynamically stable but routine blood test demonstrated significant anemia with a hemoglobin of 6.7. Given his history, it was felt his presenting symptoms were secondary to
[2019-10-02 12:55] LABS: Creatinine Urine 40.8 mg/dL; Total Protein Urine Random 30 mg/dL
[2019-10-02 12:59] LABS: Sodium Urine Random 125 meq/L
[2019-10-02 13:00] LABS: Glucose Point of Care 258 (65-105)
[2019-10-02 16:22] LABS: Glucose Point of Care 214 (65-105)
[2019-10-02 17:18] LABS: Blood Urea Nitrogen 43 mg/dL (9-20); Carbon Dioxide 23 mmol/L (22-30); Chloride 105 mmol/L (98-107); Estimated CRCL calculation 19 ml/min; Estimated Glomerular Filt Rate 25; Glucose 227 mg/dL (75-110); Potassium 5.8 mmol/L (3.4-5.0); Sodium 135 mmol/L (137-145)
[2019-10-02] MEDS: SODIUM POLYSTYRENE SULFONONATE 15 GM/60 ML BTL PO (18:46)
[2019-10-02] MEDS: INSULIN GLARGINE (*BKC) 100 UNITS/ML 15 UNITS SUB-Q (20:24)
[2019-10-02 20:48] LABS: Glucose Point of Care 223 (65-105)
[2019-10-03] VITALS (14 sets, daily range): BP systolic 162–186; BP diastolic 65–82; PULSE 71–95; RESP 12–18; TEMP 35.9–36.6; O2SAT 91–100
[2019-10-03] MEDS: HYDROMORPHONE HCL 1 MG/ML INJ IV PUSH ×5 (00:06→17:27)
[2019-10-03] MEDS: CENTRAL LINE FLUSH 10 ML IV PUSH ×4 (00:07→20:46)
[2019-10-03] MEDS: LACTATED RINGERS 1,000 ML 125 ML IV CONT (04:06)
[2019-10-03 04:28] LABS: Immature Platelet Fraction Pct 10.4 % (0.9-11.2); Immature Reticulocyte Fraction 40.4 % (3.0-15.9); Mean Corpuscular HGB Conc 34.1 g/dl (32-36); Mean Corpuscular Hemoglobin 28.8 pg (26-34); Mean Corpuscular Volume 84.4 fl (80-100); Mean Platelet Volume 13.7 fl (7.4-10.4); Platelet Count Result 136 k/mm3 (150-375); Red Blood Count 2.43 M/mm3 (4.6-6.20); Red Cell Distribution Width 19.4 % (11.5-14.5); Reticulocyte Hemoglobin Conten 32.7 pg (28.2-35.7); Reticulocyte Percent 10.18 % (0.7-4.3); Reticulocytes Absolute 0.25 B/L (32.2-175.7); White Blood Count 13.1 K/mm3 (4.5-10.0)
[2019-10-03 04:41] LABS: Alanine Aminotransferase 101 U/L (4-50); Albumin Level 3.7 g/dL (3.5-5.1); Alkaline Phosphatase 190 U/L (38-126); Aspartate Amino Transferase 177 U/L (17-59); Bilirubin,Total 11.6 mg/dL (0.2-1.3); Blood Urea Nitrogen 45 mg/dL (9-20); Calcium 9.2 mg/dL (8.4-10.2); Carbon Dioxide 25 mmol/L (22-30); Chloride 104 mmol/L (98-107); Estimated CRCL calculation 24 ml/min; Estimated Glomerular Filt Rate 32; Glucose 251 mg/dL (75-110); Potassium 5.2 mmol/L (3.4-5.0); Sodium 135 mmol/L (137-145)
[2019-10-03 04:50] LABS: Lactate Dehydrogenase 2090 U/L (313-618)
[2019-10-03 05:26] LABS: Hematocrit 20.5 % (42.0-52.0)
[2019-10-03 06:16] LABS: Hepatitis B Surface Antigen Negative (Negative)
[2019-10-03 06:21] LABS: HAV RESULT Negative (Negative); Hepatitis B Core IgM Result Negative (Negative)
[2019-10-03 06:31] LABS: Hepatitis B Surface Anti Res Negative
[2019-10-03 06:34] LABS: Hepatitis C Virus Antibody Negative (Negative)
[2019-10-03 07:46] LABS: Glucose Point of Care 198 (65-105)
[2019-10-03] MEDS: FAMOTIDINE 20 MG/2 ML VIAL IV PUSH ×2 (09:01→20:45)
[2019-10-03] MEDS: HEPARIN SODIUM 5,000 UNITS/ML VIAL 5000 UNITS SUB-Q ×2 (09:01→20:45)
[2019-10-03] MEDS: predniSONE 20 MG TABLET 60 MG PO (09:02)
[2019-10-03] MEDS: APIXABAN 5 MG TABLET PO ×2 (09:02→16:45)
--- NOTE | 2019-10-03 10:49 | P.PNIM_ITS ---
Progress Note: A&P Assessment and Plan (1) Hyperkalemia: Code(s): E87.5 - Hyperkalemia Status: Acute Assessment and Plan: * This appears to be due to acute kidney failure with associated metabolic acidosis, WILLAM-inhibitor use, and hemolysis * Calcium gluconate, sodium bicarbonate, 50% dextrose, aspartate insulin 5 units, fursosemide ordered IV * EKG * Telemetry on IMU * F/u lab (2) KASIA (acute kidney injury): Code(s): N17.9 - Acute kidney failure, unspecified Status: Acute Assessment and Plan: * Sanches catheter * Renal ultrasound with thickened bladder wall, no hydroneprhosis * Creatinine imrpoved with Sanches, IVF, D/c ACEI: 10/01 3.7, 10/02 2.5 (3) Sickle cell pain crisis: Code(s): D57.00 - Hb-SS disease with crisis, unspecified Status: Acute Assessment and Plan: * 09/29 Hemoglobin 6.7 with platelets [id number] AST 126 bilirubin 7 reticulocyte % 14.13 * 09/29 Transfused 2 units packed red cells * Analgesics prn 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 * 09/30 added steroids * 10/01 hemoglobin stable at 7.1 * 10/02 hgb 7.0, Bili 11.6, AST 177, Retic % 10.18 (4) 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: Code(s): D57.412 - Sickle-cell thalassemia with splenic sequestration Status: Acute Assessment and Plan: * See above (5) Chronic pain: Qualifiers: Chronic pain type: other chronic pain Qualified Code(s): G89.29 - Other chronic pain Code(s): G89.29 - Other chronic pain Status: Chronic Assessment and Plan: * Current home oxycodone use is 5 mg every 4 hours or 30 mg per day * Consider trial of medical cannabis as adjuvant analgesic (patient is receptive) to facilitate narcotic reduction * 10/02: Continue prn hydrocodone and hydromorphone (6) Symptomatic anemia: Code(s): D64.9 - Anemia, unspecified Status: Acute Assessment and Plan: * Transfuse to maintain hemoglobin above 7 (7) Thrombocytopenia: Code(s): D69.6 - Thrombocytopenia, unspecified Status: Chronic Assessment and Plan: * Likely due to combination of consumption and splenic sequestration (8) Hypertension: Qualifiers: Hypertension type: essential hypertension Qualified Code(s): I10 - Essential (primary) hypertension Code(s): I10 - Essential (primary) hypertension Status: Chronic Assessment and Plan: * Continue home regimen and monitor (9) Diabetes: Qualifiers: Diabetes mellitus type: type 2 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 insulin 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: with terminal operations supervisor use Diabetes mellitus complication status: without complication Qualified Code(s): E11.9 - Type 2 diabetes mellitus without complications; Z79.4 - superintendent terminal (current) use of insulin Code(s): E11.9 - Type 2 diabetes mellitus without complications Status: Chronic Assessment and Plan: * Holding metformin due to acute renal failure * Sliding scale NovoLog (10) History of DVT (deep vein thrombosis): Code(s): Z86.718 - Personal history of other venous thrombosis and embolism Status: Chronic Assessment and Plan: * Holding apixaban due to acute renal failure * Prophylactic heparin subcutaneously (11) Cirrhosis: Qualifiers: Hepatic cirrhosis type: unspecified hepatic cirrhosis Ascites presence: without ascites Qualified Code(s): K74.60 - Unspecified cirrhosis of liver Code(s): K74.60 - Unspecified cirrhosis of liver Status: Chronic
--- NOTE | 2019-10-03 10:49 | PM.IMPN ---
Progress Note: A&P Assessment and Plan (1) Hyperkalemia: Code(s): E87.5 - Hyperkalemia Status: Acute Assessment and Plan: This appears to be due to acute kidney failure with associated metabolic acidosis, WILLAM-inhibitor use, and hemolysis Calcium gluconate, sodium bicarbonate, 50% dextrose, aspartate insulin 5 units, fursosemide ordered IV EKG Telemetry on IMU F/u lab (2) KASIA (acute kidney injury): Code(s): N17.9 - Acute kidney failure, unspecified Status: Acute Assessment and Plan: Sanches catheter Renal ultrasound with thickened bladder wall, no hydroneprhosis Creatinine imrpoved with Sanches, IVF, D/c ACEI: 10/01 3.7, 10/02 2.5 (3) Sickle cell pain crisis: Code(s): D57.00 - Hb-SS disease with crisis, unspecified Status: Acute Assessment and Plan: 09/29 Hemoglobin 6.7 with platelets [id number] AST 126 bilirubin 7 reticulocyte % 14.13 09/29 Transfused 2 units packed red cells Analgesics prn 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 09/30 added steroids 10/01 hemoglobin stable at 7.1 10/02 hgb 7.0, Bili 11.6, AST 177, Retic % 10.18 (4) 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: Code(s): D57.412 - Sickle-cell thalassemia with splenic sequestration Status: Acute Assessment and Plan: See above (5) Chronic pain: Qualifiers: Chronic pain type: other chronic pain Qualified Code(s): G89.29 - Other chronic pain Code(s): G89.29 - Other chronic pain Status: Chronic Assessment and Plan: Current home oxycodone use is 5 mg every 4 hours or 30 mg per day Consider trial of medical cannabis as adjuvant analgesic (patient is receptive) to facilitate narcotic reduction 10/02: Continue prn hydrocodone and hydromorphone (6) Symptomatic anemia: Code(s): D64.9 - Anemia, unspecified Status: Acute Assessment and Plan: Transfuse to maintain hemoglobin above 7 (7) Thrombocytopenia: Code(s): D69.6 - Thrombocytopenia, unspecified Status: Chronic Assessment and Plan: Likely due to combination of consumption and splenic sequestration (8) Hypertension: Qualifiers: Hypertension type: essential hypertension Qualified Code(s): I10 - Essential (primary) hypertension Code(s): I10 - Essential (primary) hypertension Status: Chronic Assessment and Plan: Continue home regimen and monitor (9) Diabetes: Qualifiers: Diabetes mellitus type: type 2 Diabetes mellitus terminal make up operator insulin use: with terminal make up operator use Diabetes mellitus complication status: without complication Qualified Code(s): E11.9 - Type 2 diabetes mellitus without complications; Z79.4 - MCC (current) use of insulin Code(s): E11.9 - Type 2 diabetes mellitus without complications Status: Chronic Assessment and Plan: Holding metformin due to acute renal failure Sliding scale NovoLog (10) History of DVT (deep vein thrombosis): Code(s): Z86.718 - Personal history of other venous thrombosis and embolism Status: Chronic Assessment and Plan: Holding apixaban due to acute renal failure Prophylactic heparin subcutaneously (11) Cirrhosis: Qualifiers: Hepatic cirrhosis type: unspecified hepatic cirrhosis Ascites presence: without ascites Qualified Code(s): K74.60 - Unspecified cirrhosis of liver Code(s): K74.60 - Unspecified cirrhosis of liver Status: Chronic Assessment and Plan: 10/02 INR 1.7, albumin 3.7, ALT 101, Bili 11.6 (likely mostly due to hemolysis) Subjective Date/time seen: 10/03/19 10:49 Interval history: Admitted 09/29 with worsened anemia hyperbilirubinemia and sickle cell crisis 10/02 Going a little longer between doses of hydromorphone. Tolerating diet. No shortness of breath. No bleeding. No GI or complaints. Review of Systems Review of Systems
[2019-10-03] MEDS: INSULIN ASPART (*BKC) 100 UNITS/ML SUB-Q ×2 (12:22→16:43)
[2019-10-03 12:25] LABS: Glucose Point of Care 220 (65-105)
--- NOTE | 2019-10-03 12:57 | PC.NURSE ---
This patient, Jaden Gonzalez, was transferred to [facility] on 10/03/19 at 1250. Personal belongings sent with patient. Belongings list checked. Report given to AUGIE Matute. Appropriate documentation sent with patient.
--- NOTE | 2019-10-03 13:00 | PC.NURSE ---
This patient, Jaden Gonzalez, was received from IMU on 10/03/19 at 1300. Personal belongings list checked and signed. Patient/family oriented to unit policies and routines
--- NOTE | 2019-10-03 15:35 | P.PNNP_ITS ---
Progress Note: A&P Assessment and Plan (1) KASIA (acute kidney injury): Code(s): N17.9 - Acute kidney failure, unspecified Status: Acute Assessment and Plan: * suspect multifactorial: - urinary retention?? 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 as well - on steroids (4) Anemia: Code(s): D64.9 - Anemia, unspecified Status: Acute Assessment and Plan: * due to #3 * PRBC transfusion per protocol * Hem/Onc following (5) Hypertension: Qualifiers: Hypertension type: essential hypertension Qualified Code(s): I10 - Essential (primary) hypertension Code(s): I10 - Essential (primary) hypertension Status: Chronic Assessment and Plan: * elevated at this time * pain control issues playing a role * follow trend of hemodynamics (6) Diabetes: Qualifiers: Diabetes mellitus complication status: without complication Diabetes mellitus extermination inspector insulin use: with extermination inspector use Diabetes mellitus type: type 2 Qualified Code(s): E11.9 - Type 2 diabetes mellitus without complications; Z79.4 - shelter (current) use of insulin Code(s): E11.9 - Type 2 diabetes mellitus without complications Status: Chronic Assessment and Plan: * follow acchecks * on SSI and Lantus * follow closely with steroid use Will continue to follow. Subjective Date/time seen: 10/03/19 15:35 Appears to be doing better in general in the last 24 hours; major complaint is that of discomfort with decker catheter in place; pain control seems adequate at this time. Exam Narrative: Exam Narrative: General: WD/WN male in NAD Heart: normal S1 and S2; no rub Lungs: clear to auscultation Abdomen: soft, nontender, nondistended, positive bowel sounds Extremities: no cyanosis or clubbing; no edema Skin: warm and dry Objective Data Vital Signs Vital Signs: Vital Signs Temp Pulse Resp BP Pulse Ox 10/03/19 14:00 36.6 C 88 16 174/65 H 100 10/03/19 12:24 36.4 C 80 16 162/74 H 100 10/03/19 10:00 78 10/03/19 08:19 91 10/03/19 08:08 36.3 C L 81 18 173/82 H 95 10/03/19 08:00 80 10/03/19 06:00 71 10/03/19 04:08 35.9 C L 78 18 165/81 H 100 10/03/19 04:00 76 10/03/19 02:00 83 10/03/19 00:20 36.3 C L 95 18 164/71 H 93 10/03/19 00:00 88 10/02/19 22:00 76 10/02/19 20:00 80 10/02/19 19:25 92 10/02/19 18:00 84 10/02/19 16:00 87 99 Intake/Output Intake/Output: Intake & Output 09/30/19 10/01/19 10/02/19 10/03/19 23:59 23:59 23:59 23:59
--- NOTE | 2019-10-03 15:35 | PM.PNNEP ---
Progress Note: A&P Assessment and Plan (1) KASIA (acute kidney injury): Code(s): N17.9 - Acute kidney failure, unspecified Status: Acute Assessment and Plan: suspect multifactorial: - urinary retention?? -- good urine output after decker catheter placement - WILLAM-I use - hemolysis/anemia - possible prerenal factors(?) kidney function improving at this time agree with holding IVFs for (+ swelling) follow trend of repeat labs (2) Hyperkalemia: Code(s): E87.5 - Hyperkalemia Status: Acute Assessment and Plan: due to hemolysis + WILLAM-I use better s/p medical therapy and intercentions to date follow trend (3) Sickle cell pain crisis: Code(s): D57.00 - Hb-SS disease with crisis, unspecified Status: Acute Assessment and Plan: pain control seems adequate noted to have comcominant automimmnue hemolysis as well - on steroids (4) Anemia: Code(s): D64.9 - Anemia, unspecified Status: Acute Assessment and Plan: due to #3 PRBC transfusion per protocol Hem/Onc following (5) Hypertension: Qualifiers: Hypertension type: essential hypertension Qualified Code(s): I10 - Essential (primary) hypertension Code(s): I10 - Essential (primary) hypertension Status: Chronic Assessment and Plan: elevated at this time pain control issues playing a role follow trend of hemodynamics (6) Diabetes: Qualifiers: Diabetes mellitus complication status: without complication Diabetes mellitus exterminator helper insulin use: with custodial use Diabetes mellitus type: type 2 Qualified Code(s): E11.9 - Type 2 diabetes mellitus without complications; Z79.4 - longterm (current) use of insulin Code(s): E11.9 - Type 2 diabetes mellitus without complications Status: Chronic Assessment and Plan: follow acchecks on SSI and Lantus follow closely with steroid use Will continue to follow. Subjective Date/time seen: 10/03/19 15:35 Appears to be doing better in general in the last 24 hours; major complaint is that of discomfort with decker catheter in place; pain control seems adequate at this time. Exam Narrative: Exam Narrative: General: WD/WN male in NAD Heart: normal S1 and S2; no rub Lungs: clear to auscultation Abdomen: soft, nontender, nondistended, positive bowel sounds Extremities: no cyanosis or clubbing; no edema Skin: warm and dry Objective Data Vital Signs Vital Signs: Vital Signs Temp Pulse Resp BP Pulse Ox 10/03/19 14:00 36.6 C 88 16 174/65 H 100 10/03/19 12:24 36.4 C 80 16 162/74 H 100 10/03/19 10:00 78 10/03/19 08:19 91 10/03/19 08:08 36.3 C L 81 18 173/82 H 95 10/03/19 08:00 80 10/03/19 06:00 71 10/03/19 04:08 35.9 C L 78 18 165/81 H 100 10/03/19 04:00 76 10/03/19 02:00 83 10/03/19 00:20 36.3 C L 95 18 164/71 H 93 10/03/19 00:00 88 10/02/19 22:00 76 10/02/19 20:00 80 10/02/19 19:25 92 10/02/19 18:00 84 10/02/19 16:00 87 99 Intake/Output Intake/Output: Intake & Output 09/30/19 10/01/19 10/02/19 10/03/19 23:59 23:59 23:59 23:59 Intake Total 2220 5880 3330 2950 Output Total 150 1239 090 1623 Balance 2070 4805 2580 1050 Meds/Results Medications: Active Medications Generic Name Dose Route Start Last Admin Trade Name Freq PRN Reason Stop Dose Admin Apixaban 5 mg 09/30/19 17:00 10/03/19 09:02 Eliquis PO 5 mg BID JESSE Administration Dextrose 12.5 gm 10/01/19 12:47 Dextrose 50% Syringe IV PUSH PRN PRN Hypoglycemia Protocol Diphenhydramine HCl 25 mg 09/30/19 16:40 10/01/19 15:18 Benadryl Inj IV PUSH 25 mg Q6H PRN Administration Itching Famotidine 20 mg 09/30/19 21:00 10/03/19 09:01 Pepcid Iv IV PUSH 20 mg Q12HR JESSE Administration Glucagon 1 mg 10/01/19 12:4
[2019-10-03 16:42] LABS: Glucose Point of Care 221 (65-105)
[2019-10-03] MEDS: TAMSULOSIN HCL 0.4 MG CAPSULE PO (20:46)
[2019-10-03] MEDS: INSULIN GLARGINE (*BKC) 100 UNITS/ML 15 UNITS SUB-Q (20:46)
[2019-10-03 22:48] LABS: Glucose Point of Care 227 (65-105)
[2019-10-04] MEDS: HYDROMORPHONE HCL 1 MG/ML INJ IV PUSH ×6 (01:09→22:34)
[2019-10-04 06:00] VITALS: BP 161/71; PULSE 74; RESP 12; TEMP 36.4; O2SAT 98
[2019-10-04] MEDS: CENTRAL LINE FLUSH 10 ML IV PUSH ×3 (06:14→22:01)
[2019-10-04 06:26] LABS: Immature Reticulocyte Fraction 38.3 % (3.0-15.9); Mean Corpuscular HGB Conc 34.4 g/dl (32-36); Mean Corpuscular Hemoglobin 29.6 pg (26-34); Mean Corpuscular Volume 86.1 fl (80-100); Mean Platelet Volume 12.2 fl (7.4-10.4); Platelet Count Result 120 k/mm3 (150-375); Red Blood Count 2.23 M/mm3 (4.6-6.20); Reticulocyte Hemoglobin Conten 35.7 pg (28.2-35.7); Reticulocyte Percent 11.59 % (0.7-4.3); Reticulocytes Absolute 0.26 B/L (32.2-175.7)
[2019-10-04 06:37] LABS: Hemoglobin 6.6 g/dL (14.0-18.0)
[2019-10-04 06:38] LABS: Alanine Aminotransferase 89 U/L (4-50); Albumin Level 3.3 g/dL (3.5-5.1); Alkaline Phosphatase 155 U/L (38-126); Aspartate Amino Transferase 101 U/L (17-59); Bilirubin,Total 8.4 mg/dL (0.2-1.3); Blood Urea Nitrogen 36 mg/dL (9-20); Calcium 8.9 mg/dL (8.4-10.2); Carbon Dioxide 28 mmol/L (22-30); Chloride 107 mmol/L (98-107); Estimated CRCL calculation 39 ml/min; Estimated Glomerular Filt Rate 57; Glucose 121 mg/dL (75-110); Hematocrit 19.2 % (42.0-52.0); Lactate Dehydrogenase 1440 U/L (313-618); Potassium 4.2 mmol/L (3.4-5.0); Sodium 138 mmol/L (137-145)
--- NOTE | 2019-10-04 06:54 | PC.NURSE ---
Call to Dr. Reeves cell phone and message left. Exchange notified and awaiting call.
[2019-10-04 07:54] LABS: Glucose Point of Care 111 (65-105)
[2019-10-04] MEDS: APIXABAN 5 MG TABLET PO ×2 (08:25→16:28)
[2019-10-04] MEDS: FAMOTIDINE 20 MG/2 ML VIAL IV PUSH ×2 (08:26→21:57)
[2019-10-04] MEDS: HEPARIN SODIUM 5,000 UNITS/ML VIAL 5000 UNITS SUB-Q ×2 (08:26→21:59)
[2019-10-04] MEDS: predniSONE 20 MG TABLET 60 MG PO ×2 (08:26→21:57)
[2019-10-04 11:53] LABS: Glucose Point of Care 172 (65-105)
--- NOTE | 2019-10-04 12:25 | P.PNNP_ITS ---
Progress Note: A&P Assessment and Plan (1) KASIA (acute kidney injury): Code(s): N17.9 - Acute kidney failure, unspecified Status: Acute Assessment and Plan: * suspect multifactorial: - urinary retention?? -- good urine output noted after decker catheter placement -- started on flomax - WILLAM-I use - hemolysis/anemia - possible prerenal factors(?) * kidney function improving at this time * follow trend of repeat labs * would not be opposed to voiding trial/decker removal (2) Hyperkalemia: Code(s): E87.5 - Hyperkalemia Status: Acute Assessment and Plan: * due to hemolysis + WILLAM-I use * better s/p medical therapy and interventions to date * follow trend (3) Sickle cell pain crisis: Code(s): D57.00 - Hb-SS disease with crisis, unspecified Status: Acute Assessment and Plan: * pain control seems adequate * noted to have comcominant automimmnue hemolysis as well - on steroids (4) Anemia: Code(s): D64.9 - Anemia, unspecified Status: Acute Assessment and Plan: * due to #3 * PRBC transfusion per protocol * Hem/Onc following (5) Hypertension: Qualifiers: Hypertension type: essential hypertension Qualified Code(s): I10 - Essential (primary) hypertension Code(s): I10 - Essential (primary) hypertension Status: Chronic Assessment and Plan: * elevated at this time * pain control issues playing a role? * consider adding another agent (i.e. hydralazine) if persistently elevated * off WILLAM- I given #1 and #2 * follow trend of hemodynamics (6) Diabetes: Qualifiers: Diabetes mellitus complication status: without complication Diabetes mellitus intermediate project manager insulin use: with mcc use Diabetes mellitus type: type 2 Qualified Code(s): E11.9 - Type 2 diabetes mellitus without complications; Z79.4 - termite control technician (current) use of insulin Code(s): E11.9 - Type 2 diabetes mellitus without complications Status: Chronic Assessment and Plan: * follow acchecks * on SSI and Lantus * follow closely with steroid use Will continue to follow. Subjective Date/time seen: 10/04/19 12:25 No apparent distress voiced at this time; no new issues or problems to report overnight or earlier this AM; pain control seems adequate; no apparent distress noted. Exam Narrative: Exam Narrative: General: WD/WN male in NAD Heart: normal S1 and S2; no rub Lungs: clear to auscultation Abdomen: soft, nontender, nondistended, positive bowel sounds Extremities: no cyanosis or clubbing; trace - 1+ edema Skin: warm and dry Objective Data Vital Signs Vital Signs: Vital Signs Temp Pulse Resp BP Pulse Ox 10/04/19 06:00 36.4 C 74 12 161/71 H 98 10/03/19 22:00 36.3 C L 74 12 186/81 H 100 10/03/19 20:00 88 16 100 10/03/19 14:00 36.6 C 88 16 174/65 H 100 Intake/Output Intake/Output: Intake & Output 10/01/19 10/02/19 10/03/19 10/04/19 23:59 23:59 23:59 23:59 Intake Total 5880 3330 3720 790 Output Total 6356 953 9757 850 Balance 4805 2580 1220 -60 Meds/Results Medications: Active Medications Generic Name Dose Route Start Last Admin Trade Name Freq PRN Reason Stop Dose A
--- NOTE | 2019-10-04 12:25 | PM.PNNEP ---
Progress Note: A&P Assessment and Plan (1) KASIA (acute kidney injury): Code(s): N17.9 - Acute kidney failure, unspecified Status: Acute Assessment and Plan: suspect multifactorial: - urinary retention?? -- good urine output noted after decker catheter placement -- started on flomax - WILLAM-I use - hemolysis/anemia - possible prerenal factors(?) kidney function improving at this time follow trend of repeat labs would not be opposed to voiding trial/decker removal (2) Hyperkalemia: Code(s): E87.5 - Hyperkalemia Status: Acute Assessment and Plan: due to hemolysis + WILLAM-I use better s/p medical therapy and interventions to date follow trend (3) Sickle cell pain crisis: Code(s): D57.00 - Hb-SS disease with crisis, unspecified Status: Acute Assessment and Plan: pain control seems adequate noted to have comcominant automimmnue hemolysis as well - on steroids (4) Anemia: Code(s): D64.9 - Anemia, unspecified Status: Acute Assessment and Plan: due to #3 PRBC transfusion per protocol Hem/Onc following (5) Hypertension: Qualifiers: Hypertension type: essential hypertension Qualified Code(s): I10 - Essential (primary) hypertension Code(s): I10 - Essential (primary) hypertension Status: Chronic Assessment and Plan: elevated at this time pain control issues playing a role? consider adding another agent (i.e. hydralazine) if persistently elevated off WILLAM- I given #1 and #2 follow trend of hemodynamics (6) Diabetes: Qualifiers: Diabetes mellitus complication status: without complication 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: with middle or intermediate school principal use Diabetes mellitus type: type 2 Qualified Code(s): E11.9 - Type 2 diabetes mellitus without complications; Z79.4 - MCC (current) use of insulin Code(s): E11.9 - Type 2 diabetes mellitus without complications Status: Chronic Assessment and Plan: follow acchecks on SSI and Lantus follow closely with steroid use Will continue to follow. Subjective Date/time seen: 10/04/19 12:25 No apparent distress voiced at this time; no new issues or problems to report overnight or earlier this AM; pain control seems adequate; no apparent distress noted. Exam Narrative: Exam Narrative: General: WD/WN male in NAD Heart: normal S1 and S2; no rub Lungs: clear to auscultation Abdomen: soft, nontender, nondistended, positive bowel sounds Extremities: no cyanosis or clubbing; trace - 1+ edema Skin: warm and dry Objective Data Vital Signs Vital Signs: Vital Signs Temp Pulse Resp BP Pulse Ox 10/04/19 06:00 36.4 C 74 12 161/71 H 98 10/03/19 22:00 36.3 C L 74 12 186/81 H 100 10/03/19 20:00 88 16 100 10/03/19 14:00 36.6 C 88 16 174/65 H 100 Intake/Output Intake/Output: Intake & Output 10/01/19 10/02/19 10/03/19 10/04/19 23:59 23:59 23:59 23:59 Intake Total 5880 3330 3720 790 Output Total 4851 209 6755 850 Balance 4805 2580 1220 -60 Meds/Results Medications: Active Medications Generic Name Dose Route Start Last Admin Trade Name Freq PRN Reason Stop Dose Admin Apixaban 5 mg 09/30/19 17:00 10/04/19 08:25 Eliquis PO 5 mg BID JESSE Administration Dextrose 12.5 gm 10/01/19 12:47 Dextrose 50% Syringe IV PUSH PRN PRN Hypoglycemia Protocol Diphenhydramine HCl 25 mg 09/30/19 16:40 10/01/19 15:18 Benadryl Inj IV PUSH 25 mg Q6H PRN Administration Itching Famotidine 20 mg 09/30/19 21:00 10/04/19 08:26 Pepcid Iv IV PUSH 20 mg Q12HR JESSE Administration Glucagon 1 mg 10/01/19 12:47 Glucagon For Inj IM PRN PRN Hypoglycemia Protocol Glucose 15 gm 10/01/19 12:47 Glutose 15 PO PRN PRN Hypoglycemia Protocol Heparin Sodium (Beef Lung) 50 units 0
[2019-10-04 14:00] VITALS: BP 159/85; PULSE 81; RESP 16; TEMP 36.4; O2SAT 95
--- NOTE | 2019-10-04 14:52 | P.PNIM_ITS ---
Progress Note: A&P Assessment and Plan (1) Hyperkalemia: Code(s): E87.5 - Hyperkalemia Status: Acute Assessment and Plan: * This appears to be due to acute kidney failure with associated metabolic acidosis, WILLAM-inhibitor use, and hemolysis * Calcium gluconate, sodium bicarbonate, 50% dextrose, aspartate insulin 5 units, fursosemide ordered IV * F/u lab today potassium 4.2 (2) KASIA (acute kidney injury): Code(s): N17.9 - Acute kidney failure, unspecified Status: Acute Assessment and Plan: * Sanches catheter * Renal ultrasound with thickened bladder wall, no hydroneprhosis * Creatinine imrpoved with Sanches, IVF, D/c ACEI: 10/01 3.7, 10/02 2.5, 10/03 1.5 * Will attempt voiding trial today (3) Sickle cell pain crisis: Code(s): D57.00 - Hb-SS disease with crisis, unspecified Status: Acute Assessment and Plan: * 09/29 Hemoglobin 6.7 with platelets [id number] AST 126 bilirubin 7 reticulocyte % 14.13 * 09/29 Transfused 2 units packed red cells * Analgesics prn 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: Code(s): D57.412 - Sickle-cell thalassemia with splenic sequestration Status: Acute Assessment and Plan: * See above (5) Chronic pain: Qualifiers: Chronic pain type: other chronic pain Qualified Code(s): G89.29 - Other chronic pain Code(s): G89.29 - Other chronic pain Status: Chronic Assessment and Plan: * Current home oxycodone use is 5 mg every 4 hours or 30 mg per day * 10/02 10/03: Continue prn hydrocodone and hydromorphone (6) Symptomatic anemia: Code(s): D64.9 - Anemia, unspecified Status: Acute Assessment and Plan: * Transfuse to maintain hemoglobin near 7 secondary to June positive as well as sickle cell anemia. * Prednisone 60 Q 12 for Hematology (7) Thrombocytopenia: Code(s): D69.6 - Thrombocytopenia, unspecified Status: Chronic Assessment and Plan: * Likely due to combination of consumption and splenic sequestration * One hundred twenty K today and check serially (8) Hypertension: Qualifiers: Hypertension type: essential hypertension Qualified Code(s): I10 - Essential (primary) hypertension Code(s): I10 - Essential (primary) hypertension Status: Chronic Assessment and Plan: * Continue home regimen and monitor as per Nephrology may need to add calcium channel lalita or and hydralazine if goes any higher in place of WILLAM- inhibitor (9) Diabetes: Qualifiers: Diabetes mellitus type: type 2 Diabetes mellitus exterminator helper termite insulin use: with halfway use Diabetes mellitus complication status: without complication Qualified Code(s): E11.9 - Type 2 diabetes mellitus without complications; Z79.4 - longterm (current) use of insulin Code(s): E11.9 - Type 2 diabetes mellitus without complications Status: Chronic Assessment and Plan: * Holding metformin due to acute renal failure * Sliding scale NovoLog * FBS 121 with steroid treatment (10) History of DVT (deep vein thrombosis): Code(s): Z86.718 - Personal history of other venous thrombosis and embolism
--- NOTE | 2019-10-04 14:52 | PM.IMPN ---
Progress Note: A&P Assessment and Plan (1) Hyperkalemia: Code(s): E87.5 - Hyperkalemia Status: Acute Assessment and Plan: This appears to be due to acute kidney failure with associated metabolic acidosis, WILLAM-inhibitor use, and hemolysis Calcium gluconate, sodium bicarbonate, 50% dextrose, aspartate insulin 5 units, fursosemide ordered IV F/u lab today potassium 4.2 (2) KASIA (acute kidney injury): Code(s): N17.9 - Acute kidney failure, unspecified Status: Acute Assessment and Plan: Sanches catheter Renal ultrasound with thickened bladder wall, no hydroneprhosis Creatinine imrpoved with Sanches, IVF, D/c ACEI: 10/01 3.7, 10/02 2.5, 10/03 1.5 Will attempt voiding trial today (3) Sickle cell pain crisis: Code(s): D57.00 - Hb-SS disease with crisis, unspecified Status: Acute Assessment and Plan: 09/29 Hemoglobin 6.7 with platelets [id number] AST 126 bilirubin 7 reticulocyte % 14.13 09/29 Transfused 2 units packed red cells Analgesics prn 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 09/30 added steroids 10/01 hemoglobin stable at 7.1 10/02 hgb 7.0, Bili 11.6, AST 177, Retic % 10.18 10/03 hemoglobin 6.6 today blood well compensated and with June as well as sickle cell anemia will hold on transfusion today recheck a.m.. 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: Code(s): D57.412 - Sickle-cell thalassemia with splenic sequestration Status: Acute Assessment and Plan: See above (5) Chronic pain: Qualifiers: Chronic pain type: other chronic pain Qualified Code(s): G89.29 - Other chronic pain Code(s): G89.29 - Other chronic pain Status: Chronic Assessment and Plan: Current home oxycodone use is 5 mg every 4 hours or 30 mg per day 10/02 10/03: Continue prn hydrocodone and hydromorphone (6) Symptomatic anemia: Code(s): D64.9 - Anemia, unspecified Status: Acute Assessment and Plan: Transfuse to maintain hemoglobin near 7 secondary to June positive as well as sickle cell anemia. Prednisone 60 Q 12 for Hematology (7) Thrombocytopenia: Code(s): D69.6 - Thrombocytopenia, unspecified Status: Chronic Assessment and Plan: Likely due to combination of consumption and splenic sequestration One hundred twenty K today and check serially (8) Hypertension: Qualifiers: Hypertension type: essential hypertension Qualified Code(s): I10 - Essential (primary) hypertension Code(s): I10 - Essential (primary) hypertension Status: Chronic Assessment and Plan: Continue home regimen and monitor as per Nephrology may need to add calcium channel lalita or and hydralazine if goes any higher in place of WILLAM-inhibitor (9) Diabetes: Qualifiers: Diabetes mellitus type: type 2 Diabetes mellitus medical terminologist insulin use: with medical terminologist use Diabetes mellitus complication status: without complication Qualified Code(s): E11.9 - Type 2 diabetes mellitus without complications; 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 Code(s): E11.9 - Type 2 diabetes mellitus without complications Status: Chronic Assessment and Plan: Holding metformin due to acute renal failure Sliding scale NovoLog FBS 121 with steroid treatment (10) History of DVT (deep vein thrombosis): Code(s): Z86.718 - Personal history of other venous thrombosis and embolism Status: Chronic Assessment and Plan: Holding apixaban due to acute renal failure Prophylactic heparin subcutaneously (11) Cirrhosis: Qualifiers: Hepatic cirrhosis type: unspecified hepatic cirrhosis Ascites presence: without ascites Qualified Code(s): K74.60 - Unspecified cirrhosis of liver Code(s): K74.60 - Unspecified cirrhosis of liver Status: Chronic Assessment and Plan:
[2019-10-04 16:23] LABS: Glucose Point of Care 294 (65-105)
[2019-10-04] MEDS: INSULIN ASPART (*BKC) 100 UNITS/ML SUB-Q (16:27)
--- NOTE | 2019-10-04 17:30 | WPDONCPN ---
Progress Note: A/P - Additional Plan Multifactorial anemia. 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 Patient also has renal insufficiency and liver cirrhosis contributing to anemia. Given the drop in hemoglobin I will increase prednisone to 60 mg twice a day and will add folic acid 1 mg daily. We will avoid blood transfusion unless patient is symptomatic and hemoglobin drops further. Acute renal insufficiency. Renal function has improved History of pulmonary embolism. Patient is on Eliquis. Denies any bleeding. Liver cirrhosis. - Time Spent With Patient Total time spent is greater than 50% in coordination of care (as documented) at patient's floor/unit and/or counseling patient: 15 - 25 minutes Subjective Interval history: Sickle cell anemia with crisis Autoimmune hemolytic anemia Recurrent pulmonary embolism Liver cirrhosis Acute renal insufficiency Review of Systems - Review of Systems Patient complain of tiredness and fatigue and palpitation. He denies any abdominal pain and chest pain. He denies any bleeding and bruising. Denies any fevers and chills. Exam Vital signs: Temp Pulse Resp BP Pulse Ox 36.4 C 81 16 159/85 H 95 10/04/19 14:00 10/04/19 14:00 10/04/19 14:00 10/04/19 14:00 10/04/19 14:00 Narrative: Lungs are clear to auscultation bilaterally Cardiovascular slightly tachycardic no murmur Abdomen slightly distended bowel sounds are positive Extremities no edema PN: Objective Data - Labs CBC & Chem 7: 10/04/19 06:16 10/04/19 06:16 Labs: Laboratory Results - last 24 hr 10/03/19 10/04/19 10/04/19 20:43 06:16 06:16 WBC 12.0 H RBC 2.23 L Hgb 6.6 L* Hct 19.2 L* MCV 86.1 MCH 29.6 MCHC 34.4 RDW 20.0 H Plt Count 120 L MPV 12.2 H Absolute Retic 0.26 L Percent Retic 11.59 H Immature Retic Fraction 38.3 H Retic Hgb Content 35.7 Sodium 138 Potassium 4.2 Chloride 107 Carbon Dioxide 28 BUN 36 H Creatinine 1.50 H Estim Creat Clear Calc 39 Estimated GFR 57 L Glucose 121 H POC Capillary Glucose 227 H Calcium 8.9 Total Bilirubin 8.4 H AST 101 H ALT 89 H Alkaline Phosphatase 155 H Lactate Dehydrogenase 1440 H Total Protein 7.0 Albumin 3.3 L 10/04/19 10/04/19 10/04/19 07:49 11:51 16:19 WBC RBC Hgb Hct MCV MCH MCHC RDW Plt Count MPV Absolute Retic Percent Retic Immature Retic Fraction Retic Hgb Content Sodium Potassium Chloride Carbon Dioxide BUN Creatinine Estim Creat Clear Calc Estimated GFR Glucose POC Capillary Glucose 111 H 172 H 294 H Calcium Total Bilirubin AST ALT Alkaline Phosphatase Lactate Dehydrogenase Total Protein Albumin
[2019-10-04] MEDS: TAMSULOSIN HCL 0.4 MG CAPSULE PO (21:57)
[2019-10-04] MEDS: INSULIN GLARGINE (*BKC) 100 UNITS/ML 15 UNITS SUB-Q (21:59)
[2019-10-04 22:00] VITALS: BP 187/80; PULSE 71; RESP 16; TEMP 36.1; O2SAT 97
[2019-10-05] MEDS: HYDROMORPHONE HCL 1 MG/ML INJ IV PUSH ×5 (02:52→20:07)
[2019-10-05 03:16] LABS: Glucose Point of Care 233 (65-105)
[2019-10-05 05:44] LABS: Hematocrit 21.5 % (42.0-52.0); Hemoglobin 7.3 g/dL (14.0-18.0); Immature Platelet Fraction Pct 10.3 % (0.9-11.2); Immature Reticulocyte Fraction 27.2 % (3.0-15.9); Mean Corpuscular Volume 88.5 fl (80-100); Platelet Count Result 128 k/mm3 (150-375); Red Blood Count 2.43 M/mm3 (4.6-6.20); Red Cell Distribution Width 20.7 % (11.5-14.5); Reticulocyte Hemoglobin Conten 35.9 pg (28.2-35.7); Reticulocyte Percent 12.92 % (0.7-4.3); Reticulocytes Absolute 0.31 B/L (32.2-175.7); White Blood Count 7.5 K/mm3 (4.5-10.0)
[2019-10-05 05:45] LABS: Alanine Aminotransferase 74 U/L (4-50); Albumin Level 3.4 g/dL (3.5-5.1); Alkaline Phosphatase 166 U/L (38-126); Aspartate Amino Transferase 63 U/L (17-59); Bilirubin,Total 7.5 mg/dL (0.2-1.3); Blood Urea Nitrogen 28 mg/dL (9-20); Calcium 9.1 mg/dL (8.4-10.2); Carbon Dioxide 28 mmol/L (22-30); Chloride 104 mmol/L (98-107); Estimated CRCL calculation 52 ml/min; Estimated Glomerular Filt Rate > 60; Glucose 212 mg/dL (75-110); Lactate Dehydrogenase 1223 U/L (313-618); Potassium 4.8 mmol/L (3.4-5.0); Sodium 134 mmol/L (137-145)
[2019-10-05 05:52] VITALS: BP 168/77; PULSE 69; RESP 12; TEMP 36.4; O2SAT 96
[2019-10-05 07:08] LABS: Mean Platelet Volume 13.5 fl (7.4-10.4)
[2019-10-05] MEDS: CENTRAL LINE FLUSH 10 ML IV PUSH ×3 (07:17→20:07)
[2019-10-05 07:55] LABS: Glucose Point of Care 179 (65-105)
[2019-10-05] MEDS: predniSONE 20 MG TABLET 60 MG PO ×2 (08:56→20:07)
[2019-10-05] MEDS: APIXABAN 5 MG TABLET PO ×2 (08:56→16:48)
[2019-10-05] MEDS: FOLIC ACID 1 MG TABLET PO (08:56)
[2019-10-05] MEDS: FAMOTIDINE 20 MG/2 ML VIAL IV PUSH ×2 (08:56→20:06)
[2019-10-05] MEDS: AMLODIPINE BESYLATE 5 MG TABLET PO (08:57)
[2019-10-05] MEDS: HEPARIN SODIUM 5,000 UNITS/ML VIAL 5000 UNITS SUB-Q (09:02)
[2019-10-05 10:19] VITALS: O2SAT 93
[2019-10-05 11:40] LABS: Glucose Point of Care 211 (65-105)
[2019-10-05] MEDS: INSULIN ASPART (*BKC) 100 UNITS/ML SUB-Q ×2 (11:44→16:47)
--- NOTE | 2019-10-05 13:50 | P.PNIM_ITS ---
Progress Note: A&P Assessment and Plan (1) Hyperkalemia: Code(s): E87.5 - Hyperkalemia Status: Acute Assessment and Plan: * This appears to be due to acute kidney failure with associated metabolic acidosis, WILLAM-inhibitor use, and hemolysis * Calcium gluconate, sodium bicarbonate, 50% dextrose, aspartate insulin 5 units, fursosemide ordered IV * F/u lab today potassium 4.8 (2) KASIA (acute kidney injury): Code(s): N17.9 - Acute kidney failure, unspecified Status: Acute Assessment and Plan: * Decker catheter * Renal ultrasound with thickened bladder wall, no hydroneprhosis * Creatinine imrpoved with Decker, IVF, D/c ACEI: 10/01 3.7, 10/02 2.5, 10/03 1.5, 10/04 1.1 * decker out 10/03 and voiding well (3) Sickle cell pain crisis: Code(s): D57.00 - Hb-SS disease with crisis, unspecified Status: Acute Assessment and Plan: * 09/29 Hemoglobin 6.7 with platelets [id number] AST 126 bilirubin 7 reticulocyte % 14.13 * 09/29 Transfused 2 units packed red cells * Analgesics prn 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 * 09/30 added steroids * 10/01 hemoglobin stable at 7.1 * 10/02 hgb 7.0, Bili 11.6, AST 177, Retic % 10.18 * 10/03 hemoglobin 6.6 but well compensated and with June as well as sickle cell anemia held on transfusion * 10/04 Hgb 7.3 so continue to follow (4) 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: Code(s): D57.412 - Sickle-cell thalassemia with splenic sequestration Status: Acute Assessment and Plan: * See above (5) Chronic pain: Qualifiers: Chronic pain type: other chronic pain Qualified Code(s): G89.29 - Other chronic pain Code(s): G89.29 - Other chronic pain Status: Chronic Assessment and Plan: * Current home oxycodone use is 5 mg every 4 hours or 30 mg per day * 10/02 10/03: Continue prn hydrocodone and hydromorphone (6) Symptomatic anemia: Code(s): D64.9 - Anemia, unspecified Status: Acute Assessment and Plan: * Transfuse to maintain hemoglobin near 7 secondary to June positive as well as sickle cell anemia. * Prednisone 60 Q 12 for Hematology (7) Thrombocytopenia: Code(s): D69.6 - Thrombocytopenia, unspecified Status: Chronic Assessment and Plan: * Likely due to combination of consumption and splenic sequestration * 128 K today and check serially (8) Hypertension: Qualifiers: Hypertension type: essential hypertension Qualified Code(s): I10 - Essential (primary) hypertension Code(s): I10 - Essential (primary) hypertension Status: Chronic Assessment and Plan: * Continue home regimen and monitor as per Nephrology , added calcium channel lalita today with amlodipine 5 mg q day, in place of WILLAM-inhibitor (9) Diabetes: Qualifiers: Diabetes mellitus complication status: without complication Diabetes mellitus bed bug exterminator insulin use: with bed bug exterminator use Diabetes mellitus type: type 2 Qualified Code(s): E11.9 - Type 2 diabetes mellitus without complications; 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
--- NOTE | 2019-10-05 13:50 | PM.IMPN ---
Progress Note: A&P Assessment and Plan (1) Hyperkalemia: Code(s): E87.5 - Hyperkalemia Status: Acute Assessment and Plan: This appears to be due to acute kidney failure with associated metabolic acidosis, WILLAM-inhibitor use, and hemolysis Calcium gluconate, sodium bicarbonate, 50% dextrose, aspartate insulin 5 units, fursosemide ordered IV F/u lab today potassium 4.8 (2) KASIA (acute kidney injury): Code(s): N17.9 - Acute kidney failure, unspecified Status: Acute Assessment and Plan: Decker catheter Renal ultrasound with thickened bladder wall, no hydroneprhosis Creatinine imrpoved with Decker, IVF, D/c ACEI: 10/01 3.7, 10/02 2.5, 10/03 1.5, 10/04 1.1 decker out 10/03 and voiding well (3) Sickle cell pain crisis: Code(s): D57.00 - Hb-SS disease with crisis, unspecified Status: Acute Assessment and Plan: 09/29 Hemoglobin 6.7 with platelets [id number] AST 126 bilirubin 7 reticulocyte % 14.13 09/29 Transfused 2 units packed red cells Analgesics prn 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 09/30 added steroids 10/01 hemoglobin stable at 7.1 10/02 hgb 7.0, Bili 11.6, AST 177, Retic % 10.18 10/03 hemoglobin 6.6 but well compensated and with June as well as sickle cell anemia held on transfusion 10/04 Hgb 7.3 so continue to follow (4) 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: Code(s): D57.412 - Sickle-cell thalassemia with splenic sequestration Status: Acute Assessment and Plan: See above (5) Chronic pain: Qualifiers: Chronic pain type: other chronic pain Qualified Code(s): G89.29 - Other chronic pain Code(s): G89.29 - Other chronic pain Status: Chronic Assessment and Plan: Current home oxycodone use is 5 mg every 4 hours or 30 mg per day 10/02 10/03: Continue prn hydrocodone and hydromorphone (6) Symptomatic anemia: Code(s): D64.9 - Anemia, unspecified Status: Acute Assessment and Plan: Transfuse to maintain hemoglobin near 7 secondary to June positive as well as sickle cell anemia. Prednisone 60 Q 12 for Hematology (7) Thrombocytopenia: Code(s): D69.6 - Thrombocytopenia, unspecified Status: Chronic Assessment and Plan: Likely due to combination of consumption and splenic sequestration 128 K today and check serially (8) Hypertension: Qualifiers: Hypertension type: essential hypertension Qualified Code(s): I10 - Essential (primary) hypertension Code(s): I10 - Essential (primary) hypertension Status: Chronic Assessment and Plan: Continue home regimen and monitor as per Nephrology , added calcium channel lalita today with amlodipine 5 mg q day, in place of WILLAM-inhibitor (9) Diabetes: Qualifiers: Diabetes mellitus complication status: without complication Diabetes mellitus prison insulin use: with prison use Diabetes mellitus type: type 2 Qualified Code(s): E11.9 - Type 2 diabetes mellitus without complications; 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 Code(s): E11.9 - Type 2 diabetes mellitus without complications Status: Chronic Assessment and Plan: Holding metformin due to acute renal failure Sliding scale NovoLog FBS 212 with steroid treatment (10) History of DVT (deep vein thrombosis): Code(s): Z86.718 - Personal history of other venous thrombosis and embolism Status: Chronic Assessment and Plan: apixaban (11) Cirrhosis: Qualifiers: Ascites presence: without ascites Hepatic cirrhosis type: unspecified hepatic cirrhosis Qualified Code(s): K74.60 - Unspecified cirrhosis of liver Code(s): K74.60 - Unspecified cirrhosis of liver Status: Chronic Assessment and Plan: 10/04, lfts and LDH alll continue to fall , thought secondary to hemolysis Subjective Date/time seen: 10/05/19 13:50
[2019-10-05 14:00] VITALS: BP 142/81; PULSE 93; RESP 18; TEMP 36.9; O2SAT 95
--- NOTE | 2019-10-05 15:55 | P.PNNP_ITS ---
Progress Note: A&P Assessment and Plan (1) KASIA (acute kidney injury): Code(s): N17.9 - Acute kidney failure, unspecified Status: Acute Assessment and Plan: * resolving/resolved * suspect multifactorial: - urinary retention?? -- good urine output noted after decker catheter placement -- started on flomax - WILLAM-I use - hemolysis/anemia - possible prerenal factors(?) * follow trend of repeat labs (2) Hyperkalemia: Code(s): E87.5 - Hyperkalemia Status: Acute Assessment and Plan: * due to hemolysis + WILLAM-I use * better s/p medical therapy and interventions to date * follow trend (3) Sickle cell pain crisis: Code(s): D57.00 - Hb-SS disease with crisis, unspecified Status: Acute Assessment and Plan: * pain control seems adequate * noted to have comcominant automimmnue hemolysis as well - on steroids (4) Anemia: Code(s): D64.9 - Anemia, unspecified Status: Acute Assessment and Plan: * due to #3 * PRBC transfusion per protocol * Hem/Onc following (5) Hypertension: Qualifiers: Hypertension type: essential hypertension Qualified Code(s): I10 - Essential (primary) hypertension Code(s): I10 - Essential (primary) hypertension Status: Chronic Assessment and Plan: * elevated at this time * pain control issues playing a role? * consider adding another agent (i.e. 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 Exam Narrative: Exam Narrative: General: WD/WN male in NAD Heart: normal S1 and S2; no rub Lungs: clear to auscultation Abdomen: soft, nontender, nondistended, positive bowel sounds Extremities: no cyanosis or clubbing; trace - 1+ edema Skin: No rash or nodules Objective Data Vital Signs Vital Signs: Vital Signs Temp Pulse Resp BP Pulse Ox 10/05/19 14:00 36.9 C 93 18 142/81 H 95 10/05/19 10:19 93 10/05/19 05:52 36.4 C L 69 12 168/77 H 96 10/04/19 22:00 36.1 C L 71 16 187/80 H 97 Intake/Output Intake/Output: Intake & Output 10/02/19 10/03/19 10/04/19 10/05/19 23:59 23:59 23:59 23:59 Intake Total 3330 3720 2490 680 Output Total 750 2500 2150 Balance 2580 1220 340 680 Meds/Results Medications: Active Medications Generic Name Dose Route Start Last Admin Trade Name Freq
--- NOTE | 2019-10-05 15:55 | PM.PNNEP ---
Progress Note: A&P Assessment and Plan (1) KASIA (acute kidney injury): Code(s): N17.9 - Acute kidney failure, unspecified Status: Acute Assessment and Plan: resolving/resolved suspect multifactorial: - urinary retention?? -- good urine output noted after decker catheter placement -- started on flomax - WILLAM-I use - hemolysis/anemia - possible prerenal factors(?) follow trend of repeat labs (2) Hyperkalemia: Code(s): E87.5 - Hyperkalemia Status: Acute Assessment and Plan: due to hemolysis + WILLAM-I use better s/p medical therapy and interventions to date follow trend (3) Sickle cell pain crisis: Code(s): D57.00 - Hb-SS disease with crisis, unspecified Status: Acute Assessment and Plan: pain control seems adequate noted to have comcominant automimmnue hemolysis as well - on steroids (4) Anemia: Code(s): D64.9 - Anemia, unspecified Status: Acute Assessment and Plan: due to #3 PRBC transfusion per protocol Hem/Onc following (5) Hypertension: Qualifiers: Hypertension type: essential hypertension Qualified Code(s): I10 - Essential (primary) hypertension Code(s): I10 - Essential (primary) hypertension Status: Chronic Assessment and Plan: elevated at this time pain control issues playing a role? consider adding another agent (i.e. 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 Exam Narrative: Exam Narrative: General: WD/WN male in NAD Heart: normal S1 and S2; no rub Lungs: clear to auscultation Abdomen: soft, nontender, nondistended, positive bowel sounds Extremities: no cyanosis or clubbing; trace - 1+ edema Skin: No rash or nodules Objective Data Vital Signs Vital Signs: Vital Signs Temp Pulse Resp BP Pulse Ox 10/05/19 14:00 36.9 C 93 18 142/81 H 95 10/05/19 10:19 93 10/05/19 05:52 36.4 C L 69 12 168/77 H 96 10/04/19 22:00 36.1 C L 71 16 187/80 H 97 Intake/Output Intake/Output: Intake & Output 10/02/19 10/03/19 10/04/19 10/05/19 23:59 23:59 23:59 23:59 Intake Total 3330 3720 2490 680 Output Total 750 2500 2150 Balance 2580 1220 340 680 Meds/Results Medications: Active Medications Generic Name Dose Route Start Last Admin Trade Name Freq PRN Reason Stop Dose Admin Amlodipine Besylate 5 mg 10/05/19 09:00 10/05/19 08:57 Norvasc PO 5 mg QAM JESSE Administration Apixaban 5 mg 09/30/19 17:00 10/05/19 08:56 Eliquis PO 5 mg BID JESSE Administration Dextrose 12.5 gm 10/01/19 12:47 Dextrose 50% Syringe IV PUSH PRN PRN Hypoglycemia Protocol Diphenhydramine HCl 25 mg 09/30/19 16:40 10/05/19 11:16 Benadryl Inj IV PUSH 25 mg Q6H PRN Administration Itching Famotidine 20 mg 09/30/19 21:00 10/05/19 08:56 Pepcid Iv IV PUSH 20 mg Q12HR JESSE Administration Folic Acid 1 mg 10/05/19 09:00 10/05/19 08:56 Folic Acid PO 1 mg DAILY JESSE Administration Gl
--- NOTE | 2019-10-05 16:37 | WPDONCPN ---
Progress Note: A/P - Additional Plan Multifactorial anemia. Hemoglobin has improved. Continue prednisone 60 mg twice a day. Patient will taper 10 mg every 4th day on discharge. Patient should continue folic acid 1 mg daily. I will see him in the office and 2 weeks for repeat labs. Acute renal insufficiency. Kidney function now has normalized. History of pulmonary embolism. Patient is on Eliquis. - Time Spent With Patient Total time spent is greater than 50% in coordination of care (as documented) at patient's floor/unit and/or counseling patient: 15 - 25 minutes Subjective Interval history: Sickle cell anemia with crisis Autoimmune hemolytic anemia Recurrent pulmonary embolism Liver cirrhosis Acute renal insufficiency Review of Systems - Review of Systems Patient looks quite comfortable. Denies any chest pain. Denies any shortness of breath. Denies any fevers and chills. Lower extremity pain is under control. Exam Narrative: Lungs are clear to auscultation bilaterally Cardiovascular regular rate rhythm no murmurs Abdomen slightly distended bowel sounds are positive Extremities no edema PN: Objective Data - Labs CBC & Chem 7: 10/05/19 05:05 10/05/19 05:05 Labs: Laboratory Results - last 24 hr 10/04/19 10/05/19 10/05/19 22:02 05:05 05:05 WBC 7.5 RBC 2.43 L Hgb 7.3 L Hct 21.5 L MCV 88.5 MCH 30.0 MCHC 34.0 RDW 20.7 H Plt Count 128 L MPV 13.5 H % Immature Plt Fraction 10.3 Absolute Retic 0.31 L Percent Retic 12.92 H Immature Retic Fraction 27.2 H Retic Hgb Content 35.9 H Sodium 134 L Potassium 4.8 Chloride 104 Carbon Dioxide 28 BUN 28 H Creatinine 1.10 Estim Creat Clear Calc 52 Estimated GFR > 60 Glucose 212 H POC Capillary Glucose 233 H Calcium 9.1 Total Bilirubin 7.5 H AST 63 H ALT 74 H Alkaline Phosphatase 166 H Lactate Dehydrogenase 1223 H Total Protein 7.0 Albumin 3.4 L 10/05/19 10/05/19 07:53 11:32 WBC RBC Hgb Hct MCV MCH MCHC RDW Plt Count MPV % Immature Plt Fraction Absolute Retic Percent Retic Immature Retic Fraction Retic Hgb Content Sodium Potassium Chloride Carbon Dioxide BUN Creatinine Estim Creat Clear Calc Estimated GFR Glucose POC Capillary Glucose 179 H 211 H Calcium Total Bilirubin AST ALT Alkaline Phosphatase Lactate Dehydrogenase Total Protein Albumin
[2019-10-05 16:54] LABS: Glucose Point of Care 218 (65-105)
[2019-10-05] MEDS: TAMSULOSIN HCL 0.4 MG CAPSULE PO (20:07)
[2019-10-05] MEDS: INSULIN GLARGINE (*BKC) 100 UNITS/ML 15 UNITS SUB-Q (20:08)
[2019-10-05 22:00] VITALS: BP 188/85; PULSE 64; RESP 18; TEMP 36.4; O2SAT 98
[2019-10-06] MEDS: HYDROMORPHONE HCL 1 MG/ML INJ IV PUSH ×3 (00:42→10:41)
[2019-10-06 03:26] LABS: Glucose Point of Care 307 (65-105)
[2019-10-06 06:00] VITALS: BP 144/82; PULSE 62; RESP 12; TEMP 36.6; O2SAT 99
[2019-10-06 06:42] LABS: Hematocrit 22.3 % (42.0-52.0); Hemoglobin 7.4 g/dL (14.0-18.0); Mean Corpuscular HGB Conc 33.2 g/dl (32-36); Mean Corpuscular Hemoglobin 29.8 pg (26-34); Mean Corpuscular Volume 89.9 fl (80-100); Mean Platelet Volume 12.3 fl (7.4-10.4); Platelet Count Result 106 k/mm3 (150-375); Red Blood Count 2.48 M/mm3 (4.6-6.20); Red Cell Distribution Width 19.9 % (11.5-14.5)
[2019-10-06 06:55] LABS: Alanine Aminotransferase 58 U/L (4-50); Albumin Level 3.3 g/dL (3.5-5.1); Alkaline Phosphatase 161 U/L (38-126); Aspartate Amino Transferase 44 U/L (17-59); Bilirubin,Total 6.9 mg/dL (0.2-1.3); Blood Urea Nitrogen 25 mg/dL (9-20); Calcium 9.1 mg/dL (8.4-10.2); Carbon Dioxide 28 mmol/L (22-30); Chloride 102 mmol/L (98-107); Estimated CRCL calculation 52 ml/min; Estimated Glomerular Filt Rate > 60; Glucose 203 mg/dL (75-110); Potassium 4.5 mmol/L (3.4-5.0); Sodium 134 mmol/L (137-145)
[2019-10-06 07:55] LABS: Glucose Point of Care 195 (65-105)
[2019-10-06] MEDS: AMLODIPINE BESYLATE 5 MG TABLET PO (09:31)
[2019-10-06] MEDS: APIXABAN 5 MG TABLET PO (09:31)
[2019-10-06] MEDS: FAMOTIDINE 20 MG/2 ML VIAL IV PUSH (09:31)
[2019-10-06] MEDS: FOLIC ACID 1 MG TABLET PO (09:32)
[2019-10-06] MEDS: predniSONE 20 MG TABLET 60 MG PO (09:32)
[2019-10-06] MEDS: INSULIN ASPART (*BKC) 100 UNITS/ML SUB-Q (11:18)
[2019-10-06 11:37] LABS: Glucose Point of Care 261 (65-105)
--- NOTE | 2019-10-06 18:17 | P.DS_ITS ---
DS: Admitting Diagnosis Admitting Diagnosis Admitting Diagnosis: Hb-SS disease with crisis, unspecified DS: Discharge Diagnosis Discharge Diagnosis (1) Hyperkalemia: Code(s): E87.5 - Hyperkalemia Status: Acute Assessment and Plan: Secondary to acute kidney injury. WILLAM-inhibitor was and calcium channel are bl ocker substituted for blood pressure Potassium 4.5 day of discharge (2) KASIA (acute kidney injury): Code(s): N17.9 - Acute kidney failure, unspecified Status: Acute Assessment and Plan: * Decker catheter * Renal ultrasound with thickened bladder wall, no hydroneprhosis * Creatinine imrpoved with Decker, IVF, D/c ACEI: 10/01 3.7, 10/02 2.5, 10/03 1.5, 10/04 1.1 * decker out 10/03 and voiding well and creatinine 1 .1 the day of (3) Sickle cell pain crisis: Code(s): D57.00 - Hb-SS disease with crisis, unspecified Status: Acute Assessment and Plan: * 09/29 Hemoglobin 6.7 with platelets [id number] AST 126 bilirubin 7 reticulocyte % 14.13 * 09/29 Transfused 2 units packed red cells * Analgesics prn 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 * 09/30 added steroids * 10/01 hemoglobin stable at 7.1 * 10/02 hgb 7.0, Bili 11.6, AST 177, Retic % 10.18 * 10/03 hemoglobin 6.6 but well compensated and with June as well as sickle cell anemia held on transfusion * 10/04 Hgb 7.3 so continue to follow * 10/05 7.4 at discharge (4) 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: Code(s): D57.412 - Sickle-cell thalassemia with splenic sequestration Status: Acute Assessment and Plan: * See above (5) Chronic pain: Qualifiers: Chronic pain type: other chronic pain Qualified Code(s): G89.29 - Other chronic pain Code(s): G89.29 - Other chronic pain Status: Chronic Assessment and Plan: * Current home oxycodone use is 5 mg every 4 hours or 30 mg per day * 10/02 10/03: Continue prn hydrocodone and hydromorphone (6) Symptomatic anemia: Code(s): D64.9 - Anemia, unspecified Status: Acute Assessment and Plan: * Transfuse to maintain hemoglobin near 7 secondary to June positive as well as sickle cell anemia. * Prednisone 60 Q 12 for Hematology (7) Thrombocytopenia: Code(s): D69.6 - Thrombocytopenia, unspecified Status: Chronic Assessment and Plan: * Likely due to combination of consumption and splenic sequestration 106 K discharge (8) Hypertension: Qualifiers: Hypertension type: essential hypertension Qualified Code(s): I10 - Essential (primary) hypertension Code(s): I10 - Essential (primary) hypertension Status: Chronic Assessment and Plan: * , added calcium channel lalita with amlodipine 5 mg q day, in place of WILLAM- inhibitor (9) Diabetes: Qualifiers: Diabetes mellitus type: type 2 Diabetes mellitus tank terminal gauger insulin use: with tank terminal gauger use Diabetes mellitus complication status: without complication Qualified Code(s): E11.9 - Type 2 diabetes mellitus without complications; Z79.4 - tank terminal gauger (current) use of insulin Code(s): E11.9 - Type 2 diabetes mellitus without complications Status: Chronic Assessment and Plan: * Holding metformin due to acute renal failure restarted on discharge * Sliding scale NovoLog while in and insulin b.i.d. restarted on discharge * FBS 203 date (10) History of DVT (deep vein thrombosis): Code(s): Z86.718 - Personal history of other venous thrombosis and embolism
--- NOTE | 2019-10-06 18:17 | PM.DS ---
DS: Admitting Diagnosis Admitting Diagnosis Admitting Diagnosis: Hb-SS disease with crisis, unspecified DS: Discharge Diagnosis Discharge Diagnosis (1) Hyperkalemia: Code(s): E87.5 - Hyperkalemia Status: Acute Assessment and Plan: Secondary to acute kidney injury. WILLAM-inhibitor was and calcium channel are lalita substituted for blood pressure Potassium 4.5 day of discharge (2) KASIA (acute kidney injury): Code(s): N17.9 - Acute kidney failure, unspecified Status: Acute Assessment and Plan: Decker catheter Renal ultrasound with thickened bladder wall, no hydroneprhosis Creatinine imrpoved with Decker, IVF, D/c ACEI: 10/01 3.7, 10/02 2.5, 10/03 1.5, 10/04 1.1 decker out 10/03 and voiding well and creatinine 1 .1 the day of (3) Sickle cell pain crisis: Code(s): D57.00 - Hb-SS disease with crisis, unspecified Status: Acute Assessment and Plan: 09/29 Hemoglobin 6.7 with platelets [id number] AST 126 bilirubin 7 reticulocyte % 14.13 09/29 Transfused 2 units packed red cells Analgesics prn 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 09/30 added steroids 10/01 hemoglobin stable at 7.1 10/02 hgb 7.0, Bili 11.6, AST 177, Retic % 10.18 10/03 hemoglobin 6.6 but well compensated and with June as well as sickle cell anemia held on transfusion 10/04 Hgb 7.3 so continue to follow 10/05 7.4 at discharge (4) 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: Code(s): D57.412 - Sickle-cell thalassemia with splenic sequestration Status: Acute Assessment and Plan: See above (5) Chronic pain: Qualifiers: Chronic pain type: other chronic pain Qualified Code(s): G89.29 - Other chronic pain Code(s): G89.29 - Other chronic pain Status: Chronic Assessment and Plan: Current home oxycodone use is 5 mg every 4 hours or 30 mg per day 10/02 10/03: Continue prn hydrocodone and hydromorphone (6) Symptomatic anemia: Code(s): D64.9 - Anemia, unspecified Status: Acute Assessment and Plan: Transfuse to maintain hemoglobin near 7 secondary to June positive as well as sickle cell anemia. Prednisone 60 Q 12 for Hematology (7) Thrombocytopenia: Code(s): D69.6 - Thrombocytopenia, unspecified Status: Chronic Assessment and Plan: Likely due to combination of consumption and splenic sequestration 106 K discharge (8) Hypertension: Qualifiers: Hypertension type: essential hypertension Qualified Code(s): I10 - Essential (primary) hypertension Code(s): I10 - Essential (primary) hypertension Status: Chronic Assessment and Plan: , added calcium channel lalita with amlodipine 5 mg q day, in place of WILLAM-inhibitor (9) Diabetes: Qualifiers: Diabetes mellitus type: type 2 Diabetes mellitus maintenance groundman insulin use: with custodial use Diabetes mellitus complication status: without complication Qualified Code(s): E11.9 - Type 2 diabetes mellitus without complications; Z79.4 - FDC (current) use of insulin Code(s): E11.9 - Type 2 diabetes mellitus without complications Status: Chronic Assessment and Plan: Holding metformin due to acute renal failure restarted on discharge Sliding scale NovoLog while in and insulin b.i.d. restarted on discharge FBS 203 date (10) History of DVT (deep vein thrombosis): Code(s): Z86.718 - Personal history of other venous thrombosis and embolism Status: Chronic Assessment and Plan: apixaban b.i.d. continue (11) Cirrhosis: Qualifiers: Hepatic cirrhosis type: unspecified hepatic cirrhosis Ascites presence: without ascites Qualified Code(s): K74.60 - Unspecified cirrhosis of liver Code(s): K74.60 - Unspecified cirrhosis of liver Status: Chronic Assessment and Plan: 10/04, lfts and LDH alll continue to fall , thought se
[2019-10-07 10:33] LABS: Chloride Rand Ur 115 mmol/L (32-290); Chloride/Creatinine Rand Ur 280 (23-275); Creatinine Random Urine 41 mg/dL (20-320)
== END 2019-10-06 12:20 | disposition home or self-care (01) | DRG 812 ==
LOC: ANHED 13:45 → ANH2MED 14:21 → ANHIMU 10-02 12:11 → ANH2MED 10-03 15:27 → ANHIMU 10-11 08:30
PROVIDERS: Emergency Medicine Emergency Medical Services; Internal Medicine; Internal Medicine Nephrology; Admitting Provider Internal Medicine; Emergency Provider Emergency Medicine; PCP Emergency Medicine; Visit Provider Internal Medicine
DX: D57.00 Hb-SS disease with crisis, unspecified (principal); N17.9 Acute kidney failure, unspecified; D57.4 Sickle-cell thalassemia; D69.6 Thrombocytopenia, unspecified; G89.29 Other chronic pain; K74.60 Unspecified cirrhosis of liver; I10 Essential (primary) hypertension; E11.36 Type 2 diabetes mellitus with diabetic cataract; H26.9 Unspecified cataract; E87.5 Hyperkalemia; Z79.01 Long term (current) use of anticoagulants; Z79.4 Long term (current) use of insulin; Z86.711 Personal history of pulmonary embolism; Z86.718 Personal history of other venous thrombosis and embolism
CPT/HCPCS: 36415; 36430; 76775; 80048; 80053; 80069; 80074; 80076; 81050; 82140; 82436; 82570; 83615; 83690; 84156; 84300; 85025; 85027; 85046; 85055; 85610; 85999; 86706; 86850; 86860; 86870; 86880; 86900; 86901; 86922; 86971; 87040; 93005; 96361; 96374; 96375; 96376; 99285; A9270; G0378; J0610; J1170; J1200; J1642; J1644; J1815; J1940; J2405; J2704; J7030; J7050; J7120; J7512; P9016

== ENCOUNTER 2019-10-22 02:45 | Inpatient (IN) | payer MEDICARE, MEDICAID, SELFPAY ==
[2019-10-22] VITALS (8 sets, daily range): BP systolic 136–160; BP diastolic 61–78; PULSE 72–96; RESP 12–20; TEMP 36.6–37; O2SAT 91–99; BMI 19.8
--- NOTE | ~2019-10-22 | XR_ITS ---
XR chest 1V portable DATE: 10/22/2019 04:07 INDICATION: Shortness of breath TECHNIQUE: Portable AP chest on 10/22/2019 at 0353 hours COMPARISON: 09/02/2019 portable AP chest at 1024 hours FINDINGS: Left internal jugular Port-A-Cath catheter tip overlies the superior cavoatrial junction ap proximately. Cardiomegaly. Aortic arch calcification. There are scattered chronic bilateral linear fibrotic changes of the lungs. No pulmonary consolidatio n, pleural effusion, pulmonary vascular congestion or pneumothorax is evident. Surgical clips overlie the right upper quadrant. Osteopenia. IMPRESSION: Left Port-A-Cath catheter Cardiomegaly, aortic atherosclerosis Chronic scattered pulmonary fibrotic changes; no pulmonary consolidation or pleural effusion Reviewed, dictated and finalized at location A. IMPRESSION: Left Port-A-Cath catheter Cardiomegaly, aortic atherosclerosis Chronic scattered pulmonary fibrotic changes; no pulmonary consolidation or ple ural effusion
--- NOTE | 2019-10-22 03:16 | ECG_ITS ---
Measurements Intervals [place] Rate: 73 P: 59 AL: 144 QRS: 3 QRSD: 86 T: 91 QT: 390 QTc: 430 Interpretive Statements SINUS RHYTHM POSSIBLE LEFT ATRIAL ENLARGEMENT LEFT VENTRICULAR HYPERTROPHY AND ST-T CHANGE CONSIDER TYPE 3 BRUGADA PATTERN (NON-DIAGNOSTIC) MINIMAL Q WAVES- HIGH LATERAL LEADS ST ELEVATION IN ANTERIOR LEADS- PROBABLY EARLY REPOLARIZATION ABNORMAL ECG Electronically Signed On 10-22-2019 7:18:58 CDT by Franklin Bajwa D.O.
--- NOTE | 2019-10-22 03:17 | ED.GENADULT ---
HPI - General Adult General Chief complaint: Unspecified Stated complaint: sickle cell crisis Time Seen by Provider: 10/22/19 03:04 History of Present Illness HPI narrative: Patient presents for sickle cell crisis. Started a week ago, but got much worse 4 days ago. He still able to eat and drink and making good urine, but his home pain medicine is not helping. He says he gets Dilaudid when he comes to the hospital. He does not take hydroxyurea, but he does take folic acid. His previous chart said he has a thalassemia variant, but I do not see the hemoglobin electrophoresis. He gets frequent transfusions, but has been June positive. He has a left lower chest pain, which he gauges it 8 out of 10. He has lower back pain which he gauges 8 out of 10. He usually gets multiple joint pains including his hands, which he does not have today. He thinks he needs a blood transfusion. Onset (ago): day(s) Location: chest and back Radiation: non-radiation Severity: severe Severity scale (1-10): 8 Related Data Home Medications Medication Instructions Recorded Confirmed metformin 500 mg PO BID 08/31/19 09/30/19 Tresiba FlexTouch U-200 10 unit SUBCUT BID 09/30/19 09/30/19 Allergies Allergy/AdvReac Type Severity Reaction Status Date / Time iohexol Allergy Severe Unconscious Verified 09/30/19 12:02 [From CONTRAST - CT, XRAY] ketorolac AdvReac Loss of Verified 09/30/19 12:02 Consciousness Contrast Media Allergy Severe PASSED Uncoded 09/30/19 12:02 OUT Review of Systems Review of Systems: Narrative: CONSTITUTIONAL: Denies fever, chills, or sweats. EYES: Denies visual changes, redness, or discharge. ENT: Denies rhinorrhea, congestion, sore throat, or otalgia. CARDIOVASCULAR: He has chest pain, but not palpitations, or edema. RESPIRATORY: Denies cough or dyspnea. GASTROINTESTINAL: Denies abdominal pain, nausea, vomiting, or diarrhea. GENITOURINARY: Denies dysuria or hematuria. SKIN: Denies rash or itching. MUSCULOSKELETAL: He has back pain, but not joint pain, or myalgia. NEUROLOGIC: Denies headache, numbness, or weakness. PSYCHIATRIC: Denies anxiety or depression. [facility] Past Medical History Medical History Anxiety Back fracture Cataract Depression Diabetes DVT (deep venous thrombosis) FH: cholecystectomy Cholecystectomy in approximately 1999 Gall bladder disease Hypertension Irregular heartbeat Liver disease Pancreatitis Port-A-Cath in place Pulmonary embolism Sickle cell anemia with coexistent alpha-thalassemia Surgical History Surgical History Hx of cholecystectomy Family History Family History (Updated 09/30/19 @ 17:47 by Serg Clark MD) Father Acute myocardial infarction Sibling Diabetes mellitus Sibling Hypertension Sickle cell anemia Social History Social History Social History: Mr. Gonzalez lives at home alone, with his pet dog. He is independent in his daily activities. 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 His daughter, Jonelle ([phone]), is his surrogate decision maker. 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 Gender identity (if verbalized by the patient): Male Spiritual care concerns: No Agree to blood products: Yes Exam Narrative: Exam Narrative: GENERAL: Well-appearing, well-nourished, and in no acute distress. Thin, port on the upper left chest. HEAD: Normocephalic, atraumatic. EYES: PERRLA and EOMI. ENT: Nares clear, no rhinorrhea or epistaxis. Mucous membranes moist. NECK: Supple. CHEST: Clear to auscultation. No respiratory distress. HEART: Regular rate and rhythm. No murmur heard. Normal peripheral pulses. ABDOMEN: Soft, nontender, non
[2019-10-22] MEDS: HYDROMORPHONE HCL 1 MG/ML INJ 0.5 MG IV PUSH ×2 (03:44→04:50)
[2019-10-22] MEDS: SODIUM CHLORIDE 0.9% IV 1,000 ML 999 ML IV CONT ×2 (03:46→05:52)
[2019-10-22 03:51] LABS: Basophils Percent Auto 0.1 % (0.2-1.2); Eosinophils Absolute Auto 0.1 K/mm3 (0-0.3); Eosinophils Percent Auto 0.4 % (0-4.4); Hemoglobin 7.3 g/dL (14.0-18.0); Immature Granulocyte Absolute 0.07 K/mm3 (0.00-0.031); Immature Granulocyte Percent A 0.5 % (0-0.5); Lymphocytes Absolute Auto 1.36 K/mm3 (0.9-3.2); Lymphocytes Percent Auto 10.5 % (18.3-44.2); Mean Corpuscular HGB Conc 34.8 g/dl (32-36); Mean Corpuscular Hemoglobin 30.9 pg (26-34); Monocytes Absolute Auto 0.9 K/mm3 (0.1-0.6); Monocytes Percent Auto 7.3 % (2.6-8.5); Neutrophils Absolute Auto 10.5 K/mm3 (1.3-6.7); Neutrophils Percent Auto 81.2 % (45.5-73.1); Nucleated Red Blood Cells Absolute Auto 0.1 K/mm3 (0.0-0.012); Nucleated Red Blood Cells Perc 0.5 % (0.0-0.2); Platelet Count Result 186 k/mm3 (150-375); Red Blood Count 2.36 M/mm3 (4.6-6.20); Red Cell Distribution Width 18.7 % (11.5-14.5); White Blood Count 12.9 K/mm3 (4.5-10.0)
[2019-10-22 03:54] LABS: Add Urine Microscopic? YES; Appearance Urine Clear (Clear); Bilirubin Urine Negative (Negative); Blood Urine Negative (Negative); Color Urine Yellow (Yellow); Glucose Urine UA 3+ mg/dL (Negative); Ketones Urine Negative (Negative); Leukocyte Esterase Ur Negative LEU/UL (Negative); Nitrate Urine Negative (Negative); Protein Urine Negative (Negative); Specific Grav Ur 1.018 (1.001-1.035)
[2019-10-22 03:59] LABS: Immature Reticulocyte Fraction 16.6 % (3.0-15.9); Reticulocyte Hemoglobin Conten 35.9 pg (28.2-35.7); Reticulocyte Percent 7.58 % (0.7-4.3); Reticulocytes Absolute 0.18 B/L (32.2-175.7)
[2019-10-22 04:15] LABS: Ovalocytes 1+ (NORMAL); Platelet Estimate Adequate (Adequate); Sickle Cells 1+ (NORMAL)
[2019-10-22 04:16] LABS: Hypochromasia 1+ (NORMAL)
[2019-10-22 04:17] LABS: Troponin I 0.021 ng/mL (0.000-0.034)
[2019-10-22 04:28] LABS: Alanine Aminotransferase 54 U/L (4-50); Albumin Level 4.1 g/dL (3.5-5.1); Alkaline Phosphatase 206 U/L (38-126); Aspartate Amino Transferase 39 U/L (17-59); Bilirubin,Total 7.4 mg/dL (0.2-1.3); Blood Urea Nitrogen 33 mg/dL (9-20); Calcium 9.9 mg/dL (8.4-10.2); Carbon Dioxide 28 mmol/L (22-30); Chloride 90 mmol/L (98-107); Estimated Glomerular Filt Rate > 60; Glucose 711 mg/dL (75-110); Lipase 273 U/L (23-300); Potassium 4.5 mmol/L (3.4-5.0); Sodium 124 mmol/L (137-145)
[2019-10-22] MEDS: INSULIN HUMAN REGULAR (*BKC) 100 UNITS/ML 7 UNITS IV PUSH ×2 (04:48→05:51)
[2019-10-22 04:57] LABS: Glucose Point of Care > 500 (65-105)
[2019-10-22 05:57] LABS: Glucose Point of Care 497 (65-105)
[2019-10-22 06:06] LABS: Beta-Hydroxybutyrate/Acetoacetate 0.05 mmol/L (0.02-0.27)
[2019-10-22 06:15] LABS: Hemoglobin A1C 8.5 % (<5.7)
[2019-10-22 07:30] LABS: Glucose Point of Care 317 (65-105)
--- NOTE | 2019-10-22 08:34 | ADMGEN ---
This patient, Jaden Gonzalez, was admitted to 2 Medical Room 259-. Patient/family oriented to hospital policies and general routines including ID bracelet, bed and alarms, visiting hours, pain management, procedures, bathroom and other care routines, personal items, smoking policy, room service/diet, and visiting hours. Valuables list has been completed. Information on how to activate the Rapid Response Team has been discussed. Patient/Family are encouraged to report perceived risks to care and to ask questions if they do not understand what they are told or what they should do.
[2019-10-22] MEDS: MORPHINE SULFATE 4 MG/ML INJ IV PUSH ×4 (08:49→20:50)
[2019-10-22 09:23] LABS: Glucose Point of Care 314 (65-105)
[2019-10-22] MEDS: INSULIN ASPART (*BKC) 100 UNITS/ML 10 UNITS SUB-Q (09:45)
[2019-10-22] MEDS: SODIUM CHLORIDE 0.9% IV 1,000 ML 100 ML IV CONT ×2 (09:48→19:38)
[2019-10-22] MEDS: predniSONE 20 MG TABLET 40 MG PO ×2 (12:15→19:40)
[2019-10-22 14:36] LABS: Glucose Point of Care 251 (65-105)
[2019-10-22] MEDS: INSULIN ASPART (*BKC) 100 UNITS/ML SUB-Q ×2 (14:40→18:15)
[2019-10-22] MEDS: lisinopriL 10 MG TABLET PO (16:20)
[2019-10-22] MEDS: AMLODIPINE BESYLATE 2.5 MG TABLET PO (16:20)
[2019-10-22 16:51] LABS: Albumin Level 3.7 g/dL (3.5-5.1); Blood Urea Nitrogen 23 mg/dL (9-20); Calcium 9.4 mg/dL (8.4-10.2); Carbon Dioxide 27 mmol/L (22-30); Chloride 102 mmol/L (98-107); Estimated CRCL calculation 57 ml/min; Estimated Glomerular Filt Rate > 60; Glucose 300 mg/dL (75-110); Phosphorus 2.4 mg/dL (2.5-4.5); Potassium 4.5 mmol/L (3.4-5.0); Sodium 132 mmol/L (137-145)
[2019-10-22 18:07] LABS: Glucose Point of Care 360 (65-105)
--- NOTE | 2019-10-22 18:15 | PM.IMHP ---
H&P: HPI History of Present Illness Chief complaint: sickle cell crisis Narrative: Date of visit 10/21. Jaden Gonzalez is a 63 year old male hypertension hemoglobin SS, history recurrent DVT on Eliquis, with cirrhosis secondary to repeated transfusions and iron overload who was recently discharged from the hospital approximately 2 weeks ago for treatment of sickle cell crisis complicated by hemolytic anemia. Discharge with hemoglobin above 7 on prednisone 60 b.i.d.. Event doing fairly well to last 4-5 days when pain is joint started increasing and blood sugars started elevating. Denied any fever chills cough nausea vomiting or diarrhea. Presented to the emergency room was blood sugar over 500 but not acidotic. Was given IV insulin 2 separate occasions hydrated with 2 L saline boluses. With pressure fine and blood sugar falling was admitted for evaluation and treatment of the same. [facility] Past Medical History Medical History Anxiety Back fracture Cataract Depression Diabetes DVT (deep venous thrombosis) FH: cholecystectomy Cholecystectomy in approximately 1999 Gall bladder disease Hypertension Irregular heartbeat Liver disease Pancreatitis Port-A-Cath in place Pulmonary embolism Sickle cell anemia with coexistent alpha-thalassemia Surgical History Surgical History Hx of cholecystectomy Social History Social History Social History: Mr. Gonzalez lives at home alone, with his pet dog. He is independent in his daily activities. 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 His daughter, Jonelle ([phone]), is his surrogate decision maker. 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 Gender identity (if verbalized by the patient): Male Spiritual care concerns: No Agree to blood products: Yes Meds Home Medications and Allergies Home Medications Medication Instructions Recorded Confirmed Type apixaban 5 mg tablet 5 mg PO BID #180 tablet 08/08/19 10/22/19 Rx metformin 500 mg PO DAILY 08/31/19 10/22/19 History Tresiba FlexTouch U-200 10 unit SUBCUT BID 09/30/19 10/22/19 History folic acid 1 mg PO DAILY #30 tablet 10/06/19 10/22/19 Rx oxycodone 5 mg PO Q4H PRN #30 tablet 10/06/19 10/22/19 Rx prednisone 60 mg PO BID #360 tablet 10/06/19 10/22/19 Rx tamsulosin 0.4 mg PO HS #30 cap 10/06/19 10/22/19 Rx amlodipine [Norvasc] 2.5 mg PO QAM 10/22/19 10/22/19 History atenolol 50 mg PO DAILY 10/22/19 10/22/19 History chlorzoxazone 500 mg PO TID 10/22/19 10/22/19 History cyclobenzaprine 10 mg PO TID PRN 10/22/19 10/22/19 History furosemide 20 mg PO DAILY 10/22/19 10/22/19 History gabapentin 100 mg PO BID 10/22/19 10/22/19 History hydralazine 50 mg PO BID 10/22/19 10/22/19 History hydrochlorothiazide 25 mg PO BID 10/22/19 10/22/19 History lisinopril 10 mg PO DAILY 10/22/19 10/22/19 History meloxicam 7.5 mg PO DAILY 10/22/19 10/22/19 History Allergies Allergy/AdvReac Type Severity Reaction Status Date / Time iohexol Allergy Severe Unconscious Verified 09/30/19 12:02 [From CONTRAST - CT, XRAY] ketorolac AdvReac Loss of Verified 09/30/19 12:02 Consciousness Contrast Media Allergy Severe PASSED Uncoded 09/30/19 12:02 OUT Vital Signs Vital Signs - 24 hr 10/22/19 02:49 10/22/19 04:30 10/22/19 05:54 Temperature 37.0 C Pulse Rate 81 75 76 Respiratory Rate 16 12 13 Blood Pressure 160/70 H 140/63 140/73 Pulse Oximetry 98 91 94 10/22/19 07:03 10/22/19 08:01 10/22/19 08:50 Temperature 36.6 C Pulse Rate 72 72 96 Respiratory Rate 18 14 17 Blood Pressure 138/67 136/69 150/78 H Pulse Oximetry 95 97 99 10/22/19 14:00 Temperature 36.6 C Pulse Rate 79 Respiratory Rate 19 Blood Pressure 141/
[2019-10-22] MEDS: INSULIN ASPART (*BKC) 100 UNITS/ML 15 UNITS SUB-Q (18:20)
[2019-10-22] MEDS: APIXABAN 5 MG TABLET PO (19:40)
[2019-10-22] MEDS: hydrALAZINE HCL 50 MG TABLET PO (19:40)
[2019-10-22] MEDS: GABAPENTIN 100 MG CAPSULE PO (19:40)
[2019-10-22] MEDS: CENTRAL LINE FLUSH 10 ML IV PUSH (19:41)
[2019-10-22] MEDS: TAMSULOSIN HCL 0.4 MG CAPSULE PO (19:41)
[2019-10-22] MEDS: INSULIN GLARGINE (*BKC) 100 UNITS/ML 15 UNITS SUB-Q (19:45)
[2019-10-22 20:58] LABS: Glucose Point of Care 352 (65-105)
[2019-10-23] MEDS: MORPHINE SULFATE 4 MG/ML INJ IV PUSH ×3 (01:05→08:11)
[2019-10-23] MEDS: CENTRAL LINE FLUSH 10 ML IV PUSH ×2 (05:05→17:21)
[2019-10-23 05:13] LABS: Basophils Percent Auto 0.1 % (0.2-1.2); Immature Granulocyte Percent A 0.9 % (0-0.5); Immature Reticulocyte Fraction 23.4 % (3.0-15.9); Lymphocytes Absolute Auto 0.84 K/mm3 (0.9-3.2); Lymphocytes Percent Auto 7.5 % (18.3-44.2); Mean Corpuscular Hemoglobin 29.5 pg (26-34); Mean Corpuscular Volume 86.8 fl (80-100); Monocytes Absolute Auto 0.4 K/mm3 (0.1-0.6); Monocytes Percent Auto 3.5 % (2.6-8.5); Neutrophils Absolute Auto 9.9 K/mm3 (1.3-6.7); Nucleated Red Blood Cells Absolute Auto 0.1 K/mm3 (0.0-0.012); Nucleated Red Blood Cells Perc 0.7 % (0.0-0.2); Platelet Count Result 160 k/mm3 (150-375); Red Blood Count 2.27 M/mm3 (4.6-6.20); Red Cell Distribution Width 18.6 % (11.5-14.5); Reticulocytes Absolute 0.19 B/L (32.2-175.7); White Blood Count 11.2 K/mm3 (4.5-10.0)
[2019-10-23 05:15] LABS: Hematocrit 19.7 % (42.0-52.0); Hemoglobin 6.7 g/dL (14.0-18.0)
[2019-10-23 05:24] LABS: Alanine Aminotransferase 57 U/L (4-50); Albumin Level 3.8 g/dL (3.5-5.1); Alkaline Phosphatase 186 U/L (38-126); Aspartate Amino Transferase 52 U/L (17-59); Bilirubin Direct 0.4 mg/dL (0-0.3); Bilirubin,Total 8.3 mg/dL (0.2-1.3); Blood Urea Nitrogen 22 mg/dL (9-20); Calcium 9.5 mg/dL (8.4-10.2); Carbon Dioxide 26 mmol/L (22-30); Chloride 103 mmol/L (98-107); Estimated CRCL calculation 64 ml/min; Estimated Glomerular Filt Rate > 60; Glucose 279 mg/dL (75-110); Lactate Dehydrogenase 868 U/L (313-618); Potassium 4.8 mmol/L (3.4-5.0); Sodium 130 mmol/L (137-145)
[2019-10-23 05:25] LABS: Phosphorus 3.2 mg/dL (2.5-4.5)
[2019-10-23 06:00] VITALS: BP 193/68; PULSE 83; RESP 18; TEMP 36.7; O2SAT 98
[2019-10-23 07:48] LABS: Glucose Point of Care 289 (65-105)
[2019-10-23] MEDS: INSULIN ASPART (*BKC) 100 UNITS/ML SUB-Q ×3 (08:11→12:51)
[2019-10-23] MEDS: INSULIN GLARGINE (*BKC) 100 UNITS/ML 25 UNITS SUB-Q (08:12)
[2019-10-23] MEDS: lisinopriL 10 MG TABLET PO (08:14)
[2019-10-23] MEDS: AMLODIPINE BESYLATE 2.5 MG TABLET PO (08:14)
[2019-10-23] MEDS: predniSONE 20 MG TABLET 40 MG PO (08:14)
[2019-10-23] MEDS: FOLIC ACID 1 MG TABLET PO (08:14)
[2019-10-23] MEDS: hydrALAZINE HCL 50 MG TABLET PO ×3 (08:14→21:01)
[2019-10-23] MEDS: APIXABAN 5 MG TABLET PO ×2 (08:14→21:01)
[2019-10-23] MEDS: GABAPENTIN 100 MG CAPSULE PO ×2 (08:14→21:01)
[2019-10-23 11:35] VITALS: PULSE 83
[2019-10-23] MEDS: HYDROMORPHONE HCL 1 MG/ML INJ IV PUSH ×3 (11:35→21:07)
[2019-10-23] MEDS: SODIUM CHLORIDE 0.9% IV 1,000 ML 100 ML IV CONT (11:35)
[2019-10-23] MEDS: atenoloL 50 MG TABLET PO (11:35)
[2019-10-23 11:53] LABS: Glucose Point of Care 349 (65-105)
[2019-10-23] MEDS: CYCLOBENZAPRINE HCL 10 MG TABLET PO (12:11)
[2019-10-23 14:00] VITALS: BP 116/49; PULSE 67; RESP 16; TEMP 36.9; O2SAT 95
--- NOTE | 2019-10-23 14:11 | PM.IMPN ---
Progress Note: A&P Assessment and Plan (1) Sickle cell pain crisis: Code(s): D57.00 - Hb-SS disease with crisis, unspecified Status: Acute Assessment and Plan: Continue hydration and pain control with narcotics changed from morphine to Dilaudid as he has used in the past (2) Anemia: Code(s): D64.9 - Anemia, unspecified Status: Acute Assessment and Plan: Secondary to sickle cell as well as recent June positive hemolytic anemia. Hemoglobin down some this a.m. as expected with aggressive hydration. LDH is actually lower than had been on last admission. With the recent hemolytic anemia will hold on transfusion unless hemoglobin drops further especially in light of his history of iron overload and cirrhosis.. Continue prednisone and given his course now to be on 40 mg b.i.d.(D#2) and will continue his long taper of 10 mg decrease every 4th day (3) Diabetes: Qualifiers: Diabetes mellitus type: type 2 Diabetes mellitus long term care social worker insulin use: unspecified long term care social worker insulin use status Diabetes mellitus complication status: with hyperglycemia Qualified Code(s): E11.65 - Type 2 diabetes mellitus with hyperglycemia Code(s): E11.9 - Type 2 diabetes mellitus without complications Status: Acute Assessment and Plan: Uncontrolled diabetes probably secondary to crisis as well as recent steroids Increase Lantus again today and had schedule NovoLog with meals as well as sliding scale (4) Hypertension: Qualifiers: Hypertension type: essential hypertension Qualified Code(s): I10 - Essential (primary) hypertension Code(s): I10 - Essential (primary) hypertension Status: Acute Assessment and Plan: Pressure fair control on admission and continued amlodipine and lisinopril but held hydralazine initially as well as diuretics Today pressure is elevated so reinstitute hydralazine with beta-lalita also (5) Cirrhosis: Qualifiers: Hepatic cirrhosis type: unspecified hepatic cirrhosis Ascites presence: without ascites Qualified Code(s): K74.60 - Unspecified cirrhosis of liver Code(s): K74.60 - Unspecified cirrhosis of liver Status: Chronic Assessment and Plan: LFTs mildly elevated as before.. No evidence of ascites but has chronic thrombocytopenia (6) Hyponatremia: Code(s): E87.1 - Hypo-osmolality and hyponatremia Status: Acute Assessment and Plan: Likely secondary to dehydration and pseudo hyponatremia. Hydrate aggressively and follow Sodium up to 130 today. Continue to monitor (7) History of DVT (deep vein thrombosis): Code(s): Z86.718 - Personal history of other venous thrombosis and embolism Status: Chronic Assessment and Plan: Continue Eliquis Subjective Date/time seen: 10/23/19 14:11 Interval history: Date of visit 10/22. 63-year-old hypertensive type 2 diabetic with sickle cell disease and recently diagnosis June positive hemolytic anemia admitted with increasing blood sugar and simple pain. Feels slightly better this morning but still quite a bit of pain and morphine gives him headache. No shortness of breath or discuss comfort in chest or abdomen. Exam Narrative: Exam Narrative: Blood pressure 184/68 pulse is 82 saturating 98% on room air afebrile Pupils equal reactive to light sclera anicteric Neck supple no adenopathy Mouth mucosa less dry today Lungs clear CV regular rate rhythm systolic ejection murmur Abdomen is soft nontender Extremities without edema distal pulses are 2+ Neuro alert and cooperative no focal deficits cranial nerves 2-12 are intact Integument no skin breakdown or rashes Objective Data Vital Signs Vital Signs: Vital Signs - 24 hr 10/22/19 22:00 10/23/19 06:00 10/23/19 11:35 Temperature 36.8 C 36.7 C Pulse Rate 83 83 83 Respiratory Rate 20 18 Blood Pressure 137/71 193/68 H Pulse Oximetry 96 98 Intake/Output Intake/Output: In
[2019-10-23 17:11] LABS: Glucose Point of Care 466 (65-105)
[2019-10-23] MEDS: INSULIN ASPART (*BKC) 100 UNITS/ML 30 UNITS SUB-Q (17:19)
[2019-10-23] MEDS: INSULIN GLARGINE (*BKC) 100 UNITS/ML 30 UNITS SUB-Q (20:43)
[2019-10-23 20:48] LABS: Glucose Point of Care 183 (65-105)
[2019-10-23] MEDS: TAMSULOSIN HCL 0.4 MG CAPSULE PO (21:01)
[2019-10-23 21:58] VITALS: BP 139/64; PULSE 73; RESP 18; TEMP 36.3; O2SAT 98
[2019-10-24] MEDS: HYDROMORPHONE HCL 1 MG/ML INJ IV PUSH ×8 (00:16→23:59)
[2019-10-24] MEDS: CENTRAL LINE FLUSH 10 ML IV PUSH ×4 (00:59→21:01)
[2019-10-24] MEDS: CYCLOBENZAPRINE HCL 10 MG TABLET PO (01:48)
[2019-10-24] MEDS: SODIUM CHLORIDE 0.9% IV 1,000 ML 75 ML IV CONT ×2 (03:17→16:44)
[2019-10-24 04:46] LABS: Basophils Percent Auto 0.1 % (0.2-1.2); Eosinophils Absolute Auto 0.2 K/mm3 (0-0.3); Eosinophils Percent Auto 0.9 % (0-4.4); Immature Granulocyte Absolute 0.47 K/mm3 (0.00-0.031); Immature Granulocyte Percent A 2.6 % (0-0.5); Immature Platelet Fraction Pct 10.5 % (0.9-11.2); Lymphocytes Absolute Auto 2.76 K/mm3 (0.9-3.2); Lymphocytes Percent Auto 15.5 % (18.3-44.2); Mean Corpuscular HGB Conc 33.3 g/dl (32-36); Mean Corpuscular Hemoglobin 29.3 pg (26-34); Mean Corpuscular Volume 87.8 fl (80-100); Mean Platelet Volume 11.6 fl (7.4-10.4); Monocytes Absolute Auto 1.2 K/mm3 (0.1-0.6); Monocytes Percent Auto 6.9 % (2.6-8.5); Neutrophils Absolute Auto 13.2 K/mm3 (1.3-6.7); Nucleated Red Blood Cells Absolute Auto 0.3 K/mm3 (0.0-0.012); Nucleated Red Blood Cells Perc 1.9 % (0.0-0.2); Platelet Count Result 115 k/mm3 (150-375); Red Blood Count 1.88 M/mm3 (4.6-6.20); White Blood Count 17.9 K/mm3 (4.5-10.0)
[2019-10-24 05:10] LABS: Blood Urea Nitrogen 24 mg/dL (9-20); Calcium 9.4 mg/dL (8.4-10.2); Carbon Dioxide 25 mmol/L (22-30); Chloride 104 mmol/L (98-107); Estimated CRCL calculation 57 ml/min; Estimated Glomerular Filt Rate > 60; Glucose 75 mg/dL (75-110); Lactate Dehydrogenase 996 U/L (313-618); Potassium 3.9 mmol/L (3.4-5.0); Sodium 133 mmol/L (137-145)
[2019-10-24 05:29] LABS: Hematocrit 16.5 % (42.0-52.0); Hemoglobin 5.5 g/dL (14.0-18.0)
[2019-10-24 05:54] VITALS: BP 142/63; PULSE 75; RESP 16; TEMP 36.4; O2SAT 99
[2019-10-24 07:51] LABS: Glucose Point of Care 65 (65-105)
[2019-10-24] MEDS: methylPREDNISolone SOD SUCC 125 MG VIAL IV PUSH ×3 (08:15→21:00)
[2019-10-24] MEDS: INSULIN GLARGINE (*BKC) 100 UNITS/ML 30 UNITS SUB-Q ×2 (08:23→20:56)
[2019-10-24 08:25] VITALS: BP 130/56; PULSE 96
[2019-10-24] MEDS: lisinopriL 10 MG TABLET PO (08:25)
[2019-10-24] MEDS: GABAPENTIN 100 MG CAPSULE PO ×2 (08:25→20:42)
[2019-10-24] MEDS: APIXABAN 5 MG TABLET PO ×2 (08:25→20:42)
[2019-10-24] MEDS: FOLIC ACID 1 MG TABLET PO (08:26)
[2019-10-24] MEDS: hydrALAZINE HCL 50 MG TABLET PO ×2 (08:26→20:42)
[2019-10-24] MEDS: AMLODIPINE BESYLATE 2.5 MG TABLET PO (08:27)
[2019-10-24 08:28] VITALS: PULSE 96
[2019-10-24] MEDS: atenoloL 50 MG TABLET PO (08:28)
[2019-10-24] MEDS: INSULIN ASPART (*BKC) 100 UNITS/ML SUB-Q ×2 (11:39→11:40)
[2019-10-24 11:45] LABS: Glucose Point of Care 263 (65-105)
[2019-10-24 14:00] VITALS: BP 110/53; PULSE 85; RESP 16; TEMP 36.9; O2SAT 94
--- NOTE | 2019-10-24 14:04 | PM.IMPN ---
Progress Note: A&P Assessment and Plan (1) Sickle cell pain crisis: Code(s): D57.00 - Hb-SS disease with crisis, unspecified Status: Acute Assessment and Plan: Continue hydration and pain control with narcotics changed from morphine to Dilaudid as he has used in the past (2) Anemia: Code(s): D64.9 - Anemia, unspecified Status: Acute Assessment and Plan: Secondary to sickle cell as well as recent Dx June positive hemolytic anemia. Hemoglobin down some this a.m. further with aggressive hydration. LDH is actually lower than had been on last admission. With the recent hemolytic anemia will hold on transfusion per Heme.. 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 insulin use: unspecified intermediate school teacher insulin use status Diabetes mellitus complication status: with hyperglycemia Qualified Code(s): E11.65 - Type 2 diabetes mellitus with hyperglycemia Code(s): E11.9 - Type 2 diabetes mellitus without complications Status: Acute Assessment and Plan: Uncontrolled diabetes probably secondary to crisis as well as recent steroids Increased Lantus again / and schedule NovoLog with meals as well as sliding scale today FBS 75 but back to >250 prior to lunch (4) Hypertension: Qualifiers: Hypertension type: essential hypertension Qualified Code(s): I10 - Essential (primary) hypertension Code(s): I10 - Essential (primary) hypertension Status: Acute Assessment and Plan: Pressure fair control on admission and continued amlodipine and lisinopril but held hydralazine initially as well as diuretics / pressure was elevated so reinstituted hydralazine with beta-lalita BP good today 130/56 (5) Cirrhosis: Qualifiers: Hepatic cirrhosis type: unspecified hepatic cirrhosis Ascites presence: without ascites Qualified Code(s): K74.60 - Unspecified cirrhosis of liver Code(s): K74.60 - Unspecified cirrhosis of liver Status: Chronic Assessment and Plan: LFTs mildly elevated as before.. No evidence of ascites but has chronic thrombocytopenia (6) Hyponatremia: Code(s): E87.1 - Hypo-osmolality and hyponatremia Status: Acute Assessment and Plan: Likely secondary to dehydration and pseudo hyponatremia. Hydrated aggressively and follow Sodium up to 133 today. Continue to monitor (7) History of DVT (deep vein thrombosis): Code(s): Z86.718 - Personal history of other venous thrombosis and embolism Status: Chronic Assessment and Plan: Continue Eliquis Subjective Date/time seen: 10/24/19 14:04 Interval history: Date of visit 10/23. 63-year-old hypertensive type 2 diabetic with sickle cell disease and recently diagnosed June positive hemolytic anemia admitted with increasing blood sugar and sicke pain. Feels slightly better this morning but still quite a bit of pain No shortness of breath or discomfort in chest or abdomen. Exam Narrative: Exam Narrative: Blood pressure 130/56 pulse is 86 saturating 98% on room air afebrile Pupils equal reactive to light sclera anicteric Neck supple Mouth mucosa not dry today Lungs clear CV regular rate rhythm systolic ejection murmur Abdomen is soft nontender Extremities without edema distal pulses are 2+ Neuro alert and cooperative no focal deficits cranial nerves 2-12 are intact Integument no skin breakdown or rashes Objective Data Vital Signs Vital Signs: Vital Signs - 24 hr 10/23/19 21:58 10/24/19 05:54 10/24/19 08:25 Temperature 36.3 C L 36.4 C L Pulse Rate 73 75 96 Respiratory Rate 18 16 Blood Pressure 139/64 142/63 H 130/56 L Pulse Oximetry 98 99 10/24/19 08:28 Temperature Pulse Rate 96 Respiratory Rate Blood Pressure Pulse Oximetry Intake/Output Intake/Output: Intake & Output 10/21/19 10/22/19 10/23/1910/23
[2019-10-24] MEDS: INSULIN ASPART (*BKC) 100 UNITS/ML 25 UNITS SUB-Q (16:42)
[2019-10-24 16:47] LABS: Glucose Point of Care 439 (65-105)
--- NOTE | 2019-10-24 18:38 | CONS_ITS ---
DATE OF CONSULTATION: 10/24/2019 HISTORY OF PRESENTING ILLNESS: This is a 63-year-old male with history of sickle cell anemia with multiple episodes of sickle cell crisis admission along with history of liver cirrhosis. He was recently admitted to the hospital and was diagnosed to have autoimmune hemolytic anemia on top of his sickle cell crisis anemia. He was discharged home on tapering dose of prednisone. He now came back into the hospital with generalized weakness, especially weakness in the lower extremities. On admission, his hemoglobin was found to be 7.3, which subsequently dropped down to 5.5. He was on prednisone 30 mg twice a day. He denies any bleeding and bruising. He denies any fevers and chills. Denies any abdominal pain. He claimed that he had been taking prednisone on a regular basis. REVIEW OF SYSTEMS: 12-point review of systems was reviewed and as per HPI, otherwise negative. PAST MEDICAL HISTORY: Sickle cell trait with beta thalassemia, anxiety, cataract, depression, diabetes, history of DVT and pulmonary embolism, history of liver cirrhosis, and history of renal insufficiency. PAST SURGICAL HISTORY: Cholecystectomy. FAMILY HISTORY: Sickle cell anemia in sister and brother. SOCIAL HISTORY: The patient lives independently. 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 Denies any history of smoking. HOME MEDICATIONS: Reviewed. ALLERGIES: REVIEWED. PHYSICAL EXAMINATION: GENERAL: This patient is a well-developed, well-nourished, male, alert and oriented. VITAL SIGNS: Per nursing note. HEENT: Normocephalic, atraumatic. Clear oropharynx. LUNGS: Clear to auscultation bilaterally. CARDIOVASCULAR: Regular rate and rhythm. No murmurs. ABDOMEN: Soft, nontender, nondistended. Bowel sounds are positive in all 4 quadrants. No hepatosplenomegaly. EXTREMITIES: No edema. NEUROLOGICAL: Grossly intact. LABORATORY DATA: WBC 17.9, hemoglobin 5.5, MCV 87.8, platelets are 115,000, neutrophils 74%, lymphocytes 15%, reticulocyte count 8.3%. Creatinine 0.9, LDH 996. ASSESSMENT AND PLAN: 1. Multifactorial anemia. The patient has a history of sickle cell anemia with beta thalassemia trait with history of frequent admission for sickle cell crisis. He was also diagnosed to have June positive hemolytic anemia during the last hospital admission on October 01, 2019. He was subsequently discharged home on a tapering dose of prednisone. He claimed that he has been taking prednisone on a regular basis. He came back into the hospital with sickle cell crisis episode. Hemoglobin on admission was 7.3, which dropped down to 5.5 today. He denies any bleeding and bruising. Likely this worsening of hemoglobin is secondary to IV hydration. At this time, I will avoid blood transfusion and we will increase steroid dose to Solu-Medrol 125 mg q.8 hours until hemoglobin more stable. He has no evidence of bleeding. 2. Thrombocytopenia. This is due to patient's history of liver cirrhosis. 3. History of renal insufficiency. Creatinine is normal. 4. History of pulmonary embolism and recurrent deep venous thrombosis. The patient is on Eliquis 5 mg twice a day. MEGHAN GREY M.D. VEHICLE DAMAGE APPRAISER VEHICLE DAMAGE APPRAISER D I MT: Nancy
[2019-10-24 20:00] VITALS: BP 136/69; PULSE 78; RESP 20; TEMP 36.4; O2SAT 95
[2019-10-24] MEDS: TAMSULOSIN HCL 0.4 MG CAPSULE PO (20:42)
[2019-10-24 20:46] LABS: Glucose Point of Care 307 (65-105)
[2019-10-25] VITALS (11 sets, daily range): BP systolic 114–148; BP diastolic 53–72; PULSE 72–94; RESP 16–22; TEMP 36.3–37.2; O2SAT 95–99
[2019-10-25] MEDS: HYDROMORPHONE HCL 1 MG/ML INJ IV PUSH ×6 (04:54→22:18)
[2019-10-25 04:59] LABS: Immature Granulocyte Percent A 2.2 % (0-0.5); Immature Reticulocyte Fraction 40.6 % (3.0-15.9); Lymphocytes Absolute Auto 0.59 K/mm3 (0.9-3.2); Lymphocytes Percent Auto 6.4 % (18.3-44.2); Mean Corpuscular HGB Conc 33.3 g/dl (32-36); Mean Corpuscular Hemoglobin 29.3 pg (26-34); Mean Corpuscular Volume 87.8 fl (80-100); Mean Platelet Volume 12.6 fl (7.4-10.4); Monocytes Absolute Auto 0.3 K/mm3 (0.1-0.6); Monocytes Percent Auto 3.5 % (2.6-8.5); Neutrophils Absolute Auto 8.1 K/mm3 (1.3-6.7); Neutrophils Percent Auto 87.9 % (45.5-73.1); Nucleated Red Blood Cells Absolute Auto 0.6 K/mm3 (0.0-0.012); Platelet Count Result 99 k/mm3 (150-375); Red Blood Count 1.64 M/mm3 (4.6-6.20); Red Cell Distribution Width 19.9 % (11.5-14.5); Reticulocyte Percent 10.81 % (0.7-4.3); Reticulocytes Absolute 0.18 B/L (32.2-175.7); White Blood Count 9.2 K/mm3 (4.5-10.0)
[2019-10-25] MEDS: methylPREDNISolone SOD SUCC 125 MG VIAL IV PUSH ×3 (05:00→22:53)
[2019-10-25] MEDS: CENTRAL LINE FLUSH 10 ML IV PUSH ×3 (05:07→22:53)
[2019-10-25 05:18] LABS: Hematocrit 14.4 % (42.0-52.0); Hemoglobin 4.8 g/dL (14.0-18.0)
[2019-10-25 05:19] LABS: Hypochromasia 2+ (NORMAL); Platelet Estimate Decreased (Adequate); Sickle Cells 2+ (NORMAL)
[2019-10-25 05:24] LABS: Blood Urea Nitrogen 24 mg/dL (9-20); Calcium 8.5 mg/dL (8.4-10.2); Carbon Dioxide 23 mmol/L (22-30); Chloride 109 mmol/L (98-107); Estimated CRCL calculation 64 ml/min; Estimated Glomerular Filt Rate > 60; Glucose 266 mg/dL (75-110); Potassium 4.2 mmol/L (3.4-5.0); Sodium 134 mmol/L (137-145)
[2019-10-25 05:50] LABS: Lactate Dehydrogenase 840 U/L (313-618)
[2019-10-25 07:49] LABS: Glucose Point of Care 308 (65-105)
[2019-10-25] MEDS: INSULIN ASPART (*BKC) 100 UNITS/ML SUB-Q ×6 (07:57→17:07)
[2019-10-25] MEDS: INSULIN GLARGINE (*BKC) 100 UNITS/ML 30 UNITS SUB-Q ×2 (08:00→20:37)
[2019-10-25] MEDS: AMLODIPINE BESYLATE 2.5 MG TABLET PO (08:01)
[2019-10-25] MEDS: atenoloL 50 MG TABLET PO (08:01)
[2019-10-25] MEDS: lisinopriL 10 MG TABLET PO (08:01)
[2019-10-25] MEDS: APIXABAN 5 MG TABLET PO (08:01)
[2019-10-25] MEDS: GABAPENTIN 100 MG CAPSULE PO ×2 (08:01→20:36)
[2019-10-25] MEDS: FOLIC ACID 1 MG TABLET PO (08:01)
[2019-10-25] MEDS: hydrALAZINE HCL 50 MG TABLET PO ×2 (08:01→20:36)
[2019-10-25] MEDS: FUROSEMIDE INJ 40 MG/4 ML VIAL 20 MG IV PUSH ×2 (11:09→15:01)
[2019-10-25 11:24] LABS: Glucose Point of Care 332 (65-105)
[2019-10-25] MEDS: SODIUM CHLORIDE 0.9% IV 1,000 ML 30 ML IV CONT (15:53)
--- NOTE | 2019-10-25 16:17 | PM.IMPN ---
Progress Note: A&P Assessment and Plan (1) Sickle cell pain crisis: Code(s): D57.00 - Hb-SS disease with crisis, unspecified Status: Acute Assessment and Plan: Patient with persistent pain diffusely. Will continue mild hydration and pain control with narcotics. Will plan to wean narcotics in 1-2 days. (2) Anemia: Code(s): D64.9 - Anemia, unspecified Status: Acute Assessment and Plan: Secondary to sickle cell as well as recent diagnosis of June positive hemolytic anemia. Patient currently on IV Solu-Medrol. Hgb has been drifting down past few days to 5.5 yesterday and 4.8 this morning which prompted a transfusion 1Unit of PRBC. LDH better today at 840. Appreciate Heme input. 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 Glucose uncontrolled probably secondary to crisis as well as recent steroids. Glucose in the 300's consistently. Will increase Lantus again and continue scheduled mealtime NovoLog. Continue sliding scale. Hypoglycemia protocol available as needed. (4) Hypertension: Qualifiers: Hypertension type: essential hypertension Qualified Code(s): I10 - Essential (primary) hypertension Code(s): I10 - Essential (primary) hypertension Status: Acute Assessment and Plan: BP reviewed on 10/25/19. BP well controlled. Will continue atenolol, hydralazine, amlodipine and lisinopril. HCTZ remains on hold. (5) Cirrhosis: Qualifiers: Ascites presence: without ascites Hepatic cirrhosis type: unspecified hepatic cirrhosis Qualified Code(s): K74.60 - Unspecified cirrhosis of liver Code(s): K74.60 - Unspecified cirrhosis of liver Status: Chronic Assessment and Plan: LFTs mildly elevated as before. CT A/P in August showing Cirrhosis and hyderdense liver c/w hemosiderosis. No evidence of ascites. He does have chronic thrombocytopenia. (6) Hyponatremia: Code(s): E87.1 - Hypo-osmolality and hyponatremia Status: Acute Assessment and Plan: Na 124 on admission. Likely secondary to dehydration, HCTZ and pseudo hyponatremia. Hydrated aggressively and Na corrected quickly. Sodium stable now in the the 130's. Continue to monitor. (7) History of DVT (deep vein thrombosis): Code(s): Z86.718 - Personal history of other venous thrombosis and embolism Status: Chronic Assessment and Plan: iNesha currently on hold Subjective Date/time seen: 10/25/19 16:17 Interval history: Date of visit 10/24. 63yo male with HTN, DM, sickle cell disease and recently diagnosed June positive hemolytic anemia here for sickle cell crisis. Assuming care. Chart reviewed. Has pain 'all over' without specifics provided. He has been up walking in the room. Eating normally. No n/v. No BM x 3 days Exam Narrative: Exam Narrative: AF 144/72 78 18 97% ra Gen - NARD Chest - CTA bilaterally, nml RR CV - RRR S1/S2 Abd - soft, ND, +BS, mild discomfort to exam Ext - no pedal edema Neuro - nonfocal Skin - warm and dry Objective Data Vital Signs Vital Signs: Vital Signs - 24 hr 10/24/19 20:00 10/25/19 04:30 10/25/19 08:00 Temperature 97.6 F 97.8 F Pulse Rate 78 94 89 Respiratory Rate 20 22 H 18 Blood Pressure 136/69 144/64 H Pulse Oximetry 95 95 97 10/25/19 08:10 10/25/19 08:41 10/25/19 09:41 Temperature 98.9 F 98.7 F 98.8 F Pulse Rate 89 86 74 Respiratory Rate 18 18 16 Blood Pressure 145/67 H 143/61 H 114/54 L Pulse Oximetry 97 96 96 10/25/19 10:41 10/25/19 11:32 10/25/19
[2019-10-25 17:11] LABS: Glucose Point of Care 323 (65-105)
--- NOTE | 2019-10-25 17:54 | WPDONCPN ---
Progress Note: A/P - Additional Plan Sickle cell anemia with sickle cell crisis. Patient is on IV hydration along with pain management with Dilaudid. Multifactorial anemia. Patient was recently diagnosed with positive autoimmune hemolytic anemia on top of her baseline anemia due to sickle cell anemia. Now hemoglobin has dropped significantly despite being on high-dose of steroids. I will continue Solu-Medrol at the current dose. I will order Hemoccult stool as well as ask for GI consultation. He denies any bleeding. Iron studies will be ordered on the blood sample prior to the blood transfusion. Patient will also receive 2 units of packed red blood cells as hemoglobin has dropped lobe 5. Recurrent pulmonary embolism. Due to the significant anemia I would hold on Eliquis at this time until evaluated by GI service. - Time Spent With Patient Total time spent is greater than 50% in coordination of care (as documented) at patient's floor/unit and/or counseling patient: 25 - 35 minutes Subjective Interval history: Multifactorial anemia with autoimmune hemolytic anemia and sickle cell crisis Recurrent pulmonary embolism Review of Systems - Review of Systems Patient complain of more tiredness and fatigue. He denies any bleeding and bruising. Denies any melena hematochezia. Denies any fevers and chills. Exam Vital signs: Temp Pulse Resp BP Pulse Ox 36.8 C 78 18 144/72 H 97 10/25/19 14:00 10/25/19 14:00 10/25/19 14:00 10/25/19 14:00 10/25/19 14:00 Narrative: Lungs are clear to auscultation bilaterally Cardiovascular regular rate rhythm no murmurs Abdomen slightly distended bowel sounds are positive Extremities no edema PN: Objective Data - Labs CBC & Chem 7: 10/25/19 04:47 10/25/19 04:47 Labs: Laboratory Results - last 24 hr 10/22/19 10/24/19 10/25/19 03:38 20:39 04:47 WBC 9.2 RBC 1.64 L Hgb 4.8 L* Hct 14.4 L* MCV 87.8 MCH 29.3 MCHC 33.3 RDW 19.9 H Plt Count 99 L MPV 12.6 H Immature Gran % (Auto) 2.2 H Neut % (Auto) 87.9 H Lymph % (Auto) 6.4 L Surry % (Auto) 3.5 Eos % (Auto) 0.0 Baso % (Auto) 0.0 L Lymph # (Auto) 0.59 L Surry # (Auto) 0.3 Eos # (Auto) 0.0 Baso # (Auto) 0.0 Abs Immat Gran (auto) 0.20 H Absolute Neuts (auto) 8.1 H Absolute Nucleated RBC 0.6 H Nucleated RBC % 6.0 H Platelet Estimate Decreased Hypochromasia 2+ Sickle Cells 2+ Absolute Retic 0.18 L Percent Retic 10.81 H Immature Retic Fraction 40.6 H Retic Hgb Content 34.0 Sodium Potassium Chloride Carbon Dioxide BUN Creatinine Estim Creat Clear Calc Estimated GFR Glucose POC Capillary Glucose 307 H Calcium Lactate Dehydrogenase Blood Type O Positive Antibody Screen Negative Enhanced Crossmatch See Detail 10/25/19 10/25/19 10/25/19 04:47 07:44 11:22 WBC RBC Hgb Hct MCV MCH MCHC RDW Plt Count MPV Immature Gran % (Auto) Neut % (Auto) Lymph % (Auto) Surry % (Auto) Eos % (Auto) Baso % (Auto) Lymph # (Auto) Surry # (Auto) Eos # (Auto) Baso # (Auto) Abs Immat Gran (auto) Absolute Neuts (auto) Absolute Nucleated RBC Nucleated RBC % Platelet Estimate Hypochromasia Sickle Cells Absolute Retic Percent Retic Immature Retic Fraction Retic Hgb Content Sodium 134 L Potassium 4.2 Chloride 109 H Carbon Dioxide 23 BUN 24 H Creatinine 0.80 Estim Creat Clear Calc 64 Estimated GFR > 60 Glucose 266 H POC Capillary Glucose 308 H 332 H Calcium 8.5 Lactate Dehydrogenase 840 H Blood Type Antibody Screen Enhanced Crossmatch 10/25/19 17:05 WBC RBC Hgb Hct MCV MCH MCHC RDW Plt Count MPV Immature Gran % (Auto) Neut % (Auto) Lymph % (Auto) Surry % (Auto) Eos % (Auto) Baso % (Auto) Ly
[2019-10-25] MEDS: TAMSULOSIN HCL 0.4 MG CAPSULE PO (20:36)
[2019-10-25 20:42] LABS: Glucose Point of Care 362 (65-105)
[2019-10-26] MEDS: HYDROMORPHONE HCL 1 MG/ML INJ IV PUSH ×6 (03:03→21:46)
[2019-10-26 06:00] VITALS: BP 159/76; PULSE 66; RESP 20; TEMP 36.9; O2SAT 99
[2019-10-26] MEDS: methylPREDNISolone SOD SUCC 125 MG VIAL IV PUSH ×3 (06:03→21:41)
[2019-10-26] MEDS: CENTRAL LINE FLUSH 10 ML IV PUSH ×3 (06:04→21:43)
[2019-10-26 06:21] LABS: Hematocrit 24.2 % (42.0-52.0); Hemoglobin 8.5 g/dL (14.0-18.0); Mean Corpuscular HGB Conc 35.1 g/dl (32-36); Mean Corpuscular Hemoglobin 30.5 pg (26-34); Mean Corpuscular Volume 86.7 fl (80-100); Platelet Count Result 127 k/mm3 (150-375); Red Blood Count 2.79 M/mm3 (4.6-6.20); Red Cell Distribution Width 18.8 % (11.5-14.5); White Blood Count 14.5 K/mm3 (4.5-10.0)
[2019-10-26 06:24] LABS: INR 1.1; Prothrombin Time 13.6 Seconds (11.1-14.7)
[2019-10-26 06:25] LABS: Partial Thromboplastin Time 24.7 SECONDS (22.3-36.8)
[2019-10-26 06:54] LABS: Alanine Aminotransferase 48 U/L (4-50); Albumin Level 3.5 g/dL (3.5-5.1); Alkaline Phosphatase 166 U/L (38-126); Aspartate Amino Transferase 38 U/L (17-59); Bilirubin,Total 7.1 mg/dL (0.2-1.3); Blood Urea Nitrogen 28 mg/dL (9-20); Calcium 9.4 mg/dL (8.4-10.2); Carbon Dioxide 26 mmol/L (22-30); Chloride 102 mmol/L (98-107); Estimated CRCL calculation 57 ml/min; Estimated Glomerular Filt Rate > 60; Glucose 278 mg/dL (75-110); Lactate Dehydrogenase 735 U/L (313-618); Sodium 132 mmol/L (137-145)
[2019-10-26] MEDS: INSULIN GLARGINE (*BKC) 100 UNITS/ML 35 UNITS SUB-Q ×2 (08:02→22:03)
[2019-10-26] MEDS: INSULIN ASPART (*BKC) 100 UNITS/ML 7 UNITS SUB-Q ×3 (08:04→16:41)
[2019-10-26] MEDS: INSULIN ASPART (*BKC) 100 UNITS/ML SUB-Q ×3 (08:04→16:41)
[2019-10-26] MEDS: lisinopriL 10 MG TABLET PO (08:06)
[2019-10-26] MEDS: DOCUSATE SODIUM 100 MG CAPSULE PO ×2 (08:06→21:40)
[2019-10-26] MEDS: hydrALAZINE HCL 50 MG TABLET PO ×2 (08:06→21:40)
[2019-10-26] MEDS: FOLIC ACID 1 MG TABLET PO (08:06)
[2019-10-26] MEDS: GABAPENTIN 100 MG CAPSULE PO ×2 (08:06→21:41)
[2019-10-26] MEDS: AMLODIPINE BESYLATE 2.5 MG TABLET PO (08:06)
[2019-10-26 08:07] VITALS: PULSE 80
[2019-10-26] MEDS: atenoloL 50 MG TABLET PO (08:07)
[2019-10-26 08:16] LABS: Glucose Point of Care 235 (65-105)
--- NOTE | 2019-10-26 09:29 | PM.IMPN ---
Progress Note: A&P Assessment and Plan (1) Sickle cell pain crisis: Code(s): D57.00 - Hb-SS disease with crisis, unspecified Status: Acute Assessment and Plan: Patient with persistent pain diffusely. Will continue current pain control with narcotics. Will plan to wean narcotics in 1-2 days. (2) Anemia: Code(s): D64.9 - Anemia, unspecified Status: Acute Assessment and Plan: Secondary to sickle cell as well as recently diagnosed June positive hemolytic anemia. Patient currently on IV Solu-Medrol. Hgb had been drifting down past few days to 4.8 yesterday which prompted a transfusion 2Units of PRBC. Hgb better today at 8.5. LDH better today at 735. Appreciate Heme input. Stop IVF. GI has been consulted to exclude GI blood loss. 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 Glucose reviewed on 10/26/19. Glucose uncontrolled probably secondary to crisis as well as recent steroids. Glucose still in the 300's consistently. Will continue Lantus and scheduled mealtime NovoLog but pateint NPO after midnight. Continue sliding scale. Hypoglycemia protocol available as needed. (4) Hypertension: Qualifiers: Hypertension type: essential hypertension Qualified Code(s): I10 - Essential (primary) hypertension Code(s): I10 - Essential (primary) hypertension Status: Acute Assessment and Plan: BP reviewed on 10/26/19. BP higher this morning. Curerntly on atenolol, hydralazine, amlodipine and lisinopril. HCTZ remains on hold. Will continue to monitor for now. (5) Cirrhosis: Qualifiers: Ascites presence: without ascites Hepatic cirrhosis type: unspecified hepatic cirrhosis Qualified Code(s): K74.60 - Unspecified cirrhosis of liver Code(s): K74.60 - Unspecified cirrhosis of liver Status: Chronic Assessment and Plan: LFTs mildly elevated as before. CT A/P in August showing Cirrhosis and hyderdense liver c/w hemosiderosis. No evidence of ascites. He does have chronic thrombocytopenia. (6) Hyponatremia: Code(s): E87.1 - Hypo-osmolality and hyponatremia Status: Acute Assessment and Plan: Na 124 on admission. Likely secondary to dehydration, HCTZ and pseudo hyponatremia. Hydrated aggressively and Na corrected quickly. Sodium stable now in the the 130's. Continue to monitor. (7) History of DVT (deep vein thrombosis): Code(s): Z86.718 - Personal history of other venous thrombosis and embolism Status: Chronic Assessment and Plan: Niesha currently on hold. Subjective Date/time seen: 10/26/19 09:29 Interval history: Date of visit 10/25. 63yo male with HTN, DM, sickle cell disease and recently diagnosed June positive hemolytic anemia here for sickle cell crisis. Pain better today. SLept off and on. Up walking in his room. Pain at 8/10 but not ready to de-escalate narcotics. Still no BMs. Feels legs are tight. Exam Narrative: Exam Narrative: AF 159/76 80 20 99% ra Gen - NARD standing at the side of bed Chest - CTA bilaterally, nml RR; port accessed in the left upper chest CV - RRR S1/S2 Abd - soft, NT/ND, +BS Ext - trace pedal edema Neuro - nonfocal Skin - warm and dry Objective Data Vital Signs Vital Signs: Vital Signs - 24 hr 10/25/19 09:41 10/25/19 10:41 10/25/19 11:32 Temperature 98.8 F 98.2 F 98.2 F Pulse Rate 74 72 72 Respiratory Rate 16 18 18 Blood Pressure 114/54 L 130/70 130/70 Pulse Oximetry 96 98 98 10/25/19 11:47 10/25/19 12:47 10/25/19 14:00 Temperature 97.4 F L
[2019-10-26 12:02] LABS: Glucose Point of Care 328 (65-105)
--- NOTE | 2019-10-26 12:17 | WPDGICN ---
Assessment and Plan Assessment and plan (1) Hemolytic anemia: Qualifiers: Hemolytic anemia type: acquired, autoimmune, other Qualified Code(s): D59.1 - Other autoimmune hemolytic anemias Code(s): D58.9 - Hereditary hemolytic anemia, unspecified Status: Acute Assessment and Plan: sickle cell and also autoimmune component, on medical treatment by hematology. 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: Code(s): D57.412 - Sickle-cell thalassemia with splenic sequestration Status: Acute Assessment and Plan: by hematology (3) Elevated LFTs: Code(s): R79.89 - Other specified abnormal findings of blood chemistry Status: Acute Assessment and Plan: mostly high bilirubin from hemolysis (4) Hyperbilirubinemia: Code(s): E80.6 - Other disorders of bilirubin metabolism Status: Acute (5) Cirrhosis: Qualifiers: Hepatic cirrhosis type: unspecified hepatic cirrhosis Ascites presence: without ascites Qualified Code(s): K74.60 - Unspecified cirrhosis of liver Code(s): K74.60 - Unspecified cirrhosis of liver Status: Chronic Assessment and Plan: he also has known history of cirrhosis- probably related to iron overload from blood transfusions. Hepatitis panel negative egd to assess if PHG, varices, etc (6) Chronic anticoagulation: Code(s): Z79.01 - halfway (current) use of anticoagulants Status: Chronic Assessment and Plan: holding eliquis for now GI Consult Note Consult date/time: 10/26/19 12:17 Reason for consult: symptomatic anemia HPI: Jaden Gonzalez is a 63 year old male history of sickle cell anemia with multiple episodes of sickle cell crisis who has received blood transfusions multiple times, cirrhosis probably related to iron overload, DVT on eliquis with recent admission to the hospital after diagnosed with autoimmune hemolytic anemia treated with prednisone. He was readmitted with joint pain, generalized weakness, hyperglycemia. His hb this time dropped down to 5.5, no history of melena or GIB but he never had a colonoscopy. He says that has normal bowel movements. His commission sales associate Dr Reeves asked me to evaluate him in the setting of worsening anemia despite medical treatment and assess if any source of GI blood loss, eliquis is on hold for now. Patient just received blood transfusion and hb up to 8.5 Review of Systems Review of Systems: Narrative: Constitutional: Constitutional: Reports fatigue and Denies headache(s) Eyes: Eyes: Denies blurry vision ENT: Reports Normal hearing present, Denies headache(s) and Denies neck pain Cardiovascular: Cardiovascular: Denies chest pain and Denies dyspnea Respiratory: Respiratory: Denies dyspnea Gastrointestinal: Gastrointestinal: Reports no additional gastrointestinal complaints Genitourinary: Genitourinary: Denies dysuria Musculoskeletal: Musculoskeletal: Reports back pain Integumentary/Breasts: Skin/Breast: Denies dry skin Neurologic: Reports Normal hearing present, Denies headache(s) and Denies weakness Psychiatric: Psychiatric: Denies anxiety Endocrine: Endocrine: Denies change in body appearance Hematologic/Lymphatic: Comments: had multiple blood transfusions Allergic/Immunologic: Allergic/Immunologic: Denies urticaria PMFSH Past Medical History Medical History Anxiety Back fracture Cataract Depression Diabetes DVT (deep venous thrombosis) FH: cholecystectomy Cholecystectomy in approximately 1999 Gall bladder disease Hypertension Irregular heartbeat Liver disease Pancreatitis Port-A-Cath in place Pulmonary embolism Sickle cell anemia with coexistent alpha-thalass
[2019-10-26 14:00] VITALS: BP 169/79; PULSE 81; RESP 17; TEMP 36.8; O2SAT 95
[2019-10-26] MEDS: PEG (High)/E-LYTE SOLN 4,000 ML BTL 4000 ML PO (14:20)
[2019-10-26] MEDS: BISACODYL 5 MG TABLET EC 20 MG PO (16:44)
[2019-10-26 16:49] LABS: Glucose Point of Care 346 (65-105)
--- NOTE | 2019-10-26 17:29 | WPDONCPN ---
Progress Note: A/P - Additional Plan Sickle cell anemia with sickle cell crisis. Patient is on IV hydration along with delighted. Pain is under better control now. LDH has come down. 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 Hemoglobin has improved after blood transfusion. I will continue the current dose of the steroid. Plan is for EGD noted. Recurrent pulmonary embolism. I will continue to hold Eliquis - Time Spent With Patient Total time spent is greater than 50% in coordination of care (as documented) at patient's floor/unit and/or counseling patient: 15 - 25 minutes Subjective Interval history: Multifactorial anemia with autoimmune hemolytic anemia and sickle cell crisis Recurrent pulmonary embolism Review of Systems - Review of Systems Patient feels much better and stronger after blood transfusion. He denies any bleeding and bruising. He still have constipation. Denies any fevers and chills. No other new complaints. - Neurologic Reports hearing normal, Denies headache(s), Denies weakness Exam Narrative: Lungs are clear to auscultation bilaterally Cardiovascular regular rate rhythm no murmurs Abdomen soft nontender nondistended bowel sounds are positive Extremities no edema PN: Objective Data - Labs CBC & Chem 7: 10/26/19 06:00 10/26/19 06:00 Labs: Laboratory Results - last 24 hr 10/25/19 10/26/19 10/26/19 20:31 06:00 06:00 WBC 14.5 H RBC 2.79 L Hgb 8.5 L D Hct 24.2 L MCV 86.7 MCH 30.5 MCHC 35.1 RDW 18.8 H Plt Count 127 L MPV 12.0 H PT 13.6 INR 1.1 APTT 24.7 Sodium Potassium Chloride Carbon Dioxide BUN Creatinine Estim Creat Clear Calc Estimated GFR Glucose POC Capillary Glucose 362 H Calcium Total Bilirubin AST ALT Alkaline Phosphatase Lactate Dehydrogenase Total Protein Albumin 10/26/19 10/26/19 10/26/19 06:00 08:01 11:26 WBC RBC Hgb Hct MCV MCH MCHC RDW Plt Count MPV PT INR APTT Sodium 132 L Potassium 4.0 Chloride 102 Carbon Dioxide 26 BUN 28 H Creatinine 0.90 Estim Creat Clear Calc 57 Estimated GFR > 60 Glucose 278 H POC Capillary Glucose 235 H 328 H Calcium 9.4 Total Bilirubin 7.1 H AST 38 ALT 48 Alkaline Phosphatase 166 H Lactate Dehydrogenase 735 H Total Protein 6.0 L Albumin 3.5 10/26/19 16:40 WBC RBC Hgb Hct MCV MCH MCHC RDW Plt Count MPV PT INR APTT Sodium Potassium Chloride Carbon Dioxide BUN Creatinine Estim Creat Clear Calc Estimated GFR Glucose POC Capillary Glucose 346 H Calcium Total Bilirubin AST ALT Alkaline Phosphatase Lactate Dehydrogenase Total Protein Albumin
[2019-10-26] MEDS: TAMSULOSIN HCL 0.4 MG CAPSULE PO (21:40)
--- NOTE | 2019-10-26 21:57 | PC.NURSE ---
Consulted with Cortney Barroso regarding BG of 160 and lantus 35u scheduled. Due to much lower BG than previous checks and NPO status at midnight, Cortney ordered to give HALF of scheduled 35u lantus dose.
[2019-10-26 22:00] VITALS: BP 167/80; PULSE 62; RESP 20; TEMP 36.2; O2SAT 99
[2019-10-26 22:09] LABS: Glucose Point of Care 160 (65-105)
[2019-10-26 22:24] LABS: IFOB Positive Control Positive; Immunochemical Fecal Occult Bl Positive (N)
[2019-10-27] VITALS (8 sets, daily range): BP systolic 151–181; BP diastolic 59–82; PULSE 64–73; RESP 16–21; TEMP 36.2–36.8; O2SAT 98–100
[2019-10-27] MEDS: HYDROMORPHONE HCL 1 MG/ML INJ IV PUSH ×5 (01:56→22:20)
[2019-10-27 02:26] LABS: Glucose Point of Care 178 (65-105)
[2019-10-27 05:47] LABS: Hematocrit 24.9 % (42.0-52.0); Hemoglobin 8.6 g/dL (14.0-18.0); Mean Corpuscular HGB Conc 34.5 g/dl (32-36); Mean Corpuscular Hemoglobin 30.9 pg (26-34); Mean Corpuscular Volume 89.6 fl (80-100); Mean Platelet Volume 12.2 fl (7.4-10.4); Platelet Count Result 121 k/mm3 (150-375); Red Blood Count 2.78 M/mm3 (4.6-6.20); Red Cell Distribution Width 20.1 % (11.5-14.5); White Blood Count 14.6 K/mm3 (4.5-10.0)
[2019-10-27] MEDS: MAGNESIUM CITRATE 300 ML BTL PO (05:53)
[2019-10-27] MEDS: methylPREDNISolone SOD SUCC 125 MG VIAL IV PUSH ×3 (05:54→21:53)
[2019-10-27] MEDS: CENTRAL LINE FLUSH 10 ML IV PUSH ×3 (05:54→21:53)
[2019-10-27 06:07] LABS: Albumin Level 3.4 g/dL (3.5-5.1); Blood Urea Nitrogen 22 mg/dL (9-20); Calcium 9.6 mg/dL (8.4-10.2); Carbon Dioxide 28 mmol/L (22-30); Chloride 101 mmol/L (98-107); Estimated CRCL calculation 64 ml/min; Estimated Glomerular Filt Rate > 60; Glucose 123 mg/dL (75-110); Magnesium 1.8 mg/dL (1.6-2.3); Phosphorus 3.3 mg/dL (2.5-4.5); Potassium 3.3 mmol/L (3.4-5.0); Sodium 135 mmol/L (137-145)
[2019-10-27 07:58] LABS: Glucose Point of Care 96 (65-105)
[2019-10-27] MEDS: atenoloL 50 MG TABLET PO (08:04)
[2019-10-27] MEDS: AMLODIPINE BESYLATE 2.5 MG TABLET PO (08:05)
[2019-10-27] MEDS: GABAPENTIN 100 MG CAPSULE PO ×2 (08:05→20:53)
[2019-10-27] MEDS: hydrALAZINE HCL 50 MG TABLET PO ×2 (08:05→20:53)
[2019-10-27] MEDS: DOCUSATE SODIUM 100 MG CAPSULE PO ×2 (08:05→20:53)
[2019-10-27] MEDS: lisinopriL 10 MG TABLET PO ×2 (08:05→20:54)
[2019-10-27] MEDS: FUROSEMIDE 20 MG TABLET PO (08:05)
[2019-10-27] MEDS: FOLIC ACID 1 MG TABLET PO (08:05)
[2019-10-27] MEDS: HEPARIN SOD FLUSH 500 UNITS/5 ML SYRINGE IV PUSH (08:13)
--- NOTE | 2019-10-27 08:21 | PC.NURSE ---
Dr. Lr instructed to hold lantus for today.
[2019-10-27 11:28] LABS: Glucose Point of Care 110 (65-105)
--- NOTE | 2019-10-27 12:04 | PC.NURSE ---
Pt off the floor for colonoscopy and EGD .
--- NOTE | 2019-10-27 12:23 | SUR.OPER ---
EGD START 1158, END 1203--COLONOSCOPY START 1211, END 1220
[2019-10-27] MEDS: LACTATED RINGERS 1,000 ML 150 ML IV CONT (12:27)
--- NOTE | 2019-10-27 12:27 | PM.IMPN ---
Progress Note: A&P Assessment and Plan (1) Sickle cell pain crisis: Code(s): D57.00 - Hb-SS disease with crisis, unspecified Status: Acute Assessment and Plan: Patient with persistent pain diffusely. Will continue current pain control with narcotics for now but change to oral route after his procedures if okay with Heme. (2) Anemia: Code(s): D64.9 - Anemia, unspecified Status: Acute Assessment and Plan: Secondary to sickle cell as well as recently diagnosed June positive hemolytic anemia. Patient currently on IV Solu-Medrol. Hgb had been drifting down past to 4.8 on 10/25/19 which prompted a transfusion 2Units of PRBC. Hgb better snd now stable in the 8 range. LDH has been trending down. Appreciate Heme input. Stool guaiac positive so may have a GI source of blood loss as well. GI has been consulted for endoscopy. 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 Glucose reviewed on 10/27/19. Glucose uncontrolled probably secondary to crisis as well as recent steroids. Glucose normal this morning so Lantus held. Will resume Lantus after his procedure. Continue mealtime NovoLog. Continue sliding scale. Hypoglycemia protocol available as needed. (4) Hypertension: Qualifiers: Hypertension type: essential hypertension Qualified Code(s): I10 - Essential (primary) hypertension Code(s): I10 - Essential (primary) hypertension Status: Acute Assessment and Plan: BP reviewed on 10/27/19. SBP consistently 15-160 range. Curerntly on atenolol, hydralazine, amlodipine and lisinopril. HCTZ remains on hold. Lasix was added back. Will advance Lisinopril. Continue to monitor. (5) Cirrhosis: Qualifiers: Ascites presence: without ascites Hepatic cirrhosis type: unspecified hepatic cirrhosis Qualified Code(s): K74.60 - Unspecified cirrhosis of liver Code(s): K74.60 - Unspecified cirrhosis of liver Status: Chronic Assessment and Plan: LFTs mildly elevated as before. CT A/P in August showing Cirrhosis and hyderdense liver c/w hemosiderosis. No evidence of ascites. He does have chronic thrombocytopenia. (6) Hyponatremia: Code(s): E87.1 - Hypo-osmolality and hyponatremia Status: Acute Assessment and Plan: Na 124 on admission. Likely secondary to dehydration, HCTZ and pseudo hyponatremia. Hydrated aggressively and Na corrected quickly. Sodium stable now in the the 130's. Continue to monitor. (7) History of DVT (deep vein thrombosis): Code(s): Z86.718 - Personal history of other venous thrombosis and embolism Status: Chronic Assessment and Plan: SCDs; Eliquis currently on hold. Subjective Date/time seen: 10/27/19 12:27 Interval history: Date of visit 10/26. 63yo male with HTN, DM, sickle cell disease and recently diagnosed June positive hemolytic anemia here for sickle cell crisis. Patient with diffuse pain and is better overall but still rate the pain 8/10. Multiple stools with bowel prep; stools cleared and he enies melana or hematachezia. Noting increasing LE edema. No n/v. Exam Narrative: Exam Narrative: AF 163/82 69 18 99% ra Gen - NARD standing at the side of bed Chest - CTA bilaterally, nml RR; port accessed in the left upper chest CV - RRR S1/S2 Abd - soft, NT/ND, +BS Ext - trace-1+ pedal edema Neuro - nonfocal Skin - warm and dry Objective Data Vital Signs Vital Signs: Vital Signs - 24 hr 10/26/19 14:00 10/26/19 22:00 10/27/19 06:00 Temperature 98.2 F 97.1 F L 97.4 F L P
[2019-10-27] MEDS: PANTOPRAZOLE 40 MG TABLET PO (14:17)
[2019-10-27] MEDS: INSULIN ASPART (*BKC) 100 UNITS/ML SUB-Q (16:13)
[2019-10-27] MEDS: INSULIN ASPART (*BKC) 100 UNITS/ML 7 UNITS SUB-Q (16:15)
[2019-10-27 16:24] LABS: Glucose Point of Care 309 (65-105)
[2019-10-27] MEDS: TAMSULOSIN HCL 0.4 MG CAPSULE PO (20:53)
[2019-10-27 21:06] LABS: Glucose Point of Care 370 (65-105)
[2019-10-27] MEDS: INSULIN GLARGINE (*BKC) 100 UNITS/ML 35 UNITS SUB-Q (21:06)
[2019-10-28] MEDS: HYDROMORPHONE HCL 1 MG/ML INJ IV PUSH ×6 (01:31→22:55)
[2019-10-28] MEDS: CENTRAL LINE FLUSH 10 ML IV PUSH ×3 (05:42→20:37)
[2019-10-28] MEDS: methylPREDNISolone SOD SUCC 125 MG VIAL IV PUSH ×2 (05:43→13:46)
[2019-10-28 06:00] VITALS: BP 180/87; PULSE 70; RESP 20; TEMP 36.7; O2SAT 98
[2019-10-28 06:11] LABS: Hematocrit 26.3 % (42.0-52.0); Hemoglobin 8.9 g/dL (14.0-18.0); Mean Corpuscular HGB Conc 33.8 g/dl (32-36); Mean Corpuscular Hemoglobin 30.8 pg (26-34); Mean Platelet Volume 12.6 fl (7.4-10.4); Platelet Count Result 118 k/mm3 (150-375); Red Blood Count 2.89 M/mm3 (4.6-6.20); Red Cell Distribution Width 20.6 % (11.5-14.5); White Blood Count 11.4 K/mm3 (4.5-10.0)
[2019-10-28 06:24] LABS: Albumin Level 3.2 g/dL (3.5-5.1); Blood Urea Nitrogen 23 mg/dL (9-20); Calcium 9.1 mg/dL (8.4-10.2); Carbon Dioxide 29 mmol/L (22-30); Chloride 101 mmol/L (98-107); Estimated CRCL calculation 57 ml/min; Estimated Glomerular Filt Rate > 60; Glucose 307 mg/dL (75-110); Magnesium 2.1 mg/dL (1.6-2.3); Phosphorus 3.7 mg/dL (2.5-4.5); Potassium 4.1 mmol/L (3.4-5.0); Sodium 132 mmol/L (137-145)
[2019-10-28 07:58] LABS: Glucose Point of Care 246 (65-105)
[2019-10-28 08:00] VITALS: PULSE 70; RESP 20; O2SAT 98
[2019-10-28] MEDS: atenoloL 50 MG TABLET PO (08:57)
[2019-10-28] MEDS: GABAPENTIN 100 MG CAPSULE PO ×2 (08:58→20:31)
[2019-10-28] MEDS: lisinopriL 20 MG TABLET PO (08:58)
[2019-10-28] MEDS: PANTOPRAZOLE 40 MG TABLET PO (08:58)
[2019-10-28] MEDS: INSULIN GLARGINE (*BKC) 100 UNITS/ML 35 UNITS SUB-Q ×2 (08:58→20:32)
[2019-10-28] MEDS: hydrALAZINE HCL 50 MG TABLET PO ×2 (08:58→20:32)
[2019-10-28] MEDS: DOCUSATE SODIUM 100 MG CAPSULE PO ×2 (08:58→20:31)
[2019-10-28] MEDS: AMLODIPINE BESYLATE 2.5 MG TABLET PO ×2 (08:58→20:31)
[2019-10-28] MEDS: INSULIN ASPART (*BKC) 100 UNITS/ML SUB-Q ×3 (08:59→16:45)
[2019-10-28] MEDS: INSULIN ASPART (*BKC) 100 UNITS/ML 7 UNITS SUB-Q ×3 (09:00→16:46)
[2019-10-28] MEDS: FUROSEMIDE 20 MG TABLET PO (09:01)
[2019-10-28] MEDS: FOLIC ACID 1 MG TABLET PO (09:01)
--- NOTE | 2019-10-28 10:07 | WPDANESPN ---
Anes - Prog Note Post-Op Date/Time: 10/28/19 10:07 Cardiovascular status: normal Respiratory status: normal Airway patency: baseline Mental status: baseline Post-Op hydration status: normal Vital Signs: Last Vital Signs Temp 36.7 C 10/28/19 06:00 Pulse 70 10/28/19 08:00 Resp 20 10/28/19 08:00 BP 180/87 H 10/28/19 06:00 Pulse Ox 98 10/28/19 08:00 Pain Score (VAS): 0/10. Patient resting in bed at time of assessment, appears comfortable. I/O: Intake & Output 10/27/19 10/28/19 10/28/19 23:59 07:59 15:59 Intake Total 750 700 720 Output Total 700 1000 Balance 50 -300 720 Laboratory Tests 10/28/19 05:36 10/28/19 05:36 10/27/19 10/27/19 10/27/19 11:25 16:12 21:01 WBC RBC Hgb Hct MCV MCH MCHC RDW Plt Count MPV Sodium Potassium Chloride Carbon Dioxide BUN Creatinine Estim Creat Clear Calc Estimated GFR Glucose POC Capillary Glucose 110 309 H 370 H Calcium Phosphorus Magnesium Albumin 10/28/19 10/28/19 10/28/19 05:36 05:36 07:56 WBC 11.4 H RBC 2.89 L Hgb 8.9 L Hct 26.3 L MCV 91.0 MCH 30.8 MCHC 33.8 RDW 20.6 H Plt Count 118 L MPV 12.6 H Sodium 132 L Potassium 4.1 Chloride 101 Carbon Dioxide 29 BUN 23 H Creatinine 0.90 Estim Creat Clear Calc 57 Estimated GFR > 60 Glucose 307 H POC Capillary Glucose 246 H Calcium 9.1 Phosphorus 3.7 Magnesium 2.1 Albumin 3.2 L Post-procedural complaints: none Patient Feedback: Patient satisfied with anesthetic care.
[2019-10-28 11:20] LABS: Glucose Point of Care 337 (65-105)
--- NOTE | 2019-10-28 12:05 | PCNWS ---
Weekly nutritional screen. Patient is tolerating current diet with adequate intake. No weight loss reported. No nutritional needs at this time.
[2019-10-28 14:00] VITALS: BP 177/78; PULSE 72; RESP 20; TEMP 37; O2SAT 95
--- NOTE | 2019-10-28 16:05 | PM.IMPN ---
Progress Note: A&P Assessment and Plan (1) Sickle cell pain crisis: Code(s): D57.00 - Hb-SS disease with crisis, unspecified Status: Acute Assessment and Plan: Patient with persistent pain diffusely but improved today. Plan for discharge tomorrow if continues to feel well. (2) Anemia: Code(s): D64.9 - Anemia, unspecified Status: Acute Assessment and Plan: Secondary to sickle cell as well as recently diagnosed June positive hemolytic anemia. Patient on IV Solu-Medrol but being transitioned to Prednisone. Hgb had been drifting down past to 4.8 on 10/25/19 which prompted a transfusion 2Units of PRBC. Hgb better and now stable in the 8 range. LDH has been trending down. Appreciate Heme input. Stool guaiac positive prompting a GI evaluation but no obvious active GI bleed. EGD showing moderate, diffuse gastritis and superficial benign ulcer in the antrum. No evidence of acute bleeding. Colonoscopy showing single polyp in the transverse colon and IH. Continue Protonix. 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 Glucose reviewed on 10/28/19. Glucose uncontrolled probably secondary to crisis as well as recent steroids. Glucose still in the 200-300 range but steroids decreased to oral so will see how his glucose does tonight. Watch for lows. Continue mealtime NovoLog. Continue sliding scale. Hypoglycemia protocol available as needed. (4) Hypertension: Qualifiers: Hypertension type: essential hypertension Qualified Code(s): I10 - Essential (primary) hypertension Code(s): I10 - Essential (primary) hypertension Status: Acute Assessment and Plan: BP reviewed on 10/28/19. SBP consistently 150-160 range. Currently on atenolol, hydralazine, amlodipine and lisinopril. HCTZ remains on hold. Lasix was added back. Will advance Norvasc. Continue to monitor. (5) Cirrhosis: Qualifiers: Ascites presence: without ascites Hepatic cirrhosis type: unspecified hepatic cirrhosis Qualified Code(s): K74.60 - Unspecified cirrhosis of liver Code(s): K74.60 - Unspecified cirrhosis of liver Status: Chronic Assessment and Plan: LFTs elevated at times mostly total bili. CT A/P in August showing cirrhosis and hyderdense liver c/w hemosiderosis. No evidence of ascites. He does have chronic thrombocytopenia. (6) Hyponatremia: Code(s): E87.1 - Hypo-osmolality and hyponatremia Status: Acute Assessment and Plan: Na 124 on admission. Likely secondary to dehydration, HCTZ and pseudo hyponatremia. Hydrated aggressively and Na corrected quickly. Sodium stable now in the the 130's. Continue to monitor. (7) History of DVT (deep vein thrombosis): Code(s): Z86.718 - Personal history of other venous thrombosis and embolism Status: Chronic Assessment and Plan: SCDs (8) Gastritis: Code(s): K29.70 - Gastritis, unspecified, without bleeding Status: Acute Assessment and Plan: As above. (9) Gastric ulcer: Code(s): K25.9 - Gastric ulcer, unspecified as acute or chronic, without hemorrhage or perforation Status: Acute Assessment and Plan: As above. Subjective Date/time seen: 10/28/19 16:05 Interval history: Date of visit 10/27. 63yo male with HTN, DM, sickle cell disease and recently diagnosed June positive hemolytic anemia here for sickle cell crisis. Patient feels better today. Eating okay. Pain better overall but does state his hands are cramping now. He feels ready for disch
[2019-10-28 16:46] LABS: Glucose Point of Care 211 (65-105)
--- NOTE | 2019-10-28 17:29 | WPDONCPN ---
Progress Note: A/P - Additional Plan Multifactorial anemia with autoimmune hemolytic anemia and sickle cell crisis. EGD showed gastritis and ulcer. I will discontinue Eliquis. LDH has come down. We will discontinue IV Solu-Medrol and will start him on prednisone 60 mg b.i.d.. He should be able to go home in the morning with 10 mg prednisone taper on every 4th day basis. Patient will follow with me in 1 week for blood test. Sickle cell crisis. Patient is feeling much better and pain is under better control. LDH has been coming down. Recurrent pulmonary embolism. I will discontinue Eliquis as patient is asymptomatic with pulmonary embolism with risk of GI bleed. - Time Spent With Patient Total time spent is greater than 50% in coordination of care (as documented) at patient's floor/unit and/or counseling patient: 25 - 35 minutes Subjective Interval history: Multifactorial anemia with autoimmune hemolytic anemia and sickle cell crisis Recurrent pulmonary embolism Review of Systems - Review of Systems Patient looks quite comfortable. He denies any bleeding and bruising. He is feeling much more energetic. Still complain of musculoskeletal pain but has improved. No fevers and chills. - Neurologic Reports hearing normal, Denies headache(s), Denies weakness Exam Vital signs: Lowell Kirk. Assessment of coma and impaired consciousness. A practical scale. Lancet 1974; 2:81-4. Narrative: Lungs are clear to auscultation bilaterally Cardiovascular regular rate rhythm no murmurs Abdomen distended bowel sounds are positive Extremities no edema PN: Objective Data - Labs CBC & Chem 7: 10/28/19 05:36 10/28/19 05:36 Labs: Laboratory Results - last 24 hr 10/27/19 10/28/19 10/28/19 21:01 05:36 05:36 WBC 11.4 H RBC 2.89 L Hgb 8.9 L Hct 26.3 L MCV 91.0 MCH 30.8 MCHC 33.8 RDW 20.6 H Plt Count 118 L MPV 12.6 H Sodium 132 L Potassium 4.1 Chloride 101 Carbon Dioxide 29 BUN 23 H Creatinine 0.90 Estim Creat Clear Calc 57 Estimated GFR > 60 Glucose 307 H POC Capillary Glucose 370 H Calcium 9.1 Phosphorus 3.7 Magnesium 2.1 Albumin 3.2 L 10/28/19 10/28/19 10/28/19 07:56 11:15 16:44 WBC RBC Hgb Hct MCV MCH MCHC RDW Plt Count MPV Sodium Potassium Chloride Carbon Dioxide BUN Creatinine Estim Creat Clear Calc Estimated GFR Glucose POC Capillary Glucose 246 H 337 H 211 H Calcium Phosphorus Magnesium Albumin
[2019-10-28] MEDS: TAMSULOSIN HCL 0.4 MG CAPSULE PO (20:32)
[2019-10-28 20:40] LABS: Glucose Point of Care 165 (65-105)
[2019-10-28 22:00] VITALS: BP 188/86; PULSE 73; RESP 20; TEMP 36.7; O2SAT 99
[2019-10-29] MEDS: HYDROMORPHONE HCL 1 MG/ML INJ IV PUSH ×4 (03:03→14:26)
[2019-10-29 06:00] VITALS: BP 153/70; PULSE 60; RESP 20; TEMP 37.1; O2SAT 98
[2019-10-29] MEDS: CENTRAL LINE FLUSH 10 ML IV PUSH ×2 (06:34→14:26)
[2019-10-29 07:54] LABS: Glucose Point of Care 178 (65-105)
[2019-10-29 09:01] VITALS: PULSE 80
[2019-10-29] MEDS: AMLODIPINE BESYLATE 5 MG TABLET PO (09:01)
[2019-10-29] MEDS: atenoloL 50 MG TABLET PO (09:01)
[2019-10-29] MEDS: DOCUSATE SODIUM 100 MG CAPSULE PO (09:01)
[2019-10-29] MEDS: PANTOPRAZOLE 40 MG TABLET PO (09:02)
[2019-10-29] MEDS: GABAPENTIN 100 MG CAPSULE PO (09:02)
[2019-10-29] MEDS: FOLIC ACID 1 MG TABLET PO (09:02)
[2019-10-29] MEDS: FUROSEMIDE 20 MG TABLET PO (09:02)
[2019-10-29] MEDS: predniSONE 20 MG TABLET 60 MG PO (09:02)
[2019-10-29] MEDS: hydrALAZINE HCL 50 MG TABLET PO (09:02)
[2019-10-29] MEDS: lisinopriL 20 MG TABLET PO (09:02)
[2019-10-29] MEDS: INSULIN GLARGINE (*BKC) 100 UNITS/ML 35 UNITS SUB-Q (09:05)
[2019-10-29 11:20] LABS: Glucose Point of Care 224 (65-105)
[2019-10-29] MEDS: INSULIN ASPART (*BKC) 100 UNITS/ML 7 UNITS SUB-Q (11:20)
[2019-10-29] MEDS: INSULIN ASPART (*BKC) 100 UNITS/ML SUB-Q (11:20)
[2019-10-29 14:00] VITALS: BP 141/86; PULSE 71; RESP 16; TEMP 37; O2SAT 100
--- NOTE | 2019-10-29 14:35 | PM.DS ---
DS: Admitting Diagnosis Admitting Diagnosis Admitting Diagnosis: Hb-SS disease with crisis, unspecified DS: Discharge Diagnosis Discharge Diagnosis (1) Sickle cell pain crisis: Code(s): D57.00 - Hb-SS disease with crisis, unspecified Status: Acute Assessment and Plan: Patient presented with persistent diffuse pain felt to be related to his sickle cell. Treated with narcotics and IVF to control symptoms. Pain has become better controlled. Patient feels comfortable with discharge planned (2) Anemia: Code(s): D64.9 - Anemia, unspecified Status: Acute Assessment and Plan: Secondary to sickle cell as well as recently diagnosed June positive hemolytic anemia. Hgb had been drifting downto 4.8 on 10/25/19 which prompted a transfusion 2Units of PRBC. Patient started on IV Solu-Medrol until Hgb stabilized and now being transitioned to Prednisone. Hgb better and now stable in the 8 range. LDH has been trending down. Appreciate Heme input. (3) Gastric ulcer: Code(s): K25.9 - Gastric ulcer, unspecified as acute or chronic, without hemorrhage or perforation Status: Acute Assessment and Plan: Stool guaiac was positive prompting a GI evaluation but no obvious active GI bleed. GI consulted. EGD showing moderate, diffuse gastritis and superficial benign ulcer in the antrum. No evidence of acute bleeding. Colonoscopy showing single polyp in the transverse colon and IH. Pathology showing normal gastric mucosa. Polyp was a tubular adenoma. We continued Protonix. (4) Gastritis: Code(s): K29.70 - Gastritis, unspecified, without bleeding Status: Acute Assessment and Plan: As above. 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 Glucose monitored closely. Glucose uncontrolled secondary to crisis as well as IV steroids. Steroids changed to oral and glucose beter controlled at 178 this morning. Insructed pateitn that he will need to check glucose QAC/QHS and monitor closely as he weans off the steroids. He voices understanding. He will call his doctor if glucose <140. (6) Hypertension: Qualifiers: Hypertension type: essential hypertension Qualified Code(s): I10 - Essential (primary) hypertension Code(s): I10 - Essential (primary) hypertension Status: Acute Assessment and Plan: BP monitored closely. SBP consistently elevated despite adjusting his anti-HTN medications. Possibly related to the steroids. He was treated with atenolol, hydralazine, amlodipine and lisinopril. Will resume HCTZ. (7) Cirrhosis: Qualifiers: Hepatic cirrhosis type: unspecified hepatic cirrhosis Ascites presence: without ascites Qualified Code(s): K74.60 - Unspecified cirrhosis of liver Code(s): K74.60 - Unspecified cirrhosis of liver Status: Chronic Assessment and Plan: LFTs elevated at times mostly total bili. CT A/P in August showing cirrhosis and hyderdense liver c/w hemosiderosis. No evidence of ascites. He does have chronic thrombocytopenia. (8) Hyponatremia: Code(s): E87.1 - Hypo-osmolality and hyponatremia Status: Acute Assessment and Plan: Na 124 on admission. Likely secondary to dehydration, HCTZ and pseudo hyponatremia. Hydrated aggressively and Na corrected quickly. Sodium stable now in the the 130's and stable. (9) History of DVT (deep vein thrombosis): Code(s): Z86.718 - Personal history of other venous thrombosis and embolism Status: Chronic Assessment and Plan: Was on El
[2019-10-29] MEDS: HEPARIN SOD FLUSH 500 UNITS/5 ML SYRINGE IV PUSH (15:49)
== END 2019-10-29 17:01 | disposition home or self-care (01) | DRG 812 ==
LOC: ANHED 06:12 → ANH2MED 07:42
PROVIDERS: Internal Medicine; Internal Medicine Gastroenterology; Internal Medicine Hematology & Oncology; Admitting Provider Hospitalist; Emergency Provider Emergency Medicine; PCP Emergency Medicine; Visit Provider Internal Medicine
PROC: 0DJ08ZZ Inspection of Upper Intestinal Tract, Via Natural or Artificial Opening Endoscopic (ICD-10-PCS; CPT 43235; principal; 2019-10-27 11:45)
DX: D57.00 Hb-SS disease with crisis, unspecified (principal); E87.1 Hypo-osmolality and hyponatremia; D59.1 Other autoimmune hemolytic anemias; E11.65 Type 2 diabetes mellitus with hyperglycemia; D64.9 Anemia, unspecified; K29.70 Gastritis, unspecified, without bleeding; K25.9 Gastric ulcer, unspecified as acute or chronic, without hemorrhage or perforation; K63.5 Polyp of colon; K74.60 Unspecified cirrhosis of liver; K64.8 Other hemorrhoids; E86.0 Dehydration; I10 Essential (primary) hypertension; D69.6 Thrombocytopenia, unspecified; Z86.711 Personal history of pulmonary embolism; Z86.718 Personal history of other venous thrombosis and embolism; Z90.49 Acquired absence of other specified parts of digestive tract; Z79.01 Long term (current) use of anticoagulants
CPT/HCPCS: 36415; 36430; 36600; 71045; 80048; 80053; 80069; 80076; 81001; 82010; 82274; 82948; 83036; 83615; 83690; 83735; 84100; 84484; 85025; 85027; 85046; 85055; 85610; 85730; 86850; 86900; 86901; 86902; 86922; 87081; 88305; 93005; 96361; 96374; 96375; 96376; 99285; A9270; G0378; J1170; J1642; J1815; J1940; J2270; J2704; J2930; J7030; J7120; J7512; P9016

== ENCOUNTER 2019-11-12 17:07 | Inpatient (IN) | payer MEDICARE, MEDICAID, SELFPAY ==
--- NOTE | ~2019-11-12 | CT_ITS ---
EXAMINATION: CT cervical spine wo con DATE: 11/13/2019 19:13 INDICATION: Neck pain TECHNIQUE: Computed tomography (CT) of the cervical spine was performed without intravenous contrast. The dose-length product (DLP) was 160.24 mGy-cm. Automated exposure control and iterative reconstruc tion technique were employed. COMPARISON: None FINDINGS: The vertebral body heights and alignment are normal. There is moderate loss of intervertebr al disc space height at C4-5, C5-6, and C6-7. The odontoid is intact. There is no fracture. There is a partially imaged left internal jugular Port-A-Cath. The prevertebral soft tissues are normal. IMPRESSION: 1. Moderate cervical spondylosis without acute findings. Reviewed, dictated and finalized at location A.
--- NOTE | ~2019-11-12 | XR_ITS ---
EXAMINATION: XR chest 1V portable INDICATION: Sickle cell crisis, chest pain TECHNIQUE: Portable AP chest at 1915 hours COMPARISON: 10/22/2019 FINDINGS: A left internal jugular Port-A-Cath ends with its tip in the proximal right atrium. There i s stable cardiomegaly. A few areas of chronic scarring are noted in the mid and lower lung zones. No acute airspace opacities are identified. There is no pleural effusion or pneumothorax. Cholecystectom y clips are noted in the right upper quadrant. IMPRESSION: 1. Stable cardiomegaly. Reviewed, dictated and finalized at location A. IMPRESSION: 1. Stable cardiomegaly.
--- NOTE | ~2019-11-12 | CT_ITS ---
EXAMINATION: CT abdomen pelvis wo con DATE: 11/13/2019 19:13 INDICATION: Abdominal pain, history of sickle cell anemia TECHNIQUE: Computed tomography (CT) of the abdomen and pelvis was performed without intravenous contr ast. The dose-length product (DLP) was 313.76 mGy-cm. Automated exposure control and iterative recons truction technique were employed. COMPARISON: 09/03/2019 FINDINGS: There is mild atelectasis of the visualized lung bases. Also seen is bronchiectasis of the lower lobes and volume loss of the left lower lobe. Cardiomegaly is noted. Left ventricular blood poo l attenuation is less than that of the interventricular septum, consistent with anemia. The liver is hyperattenuating and demonstrates a nodular contour. The spleen gallbladder are absent. The pancreas and adrenal glands are normal. There is a 1.3 cm cyst of the left kidney. The right kidney is unremar kable. No pathologically enlarged abdominal or pelvic lymph nodes are identified. Incidental note is made of multiple hyperattenuating periportal lymph nodes, likely related to prior blood transfusions. There is no free intraperitoneal gas or evidence of bowel obstruction. Again noted are multiple age- shaped lumbar vertebral bodies with endplate depressions and bone infarcts related to history of sick le cell disease. IMPRESSION: 1. No acute findings. 2. 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 3. Cardiomegaly. Reviewed, dictated and finalized at location A.
--- NOTE | ~2019-11-12 | CT_ITS ---
EXAMINATION: CT brain wo con INDICATION: Headache COMPARISON: 08/04/2019 TECHNIQUE: Standard unenhanced head CT. The dose-length product (DLP) was 605.33 mGy-cm. The mA was a djusted according to patient size. Iterative reconstruction technique was employed. FINDINGS: There is no intracranial hemorrhage, acute infarction, or abnormal mass lesion. The ventric les are normal. There is no abnormal mass effect or midline shift. The gomez-white matter differentiat ion is normal. The basal cisterns are patent. The orbits are normal. The paranasal sinuses, mastoids and calvarium are normal. IMPRESSION: 1. No acute intracranial abnormality. Reviewed, dictated and finalized at location A.
[2019-11-12 17:26] VITALS: BP 149/77; PULSE 83; RESP 16; TEMP 37.2; O2SAT 98
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
[2019-11-12 19:06] LABS: Basophils Percent Auto 0.1 % (0.2-1.2); Immature Granulocyte Absolute 0.44 K/mm3 (0.00-0.031); Immature Granulocyte Percent A 2.9 % (0-0.5); Immature Reticulocyte Fraction 42.5 % (3.0-15.9); Lymphocytes Absolute Auto 1.13 K/mm3 (0.9-3.2); Lymphocytes Percent Auto 7.4 % (18.3-44.2); Mean Corpuscular HGB Conc 32.6 g/dl (32-36); Mean Corpuscular Hemoglobin 30.1 pg (26-34); Mean Corpuscular Volume 92.2 fl (80-100); Mean Platelet Volume 11.8 fl (7.4-10.4); Monocytes Percent Auto 6.3 % (2.6-8.5); Neutrophils Absolute Auto 12.8 K/mm3 (1.3-6.7); Neutrophils Percent Auto 83.3 % (45.5-73.1); Nucleated Red Blood Cells Absolute Auto 0.4 K/mm3 (0.0-0.012); Nucleated Red Blood Cells Perc 2.5 % (0.0-0.2); Platelet Count Result 265 k/mm3 (150-375); Red Blood Count 1.93 M/mm3 (4.6-6.20); Red Cell Distribution Width 19.8 % (11.5-14.5); Reticulocyte Hemoglobin Conten 35.5 pg (28.2-35.7); Reticulocyte Percent 7.95 % (0.7-4.3); Reticulocytes Absolute 0.15 B/L (32.2-175.7); White Blood Count 15.4 K/mm3 (4.5-10.0)
[2019-11-12 19:09] LABS: Hematocrit 17.8 % (42.0-52.0); Hemoglobin 5.8 g/dL (14.0-18.0)
--- NOTE | 2019-11-12 19:10 | PC.NURSE ---
Report to AUGIE Foreman, to continue care.
[2019-11-12 19:15] LABS: Partial Thromboplastin Time 33.2 SECONDS (22.3-36.8)
[2019-11-12 19:20] LABS: Blood Urea Nitrogen 33 mg/dL (9-20); Calcium 9.5 mg/dL (8.4-10.2); Carbon Dioxide 27 mmol/L (22-30); Chloride 102 mmol/L (98-107); Estimated CRCL calculation 42 ml/min; Estimated Glomerular Filt Rate > 60; Glucose 107 mg/dL (75-110); Potassium 3.3 mmol/L (3.4-5.0); Prothrombin Time 12.4 Seconds (11.1-14.7); Sodium 139 mmol/L (137-145)
[2019-11-12 19:57] VITALS: BP 167/79; PULSE 66; RESP 18; O2SAT 95
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
[2019-11-12] MEDS: SODIUM CHLORIDE 0.9% IV 50 ML 999 ML (21:20)
[2019-11-12] MEDS: predniSONE 20 MG TABLET 60 MG PO (21:28)
[2019-11-12 21:48] VITALS: BP 138/70; PULSE 78; RESP 16; O2SAT 97
[2019-11-12 22:00] VITALS: BP 161/70; PULSE 87; RESP 20; TEMP 36.2; O2SAT 96; BMI 22.6
--- NOTE | 2019-11-12 22:01 | ADMGEN ---
This patient, Jaden Gonzalez, was admitted to 2 Medical Room 243-01 @ 2200. Patient/family oriented to hospital policies and general routines including ID bracelet, bed and alarms, visiting hours, pain management, procedures, bathroom and other care routines, personal items, smoking policy, room service/diet, and visiting hours. Valuables list has been completed. Information on how to activate the Rapid Response Team has been discussed. Patient/Family are encouraged to report perceived risks to care and to ask questions if they do not understand what they are told or what they should do.
[2019-11-12 22:53] LABS: Glucose Point of Care 75 (65-105)
[2019-11-13] VITALS (13 sets, daily range): BP systolic 152–191; BP diastolic 67–88; PULSE 71–92; RESP 16–20; TEMP 36.5–36.8; O2SAT 90–99
[2019-11-13] MEDS: SODIUM CHLORIDE 0.9% IV 250 ML 30 ML IV CONT (00:16)
[2019-11-13] MEDS: POTASSIUM CHLORIDE 20 MEQ TABLET PO (02:24)
[2019-11-13] MEDS: CENTRAL LINE FLUSH 10 ML IV PUSH ×3 (02:24→22:00)
--- NOTE | 2019-11-13 03:39 | PC.NURSE ---
0215 in patients room and he stated, It is time to get high! I need something for itching and need my Dilaudid increased to at least 2mg. I am hurting everywhere I explained to him I will need to call the DR to let her know your request.
--- NOTE | 2019-11-13 03:42 | PC.NURSE ---
At 0245 checked on Patient and he is resting with his eyes closed and snoring.
--- NOTE | 2019-11-13 03:46 | PC.NURSE ---
AT 0100 PT IS PLAYING ON HIS COMPUTER, LAUGHING AND PLAYING MUSIC. HE IS EATING A BOXED LUNCH. NO COMPLAINTS AT THIS TIME.
[2019-11-13 07:43] LABS: Glucose Point of Care 380 (65-105)
[2019-11-13] MEDS: INSULIN ASPART (*BKC) 100 UNITS/ML SUB-Q ×3 (07:49→16:20)
[2019-11-13] MEDS: FOLIC ACID 1 MG TABLET PO (08:52)
[2019-11-13] MEDS: GABAPENTIN 100 MG CAPSULE PO ×2 (08:52→21:11)
[2019-11-13] MEDS: atenoloL 50 MG TABLET PO (08:52)
[2019-11-13] MEDS: metFORMIN HCL 500 MG TABLET PO (08:53)
[2019-11-13] MEDS: FUROSEMIDE 20 MG TABLET PO (08:53)
[2019-11-13] MEDS: AMLODIPINE BESYLATE 2.5 MG TABLET PO (08:53)
[2019-11-13] MEDS: hydrALAZINE HCL 50 MG TABLET PO ×2 (08:53→21:10)
[2019-11-13] MEDS: hydroCHLOROthiazide 25 MG TABLET PO ×2 (08:55→16:19)
[2019-11-13] MEDS: lisinopriL 10 MG TABLET PO (08:55)
[2019-11-13] MEDS: predniSONE 20 MG TABLET 60 MG PO ×2 (08:55→16:20)
[2019-11-13] MEDS: PANTOPRAZOLE 40 MG TABLET PO (08:55)
[2019-11-13 11:53] LABS: Hematocrit 24.5 % (42.0-52.0); Hemoglobin 8.1 g/dL (14.0-18.0)
[2019-11-13 12:12] LABS: Glucose Point of Care 345 (65-105)
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
[2019-11-13 16:18] LABS: Glucose Point of Care 291 (65-105)
[2019-11-13] MEDS: SODIUM CHLORIDE 0.9% IV 1,000 ML 125 ML IV CONT (19:48)
[2019-11-13] MEDS: TAMSULOSIN HCL 0.4 MG CAPSULE PO (21:11)
[2019-11-13 21:21] LABS: Glucose Point of Care > 500 (65-105)
[2019-11-13 21:21] LABS: Glucose Point of Care > 500 (65-105)
[2019-11-13] MEDS: INSULIN GLARGINE (LANTUS) 1,000 UNITS/10 ML VIAL 30 UNITS SUB-Q (21:34)
[2019-11-13] MEDS: INSULIN ASPART (*BKC) 100 UNITS/ML 10 UNITS SUB-Q (21:34)
[2019-11-14 00:33] LABS: Glucose Point of Care 388 (65-105)
[2019-11-14] MEDS: INSULIN ASPART (*BKC) 100 UNITS/ML 8 UNITS SUB-Q (00:50)
[2019-11-14] MEDS: SODIUM CHLORIDE 0.9% IV 1,000 ML 125 ML IV CONT (04:19)
[2019-11-14 04:53] LABS: Basophils Percent Auto 0.1 % (0.2-1.2); Eosinophils Percent Auto 0.1 % (0-4.4); Hematocrit 24.6 % (42.0-52.0); Hemoglobin 8.2 g/dL (14.0-18.0); Immature Granulocyte Absolute 0.49 K/mm3 (0.00-0.031); Immature Granulocyte Percent A 3.4 % (0-0.5); Lymphocytes Absolute Auto 1.31 K/mm3 (0.9-3.2); Lymphocytes Percent Auto 9.2 % (18.3-44.2); Mean Corpuscular HGB Conc 33.3 g/dl (32-36); Mean Corpuscular Hemoglobin 30.7 pg (26-34); Mean Corpuscular Volume 92.1 fl (80-100); Mean Platelet Volume 11.5 fl (7.4-10.4); Monocytes Absolute Auto 2.2 K/mm3 (0.1-0.6); Monocytes Percent Auto 15.8 % (2.6-8.5); Neutrophils Absolute Auto 10.2 K/mm3 (1.3-6.7); Neutrophils Percent Auto 71.4 % (45.5-73.1); Nucleated Red Blood Cells Absolute Auto 2.9 K/mm3 (0.0-0.012); Nucleated Red Blood Cells Perc 20.5 % (0.0-0.2); Platelet Count Result 241 k/mm3 (150-375); Red Blood Count 2.67 M/mm3 (4.6-6.20); Red Cell Distribution Width 18.6 % (11.5-14.5); White Blood Count 14.2 K/mm3 (4.5-10.0)
[2019-11-14 05:11] LABS: Alanine Aminotransferase 76 U/L (4-50); Albumin Level 3.9 g/dL (3.5-5.1); Alkaline Phosphatase 219 U/L (38-126); Aspartate Amino Transferase 47 U/L (17-59); Bilirubin,Total 6.6 mg/dL (0.2-1.3); Blood Urea Nitrogen 27 mg/dL (9-20); Calcium 9.5 mg/dL (8.4-10.2); Carbon Dioxide 30 mmol/L (22-30); Chloride 103 mmol/L (98-107); Estimated CRCL calculation 53 ml/min; Estimated Glomerular Filt Rate > 60; Glucose 276 mg/dL (75-110); Potassium 3.8 mmol/L (3.4-5.0); Sodium 137 mmol/L (137-145)
[2019-11-14 05:27] LABS: Platelet Estimate Adequate (Adequate); Sickle Cells 2+ (NORMAL); Stomatocytes 2+ (NORMAL)
[2019-11-14 06:00] VITALS: BP 155/72; PULSE 69; RESP 20; TEMP 36.4; O2SAT 98
[2019-11-14] MEDS: CENTRAL LINE FLUSH 10 ML IV PUSH (06:45)
[2019-11-14] MEDS: CYCLOBENZAPRINE HCL 10 MG TABLET PO (07:39)
[2019-11-14] MEDS: INSULIN GLARGINE (LANTUS) 1,000 UNITS/10 ML VIAL 30 UNITS SUB-Q (07:50)
[2019-11-14] MEDS: FOLIC ACID 1 MG TABLET PO (07:52)
[2019-11-14] MEDS: lisinopriL 10 MG TABLET PO (07:52)
[2019-11-14] MEDS: hydrALAZINE HCL 50 MG TABLET PO (07:52)
[2019-11-14] MEDS: predniSONE 20 MG TABLET 60 MG PO (07:52)
[2019-11-14] MEDS: PANTOPRAZOLE 40 MG TABLET PO (07:52)
[2019-11-14] MEDS: metFORMIN HCL 500 MG TABLET PO (07:52)
[2019-11-14] MEDS: GABAPENTIN 100 MG CAPSULE PO (07:52)
[2019-11-14 07:53] VITALS: PULSE 84
[2019-11-14] MEDS: FUROSEMIDE 20 MG TABLET PO (07:53)
[2019-11-14] MEDS: AMLODIPINE BESYLATE 2.5 MG TABLET PO (07:53)
[2019-11-14] MEDS: atenoloL 50 MG TABLET PO (07:53)
[2019-11-14 08:17] LABS: Glucose Point of Care 182 (65-105)
[2019-11-14] MEDS: hydroCHLOROthiazide 25 MG TABLET PO (09:33)
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
[2019-11-14 11:43] LABS: Glucose Point of Care 256 (65-105)
[2019-11-14] MEDS: INSULIN ASPART (*BKC) 100 UNITS/ML SUB-Q (11:53)
[2019-11-14] MEDS: HEPARIN SOD FLUSH 500 UNITS/5 ML SYRINGE IV PUSH (12:55)
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
== END 2019-11-14 13:23 | disposition home or self-care (01) | DRG 812 ==
LOC: ANHED 21:16 → ANH2MED 21:21
PROVIDERS: Admitting Provider Internal Medicine; Emergency Provider Emergency Medicine; PCP Emergency Medicine; Visit Provider Internal Medicine
DX: D57.419 Sickle-cell thalassemia, unspecified, with crisis (principal); D61.818 Other pancytopenia; D57.4 Sickle-cell thalassemia; E87.6 Hypokalemia; E11.65 Type 2 diabetes mellitus with hyperglycemia; T38.0X5A Adverse effect of glucocorticoids and synthetic analogues, initial encounter; K74.60 Unspecified cirrhosis of liver; I12.9 Hypertensive chronic kidney disease with stage 1 through stage 4 chronic kidney disease, or unspecified chronic kidney disease; E11.22 Type 2 diabetes mellitus with diabetic chronic kidney disease; N18.9 Chronic kidney disease, unspecified; D59.1 Other autoimmune hemolytic anemias; F41.9 Anxiety disorder, unspecified; F32.9 Major depressive disorder, single episode, unspecified; Z79.01 Long term (current) use of anticoagulants; Z79.4 Long term (current) use of insulin; Z86.718 Personal history of other venous thrombosis and embolism; Z86.711 Personal history of pulmonary embolism; Z90.49 Acquired absence of other specified parts of digestive tract
CPT/HCPCS: 36415; 36430; 70450; 71045; 72125; 74176; 80048; 80053; 85014; 85018; 85025; 85046; 85610; 85730; 86850; 86900; 86901; 86902; 86922; 96374; 96375; 96376; 99285; A9270; G0378; J1170; J1200; J1642; J1815; J7030; J7050; J7512; P9016